=== PATIENT | male | born 1945 | race Caucasian/White ===

== ENCOUNTER → 2017-06-15 | Outpatient (CLI) | payer OTHER ==
[~2017-06-15] MED LIST: ACET-1138 PO; ALT5 PO; ASPEC81 PO; ATOR-54 PO; CLB200 PO; CLOP1TAB15 PO; GADAVIST IV PRN; METO25TA3 PO; MULT-506 PO; NIAC500T11 PO; NITR0.4S UT; OXYSR10 PO; RXC5 PO
--- NOTE | 2017-06-15 17:53 | DIAGNOSTIC IMAGING REPORT ---
MRI OF THE BRAIN WITHOUT AND WITH IV CONTRAST CLINICAL HISTORY: Dizziness. Imbalance. COMPARISON STUDY: Head CT November 17, 2013. TECHNIQUE: Utilizing a 1.5 Ami magnet and dedicated coil, multiplanar, multiecho imaging of the brain was performed pre and postcontrast administration. IV administration of 11 mL of Gadavist contrast was uneventful. FINDINGS: No foci of restricted diffusion are noted. No acute intracranial hemorrhage, midline shift or mass effect is present. Ventricular dilatation is unchanged since head CT of November 17, 2013 and likely due to atrophy. Basilar cisterns are patent. There are no extra-axial collections. Flow-voids for the major intracranial vessels are present. There is no intracranial mass or pathologic enhancement. There is moderate polypoid mucosal thickening of the left maxillary sinus. There is mild mucosal thickening of the ethmoid and sphenoid sinuses. Calvarial signal is unremarkable. Moderate white matter T2 hyperintense foci suggest small vessel disease. There is no fluid within the mastoid air cells. No mass within the internal auditory canals or cerebellopontine angles is identified on this nondedicated exam. IMPRESSION: 1. No acute intracranial findings. 2. No intracranial mass or pathologic enhancement. 3. Moderate small vessel disease and atrophy. Electronically signed by: Segundo Jameson M.D. 06/15/2017 5:52 PM Dictated Date/Time: 06/15/2017 5:47 PM
== END | disposition home or self-care (01) ==
LOC: C.MRI 16:56
PROVIDERS: ATTEND Psychiatry & Neurology Neurology
DX: R26.89 Other abnormalities of gait and mobility (principal)

== ENCOUNTER 2017-10-13 03:07 | Emergency (ER) | payer OTHER ==
[~2017-10-13] VITALS: Ht 172.7 cm; Wt 110.5 kg
[~2017-10-13 03:07] MED LIST changes: -GADAVIST IV PRN
[2017-10-13 03:12] VITALS: TEMP 37.1; Ht 172.7 cm; Wt 110.5 kg
[2017-10-13] MEDS ORDERED: SODIUM CHLORIDE 0.9% 500ML 500 ML IV STA (03:26)
[2017-10-13] MEDS ORDERED: KETOROLAC TROMETHAMINE 30 MG/ML VIAL IV STA (03:26)
--- NOTE | 2017-10-13 03:33 | EMERGENCY ROOM VISIT NOTE ---
History First contact with patient: 03:17 Chief Complaint: WEAKNESS Stated Complaint: DIZZINESS,BACK PAIN,UNABLE TO GET OUT OF BED Nursing Triage Summary: Patient reports unsteady on feet, tremors that he is currently being evaluated for. Patient reports heavy lifting yesterday and back pain. Patient wearing halter monitor. History of Present Illness The patient is a 72 year old male who presents to the Emergency Room for evaluation of low back pain. Notes that he was working hard yesterday lifting blocks making a wall. Went to bed this evening with low back soreness. Awoke a few hours later with severe low back pain and difficulty standing due to pain. Associated with nothing. No fevers, chills, nausea, vomiting, urinary burning, abdominal pain, leg pain, leg swelling, rashes, cp, sob, headache, neck pain. There is no radiation of pain. He has chronic urinary frequency/ urgency which is unchanged. He has taken no medications for this. He had no trauma nor injury nor fall. Denies leg weakness, bowel changes nor changes in bladder (admits urinary issues stable). Walking/sitting up makes worse. Laying flat/still makes better. Notes chronic dizziness, shaking, and ambulatory disfunction which he follows with PCP/Neurologist for and these are not worsened. He has cardiac LBBB for which he has continuous monitor. Denies previous back issues. Takes Plavix though no Coumadin, Xarelto etc. Review of Systems See HPI for pertinent positives & negatives. A total of 10 systems reviewed and were otherwise negative. Past Medical/Surgical History Medical Problems: (1) Arthritis of knee (2) CAD (coronary artery disease) (3) Carpal tunnel syndrome (4) Hernia, diaphragmatic Surgical Problems: (1) Hx of appendectomy (2) Hx of CABG (3) S/P appendectomy (4) S/P CABG (coronary artery bypass graft) 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 Smoking Status: Former Smoker Drug Use: none Marital Status: Housing Status: lives with family Occupation Status: employed Current/Historical Medications Scheduled Aspirin Enteric Coated (Ecotrin Or Generic), 81 MG PO HS Atorvastatin (Lipitor), 20 MG PO HS Celecoxib (CeleBREX), 200 MG PO HS Clopidogrel (Plavix), 75 MG PO HS Metoprolol Succ (Toprol Xl) (Toprol-Xl), 12.5 MG PO HS Multivitamin (Multivitamin), 1 TAB PO HS Niacin (Niacin), 500 MG PO HS Nitroglycerin (Nitrostat), 0.4 MG UT PRN Ramipril (Ramipril), 5 MG PO HS Scheduled PRN Acetaminophen (Tylenol), 1,000 MG PO DIRECTED PRN for Pain Diazepam (Valium), 1 TAB PO BID PRN for Pain Physical Exam Vital Signs Date Time Temp Pulse Resp B/P (MAP) Pulse Ox O2 Delivery O2 Flow Rate FiO2 10/13/17 05:54 78 16 130/76 98 10/13/17 04:54 71 16 134/71 94 Room Air 10/13/17 03:12 37.1 97 18 109/67 93 Room Air Physical Exam GENERAL: Patient is well appearing and in mild distress. EYES: No scleral icterus, unremarkable pupils. ENT: Mucous membranes moist, no nasal congestion. NECK: No masses appreciated, no meningismus, trachea is midline. RESPIRATORY: No dyspnea. Clear to auscultation and equal bilaterally. No wheeze , no rhonchi. CARDIOVASCULAR: Regular rate and rhythm. Halter Monitor left upper chest. No murmurs, rubs, gallops appreciated. GASTROINTESTINAL: Abdomen soft, nontender, no peritonitis. Bowel sounds positive. No masses appreciated. BACK: No midline tenderness, there is TTP over bilateral lumbar paraspinal muscles with spasm, no CVA tenderness EXTREMITIES: Normal motion all extremities, no cyanosis, no edema. NEUROLOGIC: Persistent tremor in hands/jaw (chronic per ). Alert and oriented, no acute motor or sensory deficits, no focal weakness, cranial nerves grossly intact. SKIN: No rash, no jaundice, no diaphoresis. Medical Decision & Procedures Laboratory Results 10/13/17 03:30 Red Blood Count 5.17, Mean Corpuscular Volume 87.8, Mean Corpuscular Hemoglobin 29.8, Mean Corpuscular Hemoglobin Concent 33.9, Mean Platelet Volume 10.2, Neutrophils (%) (Auto) 63.6, Lymphocytes (%) (Auto) 20.1, Monocytes (%) (Auto) 15.1, Eosinophils (%) (Auto) 0.8, Basophils (%) (Auto) 0.2, Neutrophils # (Auto ) 4.09, Lymphocytes # (Auto) 1.29, Monocytes # (Auto) 0.97, Eosinophils # (Auto ) 0.05, Basophils # (Auto) 0.01 10/13/17 03:30 Test 10/13/17 03:30 10/13/17 05:00 White Blood Count 6.42 K/uL (4.8-10.8) Red Blood Count 5.17 M/uL (4.7-6.1) Hemoglobin 15.4 g/dL (14.0-18.0) Hematocrit 45.4 % (42-52) Mean Corpuscular Volume 87.8 fL (80-100) Mean Corpuscular Hemoglobin 29.8 pg (25-34) Mean Corpuscular Hemoglobin Concent 33.9 g/dl (32-36) Platelet Count 179 K/uL (130-400) Mean Platelet Volume 10.2 fL (7.4-10.4) Neutrophils (%) (Auto) 63.6 % Lymphocytes (%) (Auto) 20.1 % Monocytes (%) (Auto) 15.1 % Eosinophils (%) (Auto) 0.8 % Basophils (%) (Auto) 0.2 % Neutrophils # (Auto) 4.09 K/uL (1.4-6.5) Lymphocytes # (Auto) 1.29 K/uL (1.2-3.4) Monocytes # (Auto) 0.97 K/uL (0.11-0.59) Eosinophils # (Auto) 0.05 K/uL (0-0.5) Basophils # (Auto) 0.01 K/uL (0-0.2) RDW Standard Deviation 46.4 fL (36.4-46.3) RDW Coefficient of Variation 14.5 % (11.5-14.5) Immature Granulocyte % (Auto) 0.2 % Immature Granulocyte # (Auto) 0.01 K/uL (0.00-0.02) Anion Gap 4.0 mmol/L (3-11) Est Creatinine Clear Calc Drug Dose 87.5 ml/min Estimated GFR () 96.0 Estimated GFR (Non- 82.8 BUN/Creatinine Ratio 16.7 (10-20) Calcium Level 8.8 mg/dl (8.5-10.1) Total Creatine Kinase 88 U/L (39-308) Urine Color DK YELLOW Urine Appearance CLEAR (CLEAR) Urine pH 5.5 (4.5-7.5) Urine Specific [place] 1.026 (1.000-1.030) Urine Protein NEG (NEG) Urine Glucose (UA) NEG (NEG) Urine Ketones NEG (NEG) Urine Occult Blood NEG (NEG) Urine Nitrite NEG (NEG) Urine Bilirubin NEG (NEG) Urine Urobilinogen NEG (NEG) Urine Leukocyte Esterase TRACE (NEG) Urine WBC (Auto) 1-5 /hpf (0-5) Urine RBC (Auto) 0-4 /hpf (0-4) Urine Hyaline Casts (Auto) 5-10 /lpf (0-5) Urine Epithelial Cells (Auto) >30 /lpf (0-5) Urine Bacteria (Auto) NEG (NEG) Medications Administered Medications (Trade) Dose Ordered Sig/Angelita Route Start Time Stop Time Status Last Admin Dose Admin Ketorolac Tromethamine (Toradol Inj) 10 mg NOW STAT IV 10/13/17 03:26 10/13/17 03:28 DC 10/13/17 03:50 10 MG Sodium Chloride 500 ml @ 999 mls/hr Q31M STAT IV 10/13/17 03:26 10/13/17 03:56 DC 10/13/17 03:50 999 MLS/HR Medical Decision Differential: Musculoskeletal, Disc Herniation, Fracture, Cord Compression, Discitis, Infectious, Aortic Pathology, Renal Colic, UTI/Pyelonephritis, Acute Exacerbation of Chronic Pain, Sciatica, Cauda Equina, amongst other pathologies entertained. 72 yr old male arrives for evaluation of acute low back pain without neurologic deficits after lifting heavy blocks all yesterday. Seems muscular in nature though felt xrays reasonable which reveal some anterolisthesis and degenerative changes without fractures appreciated. Symptoms bearable with some IV toradol and fluids. No evidence of cauda equina, sciatica, infectious, colic, aortic nor other acute pathology. 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 Furthermore we discussed symptoms requiring emergent RTED. Head Trauma GCS Score: 15 Medication Reconcilliation Current Medication List: was personally reviewed by me Blood Pressure Screening Patient's blood pressure: Normal blood pressure Impression Primary Impression: Acute lumbar back pain Departure Information Dispostion Home / Self-Care Condition GOOD Prescriptions Diazepam (VALIUM) 5 Mg Tab 1 TAB PO BID Y for Pain, #10 TAB Prov: Ricardo Reyna M.D. 10/13/17 Referrals Crystal Walter DO (PCP) Patient Instructions Low Back Pain Self Care, [facility] Additional Instructions You have received a benzodiazepine medication prescription. These medications may cause drowsiness and should not be used with other sedative medications. Do not drive, drink alcohol, perform dangerous activities, nor make important decisions after taking these medications. oil heaterman use or inappropriate use may lead to addiction. 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
[2017-10-13] MEDS ORDERED: ACET-1256 PO (03:35)
[2017-10-13] MEDS ORDERED: RAMI5CAP PO (03:35)
[2017-10-13] MEDS ORDERED: CLB/200 PO (03:35)
[2017-10-13] MEDS ORDERED: ASPI-319 PO (03:35)
[2017-10-13 03:44] LABS: BASO % 0.2 %; BASO ABS # 0.01 K/uL (0-0.2); EOS % 0.8 %; EOS ABS # 0.05 K/uL (0-0.5); HEMATOCRIT 45.4 % (42-52); HEMOGLOBIN 15.4 g/dL (14.0-18.0); IG# 0.01 K/uL (0.00-0.02); LYMPH % 20.1 %; LYMPH ABS # 1.29 K/uL (1.2-3.4); MEAN CELL VOLUME 87.8 fL (80-100); MEAN CORPUSCULAR HEMOGLOBIN 29.8 pg (25-34); MEAN CORPUSCULAR HGB CONC 33.9 g/dl (32-36); MEAN PLATELET VOLUME 10.2 fL (7.4-10.4); MONO % 15.1 %; MONO ABS # 0.97 K/uL (0.11-0.59); NEUT % 63.6 %; NEUT ABS # 4.09 K/uL (1.4-6.5); PLATELET COUNT 179 K/uL (130-400); RED CELL DISTRIBUTION WIDTH CV 14.5 % (11.5-14.5); RED CELL DISTRIBUTION WIDTH SD 46.4 fL (36.4-46.3); WHITE BLOOD COUNT 6.42 K/uL (4.8-10.8)
[2017-10-13 04:12] LABS: CALCIUM 8.8 mg/dl (8.5-10.1); CREATININE 0.92 mg/dl (0.60-1.40)
[2017-10-13] MEDS ORDERED: DIAZEPAM 5MG TAB PO STA (05:37)
[2017-10-13] MEDS ORDERED: DIAZ5TAB3 PO (05:38)
[2017-10-13 05:54] VITALS: BP 130/76; PULSE 78; O2SAT 98
--- NOTE | 2017-10-13 06:58 | DIAGNOSTIC IMAGING REPORT ---
L-SPINE MIN 4 VIEWS ROUTINE HISTORY: Pain low back pain/spasm after lifting blocks yesterday COMPARISON: None. FINDINGS: There is no fracture. Minimal grade 1 anterolisthesis L4 on L5. This appears to be secondary to degenerative changes of posterior elements. No evidence for compression deformity. Moderate degenerative disc change primarily from L3 through S1. IMPRESSION: 1. Moderate degenerative changes mid to lower lumbar region. 2. No acute process. 3. Minimal grade 1 anterolisthesis L4 and L5 secondary to degenerative changes of the posterior elements. The above report was generated using voice recognition software. It may contain grammatical, syntax or spelling errors. Electronically signed by: Tristan Anand M.D. 10/13/2017 6:57 AM Dictated Date/Time: 10/13/2017 6:56 AM
== END 2017-10-13 05:55 | disposition home or self-care (01) ==
LOC: C.EDB 03:09
DX: M54.5 Low back pain (principal); X50.0XXA Overexertion from strenuous movement or load, initial encounter; R39.15 Urgency of urination; R35.0 Frequency of micturition; I44.7 Left bundle-branch block, unspecified; R25.1 Tremor, unspecified; M17.10 Unilateral primary osteoarthritis, unspecified knee; I25.10 Atherosclerotic heart disease of native coronary artery without angina pectoris; Z95.1 Presence of aortocoronary bypass graft; Z87.891 Personal history of nicotine dependence; Z79.82 Long term (current) use of aspirin; Z79.01 Long term (current) use of anticoagulants; Z79.899 Other long term (current) drug therapy

== ENCOUNTER 2018-06-08 07:20 | Observation (INO) ==
[~2018-06-08 07:20] MED LIST changes: -ACET-1138 PO; -ALT5 PO; -ASPEC81 PO; -ATOR-54 PO; +CEFAZOLIN 1000MG 1,000 MG/7.5 ML SYR IV SCH; -CLB200 PO; -CLOP1TAB15 PO; -METO25TA3 PO; -MULT-506 PO; -NIAC500T11 PO; -NITR0.4S UT; -OXYSR10 PO; +PATIENT'S HEIGHT AND/OR WEIGHT NEEDED SCH; -RXC5 PO
[2018-06-08] MEDS ORDERED: BUPIVACAINE 0.25% 30 ML VIAL ONE (07:45)
[2018-06-08] MEDS ORDERED: LIDOCAINE HCL 1% 20 ML VIAL ONE (07:45)
[2018-06-08] MEDS ORDERED: BACITRACIN INJ 50,000 UNIT VIAL ONE (07:45)
--- NOTE | 2018-06-08 08:15 | History & Physical Bridge Note ---
Date of Service June 08, 2018 History & Physical Bridge Note I have examined the patient, reviewed the History & Physical and in the interval since the performance of the History & Physical I have noted the following changes of clinical significance: no changes noted
--- NOTE | 2018-06-08 08:16 | Pre Anesthesia Assessment ---
Date of Service June 08, 2018 Pre Sedation Assessment Cardiovascular RRR, no murmur, no edema + bradycardic Respiratory normal respiratory effort, lungs clear to auscultation Pre-Sedation Airway Assessment Smoking Status: Former smoker Hx Sleep Apnea: No Hx Difficult Intubation: No Short, Thick Neck: No Thyromental Distance: < 3.5 Finger Breadths Oral Cavity: + Dentures Mallampati Class: II ASA: ASA3 Notes The planned sedation has been discussed with the patient. Informed Consent was obtained. I have identified the patient, determined the appropriateness of sedation and have assessed the patient immediately prior to the procedure. All medicine(s) and interventions are by my order.
[2018-06-08] MEDS ORDERED: fentaNYL citrate 100 MCG/2 ML VIAL ONE ×2 (08:53→09:28)
[2018-06-08] MEDS ORDERED: CEFAZOLIN 250 MG/ML 1 GM VIAL ONE (08:54)
[2018-06-08] MEDS ORDERED: MIDAZOLAM HCL 5 MG/ML 1 ML VIAL ONE (08:54)
[2018-06-08] MEDS ORDERED: WATER, STERILE FOR INJ 10 ML VIAL ONE (08:54)
[2018-06-08] MEDS ORDERED: MIDAZOLAM HCL 1 MG/ML 2ML VIAL ONE (09:47)
[2018-06-08] MEDS ORDERED: DOPamine 400MG / 250ML D5W IV ONE (10:28)
--- NOTE | 2018-06-08 11:20 | Post Anesthesia Assessment ---
Date of Service June 08, 2018 Post Sedation Assessment Vital Signs Temp Pulse Resp BP Pulse Ox 06/08/18 08:21 36.5 C 56 L 16 145/86 H 95 Recovery Score Activity: Moves 4 extremities Respiration: Deep Breath/Cough Circulation: +/-20% PreAnes Value Consciousness: Fully Awake Oxygen Saturation: > 92% On Room Air Discharge Sedation Level of Care: Fast Track Phase II Post Sedation Plan On clinical assessment, the patient appears to have tolerated the sedation without complications. Patient is recovering as anticipated. Patient will continue to be monitored by nursing and may be discharged when sedation discharge criteria are met per below protocol. Upon Completions of procedure and additional 15 minutes continue every 5 minute vital signs and the P.A.R. score; then discharge to a Phase I or Fast Track to Phase II per the following guidelines: * Discharge Patient to appropriate Phase II area if PAR is 8 or greater or return to pre- procedure baseline. The post - procedure orders will be as directed. * If PAR score is less than 8 or not return to pre-procedure baseline then patient will follow Phase I monitoring till PAR is reached for Phase II. The Phase I may be done in procedure room or may call to secure a Phase I area. * If naloxone or flumazenil are used for reversal, hold in Phase I for continued monitoring from when last reversal dose was given for a minimum of 60 minutes or longer pending the nurse and/or physician discretion of patient condition before discharge to Phase II. Please call the Sedation Physician to re-evaluate and complete post-note for discharge to Phase II area. Do NOT discharge from procedure sedation or Phase 1 until post- sedation evaluation note is complete by procedure /sedation MD Sedation Discharge Instructions to be given to the patient at discharge to home.
[2018-06-08] MEDS ORDERED: ACETAMINOPHEN 325 MG TAB PO PRN (11:22)
[2018-06-08] MEDS ORDERED: OXYCODONE/ACETAMINOPHEN 5mg/325mg TAB PO PRN (11:22)
--- NOTE | 2018-06-08 11:22 | Operative Report ---
Post Operative Report Date of Surgery June 08, 2018 Pre & Post Diagnosis tbs Operation Date: 06/08/18 09:00 <No data on this case meets the specified criteria> Procedure Operation Date: 06/08/18 09:00 Actual Procedures p Pacer with A/V Leads (Dual) - Izabel Martel DO s Venogram Extremity Unilateral - Izabel Martel DO Surgeon Izabel Martel DO Single End Sewer none Estimated Blood Loss 50 Findings See Below (see official report) Specimens none I attest to the content of the Intraoperative Record and any orders documented therein. Any exceptions are noted below.
[2018-06-08] MEDS ORDERED: MoRPHine SULFATE 2 MG/ML CARP ONE (11:24)
--- NOTE | 2018-06-08 11:29 | Discharge Summary ---
Date of Service June 08, 2018 Admission HPI pt admitted for elective ppm due to TBS Admission Exam Per Admitting Provider aaox3, NAD NC/AT, EOMI Supple, No JVD Nrl S1/S2, no murmur CTA b/l No w/r/r soft NT/ND No edema b/l LE No focal deficits Skin intact Principal Diagnosis Principal Diagnosis TBS s/p dual chamber pacemaker Discharge Exam aaox3, NAD NC/AT, EOMI Supple, No JVD Nrl S1/S2, no murmur CTA b/l No w/r/r soft NT/ND No edema b/l LE No focal deficits Skin intact Left pectoral incision intact no hematoma Discharge Data Allergies Allergy/AdvReac Type Severity Reaction Status Date / Time No Known Allergies Allergy Verified 10/13/17 03:31 Procedures Performed Operation Date: 06/08/18 09:00 Actual Procedures p Pacer with A/V Leads (Dual) - Izabel Martel DO s Venogram Extremity Unilateral - Izabel Martel DO Ordered Studies 06/08/18 07:30 EP Lab Images for PACS ONCE Hospital Course (1) Tachy-rebecca syndrome: (2) PAT (paroxysmal atrial tachycardia): Total Time Total Time Spent Total Time Spent (In Minutes): 30 Total Time Includes: Examination of the Patient, Medication Reconciliation and Other Discharge Plan Discharge Items Patient Disposition: Home - Self-Care Reason For Visit: S/P PACER INSERTION Discharge Diagnosis: tbs s/p dual chamber ppm Condition: Good Discharge Goals: Improve function Activity: As commented below Activity Comment: do not lift the left elbow over the left shoulder for 1 month Lifting: No more than 10 pounds Lifting Comment: do not lift more than 10 pounds with the left arm for 2 weeks Bathing: May shower/bathe in 3 days Driving/Machine Use: Resume 3 days after discharge Non-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 contact: Forestry 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 Call non-emergency contact if: you have any medication questions Follow-up/Referrals: Crystal Walter [Primary Care Provider] - Diet: Heart Healthy Addtl Provider Instructions: none Prescriptions: New metoprolol succinate 25 mg Tablet Extended Release 24 Hr 25 mg PO QAM Qty: 30 RF: 0 Continue Multivitamin tablet 1 tab PO HS Qty: 0 RF: 0 Niacin 500 MG tablet 500 mg PO HS Qty: 0 RF: 0 ATORVASTATIN (LIPITOR) 20 MG tablet 20 mg PO HS Qty: 0 RF: 0 Clopidogrel (Plavix) 75 MG tablet 75 mg PO HS Qty: 0 RF: 0 NITROGLYCERIN (NITROSTAT) 0.4 MG SUB 0.4 mg UT PRN Qty: 0 RF: 0 Aspirin Enteric Coated (Ecotrin Or Generic) 81 MG tablet 81 mg PO HS Qty: 0 RF: 0 RAMIPRIL 5 MG capsule 5 mg PO HS Qty: 0 RF: 3 Flonase Allergy Relief 50 mcg aerosol 2 spray LINDA DAILY PRN (Reason: Nasal Congestion) RF: 0 escitalopram oxalate 10 mg tablet 10 mg PO DAILY RF: 0 Visit Report Forms: [facility] Discharge Orders: Discharge Order (Routine); Ordered 06/09/18 Ordered By: Izabel Martel Admission Data Admit Date/Time: 06/08/18 11:22 Attending Provider: Izabel Martel Admit Provider: Izabel Martel Primary Care Provider: Crystal Walter Service: Telemetry
[2018-06-08] MEDS ORDERED: FLUTICASONE PROPIONATE NA SPR 16 GM BTL PRN (12:00)
[2018-06-08] MEDS: METOPROLOL SUCC 25MG EXT REL TAB PO SCH (14:10)
[2018-06-08] MEDS ORDERED: CEFAZOLIN 1000MG 1,000 MG/7.5 ML SYR IV SCH (20:15)
[2018-06-08] MEDS ORDERED: NIACIN EXTENDED REL 500 MG TABCR PO SCH (21:00)
[2018-06-08] MEDS ORDERED: MULTIVITAMIN TAB PO SCH (21:00)
[2018-06-08] MEDS ORDERED: CLOPIDOGREL BISULFATE 75 MG TAB PO SCH (21:00)
[2018-06-08] MEDS ORDERED: ASPIRIN 81 MG ECTAB PO SCH (21:00)
[2018-06-08] MEDS ORDERED: ESCITALOPRAM OXALATE 10 MG TAB PO SCH (21:00)
[2018-06-08] MEDS ORDERED: ATORVASTATIN 20 MG TAB PO SCH (21:00)
[2018-06-08] MEDS ORDERED: ENALAPRIL MALEATE 10 MG TAB PO SCH (21:00)
--- NOTE | 2018-06-09 06:36 | XRay Report ---
XR chest 2V routine CLINICAL HISTORY: Pacemaker insertion. COMPARISON STUDY: Chest radiograph June 18, [address] August 12, 2015. FINDINGS: There is no pneumothorax following placement of a dual lead left subclavian pacemaker. Lead tips project over the right atrial appendage and right ventricle. There are median sternotomy wires and mediastinal surgical clips. Cardiomegaly is unchanged. There are calcified pleural plaques. Bilat eral shoulder arthroplasties are incidentally noted. There is no evidence for pulmonary edema. Modera te sized hiatal hernia is noted. IMPRESSION: No pneumothorax following placement of a dual lead left subclavian pacemaker. Electronically signed by: Segundo Jameson M.D. 06/09/2018 6:34 AM
[2018-06-09] MEDS: METOPROLOL SUCC 25MG EXT REL TAB PO SCH (07:42)
[2018-06-09] MEDS ORDERED: ESCITALOPRAM OXALATE 10 MG TAB PO SCH (09:00)
--- NOTE | 2018-06-23 22:24 | Operative Report ---
DATE OF OPERATION: 06/08/2018 PREOPERATIVE DIAGNOSIS: Tachy-rebecca syndrome. POSTOPERATIVE DIAGNOSIS: Same. PROCEDURE: Dual chamber rate responsive permanent pacemaker under fluoroscopic guidance along with a peripheral venogram. SURGEON: Izabel Martel DO [employer]CHOOL NURSE: None. ANESTHESIA: Moderate conscious sedation administered under my supervision by Duane Husain. Start time 8:59, end time 11:16, a total of 7 mg of Versed, 175 mcg of fentanyl. IV FLUIDS: 300 mL ANTIBIOTICS: 2 grams of Ancef. CONTRAST: 10 mL. BLOOD LOSS: Less than 20 mL. FINDINGS: See below. DRAINS: None. INDICATIONS: A 72-year-old gentleman with past medical history for paroxysmal atrial fibrillation, right bundle branch block, hypertension, sinus bradycardia, nonsustained VT, coronary artery disease with history of a CABG and PCI in the past, hyperlipidemia, obstructive sleep apnea on CPAP, and osteoarthritis. He has had recent evidence of tachy-rebecca syndrome and was recommended a pacemaker. CONSENT: Consent was obtained prior to the patient going to the electrophysiology lab. The patient was informed of the risks, benefits, and alternatives to the procedure. Risks include, but not limited to, sudden cardiac , cardiac arrhythmias, cerebrovascular accident, myocardial infarction, injury to blood vessels, chamber of the lung, bleeding, and infection. The patient understood these risks and agreed to go ahead with the procedure as planned. Informed consent was obtained. DESCRIPTION OF THE PROCEDURE: The patient was brought into the electrophysiology lab in a fasting state. Patient was connected to continuous ceo na. A timeout was performed to ensure patient's identity and procedure correctly. The patient was prepped and draped over the left infraclavicular space in normal surgical standard fashion. Monitored conscious sedation given throughout the procedure for patient's comfort level. Downing precautions were maintained throughout the procedure. A 10 mL of 1% lidocaine and bupivacaine mixture was given in the left deltopectoral groove. Incision was made in the left deltopectoral groove. Blunt dissection was performed down to identify cephalic vein. Initially, the cephalic vein was identified, however, and isolated using 0 silk ties and nicked with an 11 blade. However, I could never really insert the sheath very well over the Glidewire and ultimately I put the sheath the little bit in and found that the vein was dissected. So I tied off that vein and did a peripheral venogram to identify the axillary vein. Then with an axillary venous stick, venous access was obtained. A guidewire was inserted without any resistance. The 8-Eritrean sheath was inserted over the guidewire. Of note, his peripheral venogram did show that the subclavian vein was very tortuous. I did get a Glidewire down without any problems and an 8-Eritrean sheath through that guidewire, removed the dilator and was able to get a regular guidewire down for retained venous access. However, when trying to get the right ventricular lead in, due to the tortuosity of the proximal subclavian vein, I was having difficulty. I tried an 8-Eritrean sheath followed by a long Eritrean sheath and 9.5-Eritrean sheath. Ultimately, long Eritrean 9.5-Eritrean sheath worked and I was able to place the right ventricular pacing lead under fluoroscopic guidance in the apex with adequate pacing and sensing thresholds. I opted to keep the sheath in and then placed a second sheath through the retained venous access, a short sheath. I was able to place then the right atrial pacing lead into the right atrial appendage under fluoroscopic guidance. I ultimately needed to do the shi preformed stylet curve and there was adequate pacing and sensing thresholds and no diaphragmatic stimulation with high output pacing. Both sheaths were then peeled away and the leads were fixated to the pectoralis muscle using the 0 silk suture. I did put a pursestring in around too since there was some backbleeding at the site using a 2-[address] needle. Then, a pacemaker pocket was created using blunt dissection over the pectoralis muscle within the pectoralis fascia. Pocket was flushed with copious amounts of bacitracin and saline wash and inspected for hemostasis. The pulse generator was then attached to the leads, making sure that the pins were in appropriate position, passed set screws, and the screws were all tightened. Pulse generator was then placed in the pocket, making sure that the leads were lying flat beneath the device. A stay stitch using 0 silk suture was used to secure the device to the pectoralis muscle. The incision was then closed in a 3-layer fashion using 2-0 Vicryl interrupted suture followed by 3-0 Vicryl interrupted suture, followed by 4-0 Monocryl running stitch and Dermabond was applied. Before I closed, I did put Tere stat in the pocket as well. Also, during the case, when I was trying to position the right ventricular lead, I think I bumped the AV node a little bit because the patient did rebecca down a little bit and his blood pressure dropped, but this also did coincide with him getting another higher dose of sedation, but we did give a bolus of IV fluids and he remains to be able to hold on. EQUIPMENT: 1. Pulse generator is a [employer] Teresa XT DR RITIKA Baez [id number], serial number [id number]. 2. Right atrial lead, Med[employer]onic 5076-58 cm, serial number [id number]. 3. Right ventricular lead, Med[employer]onic 5076-65 cm, serial number [id number]. INTRAOPERATIVE TESTIN. Right atrial lead, P waves 1.5 millivolts, impedance 700 ohms, threshold 0.4 volts at 0.5 milliamps. 2. Right ventricular lead, R-wave 7.6 millivolts, impedance 1035 ohms, threshold 0.4 volts at 0.3 milliamps. FINAL MEASUREMENTS THROUGH THE DEVICE: 1. Right atrial lead: P waves 1.5 millivolts, impedance 608 ohms, threshold 0.5 volts at 0.4 milliseconds. 2. Right ventricular lead, R waves 11.5 millivolts, impedance 779 ohms, threshold 0.5 volts at 0.4 milliseconds. FINAL PARAMETERS: MVP-R 60/130, right atrial amplitude 3.5 volts, pulse width 0.4 milliseconds, sensitivity 0.3 millivolts. Right ventricular amplitude, 3.5 volts, pulse width 0.4 milliseconds, sensitivity 1.2 millivolts. IMPRESSION: Successful implantation of a dual chamber rate responsive permanent pacemaker under fluoroscopic guidance along with peripheral venogram secondary to tachy-rebecca syndrome. PLAN: Monitor patient overnight, 12-lead ECG, chest x-ray. He is not allowed to lift the left elbow or left shoulder for 1 month. He cannot lift more than 10 pounds with the left arm for 2 weeks. He can shower in 2 days, let water run over the incision, do not scrub it. He is to follow up in our device clinic in 7-10 days for device and wound check. I attest to the content of the Intraoperative Record and any orders documented therein. Any exception s are noted below.
== END 2018-06-09 10:25 | disposition home or self-care (01) ==
LOC: 2S 07:20 → ASU 07:20 → 2E 21:57

== ENCOUNTER 2022-02-17 06:45 | Observation (INO) ==
[2022-02-17 07:37] LABS: Basophils # (auto) 0.01 K/uL (0-0.2); Basophils % (auto) 0.1 %; Eosinophils # (auto) 0.29 K/uL (0-0.50); Eosinophils % (auto) 4.3 %; Hematocrit (blood only) 42.8 % (40.1-51.0); Hemoglobin 13.7 g/dl (14.0-18.0); Immature Granulocytes # (auto) 0.02 K/uL (0.00-0.02); Immature Granulocytes % (auto) 0.3 %; Lymphocytes # (auto) 1.38 K/uL (1.2-3.4); Lymphocytes % (auto) 20.6 %; Mean Corpuscular Hemoglobin 29.1 pg (25.0-34.0); Mean Corpuscular Volume 90.9 fL (80.0-100.0); Mean Platelet Volume 10.5 fL (9.4-12.4); Monocytes # (auto) 0.56 K/uL (0.24-0.82); Monocytes % (auto) 8.4 %; Neutrophils # (auto) 4.43 K/uL (1.4-6.5); Neutrophils % (auto) 66.3 %; Platelet Count 198 K/uL (130-400); RDW Coefficient of Variation 14.6 % (11.5-14.5); Red Blood Count 4.71 M/uL (4.63-6.08); White Blood Count 6.69 K/ul (4.8-10.8)
--- NOTE | 2022-02-17 07:38 | Emergency Department Note ---
Impression & Plan AMS (altered mental status) ED Provider Note NAME: JALEEL BREWSTER AGE: 76 SEX: M : 1945 ARRIVES VIA: Walk-In INFORMANT: Patient, patient's significant other ED PROVIDER(S): Jarrett Dill DO CHIEF COMPLAINT: Change in mental status HPI: The patient is a 76-year-old male who presented to the emergency department after having an episode where he became very weak and fell out of his car when he went to work. According to his significant other the patient's been having some symptoms over the course of the last year. The patient has been having issues where he has some confusion. At baseline he does have a resting tremor. He was diagnosed with early dementia. According to his significant other he will fall asleep very easily and has a difficult time staying awake. He was diagnosed with obstructive sleep apnea and does use a CPAP machine. He denies having any headache nausea or vomiting at this time. He denies having any injury from the fall out of his vehicle. He states he did land on his knees. He has had no difficulty standing. He has no back pain. He denies having any chest pain or difficulty breathing. His significant other states that his mental status at this time is consistent with how he normally would be at this time the day however today he was going to his job and did drive himself to work. There is been no reported seizure headache. There is been no reported trauma otherwise. ROS: See above HPI for pertinent positives & negatives. A total of 10 systems reviewed and were otherwise negative. PAST MEDICAL HISTORY: See Below PAST SURGICAL HISTORY: See Below FAMILY HISTORY: See Below SOCIAL HISTORY: See Below HOME MEDICATIONS: See Below ALLERGIES: See Below VITALS: See Below PHYSICAL EXAMINATION: GENERAL: The patient is awake to verbal commands. Otherwise he falls asleep easily. EYES: The conjunctivae are clear. The pupils are round and reactive. EARS, NOSE, MOUTH AND THROAT: The nose is without any evidence of any deformity. Mucous membranes are moist. Tongue is midline. NECK: The neck is nontender and supple. RESPIRATORY: Tachypnea was noted with rales at the left base. There is no wheezing. There were no retractions. CARDIOVASCULAR: Regular rate and rhythm noted there no murmurs rubs or gallops normal S1 normal S2. GASTROINTESTINAL: The abdomen is soft. Abdomen is nontender. MUSCULOSKELETAL/EXTREMITIES: There is no evidence of gross deformity full range of motion is noted in the hips and shoulders. SKIN: There is no obvious evidence of any rash. Skin is warm and dry. NEUROLOGIC: Patient is awake to verbal commands. He is oriented to person place and situation. He recognizes his significant other. Patellar tendon reflexes are 1+ bilaterally. MEDICAL DECISION MAKING: The patient is a 76-year-old male who presented to the emergency department for an evaluation of altered mental status. The patient has had alteration in his mental status which has been worsening according to his significant other. He was able to drive but then today appeared to be weak and confused. The patient would fall asleep quickly and easily. I discussed patient's laboratory and radiographic studies with the patient significant other. Given his ongoing mental status I discussed this case with the on-call [facility] Hospitalist. They were able to determine the patient was started on a course of benzodiazepines recently by neurology. I am unsure if this is the cause of the patient's symptomatology although it would fit with his decreased mental status. Triage Nursing notes reviewed. Prior medical records reviewed Vital Signs: reviewed and remarkable for elevated blood pressure. Differential diagnosis: Infection, hypoglycemia, electrolyte abnormalities, overdose, toxicologic, card iac sources, intracerebral event, neurologic, trauma, as well as other pathologies. ER treatment provided: See below Diagnostics interpreted by me: ECG: EKG was obtained in the emergency department. My interpretation is sinus rhythm at 67 bpm. Paced beats were also noted. These were atrial paced beats. A right bundle branch block pattern with nonspecific T wave abnormalities were noted. This was compared to a tracing from June 08, 2018. No changes were noted. Cardiac Monitoring: An order was placed for continuous cardiac monitoring. The monitor shows a rate of 62 bpm with paced rhythm. Laboratory studies: As stated above and show below. Imaging studies: See below Consultation(s): I discussed this case with Daija who is on for the [facility] Hospitalist group. Past Med/Surg History Medical History (Updated 02/17/22 @ 13:17 by Jarrett Dill DO) Arthritis BPH (benign prostatic hyperplasia) CAD (coronary artery disease) S/P CABG x3 in 2001 with SMITH to LAD; SABRINA to PDA and Radial to LCX. PCI/rot oblation/stent VON RCA 2004 (performed due to SABRINA to PDA graft stenosis) and PCI/VON left main 2004 2011 cardiac cath demonstrated 3V CAD in the [place] vessels with patent SMITH to LAD graft, patent radial graft to the circumflex, and SABRINA graft to the R PDA had a 95% ostial stenosis that was unchanged compared to his last cardiac catheterization. The [place] RCA had a total occlusion (area that previously been stented). Continued medical management was recommended. 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 Parkinson disease Sleep apnea CPAP Surgical History History of cataract surgery R/L History of colonoscopy History of coronary artery bypass graft CABG x3 in 2001 with SMITH to LAD; SABRINA to PDA and Radial to LCX History of heart artery stent 2016 History of repair of rotator cuff R/L History of tonsillectomy History of tooth extraction History of total knee replacement R/L Hx of appendectomy Family History (Updated 02/17/22 @ 10:59 by Daija Doherty PA-C) Mother , 61 Pulmonary embolism Father , 74 Stroke Brother Coronary heart disease 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 Smoking Status: Former smoker Second Hand Exposure: No; Hx Alcohol Use: Yes Alcohol type: beer Hx Substance Use: No Preferred Language: Hebrew Communication Ability: Effective Oriental Rug Stretcher Required: No Beliefs That Will Affect Care: None Current Living Situation: Spouse Feels Safe at Home: Yes Assistive Devices: CPAP, Denture - Upper and Hearing Aid - Bilateral Allergies Allergies Allergy/AdvReac Type Severity Reaction Status Date / Time No Known Allergies Allergy Verified 10/22/21 09:47 Home Meds Home Medications Medication Instructions Recorded Confirmed aspirin 81 mg tablet,delayed 81 mg PO PM 02/05/21 02/17/22 release atorvastatin 20 mg tablet 20 mg PO PM 02/05/21 02/17/22 clopidogrel 75 mg tablet (Plavix) 75 mg PO QAM 02/05/21 02/17/22 duloxetine 60 mg capsule,delayed 60 mg PO QAM 02/05/21 02/17/22 release finasteride 5 mg tablet 5 mg PO PM 02/05/21 02/17/22 metformin 500 mg tablet 1,000 mg PO DAILY 02/05/21 02/17/22 multivitamin 1 tab PO HS 02/05/21 02/17/22 niacin 500 mg tablet 500 mg PO HS 02/05/21 02/17/22 ramipril 10 mg tablet 10 mg PO QAM 02/05/21 02/17/22 tamsulosin 0.4 mg capsule 0.4 mg PO DAILY 02/05/21 02/17/22 vitamin B complex 1 tab PO PM 02/05/21 02/17/22 clonazepam 1 mg tablet 1 mg PO BID 02/17/22 02/17/22 mirabegron 25 mg tablet,extended 25 mg PO DAILY 02/17/22 02/17/22 release 24 hr (Myrbetriq) Previous Rx's Medication Instructions Recorded metoprolol succinate 25 mg 25 mg PO QAM #30 tabs 06/08/18 tablet,extended release 24 hr CPAP Supplies #1 ea 02/27/19 CPAP Machine #1 ea 01/08/22 Results & Data (ED) Vital Signs Vital Signs - 24 hr 02/17/22 06:48 02/17/22 07:34 02/17/22 08:57 Temperature 36.4 C L Temperature Source Temporal Artery Scan Pulse Rate 65 64 Pulse Rate [Radial] 64 Pulse Rhythm Regular Pulse Rhythm [Radial] Regular Pulse Strength [Radial] Normal Respiratory Rate 20 20 20 Respiratory Effort / Characteristics Non-Labored Spontaneous Non-Labored Spontaneous Respiratory Depth Normal Normal Respiratory Pattern Regular Blood Pressure 164/108 H Blood Pressure [Right Arm] 160/91 H Blood Pressure Mean 126 Blood Pressure Mean [Right Arm] 114 Blood Pressure Position [Right Arm] Lying Pulse Oximetry 96 98 98 Oxygen Delivery Method Room Air Room Air Room Air Sepsis New/Unexplained Change in Mental Status N/A Sepsis Action Taken by Nursing No Action Required 02/17/22 10:50 02/17/22 12:09 Temperature Temperature Source Pulse Rate Pulse Rate [Radial] 62 62 Pulse Rhythm Pulse Rhythm [Radial] Regular Regular Pulse Strength [Radial] Normal Normal Respiratory Rate 20 17 Respiratory Effort / Characteristics Non-Labored Spontaneous Non-Labored Spontaneous Respiratory Depth Normal Normal Respiratory Pattern Regular Regular Blood Pressure Blood Pressure [Right Arm] 162/97 H 175/99 H Blood Pressure Mean Blood Pressure Mean [Right Arm] 118 124 Blood Pressure Position [Right Arm] Lying Lying Pulse Oximetry 98 100 Oxygen Delivery Method Room Air Room Air Sepsis New/Unexplained Change in Mental Status Sepsis Action Taken by Long Term Medications Current Medication List: was personally reviewed by me Laboratory Data Attestation: I reviewed the patient's lab results. Result diagrams: 02/17/22 07:09 02/17/22 07:09 Lab Results 02/17/22 02/17/22 02/17/22 Range/Units 07:09 07:09 07:09 WBC 6.69 (4.8-10.8) K/ul RBC 4.71 (4.63-6.08) M/uL Hgb 13.7 L (14.0-18.0) g/dl Hct 42.8 (40.1-51.0) % MCV 90.9 (80.0-100.0) fL MCH 29.1 (25.0-34.0) pg MCHC 32.0 (32.0-36.0) g/dL RDW Std Deviation 49.0 H (36.4-46.3) fL RDW Coeff of Nacho 14.6 H (11.5-14.5) % Plt Count 198 (130-400) K/uL MPV 10.5 (9.4-12.4) fL Immature Gran % (Auto) 0.3 % Neut % (Auto) 66.3 % Lymph % (Auto) 20.6 % [place] % (Auto) 8.4 % Eos % (Auto) 4.3 % Baso % (Auto) 0.1 % Neut # (Auto) 4.43 (1.4-6.5) K/uL Lymph # (Auto) 1.38 (1.2-3.4) K/uL [place] # (Auto) 0.56 (0.24-0.82) K/uL Eos # (Auto) 0.29 (0-0.50) K/uL Baso # (Auto) 0.01 (0-0.2) K/uL Immature Gran # (Auto) 0.02 (0.00-0.02) K/uL PT 11.6 (9.0-12.0) Seconds INR 1.1 (0.9-1.1) APTT 27.4 (21.0-31.0) Seconds PTT Ratio 1.0 VBG pH (7.36-7.41) VBG pCO2 (38-50) mmHg VBG pO2 mmHg VBG HCO3 mmol/L VBG O2 Saturation % VBG Base Excess mEq/L Sodium 138 (136-145) mmol/L Potassium 3.8 (3.5-5.1) mmol/L Chloride 104 (98-107) mmol/L Carbon Dioxide 27 (21-32) mmol/L Anion Gap 7 (3-11) BUN 22 (6-23) mg/dl Creatinine 0.76 (0.6-1.4) mg/dl Est Cr Clr Drug Dosing 99.1 ml/min Est GFR ( Amer) 102.7 ml/min Est GFR (Non-Af Amer) 88.6 ml/min BUN/Creatinine Ratio 28.9 H (10-20) Glucose 149 H (70-99(Fasting)) mg/dl Calcium 9.6 (8.5-10.1) mg/dl Magnesium 1.9 (1.7-2.4) mg/dl Total Bilirubin 0.9 (0.2-1.0) mg/dl AST 21 (13-39) U/L ALT 14 (7-52) U/L Alkaline Phosphatase 78 (34-104) U/L Ammonia (18-72) umol/L Total Creatine Kinase 118 (30-223) U/L Troponin I High Sens 6.3 (0-20) pg/ml B-Natriuretic Peptide (0-100) pg/ml Total Protein 6.8 (6.0-8.3) gm/dl Albumin 4.1 (3.4-5.0) gm/dl Globulin 2.7 (2.5-4.0) gm/dl Albumin/Globulin Ratio 1.5 (0.9-2) TSH (0.300-4.500) uIu/ml Urine Color Urine Appearance (Clear) Urine pH (4.5-7.5) Ur Specific [place] (1.000-1.030) Urine Protein (Negative) Urine Glucose (UA) (Negative) Urine Ketones (Negative) Urine Blood (Negative) Urine Nitrite (Negative) Urine Bilirubin (Negative) Urine Urobilinogen (Negative) Ur Leukocyte Esterase (Negative) Urine Opiates Screen (Neg) Ur Methadone, Qual (Neg) Urine Barbiturates (Neg) Ur Phencyclidine (PCP) (Neg) U Amphetamin/Meth Scrn (Neg) MDMA (Ecstasy) Screen (Neg) U Benzodiazepines Scrn (Neg) Ur Cocaine Metabolite (Neg) U Marijuana (THC) Screen (Neg) SARS-CoV-2, RNA, NAAT (NEGATIVE) 02/17/22 02/17/22 02/17/22 Range/Units 07:09 07:58 08:03 WBC (4.8-10.8) K/ul RBC (4.63-6.08) M/uL Hgb (14.0-18.0) g/dl Hct (40.1-51.0) % MCV (80.0-100.0) fL MCH (25.0-34.0) pg MCHC (32.0-36.0) g/dL RDW Std Deviation (36.4-46.3) fL RDW Coeff of Nacho (11.5-14.5) % Plt Count (130-400) K/uL MPV (9.4-12.4) fL Immature Gran % (Auto) % Neut % (Auto) % Lymph % (Auto) % [place] % (Auto) % Eos % (Auto) % Baso % (Auto) % Neut # (Auto) (1.4-6.5) K/uL Lymph # (Auto) (1.2-3.4) K/uL [place] # (Auto) (0.24-0.82) K/uL Eos # (Auto) (0-0.50) K/uL Baso # (Auto) (0-0.2) K/uL Immature Gran # (Auto) (0.00-0.02) K/uL PT (9.0-12.0) Seconds INR (0.9-1.1) APTT (21.0-31.0) Seconds PTT Ratio VBG pH (7.36-7.41) VBG pCO2 (38-50) mmHg VBG pO2 mmHg VBG HCO3 mmol/L VBG O2 Saturation % VBG Base Excess mEq/L Sodium (136-145) mmol/L Potassium (3.5-5.1) mmol/L Chloride (98-107) mmol/L Carbon Dioxide (21-32) mmol/L Anion Gap (3-11) BUN (6-23) mg/dl Creatinine (0.6-1.4) mg/dl Est Cr Clr Drug Dosing ml/min Est GFR ( Amer) ml/min Est GFR (Non-Af Amer) ml/min BUN/Creatinine Ratio (10-20) Glucose (70-99(Fasting)) mg/dl Calcium (8.5-10.1) mg/dl Magnesium (1.7-2.4) mg/dl Total Bilirubin (0.2-1.0) mg/dl AST (13-39) U/L ALT (7-52) U/L Alkaline Phosphatase (34-104) U/L Ammonia 45.0 (18-72) umol/L Total Creatine Kinase (30-223) U/L Troponin I High Sens (0-20) pg/ml B-Natriuretic Peptide 113 H (0-100) pg/ml Total Protein (6.0-8.3) gm/dl Albumin (3.4-5.0) gm/dl Globulin (2.5-4.0) gm/dl Albumin/Globulin Ratio (0.9-2) TSH 2.147 (0.300-4.500) uIu/ml Urine Color Urine Appearance (Clear) Urine pH (4.5-7.5) Ur Specific [place] (1.000-1.030) Urine Protein (Negative) Urine Glucose (UA) (Negative) Urine Ketones (Negative) Urine Blood (Negative) Urine Nitrite (Negative) Urine Bilirubin (Negative) Urine Urobilinogen (Negative) Ur Leukocyte Esterase (Negative) Urine Opiates Screen (Neg) Ur Methadone, Qual (Neg) Urine Barbiturates (Neg) Ur Phencyclidine (PCP) (Neg) U Amphetamin/Meth Scrn (Neg) MDMA (Ecstasy) Screen (Neg) U Benzodiazepines Scrn (Neg) Ur Cocaine Metabolite (Neg) U Marijuana (THC) Screen (Neg) SARS-CoV-2, RNA, NAAT (NEGATIVE) 02/17/22 02/17/22 02/17/22 Range/Units 08:03 08:54 08:54 WBC (4.8-10.8) K/ul RBC (4.63-6.08) M/uL Hgb (14.0-18.0) g/dl Hct (40.1-51.0) % MCV (80.0-100.0) fL MCH (25.0-34.0) pg MCHC (32.0-36.0) g/dL RDW Std Deviation (36.4-46.3) fL RDW Coeff of Nacho (11.5-14.5) % Plt Count (130-400) K/uL MPV (9.4-12.4) fL Immature Gran % (Auto) % Neut % (Auto) % Lymph % (Auto) % [place] % (Auto) % Eos % (Auto) % Baso % (Auto) % Neut # (Auto) (1.4-6.5) K/uL Lymph # (Auto) (1.2-3.4) K/uL [place] # (Auto) (0.24-0.82) K/uL Eos # (Auto) (0-0.50) K/uL Baso # (Auto) (0-0.2) K/uL Immature Gran # (Auto) (0.00-0.02) K/uL PT (9.0-12.0) Seconds INR (0.9-1.1) APTT (21.0-31.0) Seconds PTT Ratio VBG pH 7.42 H (7.36-7.41) VBG pCO2 43 (38-50) mmHg VBG pO2 49 mmHg VBG HCO3 28 mmol/L VBG O2 Saturation 85.6 % VBG Base Excess 2.9 mEq/L Sodium (136-145) mmol/L Potassium (3.5-5.1) mmol/L Chloride (98-107) mmol/L Carbon Dioxide (21-32) mmol/L Anion Gap (3-11) BUN (6-23) mg/dl Creatinine (0.6-1.4) mg/dl Est Cr Clr Drug Dosing ml/min Est GFR ( Amer) ml/min Est GFR (Non-Af Amer) ml/min BUN/Creatinine Ratio (10-20) Glucose (70-99(Fasting)) mg/dl Calcium (8.5-10.1) mg/dl Magnesium (1.7-2.4) mg/dl Total Bilirubin (0.2-1.0) mg/dl AST (13-39) U/L ALT (7-52) U/L Alkaline Phosphatase (34-104) U/L Ammonia (18-72) umol/L Total Creatine Kinase (30-223) U/L Troponin I High Sens (0-20) pg/ml B-Natriuretic Peptide (0-100) pg/ml Total Protein (6.0-8.3) gm/dl Albumin (3.4-5.0) gm/dl Globulin (2.5-4.0) gm/dl Albumin/Globulin Ratio (0.9-2) TSH (0.300-4.500) uIu/ml Urine Color Dark Yellow Urine Appearance Clear (Clear) Urine pH 5.5 (4.5-7.5) Ur Specific [place] 1.030 (1.000-1.030) Urine Protein Negative (Negative) Urine Glucose (UA) Negative (Negative) Urine Ketones Trace H (Negative) Urine Blood Negative (Negative) Urine Nitrite Negative (Negative) Urine Bilirubin Negative (Negative) Urine Urobilinogen Negative (Negative) Ur Leukocyte Esterase Negative (Negative) Urine Opiates Screen Neg (Neg) Ur Methadone, Qual Neg (Neg) Urine Barbiturates Neg (Neg) Ur Phencyclidine (PCP) Neg (Neg) U Amphetamin/Meth Scrn Neg (Neg) MDMA (Ecstasy) Screen Neg (Neg) U Benzodiazepines Scrn Neg (Neg) Ur Cocaine Metabolite Neg (Neg) U Marijuana (THC) Screen Neg (Neg) SARS-CoV-2, RNA, NAAT (NEGATIVE) 02/17/22 Range/Units 10:24 WBC (4.8-10.8) K/ul RBC (4.63-6.08) M/uL Hgb (14.0-18.0) g/dl Hct (40.1-51.0) % MCV (80.0-100.0) fL MCH (25.0-34.0) pg MCHC (32.0-36.0) g/dL RDW Std Deviation (36.4-46.3) fL RDW Coeff of Nacho (11.5-14.5) % Plt Count (130-400) K/uL MPV (9.4-12.4) fL Immature Gran % (Auto) % Neut % (Auto) % Lymph % (Auto) % [place] % (Auto) % Eos % (Auto) % Baso % (Auto) % Neut # (Auto) (1.4-6.5) K/uL Lymph # (Auto) (1.2-3.4) K/uL [place] # (Auto) (0.24-0.82) K/uL Eos # (Auto) (0-0.50) K/uL Baso # (Auto) (0-0.2) K/uL Immature Gran # (Auto) (0.00-0.02) K/uL PT (9.0-12.0) Seconds INR (0.9-1.1) APTT (21.0-31.0) Seconds PTT Ratio VBG pH (7.36-7.41) VBG pCO2 (38-50) mmHg VBG pO2 mmHg VBG HCO3 mmol/L VBG O2 Saturation % VBG Base Excess mEq/L Sodium (136-145) mmol/L Potassium (3.5-5.1) mmol/L Chloride (98-107) mmol/L Carbon Dioxide (21-32) mmol/L Anion Gap (3-11) BUN (6-23) mg/dl Creatinine (0.6-1.4) mg/dl Est Cr Clr Drug Dosing ml/min Est GFR ( Amer) ml/min Est GFR (Non-Af Amer) ml/min BUN/Creatinine Ratio (10-20) Glucose (70-99(Fasting)) mg/dl Calcium (8.5-10.1) mg/dl Magnesium (1.7-2.4) mg/dl Total Bilirubin (0.2-1.0) mg/dl AST (13-39) U/L ALT (7-52) U/L Alkaline Phosphatase (34-104) U/L Ammonia (18-72) umol/L Total Creatine Kinase (30-223) U/L Troponin I High Sens (0-20) pg/ml B-Natriuretic Peptide (0-100) pg/ml Total Protein (6.0-8.3) gm/dl Albumin (3.4-5.0) gm/dl Globulin (2.5-4.0) gm/dl Albumin/Globulin Ratio (0.9-2) TSH (0.300-4.500) uIu/ml Urine Color Urine Appearance (Clear) Urine pH (4.5-7.5) Ur Specific [place] (1.000-1.030) Urine Protein (Negative) Urine Glucose (UA) (Negative) Urine Ketones (Negative) Urine Blood (Negative) Urine Nitrite (Negative) Urine Bilirubin (Negative) Urine Urobilinogen (Negative) Ur Leukocyte Esterase (Negative) Urine Opiates Screen (Neg) Ur Methadone, Qual (Neg) Urine Barbiturates (Neg) Ur Phencyclidine (PCP) (Neg) U Amphetamin/Meth Scrn (Neg) MDMA (Ecstasy) Screen (Neg) U Benzodiazepines Scrn (Neg) Ur Cocaine Metabolite (Neg) U Marijuana (THC) Screen (Neg) SARS-CoV-2, RNA, NAAT NEGATIVE (NEGATIVE) Imaging Data Radiologist's Impression: Chest X-Ray 02/17/22 07:30 XR chest 1V portable CLINICAL HISTORY: weakness COMPARISON STUDY: Chest CT August 12, 2015. Chest radiograph June 09, 2018. FINDINGS: Bilateral shoulder arthroplasties, median sternotomy wires and a left subclavian pacer are incidentally noted. Cardiomegaly is unchanged. No evidence for pulmonary edema. There is no pneumothorax. No definite pleural effusion. Numerous calcified pleural plaques are again noted. Appearance of the chest is unchanged. Hiatal hernia. IMPRESSION: No acute cardiopulmonary findings. No significant change in appearance of the chest. ACT 112: Negative or not required by law. Electronically signed by: Segundo Jameson M.D. 02/17/2022 8:[address] 02/17/22 07:[address] DOSE: 729.78 mGycm HISTORY: Altered mental status. Dizziness. TECHNIQUE: Multiaxial CT images of the head were performed without the use of intravenous contrast. Automated exposure control was utilized for this study. A dose lowering technique was utilized adhering to the principles of ALARA. Comparison: Head CT 11/17/2013. Findings: Mild mucosal thickening within the paranasal sinuses. The mastoid air cells are clear. The calvarium and skull base are intact. There is no mass, hematoma, midline shift, acute infarct. White matter hypodensity is nonspecific but suggestive of microvascular ischemic change. The ventricles and sulci demonstrate mild age-related involutional changes. There is an old punctate lacunar infarct within the right caudate, unchanged. Impression: No significant change compared to the prior study. No acute intracranial abnormality. ACT 112: Negative or not required by law. Electronically signed by: Morales Kelley M.D. 02/17/2022 8:37 AM Carotid Doppler Study 02/17/22 11:14 ULTRASOUND OF THE CAROTID ARTERIES CLINICAL HISTORY: blurry vision. ? Syncope COMPARISON: None available at the time of this dictation. TECHNIQUE: Real-time, grayscale, and color Doppler sonography of the carotid arteries is performed. Images are reviewed in the transverse and longitudinal planes. FINDINGS: The carotid arteries are patent bilaterally and demonstrate antegrade flow. There is mild atherosclerotic plaque on the right and mild atherosclerotic plaque on the left. Normal doppler arterial waveforms are seen throughout. Velocity measurements are listed below. Common carotid peak systolic velocity (cm/sec): RIGHT: 68 LEFT: 50 ICA peak systolic velocity (cm/sec): RIGHT: 52 LEFT: 54 ICA/CC peak systolic ratio: RIGHT: 0.76 LE FT: 1.1 Antegrade flow was shown in the vertebral arteries. The external carotid arteries are patent. IMPRESSION: 1. There is no sonographic evidence of hemodynamically significant stenosis in the right or left carotid arterial system. 2. Antegrade flow is shown in the vertebral arteries. Society of Radiologists in Ultrasound consensus guidelines: Normal: ICA PSV is <125 cm/sec and no plaque or intimal thickening is visible sonographically additional criteria include ICA/CCA PSV ratio <2.0 and ICA EDV <40 cm/sec <50% ICA stenosis: ICA PSV is <125 cm/sec and plaque or intimal thickening is visible so nographically additional criteria include ICA/CCA PSV ratio <2.0 and ICA EDV <40 cm/sec 50-69% ICA stenosis: ICA PSV is 125-230 cm/sec and plaque is visible sonographically additional criteria include ICA/CCA PSV ratio of 2.0-4.0 and ICA EDV of 40-100 cm/sec ?70% ICA stenosis but less than near occlusion: ICA PSV is >230 cm/sec and visible plaque and luminal narrowing are seen at shi-scale and color Doppler ultrasound (the higher the Doppler parameters lie above the threshold of 230 cm/sec, the greater the likelihood of severe disease) additional criteria include ICA/CCA PSV ratio >4 and ICA EDV >100 cm/sec ACT 112: Negative or not required by law. Electronically signed by: Hakeem Gongora M.D. 02/17/2022 12:10 PM Discharge Plan Visit Data Chief Complaint: Fall Stated Complaint: FALL, DOUBLE VISION, DIZZIENESS, PASSED OUT ED Provider: Jarrett Dill Discharge Problem: AMS (altered mental status) Patient Disposition: Being Evaluated by Hospitalist Forms Stand Alone Forms: My [facility] Prescriptions Prescriptions: No Action (DME) CPAP Supplies Misc See Dose Instructions .ROUTE .MEDSUPPLY Qty: 1 0RF Dose Instruction: As directed Rx Instructions: As directed (DME) CPAP Machine Misc .Route Qty: 1 0RF Rx Instructions: Changed from auto CPAP to fixed CPAP at 13 cm of water.F&P med VItera mask, lifetime need, [facility] patient metoprolol succinate 25 mg Tablet Extended Release 24 Hr 25 mg PO QAM Qty: 30 0RF multivitamin Tablet 1 tab PO HS metformin 500 mg Tablet 1,000 mg PO DAILY vitamin B complex Tablet Extended Release 1 tab PO PM atorvastatin 20 mg Tablet 20 mg PO PM clopidogrel [Plavix] 75 mg Tablet 75 mg PO QAM aspirin 81 mg Tablet,Delayed Release (Dr/Ec) 81 mg PO PM tamsulosin 0.4 mg Capsule 0.4 mg PO DAILY niacin 500 mg Tablet 500 mg PO HS finasteride 5 mg Tablet 5 mg PO PM duloxetine 60 mg Capsule,Delayed Release(Dr/Ec) 60 mg PO QAM ramipril 10 mg Tablet 10 mg PO QAM clonazepam 1 mg tablet 1 mg PO BID Myrbetriq 25 mg tablet extended release 24 hr 25 mg PO DAILY Referrals Referrals: Crystal Walter DO [Primary Care Provider] -
[2022-02-17 07:48] LABS: Albumin Globulin Ratio 1.5 (0.9-2); Albumin Level 4.1 gm/dl (3.4-5.0); BUN Creatinine Ratio 28.9 (10-20); Bilirubin,Total 0.9 mg/dl (0.2-1.0); Calcium 9.6 mg/dl (8.5-10.1); Creatinine Clr Calc Pharmacy 99.1 ml/min; Est GFR (African American) 102.7 ml/min; Est GFR (Non-African American) 88.6 ml/min; Globulin 2.7 gm/dl (2.5-4.0); Magnesium 1.9 mg/dl (1.7-2.4); Potassium 3.8 mmol/L (3.5-5.1); Total Protein 6.8 gm/dl (6.0-8.3)
[2022-02-17 07:50] LABS: INR 1.1 (0.9-1.1); Partial Thromboplastin Time 27.4 Seconds (21.0-31.0); Prothrombin Time 11.6 Seconds (9.0-12.0)
[2022-02-17 07:54] LABS: Troponin I High Sensitivity 6.3 pg/ml (0-20)
--- NOTE | 2022-02-17 08:04 | Communication Note ---
Date of Service: February 17, 2022 I saw this patient in conjunction with Dr. Dill. Please see Dr. Dill' note for details. Winnie Bain D.O. PGY-1 Resident Activity Tracking Resident Involvement: Resident Care Provided Care Provided: Adult ED
[2022-02-17 08:22] LABS: Base Excess VBG 2.9 mEq/L; HCO3 VBG 28 mmol/L; Oxygen Saturation VBG 85.6 %; PCO2 VBG 43 mmHg (38-50); PO2 VBG 49 mmHg; pH VBG 7.42 (7.36-7.41)
--- NOTE | 2022-02-17 08:39 | CT Scan Report ---
HEAD CT NONCONTRAST CT DOSE: 729.78 mGycm HISTORY: Altered mental status. Dizziness. TECHNIQUE: Multiaxial CT images of the head were performed without the use of intravenous contrast. A utomated exposure control was utilized for this study. A dose lowering technique was utilized adheri ng to the principles of ALARA. Comparison: Head CT 11/17/2013. Findings: Mild mucosal thickening within the paranasal sinuses. The mastoid air cells are clear. The calvarium and skull base are intact. There is no mass, hematoma, midline shift, acute infarct. White matter hypodensity is nonspecific but suggestive of microvascular ischemic change. The ventricles and sulci demonstrate mild age-related involutional changes. There is an old punctate lacunar infarct wi thin the right caudate, unchanged. Impression: No significant change compared to the prior study. No acute intracranial abnormality. ACT 112: Negative or not required by law. Electronically signed by: Morales Kelley M.D. 02/17/2022 8:37 AM
--- NOTE | 2022-02-17 08:46 | XRay Report ---
XR chest 1V portable CLINICAL HISTORY: weakness COMPARISON STUDY: Chest CT August 12, 2015. Chest radiograph June 09, 2018. FINDINGS: Bilateral shoulder arthroplasties, median sternotomy wires and a left subclavian pacer are incidentally noted. Cardiomegaly is unchanged. No evidence for pulmonary edema. There is no pneumotho rax. No definite pleural effusion. Numerous calcified pleural plaques are again noted. Appearance of the chest is unchanged. Hiatal hernia. IMPRESSION: No acute cardiopulmonary findings. No significant change in appearance of the chest. ACT 112: Negative or not required by law. Electronically signed by: Segundo Jameson M.D. 02/17/2022 8:45 AM
[2022-02-17 09:18] LABS: Appearance Urine Clear (Clear); Bilirubin Urine Negative (Negative); Blood Urine Negative (Negative); Color Urine Dark Yellow; Glucose Urine UA Negative (Negative); Ketones Urine Trace (Negative); Leukocyte Esterase Urine Negative (Negative); Nitrite Urine Negative (Negative); Protein Urine Negative (Negative); Urobilinogen Urine Negative (Negative); pH Urine 5.5 (4.5-7.5)
--- NOTE | 2022-02-17 11:01 | History & Physical Report ---
Date of Service February 17, 2022 Assessment & Plan (1) Fall: (2) Excessive daytime sleepiness: (3) CAD (coronary artery disease): (4) Diabetes mellitus, type 2: (5) Sleep apnea: (6) Parkinsonian features: Plan This is a 76-year-old male who has a significant past medical history of CAD with history of his CABG x 3, history of coronary angioplasty, tachybradycardia syndrome status post PPM, HTN, HLD, RBBB, T2DM, neuropathy, monoclonal paraproteinemia, history of CVA, Parkinsonian features, essential tremor, neuropathy who presents to ED after sustaining a fall prior to arrival. Pt follows [facility] neurology secondary to essential tremors. He was recently seen in clinic on 02/03/[address] Gaming. [place] to be progressing to more parkinsonian features. Previously tried sinemet and primidone w/o improvement in past. Was prescribed clonazepam 1 mg twice daily. He took his first dose last evening and a second dose this morning. This morning when he woke up he was very drowsy, felt unsteady on his feet and had difficulty staying awake. In ED work-up was generally unremarkable. Fall Excessive daytime sleepiness C/o blurred vision Parkinsonian features admit to med/tele will hold clonazepam as this is likely contributing to his somnolence and fall obtain carotid Doppler and echo to be complete It is confirmed he did not sustain a syncopal event consult neurology to weigh in on clonazepam and possible other options for patient given failed sinemet/primidone PT/OT monitor off benzo UDS T2DM well controlled on metformin as outpt a1c 6.5 02/02/22 novolog ss correction factor coverage only, avoid hypoglycemia CAD hx of CABG x 3 HTN HLD Cerebral vascular disease Known carotid artery stenosis continue metoprolol, ramipril, asa, plavix, statin obtain echo and carotid Doppler for completeness TBS s/p PPM placed [address] Martel recent pacer check 02/16, good function, 2 sec VT episode TIMOTHY CPAP at hs pt and confirm compliance DVT ppx: SQ Lovenox Dispo: med tele, monitor off Klonopin to see if resolution of sx, pt/ot to determine needs given weakness FULL CODE PCP: [place] Pt was seen and examined in collaboration with Dr. Edwards, please see adendum History of Present Illness Chief Complaint: Fall prior to arrival. Primary Care Provider: Crystal Walter, DO This is a 76-year-old male who has a significant past medical history of CAD w ith history of his CABG x 3, history of coronary angioplasty, tachybradycardia syndrome status post PPM, HTN, HLD, RBBB, T2DM, neuropathy, monoclonal paraproteinemia, history of CVA, Parkinsonian features, essential tremor, neuropathy who presents to ED after sustaining a fall prior to arrival. Patient works at [employer] and was going to work today. When he went to get out of his truck he rolled out and fell on the ground and couldn't get up. Prior to him rolling out of the truck he complained of blurry vision but denies dizziness, lightheaded, sob, palpitations, or chest pain. When he was on the ground he felt to weak to get up. His co worker helped him get up. Right now he denies palpitations, chest pain, f/c/s, dizziness, lightheaded, TAVERAS, uri sx, cough, n/v/d, abd pain, dysuria, increased urg/freq with urination, melena, or hematochezia. He feels his vision is improved from this morning but still blurry. No recent illness. Last week was at [employer] and enjoyed it. Of sign [facility] patient has been following with [facility] neurology due to an essential tremor. He was last seen on 02/03/2022 secondary to persistent tremor. In past patient had previously been tried on Sinemet and primidone without significant improvement. Per neurology note patient is progressing to mild parkinsonian features. At this appointment he was placed on clonazepam 1 mg twice a day. Per his he didn't start the Klonopin until last night. His first dose was last night and second dose this morning. This morning he felt very drowsy and off balance. He was running into furniture trying to take dog out. He drove 4-6 miles to get to work today. Also patient recently had pacemaker check on 02/16/2022 which revealed normal functioning pacemaker and 1 episode of 2-second V. tach. He is otherwise atrial paced. This was placed in May [address] Martel due to TBS. He has been eating and drinking well at home. Allergies Allergy/AdvReac Type Severity Reaction Status Date / Time No Known Allergies Allergy Verified 10/22/21 09:47 Home Medications Medication Instructions Recorded Confirmed Type metoprolol succinate 25 mg 25 mg PO QAM #30 tabs 06/08/18 02/17/22 Rx tablet,extended release 24 hr CPAP Supplies #1 ea 02/27/19 02/17/22 Rx aspirin 81 mg tablet,delayed 81 mg PO PM 02/05/21 02/17/22 History release atorvastatin 20 mg tablet 20 mg PO PM 02/05/21 02/17/22 History clopidogrel 75 mg tablet (Plavix) 75 mg PO QAM 02/05/21 02/17/22 History duloxetine 60 mg capsule,delayed 60 mg PO QAM 02/05/21 02/17/22 History release finasteride 5 mg tablet 5 mg PO PM 02/05/21 02/17/22 History metformin 500 mg tablet 1,000 mg PO DAILY 02/05/21 02/17/22 History multivitamin 1 tab PO HS 02/05/21 02/17/22 History niacin 500 mg tablet 500 mg PO HS 02/05/21 02/17/22 History ramipril 10 mg tablet 10 mg PO QAM 02/05/21 02/17/22 History tamsulosin 0.4 mg capsule 0.4 mg PO DAILY 02/05/21 02/17/22 History vitamin B complex 1 tab PO PM 02/05/21 02/17/22 History CPAP Machine #1 ea 01/08/22 02/17/22 Rx clonazepam 1 mg tablet 1 mg PO BID 02/17/22 02/17/22 History mirabegron 25 mg tablet,extended 25 mg PO DAILY 02/17/22 02/17/22 History release 24 hr (Myrbetriq) Past Med/Surg History Medical History (Updated 02/17/22 @ 11:35 by Daija Doherty PA-C) Arthritis BPH (benign prostatic hyperplasia) CAD (coronary artery disease) S/P CABG x3 in 2001 with SMITH to LAD; SABRINA to PDA and Radial to LCX. PCI/rot oblation/stent VON RCA 2004 (performed due to SABRINA to PDA graft stenosis) and PCI/VON left main 2004 2011 cardiac cath demonstrated 3V CAD in the poarch vessels with patent SMITH to LAD graft, patent radial graft to the circumflex, and SABRINA graft to the R PDA had a 95% ostial stenosis that was unchanged compared to his last cardiac catheterization. The poarch RCA had a total occlusion (area that previously been stented). Continued medical management was recommended. Carpal tunnel syndrome Depression Diabetes mellitus, type 2 NIDDM Essential tremor Pacemaker [employer], implanted 2018 (2/2 tachy-rebecca syndrome), follows with [facility] cardiology Parkinson disease Sleep apnea CPAP Surgical History History of cataract surgery R/L History of colonoscopy History of coronary artery bypass graft CABG x3 in 2001 with SMITH to LAD; SABRINA to PDA and Radial to LCX History of heart artery stent 2016 History of repair of rotator cuff R/L History of tonsillectomy History of tooth extraction History of total knee replacement R/L Hx of appendectomy Family History (Updated 02/17/22 @ 10:59 by Daija Doherty PA-C) Mother , 61 Pulmonary embolism Father , 74 Stroke Brother Coronary heart disease 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 Smoking Status: Former smoker Second Hand Exposure: No; Hx Alcohol Use: Yes Alcohol type: beer Hx Substance Use: No Preferred Language: American Communication Ability: Effective Scratch Brusher Required: No Beliefs That Will Affect Care: None Current Living Situation: Spouse Feels Safe at Home: Yes Assistive Devices: CPAP, Denture - Upper and Hearing Aid - Bilateral Review of Systems Review of Systems: All systems reviewed & are unremarkable except as noted in HPI & below Physical Exam Physical Exam: Please refer to Dr. Edwards addendum for physical exam fnding. Results & Data Results & Data ([facility]) Vital Signs (Past 12 Hours) Vital Signs Temp Pulse Pulse Resp BP BP Pulse Ox 02/17/22 10:50 62 20 162/97 H 98 02/17/22 08:57 64 20 160/91 H 98 02/17/22 07:34 64 20 98 02/17/22 06:48 36.4 C L 65 20 164/108 H 96 O2 Del Method 02/17/22 10:50 Room Air 02/17/22 08:57 Room Air 02/17/22 07:34 Room Air 02/17/22 06:48 Room Air Diagnostic Findings Chest X-Ray 02/17/22 07:30 XR chest 1V portable CLINICAL HISTORY: weakness COMPARISON STUDY: Chest CT August 12, 2015. Chest radiograph June 09, 2018. FINDINGS: Bilateral shoulder arthroplasties, median sternotomy wires and a left subclavian pacer are incidentally noted. Cardiomegaly is unchanged. No evidence for pulmonary edema. There is no pneumothorax. No definite pleural effusion. Numerous calcified pleural plaques are again noted. Appearance of the chest is unchanged. Hiatal hernia. IMPRESSION: No acute cardiopulmonary findings. No significant change in appearance of the chest. ACT 112: Negative or not required by law. Electronically signed by: Segundo Jameson M.D. 02/17/2022 8:[address] 02/17/22 07:[address] DOSE: 729.78 mGycm HISTORY: Altered mental status. Dizziness. TECHNIQUE: Multiaxial CT images of the head were performed without the use of intravenous contrast. Automated exposure control was utilized for this study. A dose lowering technique was utilized adhering to the principles of ALARA. Comparison: Head CT 11/17/2013. Findings: Mild mucosal thickening within the paranasal sinuses. The mastoid air cells are clear. The calvarium and skull base are intact. There is no mass, hematoma, midline shift, acute infarct. White matter hypodensity is nonspecific but suggestive of microvascular ischemic change. The ventricles and sulci demonstrate mild age-related involutional changes. There is an old punctate lacunar infarct within the right caudate, unchanged. Impression: No significant change compared to the prior study. No acute intracranial abnormality. ACT 112: Negative or not required by law. Electronically signed by: Morales Kelley M.D. 02/17/2022 8:37 AM ECG Rate (beats per minute): 67 Rhythm: normal sinus Findings: + PVC Additional Comments: bifasicular block COVID-19 Results Results COVID-19 Adm Lab Results: RBC 4.71 M/uL (4.63-6.08) 02/17/22 WBC 6.69 K/ul (4.8-10.8) 02/17/22 Hgb 13.7 g/dl (14.0-18.0) L 02/17/22 Hct 42.8 % (40.1-51.0) 02/17/22 Plt Count 198 K/uL (130-400) 02/17/22 Neutrophils (%) (Auto) 66.3 % 02/17/22 Lymphocytes (%) (Auto) 20.6 % 02/17/22 Monocytes # (Auto) 0.56 K/uL (0.24-0.82) 02/17/22 Eosinophils # (Auto) 0.29 K/uL (0-0.50) 02/17/22 Immature Granulocyte % (Auto) 0.3 % 02/17/22 Neutrophils # (Auto) 4.43 K/uL (1.4-6.5) 02/17/22 Lymphocytes # (Auto) 1.38 K/uL (1.2-3.4) 02/17/22 Monocytes # (Auto) 0.56 K/uL (0.24-0.82) 02/17/22 Eosinophils # (Auto) 0.29 K/uL (0-0.50) 02/17/22 Basophils # (Auto) 0.01 K/uL (0-0.2) 02/17/22 Immature Granulocyte # (Auto) 0.02 K/uL (0.00-0.02) 2 Na 138 mmol/L (136-145) 02/17/22 K 3.8 mmol/L (3.5-5.1) 02/17/22 Cl 104 mmol/L (98-107) 02/17/22 CO2 27 mmol/L (21-32) 02/17/22 Anion Gap 7 (3-11) 02/17/22 BUN 22 mg/dl (6-23) 02/17/22 Creatinine 0.76 mg/dl (0.6-1.4) 02/17/22 BUN/Creatinine Ratio 28.9 (10-20) H 02/17/22 Glucose Level 149 mg/dl (70-99(Fasting)) H 02/17/22 Ca 9.6 mg/dl (8.5-10.1) 02/17/22 Total Bilirubin 0.9 mg/dl (0.2-1.0) 02/17/22 AST/SGOT 21 U/L (13-39) 02/17/22 ALT/SGPT 14 U/L (7-52) 02/17/22 Alkaline Phosphatase 78 U/L (34-104) 02/17/22 Total Protein 6.8 gm/dl (6.0-8.3) 02/17/22 Albumin 4.1 gm/dl (3.4-5.0) 02/17/22 Globulin 2.7 gm/dl (2.5-4.0) 02/17/22 Albumin/Globulin Ratio 1.5 (0.9-2) 02/17/22 Total CK 118 U/L (30-223) 02/17/22 PTT 27.4 Seconds (21.0-31.0) 02/17/22 INR 1.1 (0.9-1.1) 02/17/22 SARS-CoV-2, RNA, NAAT NEGATIVE (NEGATIVE) 02/17/22 Chest X-Ray 02/17/22 Code Status & VTE Plan Code Status FULL CODE VTE Prophylaxis Plan VTE Prophylaxis will be ordered: Yes Supervising Physician Co-Signing Physician Notes Pt is a 76 y/o M with hx of CAD s/p CABG, and Stent, tachy-rebecca syndrome s/p pacemaker, DMII, HTN, HLD, Tremor with Parkinsons like features, b/l carotid artery stenosis, MGUS, TIMOTHY on CPAP, neuropathy admitted after a fall. Pt was recently started on Klonophin for parkinsons like tremor. Pt took his first dose yesterday night and today morning. PE: NAD, well developed HEENT: no sign of any trauma, PERRLO, EOMI Cardiac: Normal S1/S2, no murmur Lungs: CTA, no wheezing or crackles Abd: ND, NT, Soft Neuro: CN II-XII intact, normal motor strength Psych: AAOx3, normal affect A/P: Fall: -likely 2/2 recent Klonophin use -CT head: no acute finding and normal wbc -trop neg -during my exam pt was more awake and alert -will hold klonophin and Mirabegron for now -PT/OT eval -neuro consult -due to carotid disease and cardiac hx will get echo and carotid Doppler Other chronic conditions: plan as above Agree with A/P by Daija Doherty PA-C
[2022-02-17 12:12] LABS: Amphetamines+Metham, Urine Neg (Neg); Barbiturates, Urine Neg (Neg); Benzodiazepine, Urine Neg (Neg); Cocaine, Urine Neg (Neg); MDMA (Ecstacy), Urine Neg (Neg); Methadone, Urine Neg (Neg); Opiate, Urine Neg (Neg); Phencyclidine, Urine Neg (Neg)
--- NOTE | 2022-02-17 12:12 | Ultrasound Report ---
ULTRASOUND OF THE CAROTID ARTERIES CLINICAL HISTORY: blurry vision. ? Syncope COMPARISON: None available at the time of this dictation. TECHNIQUE: Real-time, grayscale, and color Doppler sonography of the carotid arteries is performed. I mages are reviewed in the transverse and longitudinal planes. FINDINGS: The carotid arteries are patent bilaterally and demonstrate antegrade flow. There is mild atheroscler otic plaque on the right and mild atherosclerotic plaque on the left. Normal doppler arterial wavefor ms are seen throughout. Velocity measurements are listed below. Common carotid peak systolic velocity (cm/sec): RIGHT: 68 LEFT: 50 ICA peak systolic velocity (cm/sec): RIGHT: 52 LEFT: 54 ICA/CC peak systolic ratio: RIGHT: 0.76 LEFT: 1.1 Antegrade flow was shown in the vertebral arteries. The external carotid arteries are patent. IMPRESSION: 1. There is no sonographic evidence of hemodynamically significant stenosis in the right or left car otid arterial system. 2. Antegrade flow is shown in the vertebral arteries. Society of Radiologists in Ultrasound consensus guidelines: Normal: ICA PSV is <125 cm/sec and no plaque or intimal thickening is visible sonographically additional criteria include ICA/CCA PSV ratio <2.0 and ICA EDV <40 cm/sec <50% ICA stenosis: ICA PSV is <125 cm/sec and plaque or intimal thickening is visible sonographically additional criteria include ICA/CCA PSV ratio <2.0 and ICA EDV <40 cm/sec 50-69% ICA stenosis: ICA PSV is 125-230 cm/sec and plaque is visible sonographically additional criteria include ICA/CCA PSV ratio of 2.0-4.0 and ICA EDV of 40-100 cm/sec ?70% ICA stenosis but less than near occlusion: ICA PSV is >230 cm/sec and visible plaque and luminal narrowing are seen at shi-scale and color Dopp ler ultrasound (the higher the Doppler parameters lie above the threshold of 230 cm/sec, the greater the likelihood of severe disease) additional criteria include ICA/CCA PSV ratio >4 and ICA EDV >100 cm/sec ACT 112: Negative or not required by law. Electronically signed by: Hakeem Gongora M.D. 02/17/2022 12:10 PM
[2022-02-17] MEDS ORDERED: ALUMINUM/MAGNESIUM SUSP 30 ML UDC PO PRN (13:42)
[2022-02-17] MEDS ORDERED: GLUCAGON FOR INJ 1 MG VIAL SQ PRN (13:42)
[2022-02-17] MEDS ORDERED: ACETAMINOPHEN 325 MG TAB PO PRN (13:42)
[2022-02-17] MEDS ORDERED: GLUCOSE 40% GEL 15 GM TUBE PO PRN (13:42)
[2022-02-17] MEDS ORDERED: ONDANSETRON INJ 2 MG/ML 2 ML VIAL IV PRN (13:42)
[2022-02-17] MEDS ORDERED: POLYETHYLENE (MIRALAX) 17 GM PACK PO PRN (13:42)
[2022-02-17] MEDS ORDERED: MAGNESIUM HYDROXIDE SUSP 30 ML UDC PO PRN (13:42)
[2022-02-17] MEDS ORDERED: CARBOHYDRATES FOR HYPOGLYCEMIA PO PRN (13:42)
[2022-02-17] MEDS ORDERED: DEXTROSE 50% 50 ML SYRINGE IV PRN (13:42)
[2022-02-17] MEDS ORDERED: GLUCOSE 10 TAB/TUBE PO PRN (13:42)
--- NOTE | 2022-02-17 14:41 | Neurology Consultation ---
Date of Consultation February 17, 2022 Assessment & Plan (1) AMS (altered mental status): (2) Sleep apnea: (3) Diabetes mellitus, type 2: (4) CAD (coronary artery disease): (5) Fall: (6) Excessive daytime sleepiness: (7) Sleep apnea: (8) Tachy-rebecca syndrome: Plan ASSESSMENT and PLAN/RECOMMENDATIONS: 1. Altered mental status and fall, probably iatrogenic, secondary to Klonopin side effect. Impression: After the patient started taking Klonopin 1 mg twice a day, felt somnolent, and unsteady, with fall without injury this morning. Klonopin was initially started for essential type tremor and the patient took first dose last night and second dose this morning. There is no focal neurological deficit or cardiac abnormality in the emergency department. Head CT was unremarkable. The patient is still very somnolent and unsteady on his feet. Plan: Hold Klonopin. If the patient's mental status and balance improves, then Klonopin can be started at lower dose, 0.25 mg twice a day. Other option would be switching to patient to low-dose topiramate or deferring treatment and follow-up with outpatient neurology. Telemetry monitoring. Fall precautions. Physical therapy and Occupational Therapy. If the patient's mental status and balance improves, then he can be discharged home. Follow-up with neurology clinic. 2. Tremor Impression: The patient has been treated for essential type tremor. At some point, parkinsonism was suspected, but the patient did not respond to Sinemet trial. He was recently started on Klonopin. Plan: As above. Thank you for the consultation. History of Present Illness Reason for Consultation: Somnolence and fall. Requesting Physician: Alma Delia Edwards MD Attending Physician: Alma Delia Edwards MD History of Present Illness The patient is a 76-year-old pleasant gentleman, who was brought to emergency department this morning, after the patient had hypersomnolence, imbalance, and probable fall. The patient denies loss of consciousness or fall, but when he went to get out of his truck, he rolled out and his knees were buckled. He could not get up. He has been followed by neurologist, Dr. Gaming, for tremor. He was recently started on Klonopin 1 mg BID, and he took first dose of this medication last night, and second dose this morning. This was considered the likely cause of the patient's hypersomnolence and recent fall. He was unsteady on his feet even after observation in the emergency department, and they decided to admit the patient for further evaluation and observation. Patient has been having mostly action induced tremor, which was asymmetric, and at some point, parkinsonian feature was suspected, and the patient was tried on Sinemet without benefit. He was previously on primidone, but because of persistent symptoms, this medication was switched to Klonopin. He also was diagnosed with obstructive sleep apnea, which was severe, and was started on CABG. He has baseline peripheral polyneuropathy, monoclonal paraproteinemia, history of cerebrovascular accident, cardiac problems including tachybradycardia syndrome status post PPM, and coronary artery disease. He denies having chest pain, shortness of breath, palpitations, dizziness, vertigo, or sensorimotor symptoms this morning. The patient reports that until yesterday, he was not very drowsy and off balance. He is certain that his condition was different this morning, after taking second dose of clonazepam which was 1 mg. Even though this medication was prescribed before, but the patient started taking it last night. His pacemaker was recently checked, which revealed normal functioning. Head CT in the emergency department was unremarkable. The patient is currently very sleepy but easily arousable. He is alert and oriented x3. He is still slightly unsteady on his feet. He believes that Klonopin is helpful to control his tremor as he does not have much tremor currently. I have reviewed the patient's chart and visualized imaging studies personally. I have discussed the case with the patient and answer his questions in detail. Allergies Allergy/AdvReac Type Severity Reaction Status Date / Time No Known Allergies Allergy Verified 10/22/21 09:47 Home Medications Medication Instructions Recorded Confirmed Type metoprolol succinate 25 mg 25 mg PO QAM #30 tabs 06/08/18 02/17/22 Rx tablet,extended release 24 hr CPAP Supplies #1 ea 02/27/19 02/17/22 Rx aspirin 81 mg tablet,delayed 81 mg PO PM 02/05/21 02/17/22 History release atorvastatin 20 mg tablet 20 mg PO PM 02/05/21 02/17/22 History clopidogrel 75 mg tablet (Plavix) 75 mg PO QAM 02/05/21 02/17/22 History duloxetine 60 mg capsule,delayed 60 mg PO QAM 02/05/21 02/17/22 History release finasteride 5 mg tablet 5 mg PO PM 02/05/21 02/17/22 History metformin 500 mg tablet 1,000 mg PO DAILY 02/05/21 02/17/22 History multivitamin 1 tab PO HS 02/05/21 02/17/22 History niacin 500 mg tablet 500 mg PO HS 02/05/21 02/17/22 History ramipril 10 mg tablet 10 mg PO QAM 02/05/21 02/17/22 History tamsulosin 0.4 mg capsule 0.4 mg PO DAILY 02/05/21 02/17/22 History vitamin B complex 1 tab PO PM 02/05/21 02/17/22 History CPAP Machine #1 ea 01/08/22 02/17/22 Rx clonazepam 1 mg tablet 1 mg PO BID 02/17/22 02/17/22 History mirabegron 25 mg tablet,extended 25 mg PO DAILY 02/17/22 02/17/22 History release 24 hr (Myrbetriq) Patient History Medical History Arthritis BPH (benign prostatic hyperplasia) CAD (coronary artery disease) S/P CABG x3 in 2001 with SMITH to LAD; SABRINA to PDA and Radial to LCX. PCI/rot oblation/stent VON RCA 2004 (performed due to SABRINA to PDA graft stenosis) and PCI/VON left main 2004 2011 cardiac cath demonstrated 3V CAD in the [place] vessels with patent SMITH to LAD graft, patent radial graft to the circumflex, and SABRINA graft to the R PDA had a 95% ostial stenosis that was unchanged compared to his last cardiac catheterization. The [place] RCA had a total occlusion (area that previously been stented). Continued medical management was recommended. 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), follows with [facility] cardiology Parkinson disease Sleep apnea CPAP Surgical History History of cataract surgery R/L History of colonoscopy History of coronary artery bypass graft CABG x3 in 2001 with SMITH to LAD; SABRINA to PDA and Radial to LCX History of heart artery stent 2016 History of repair of rotator cuff R/L History of tonsillectomy History of tooth extraction History of total knee replacement R/L Hx of appendectomy Family History Mother , 61 Pulmonary embolism Father , 74 Stroke Brother Coronary heart disease 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 Smoking Status: Former smoker Second Hand Exposure: No; Hx Alcohol Use: Yes Alcohol type: beer Hx Substance Use: No Preferred Language: [place] Communication Ability: Effective Permastone Mechanic Required: No Beliefs That Will Affect Care: None Current Living Situation: Spouse Feels Safe at Home: Yes Assistive Devices: CPAP, Denture - Upper and Hearing Aid - Bilateral Review of Systems Review of Systems: All systems reviewed & are unremarkable except as noted in HPI & below Physical Exam Physical Exam: General Examination: Constitutional: Well developed person in no acute distress. HENT: Normal exam with inspection. CV: Hearth rhtyhm is regular. Neck: Supple, no carotid bruits. Lungs: Non-labored and comfortable breathing. Abdomen: Soft, non-tender, non-distended. Skin: No rash or ecchymosis. Extremities: No edema or cyanosis NEUROLOGICAL EXAMINATION: Mental Status: Somnolent but easily arousable, oriented to place, person and ti me. Cranial Nerves: II-XII are intact. No nystagmus. Funduscopy: Normal looking optic discs. Motor: 5-/5 in all extremities without asymmetry. Tone: Normal without spasticity or rigidity. DTRs: 2- in upper extremities, 1- in knees and absent in ankles. No Babinsky Sensory: Decreased sensation in distal lower extremities. Coordination: No dysmetria with FTN testing. Speech: Fluent. Comprehension is intact. Gait: Unsteady on his feet but can ambulate independently. No ataxia or shuffling gait. Wide based walking pattern is noticed.. Musculoskeletal: Normal muscle bulk, no atrophy. KYAW: No bradykinesia Slight action induced tremor is noticed. Results & Data ([facility]) Vital Signs (Past 12 Hours) Vital Signs Temp Pulse Pulse Resp BP BP Pulse Ox 02/17/22 14:06 68 20 153/87 H 100 02/17/22 12:09 62 17 175/99 H 100 02/17/22 10:50 62 20 162/97 H 98 02/17/22 08:57 64 20 160/91 H 98 02/17/22 07:34 64 20 98 02/17/22 06:48 36.4 C L 65 20 164/108 H 96 O2 Del Method 02/17/22 14:06 Room Air 02/17/22 12:09 Room Air 02/17/22 10:50 Room Air 02/17/22 08:57 Room Air 02/17/22 07:34 Room Air 02/17/22 06:48 Room Air Laboratory Results Laboratory Results - last 24 hr 02/17/22 02/17/22 02/17/22 07:09 07:09 07:09 WBC 6.69 RBC 4.71 Hgb 13.7 L Hct 42.8 MCV 90.9 MCH 29.1 MCHC 32.0 RDW Std Deviation 49.0 H RDW Coeff of Nacho 14.6 H Plt Count 198 MPV 10.5 Immature Gran % (Auto) 0.3 Neut % (Auto) 66.3 Lymph % (Auto) 20.6 Clark % (Auto) 8.4 Eos % (Auto) 4.3 Baso % (Auto) 0.1 Neut # (Auto) 4.43 Lymph # (Auto) 1.38 Clark # (Auto) 0.56 Eos # (Auto) 0.29 Baso # (Auto) 0.01 Immature Gran # (Auto) 0.02 PT 11.6 INR 1.1 APTT 27.4 PTT Ratio 1.0 VBG pH VBG pCO2 VBG pO2 VBG HCO3 VBG O2 Saturation VBG Base Excess Sodium 138 Potassium 3.8 Chloride 104 Carbon Dioxide 27 Anion Gap 7 BUN 22 Creatinine 0.76 Est Cr Clr Drug Dosing 99.1 Est GFR ( Amer) 102.7 Est GFR (Non-Af Amer) 88.6 BUN/Creatinine Ratio 28.9 H Glucose 149 H Calcium 9.6 Magnesium 1.9 Total Bilirubin 0.9 AST 21 ALT 14 Alkaline Phosphatase 78 Ammonia Total Creatine Kinase 118 Troponin I High Sens 6.3 B-Natriuretic Peptide Total Protein 6.8 Albumin 4.1 Globulin 2.7 Albumin/Globulin Ratio 1.5 TSH Urine Color Urine Appearance Urine pH Ur Specific [place] Urine Protein Urine Glucose (UA) Urine Ketones Urine Blood Urine Nitrite Urine Bilirubin Urine Urobilinogen Ur Leukocyte Esterase Urine Opiates Screen Ur Methadone, Qual Urine Barbiturates Ur Phencyclidine (PCP) U Amphetamin/Meth Scrn MDMA (Ecstasy) Screen U Benzodiazepines Scrn Ur Cocaine Metabolite U Marijuana (THC) Screen SARS-CoV-2, RNA, NAAT 02/17/22 02/17/22 02/17/22 07:09 07:58 08:03 WBC RBC Hgb Hct MCV MCH MCHC RDW Std Deviation RDW Coeff of Nacho Plt Count MPV Immature Gran % (Auto) Neut % (Auto) Lymph % (Auto) Clark % (Auto) Eos % (Auto) Baso % (Auto) Neut # (Auto) Lymph # (Auto) Clark # (Auto) Eos # (Auto) Baso # (Auto) Immature Gran # (Auto) PT INR APTT PTT Ratio VBG pH VBG pCO2 VBG pO2 VBG HCO3 VBG O2 Saturation VBG Base Excess Sodium Potassium Chloride Carbon Dioxide Anion Gap BUN Creatinine Est Cr Clr Drug Dosing Est GFR ( Amer) Est GFR (Non-Af Amer) BUN/Creatinine Ratio Glucose Calcium Magnesium Total Bilirubin AST ALT Alkaline Phosphatase Ammonia 45.0 Total Creatine Kinase Troponin I High Sens B-Natriuretic Peptide 113 H Total Protein Albumin Globulin Albumin/Globulin Ratio TSH 2.147 Urine Color Urine Appearance Urine pH Ur Specific [place] Urine Protein Urine Glucose (UA) Urine Ketones Urine Blood Urine Nitrite Urine Bilirubin Urine Urobilinogen Ur Leukocyte Esterase Urine Opiates Screen Ur Methadone, Qual Urine Barbiturates Ur Phencyclidine (PCP) U Amphetamin/Meth Scrn MDMA (Ecstasy) Screen U Benzodiazepines Scrn Ur Cocaine Metabolite U Marijuana (THC) Screen SARS-CoV-2, RNA, NAAT 02/17/22 02/17/22 02/17/22 08:03 08:54 08:54 WBC RBC Hgb Hct MCV MCH MCHC RDW Std Deviation RDW Coeff of Nacho Plt Count MPV Immature Gran % (Auto) Neut % (Auto) Lymph % (Auto) Clark % (Auto) Eos % (Auto) Baso % (Auto) Neut # (Auto) Lymph # (Auto) Clark # (Auto) Eos # (Auto) Baso # (Auto) Immature Gran # (Auto) PT INR APTT PTT Ratio VBG pH 7.42 H VBG pCO2 43 VBG pO2 49 VBG HCO3 28 VBG O2 Saturation 85.6 VBG Base Excess 2.9 Sodium Potassium Chloride Carbon Dioxide Anion Gap BUN Creatinine Est Cr Clr Drug Dosing Est GFR ( Amer) Est GFR (Non-Af Amer) BUN/Creatinine Ratio Glucose Calcium Magnesium Total Bilirubin AST ALT Alkaline Phosphatase Ammonia Total Creatine Kinase Troponin I High Sens B-Natriuretic Peptide Total Protein Albumin Globulin Albumin/Globulin Ratio TSH Urine Color Dark Yellow Urine Appearance Clear Urine pH 5.5 Ur Specific [place] 1.030 Urine Protein Negative Urine Glucose (UA) Negative Urine Ketones Trace H Urine Blood Negative Urine Nitrite Negative Urine Bilirubin Negative Urine Urobilinogen Negative Ur Leukocyte Esterase Negative Urine Opiates Screen Neg Ur Methadone, Qual Neg Urine Barbiturates Neg Ur Phencyclidine (PCP) Neg U Amphetamin/Meth Scrn Neg MDMA (Ecstasy) Screen Neg U Benzodiazepines Scrn Neg Ur Cocaine Metabolite Neg U Marijuana (THC) Screen Neg SARS-CoV-2, RNA, NAAT 02/17/22 10:24 WBC RBC Hgb Hct MCV MCH MCHC RDW Std Deviation RDW Coeff of Nacho Plt Count MPV Immature Gran % (Auto) Neut % (Auto) Lymph % (Auto) Clark % (Auto) Eos % (Auto) Baso % (Auto) Neut # (Auto) Lymph # (Auto) Clark # (Auto) Eos # (Auto) Baso # (Auto) Immature Gran # (Auto) PT INR APTT PTT Ratio VBG pH VBG pCO2 VBG pO2 VBG HCO3 VBG O2 Saturation VBG Base Excess Sodium Potassium Chloride Carbon Dioxide Anion Gap BUN Creatinine Est Cr Clr Drug Dosing Est GFR ( Amer) Est GFR (Non-Af Amer) BUN/Creatinine Ratio Glucose Calcium Magnesium Total Bilirubin AST ALT Alkaline Phosphatase Ammonia Total Creatine Kinase Troponin I High Sens B-Natriuretic Peptide Total Protein Albumin Globulin Albumin/Globulin Ratio TSH Urine Color Urine Appearance Urine pH Ur Specific [place] Urine Protein Urine Glucose (UA) Urine Ketones Urine Blood Urine Nitrite Urine Bilirubin Urine Urobilinogen Ur Leukocyte Esterase Urine Opiates Screen Ur Methadone, Qual Urine Barbiturates Ur Phencyclidine (PCP) U Amphetamin/Meth Scrn MDMA (Ecstasy) Screen U Benzodiazepines Scrn Ur Cocaine Metabolite U Marijuana (THC) Screen SARS-CoV-2, RNA, NAAT NEGATIVE Diagnostic Findings Chest X-Ray 02/17/22 07:30 XR chest 1V portable CLINICAL HISTORY: weakness COMPARISON STUDY: Chest CT August 12, 2015. Chest radiograph June 09, 2018. FINDINGS: Bilateral shoulder arthroplasties, median sternotomy wires and a left subclavian pacer are incidentally noted. Cardiomegaly is unchanged. No evidence for pulmonary edema. There is no pneumothorax. No definite pleural effusion. Numerous calcified pleural plaques are again noted. Appearance of the chest is unchanged. Hiatal hernia. IMPRESSION: No acute cardiopulmonary findings. No significant change in appearance of the chest. ACT 112: Negative or not required by law. Electronically signed by: Segundo Jameson M.D. 02/17/2022 8:[address] 02/17/22 07:[address] DOSE: 729.78 mGycm HISTORY: Altered mental status. Dizziness. TECHNIQUE: Multiaxial CT images of the head were performed without the use of intravenous contrast. Automated exposure control was utilized for this study. A dose lowering technique was utilized adhering to the principles of ALARA. Comparison: Head CT 11/17/2013. Findings: Mild mucosal thickening within the paranasal sinuses. The mastoid air cells are clear. The calvarium and skull base are intact. There is no mass, hematoma, midline shift, acute infarct. White matter hypodensity is nonspecific but suggestive of microvascular ischemic change. The ventricles and sulci demonstrate mild age-related involutional changes. There is an old punctate lacunar infarct within the right caudate, unchanged. Impression: No significant change compared to the prior study. No acute intracranial abnormality. ACT 112: Negative or not required by law. Electronically signed by: Morales Kelley M.D. 02/17/2022 8:37 AM Carotid Doppler Study 02/17/22 11:14 ULTRASOUND OF THE CAROTID ARTERIES CLINICAL HISTORY: blurry vision. ? Syncope COMPARISON: None available at the time of this dictation. TECHNIQUE: Real-time, grayscale, and color Doppler sonography of the carotid arteries is performed. Images are reviewed in the transverse and longitudinal planes. FINDINGS: The carotid arteries are patent bilaterally and demonstrate antegrade flow. There is mild atherosclerotic plaque on the right and mild atherosclerotic plaque on the left. Normal doppler arterial waveforms are seen throughout. Velocity measurements are listed below. Common carotid peak systolic velocity (cm/sec): RIGHT: 68 LEFT: 50 ICA peak systolic velocity (cm/sec): RIGHT: 52 LEFT: 54 ICA/CC peak systolic ratio: RIGHT: 0.76 LEFT: 1.1 Antegrade flow was shown in the vertebral arteries. The external carotid arteries are patent. IMPRESSION: 1. There is no sonographic evidence of hemodynamically significant stenosis in the right or left carotid arterial system. 2. Antegrade flow is shown in the vertebral arteries. Society of Radiologists in Ultrasound consensus guidelines: Normal: ICA PSV is <125 cm/sec and no plaque or intimal thickening is visible sonographically additional criteria include ICA/CCA PSV ratio <2.0 and ICA EDV <40 cm/sec <50% ICA stenosis: ICA PSV is <125 cm/sec and plaque or intimal thickening is visible sonographically additional criteria include ICA/CCA PSV ratio <2.0 and ICA EDV <40 cm/sec 50-69% ICA stenosis: ICA PSV is 125-230 cm/sec and plaque is visible sonographically additional criteria include ICA/CCA PSV ratio of 2.0-4.0 and ICA EDV of 40-100 cm/sec ?70% ICA stenosis but less than near occlusion: ICA PSV is >230 cm/sec and visible plaque and luminal narrowing are seen at shi-scale and color Doppler ultrasound (the higher the Doppler parameters lie above the threshold of 230 cm/sec, the greater the likelihood of severe disease) additional criteria include ICA/CCA PSV ratio >4 and ICA EDV >100 cm/sec ACT 112: Negative or not required by law. Electronically signed by: Hakeem Gongora M.D. 02/17/2022 12:10 PM (1) AMS (altered mental status) Altered mental status type: unspecified Qualified Code(s): R41.82 - Altered mental status, unspecified
[2022-02-17] MEDS: INSULIN ASPART PER UNIT SC SCH ×3 (14:46→22:00)
[2022-02-17] MEDS ORDERED: ATORVASTATIN 20 MG TAB PO SCH (21:00)
[2022-02-17] MEDS ORDERED: ENOXAPARIN INJ 40 MG/0.4 ML SYR SQ SCH (21:00)
[2022-02-17] MEDS ORDERED: MULTIVITAMIN TAB PO SCH (21:00)
[2022-02-17] MEDS ORDERED: ASPIRIN 81 MG ECTAB PO SCH (21:00)
[2022-02-17] MEDS ORDERED: NIACIN 500 MG TAB PO SCH (21:00)
[2022-02-17] MEDS ORDERED: VITAMIN B COMPLEX TAB PO SCH (21:00)
[2022-02-17] MEDS ORDERED: FINASTERIDE 5 MG TAB PO SCH (21:00)
--- NOTE | 2022-02-18 05:45 | Electrocardiogram Report ---
Test Reason : Blood Pressure : / mmHG Vent. Rate : 067 BPM Atrial Rate : 067 BPM P-R Int : 136 ms QRS Dur : 146 ms QT Int : 460 ms P-R-T Axes : 000 124 -15 degrees QTc Int : 486 ms Poor data quality, interpretation may be adversely affected Atrial-paced rhythm Premature supraventricular complexes Right bundle branch block Left posterior fascicular block Bifascicular block Cannot rule out Inferior infarct , age undetermined Abnormal ECG When compared with ECG of 08-JUN-2018 13:34, Premature ventricular complexes are no longer Present Premature supraventricular complexes are now Present Confirmed by Trino Goddard ([id number]) on 02/18/2022 5:45:12 AM Referred By: REFERRED SELF Confirmed By:Trino Goddard
[2022-02-18 05:52] LABS: Basophils # (auto) 0.01 K/uL (0-0.2); Basophils % (auto) 0.2 %; Eosinophils # (auto) 0.25 K/uL (0-0.50); Hematocrit (blood only) 42.4 % (40.1-51.0); Hemoglobin 14.1 g/dl (14.0-18.0); Immature Granulocytes # (auto) 0.01 K/uL (0.00-0.02); Immature Granulocytes % (auto) 0.2 %; Lymphocytes # (auto) 1.76 K/uL (1.2-3.4); Lymphocytes % (auto) 28.2 %; Mean Corpuscular Hemoglobin 28.8 pg (25.0-34.0); Mean Corpuscular Hgb Conc 33.3 g/dL (32.0-36.0); Mean Corpuscular Volume 86.7 fL (80.0-100.0); Mean Platelet Volume 10.5 fL (9.4-12.4); Monocytes # (auto) 0.51 K/uL (0.24-0.82); Monocytes % (auto) 8.2 %; Neutrophils % (auto) 59.2 %; Platelet Count 185 K/uL (130-400); RDW Coefficient of Variation 14.1 % (11.5-14.5); RDW Standard Deviation 44.9 fL (36.4-46.3); Red Blood Count 4.89 M/uL (4.63-6.08); White Blood Count 6.24 K/ul (4.8-10.8)
[2022-02-18 06:16] LABS: Albumin Globulin Ratio 1.5 (0.9-2); Albumin Level 3.7 gm/dl (3.4-5.0); BUN Creatinine Ratio 23.3 (10-20); Creatinine Clr Calc Pharmacy 103.3 ml/min; Est GFR (African American) 104.4 ml/min; Est GFR (Non-African American) 90.1 ml/min; Globulin 2.5 gm/dl (2.5-4.0); Magnesium 1.8 mg/dl (1.7-2.4); Potassium 3.9 mmol/L (3.5-5.1); Total Protein 6.2 gm/dl (6.0-8.3)
[2022-02-18] MEDS: INSULIN ASPART PER UNIT SC SCH ×2 (08:40→12:20)
[2022-02-18] MEDS ORDERED: TAMSULOSIN HCL 0.4 MG CAP PO SCH (09:00)
[2022-02-18] MEDS ORDERED: CLOPIDOGREL BISULFATE 75 MG TAB PO SCH (09:00)
[2022-02-18] MEDS ORDERED: ENALAPRIL MALEATE 10 MG TAB PO SCH (09:00)
[2022-02-18] MEDS ORDERED: METOPROLOL SUCC 25MG EXT REL TAB PO SCH (09:00)
--- NOTE | 2022-02-18 11:20 | Neurology Progress Note ---
Date of Service February 18, 2022 Assessment & Plan (1) AMS (altered mental status): (2) Sleep apnea: (3) Diabetes mellitus, type 2: (4) CAD (coronary artery disease): (5) Fall: (6) Excessive daytime sleepiness: (7) Tachy-rebecca syndrome: Plan ASSESSMENT and PLAN/RECOMMENDATIONS: 1. Altered mental status and fall, probably iatrogenic, secondary to Klonopin side effect. Impression: After the patient started taking Klonopin 1 mg twice a day, felt somnolent, and unsteady, with fall but without injury yesterday morning. Klonopin was initially started for essential type tremor and the patient just started taking it prior night. Plan: D/C Klonopin. The patient does not want to use any medication for his tremor at this time. --The patient is neurologically stable and can be discharged home. No restrictions from neurology. Follow-up with neurology clinic. 2. Tremor Impression: The patient has been treated for essential type tremor. At some point, parkinsonism was suspected, but the patient did not respond to Sinemet trial. He was recently started on Klonopin. Plan: As above. Will sign off. Admission and Anticipated Discharge Date Admission Date: February 17, 2022 Subjective The patient feels that he is back to his baseline. Able to walk in aisle and using stairs without difficulty. He states that his tremor in hands does not affect his quality of life much and prefers not to use any medication for tremor at this time. Review of Systems Review of Systems: All systems reviewed & are unremarkable except as noted in HPI & below Physical Exam Physical Exam: General Examination: Constitutional: Well developed person in no acute distress. HENT: Normal exam with inspection. CV: Hearth rhtyhm is regular. Neck: Supple, no carotid bruits. Lungs: Non-labored and comfortable breathing. Abdomen: Soft, non-tender, non-distended. Skin: No rash or ecchymosis. Extremities: No edema or cyanosis NEUROLOGICAL EXAMINATION: Mental Status: Awake, oriented to place, person and time. Cranial Nerves: II-XII are intact. No nystagmus. Funduscopy: Normal looking optic discs. Motor: 5/5 in all extremities without asymmetry. Tone: Normal without spasticity or rigidity. DTRs: 2- in upper extremities, 1- in knees and absent in ankles. No Babinski Sensory: Decreased sensation in distal lower extremities. Coordination: No dysmetria with FTN testing. Speech: Fluent. Comprehension is intact. Gait: He is steady and ambulates independently. No ataxia or shuffling. Musculoskeletal: Normal muscle bulk, no atrophy. KYAW: No bradykinesia Slight action induced tremor is noticed. Results & Data ([facility]) Vital Signs (Past 12 Hours) Vital Signs Temp Pulse Pulse Pulse Resp BP Pulse Ox 02/18/22 08:00 36.8 C 61 18 130/83 93 02/18/22 06:12 64 02/18/22 05:02 36.6 C 93 H 16 121/59 L 95 02/18/22 01:10 63 02/17/22 23:25 36.4 C L 97 H 18 131/55 L 95 O2 Del Method 02/18/22 08:00 Room Air 02/18/22 06:12 02/18/22 05:02 Room Air 02/18/22 01:10 02/17/22 23:25 Room Air Laboratory Results Laboratory Results - last 24 hr 02/17/22 02/17/22 02/17/22 08:54 16:54 20:28 WBC RBC Hgb Hct MCV MCH MCHC RDW Std Deviation RDW Coeff of Nacho Plt Count MPV Immature Gran % (Auto) Neut % (Auto) Lymph % (Auto) [place] % (Auto) Eos % (Auto) Baso % (Auto) Neut # (Auto) Lymph # (Auto) [place] # (Auto) Eos # (Auto) Baso # (Auto) Immature Gran # (Auto) Sodium Potassium Chloride Carbon Dioxide Anion Gap BUN Creatinine Est Cr Clr Drug Dosing Est GFR ( Amer) Est GFR (Non-Af Amer) BUN/Creatinine Ratio Glucose POC Glucose 85 144 H Calcium Magnesium Total Bilirubin AST ALT Alkaline Phosphatase Total Protein Albumin Globulin Albumin/Globulin Ratio Urine Opiates Screen Neg Ur Methadone, Qual Neg Urine Barbiturates Neg Ur Phencyclidine (PCP) Neg U Amphetamin/Meth Scrn Neg MDMA (Ecstasy) Screen Neg U Benzodiazepines Scrn Neg Ur Cocaine Metabolite Neg U Marijuana (THC) Screen Neg 02/17/22 02/18/22 02/18/22 21:54 05:24 05:24 WBC 6.24 RBC 4.89 Hgb 14.1 Hct 42.4 MCV 86.7 MCH 28.8 MCHC 33.3 RDW Std Deviation 44.9 RDW Coeff of Nacho 14.1 Plt Count 185 MPV 10.5 Immature Gran % (Auto) 0.2 Neut % (Auto) 59.2 Lymph % (Auto) 28.2 [place] % (Auto) 8.2 Eos % (Auto) 4.0 Baso % (Auto) 0.2 Neut # (Auto) 3.70 Lymph # (Auto) 1.76 [place] # (Auto) 0.51 Eos # (Auto) 0.25 Baso # (Auto) 0.01 Immature Gran # (Auto) 0.01 Sodium 135 L Potassium 3.9 Chloride 103 Carbon Dioxide 28 Anion Gap 4 BUN 17 Creatinine 0.73 Est Cr Clr Drug Dosing 103.3 Est GFR ( Amer) 104.4 Est GFR (Non-Af Amer) 90.1 BUN/Creatinine Ratio 23.3 H Glucose 94 POC Glucose 143 H Calcium 9.0 Magnesium 1.8 Total Bilirubin 1.0 AST 18 ALT 11 Alkaline Phosphatase 68 Total Protein 6.2 Albumin 3.7 Globulin 2.5 Albumin/Globulin Ratio 1.5 Urine Opiates Screen Ur Methadone, Qual Urine Barbiturates Ur Phencyclidine (PCP) U Amphetamin/Meth Scrn MDMA (Ecstasy) Screen U Benzodiazepines Scrn Ur Cocaine Metabolite U Marijuana (THC) Screen 02/18/22 07:49 WBC RBC Hgb Hct MCV MCH MCHC RDW Std Deviation RDW Coeff of Nacho Plt Count MPV Immature Gran % (Auto) Neut % (Auto) Lymph % (Auto) [place] % (Auto) Eos % (Auto) Baso % (Auto) Neut # (Auto) Lymph # (Auto) [place] # (Auto) Eos # (Auto) Baso # (Auto) Immature Gran # (Auto) Sodium Potassium Chloride Carbon Dioxide Anion Gap BUN Creatinine Est Cr Clr Drug Dosing Est GFR ( Amer) Est GFR (Non-Af Amer) BUN/Creatinine Ratio Glucose POC Glucose 100 H Calcium Magnesium Total Bilirubin AST ALT Alkaline Phosphatase Total Protein Albumin Globulin Albumin/Globulin Ratio Urine Opiates Screen Ur Methadone, Qual Urine Barbiturates Ur Phencyclidine (PCP) U Amphetamin/Meth Scrn MDMA (Ecstasy) Screen U Benzodiazepines Scrn Ur Cocaine Metabolite U Marijuana (THC) Screen Diagnostic Findings Chest X-Ray 02/17/22 07:30 XR chest 1V portable CLINICAL HISTORY: weakness COMPARISON STUDY: Chest CT August 12, 2015. Chest radiograph June 09, 2018. FINDINGS: Bilateral shoulder arthroplasties, median sternotomy wires and a left subclavian pacer are incidentally noted. Cardiomegaly is unchanged. No evidence for pulmonary edema. There is no pneumothorax. No definite pleural effusion. Numerous calcified pleural plaques are again noted. Appearance of the chest is unchanged. Hiatal hernia. IMPRESSION: No acute cardiopulmonary findings. No significant change in appearance of the chest. ACT 112: Negative or not required by law. Electronically signed by: Segundo Jameson M.D. 02/17/2022 8:[address] 02/17/22 07:[address] DOSE: 729.78 mGycm HISTORY: Altered mental status. Dizziness. TECHNIQUE: Multiaxial CT images of the head were performed without the use of intravenous contrast. Automated exposure control was utilized for this study. A dose lowering technique was utilized adhering to the principles of ALARA. Comparison: Head CT 11/17/2013. Findings: Mild mucosal thickening within the paranasal sinuses. The mastoid air cells are clear. The calvarium and skull base are intact. There is no mass, hematoma, midline shift, acute infarct. White matter hypodensity is nonspecific but suggestive of microvascular ischemic change. The ventricles and sulci demonstrate mild age-related involutional changes. There is an old punctate lacunar infarct within the right caudate, unchanged. Impression: No significant change compared to the prior study. No acute intracranial abnormality. ACT 112: Negative or not required by law. Electronically signed by: Morales Kelley M.D. 02/17/2022 8:37 AM Carotid Doppler Study 02/17/22 11:14 ULTRASOUND OF THE CAROTID ARTERIES CLINICAL HISTORY: blurry vision. ? Syncope COMPARISON: None available at the time of this dictation. TECHNIQUE: Real-time, grayscale, and color Doppler sonography of the carotid arteries is performed. Images are reviewed in the transverse and longitudinal planes. FINDINGS: The carotid arteries are patent bilaterally and demonstrate antegrade flow. There is mild atherosclerotic plaque on the right and mild atherosclerotic plaque on the left. Normal doppler arterial waveforms are seen throughout. Velocity measurements are listed below. Common carotid peak systolic velocity (cm/sec): RIGHT: 68 LEFT: 50 ICA peak systolic velocity (cm/sec): RIGHT: 52 LEFT: 54 ICA/CC peak systolic ratio: RIGHT: 0.76 LEFT: 1.1 Antegrade flow was shown in the vertebral arteries. The external carotid arteries are patent. IMPRESSION: 1. There is no sonographic evidence of hemodynamically significant stenosis in the right or left carotid arterial system. 2. Antegrade flow is shown in the vertebral arteries. Society of Radiologists in Ultrasound consensus guidelines: Normal: ICA PSV is <125 cm/sec and no plaque or intimal thickening is visible sonographically additional criteria include ICA/CCA PSV ratio <2.0 and ICA EDV <40 cm/sec <50% ICA stenosis: ICA PSV is <125 cm/sec and plaque or intimal thickening is visible sonographi alexandro additional criteria include ICA/CCA PSV ratio <2.0 and ICA EDV <40 cm/sec 50-69% ICA stenosis: ICA PSV is 125-230 cm/sec and plaque is visible sonographically additional criteria include ICA/CCA PSV ratio of 2.0-4.0 and ICA EDV of 40-100 cm/sec ?70% ICA stenosis but less than near occlusion: ICA PSV is >230 cm/sec and visible plaque and luminal narrowing are seen at shi-scale and color Doppler ultrasound (the higher the Doppler parameters lie above the threshold of 230 cm/sec, the greater the likelihood of severe disease) additional criteria include ICA/CCA PSV ratio >4 and ICA EDV >100 cm/sec ACT 112: Negative or not required by law. Electronically signed by: Hakeem Gongora M.D. 02/17/2022 12:10 PM (1) AMS (altered mental status) Altered mental status type: unspecified Qualified Code(s): R41.82 - Altered mental status, unspecified
--- NOTE | 2022-02-18 12:31 | Discharge Summary ---
Date of Service February 18, 2022 Admission HPI Per Admitting Provider This is a 76-year-old male who has a significant past medical history of CAD with history of his CABG x 3, history of coronary angioplasty, tachybradycardia syndrome status post PPM, HTN, HLD, RBBB, T2DM, neuropathy, monoclonal paraproteinemia, history of CVA, Parkinsonian features, essential tremor, neuropathy who presents to ED after sustaining a fall prior to arrival. Patient works at [email or web address] and was going to work today. When he went to get out of his truck he rolled out and fell on the ground and couldn't get up. Prior to him rolling out of the truck he complained of blurry vision but denies dizzi ness, lightheaded, sob, palpitations, or chest pain. When he was on the ground he felt to weak to get up. His co worker helped him get up. Right now he denies palpitations, chest pain, f/c/s, dizziness, lightheaded, TAVERAS, uri sx, cough, n/v/d, abd pain, dysuria, increased urg/freq with urination, melena, or hematochezia. He feels his vision is improved from this morning but still blurry. No recent illness. Last week was at [employer] and enjoyed it. Of significance patient has been following with [facility] neurology due to an essential tremor. He was last seen on 02/03/2022 secondary to persistent tremor. In past patient had previously been tried on Sinemet and primidone without significant improvement. Per neurology note patient is progressing to mild parkinsonian features. At this appointment he was placed on clonazepam 1 mg twice a day. Per his he didn't start the Klonopin until last night. His first dose was last night and second dose this morning. This morning he felt very drowsy and off balance. He was running into furniture trying to take dog out. He drove 4-6 miles to get to work today. Also patient recently had pacemaker check on 02/16/2022 which revealed normal functioning pacemaker and 1 episode of 2-second V. tach. He is otherwise atrial paced. This was placed in May [address] Martel due to TBS. He has been eating and drinking well at home. Admission Exam Per Admitting Provider PE: NAD, well developed HEENT: no sign of any trauma, PERRLO, EOMI Cardiac: Normal S1/S2, no murmur Lungs: CTA, no wheezing or crackles Abd: ND, NT, Soft Neuro: CN II-XII intact, normal motor strength Psych: AAOx3, normal affect Principal Diagnosis Fall Intolerance to Klonopin Discharge Data Allergies Allergy/AdvReac Type Severity Reaction Status Date / Time No Known Allergies Allergy Verified 10/22/21 09:47 Consultations 02/17/22 10:53 ED Decision to Admit Stat 02/17/22 11:17 Consult Neurology Routine Ordered Studies 02/17/22 07:30 CT head/brain wo con Stat 02/17/22 11:14 Carotid duplex [US carotid doppler BI] Stat Hospital Course (1) Fall: (2) Excessive daytime sleepiness: (3) CAD (coronary artery disease): (4) Diabetes mellitus, type 2: (5) Sleep apnea: (6) Parkinsonian features: Plan Patient is a 76 yr male with H/O CAD with history of his CABG x 3, history of coronary angioplasty, tachybradycardia syndrome status post PPM, HTN, HLD, RBBB, T2DM, neuropathy, monoclonal paraproteinemia, history of CVA, Parkinsonian features, essential tremor, neuropathy who presents to ED after sustaining a fall prior to arrival. Fall Excessive daytime sleepiness: Secondary to Klonopin C/o blurred vision--Resolved Parkinsonian features --CT head:No significant change compared to the prior study. No acute intracranial abnormality. --Carotid USD:There is no sonographic evidence of hemodynamically significant stenosis in the right or left carotid arterial system. Antegrade flow is shown in the vertebral arteries. Abdominal pain discontinue Appreciate neurology input Needs follow-up with neurology upon discharge Symptoms resolved Did well with PT/OT Further work-up for tremor as outpatient DM II well controlled on metformin as outpt HbA1c 6.5 02/02/22 Continue ISS while hospitalized CAD H/O CABG x 3 HTN HLD Cerebral vascular disease Known carotid artery stenosis continue metoprolol, ramipril, asa, plavix, statin ECHO showed EF 55 to 60%, no segmental left ventricle wall motion abnormalities, grade 2 diastolic dysfunction. No significant valvular pathology, moderate left atrial enlargement. No signs of volume overload on exam Follow-up with cardiology as needed as outpatient Tachybradycardia syndrome s/p PPM Placed [address] Martel Recent pacer check 02/16, good function, 2 sec VT episode TIMOTHY CPAP at hs Uses regularly as per patient DVT px: SQ Lovenox Disposition Home Code Status FULL CODE Total Time Total Time Spent Total Time Spent (In Minutes): 44 minutes Discharge Plan Discharge Items Patient Disposition: Home - Self-Care Reason For Visit: FALL, INCREASED CONFUSION Discharge Diagnosis: Fall Intolerance to Klonopin Activity: Per Instructions section Exercise/Sports: Gradually increase as tolerated Non-emergency contact: Primary Care Provider and Neurologist Call non-emergency contact if: you have any medication questions, your symptoms worsen, your pain is concerning for you and you have a fever Follow-up/Referrals: Crystal Walter DO [Primary Care Provider] - (Date & Time 02/24/2022 3:00 PM Provider Crystal Walter DO Department [facility] ) Diet: Carb Consistent or DM2 and Heart Healthy Addtl Attending Provider Instructions: Follow-up with your primary care physician on 02/24/2022 3:00 PM Follow-up with a neurologist in 3 to 4 weeks --- Your Klonopin is discontinued secondary to side effects and Intolerance Seek immediate medical attention if your symptoms reoccur or worsen Please take all medications as instructed on discharge list below. Please call if you have any questions or problems. You can reach a [facility] hospitalist on duty at [facility] 24 hours a day by calling [phone] Pending Studies at Discharge: No Stand-Alone Forms: My [facility], Smoking Cessation Medications and DC Order Prescriptions: Continued (DME) CPAP Supplies Mis See Dose Instructions .ROUTE .MEDSUPPLY Qty: 1 0RF Dose Instruction: As directed Rx Instructions: As directed (DME) CPAP Machine Misc .Route Qty: 1 0RF Rx Instructions: Changed from auto CPAP to fixed CPAP at 13 cm of water.F&P med VItera mask, lifetime need, [place] Home patient metoprolol succinate 25 mg Tablet Extended Release 24 Hr 25 mg PO QAM Qty: 30 0RF multivitamin Tablet 1 tab PO HS metformin 500 mg Tablet 1,000 mg PO DAILY vitamin B complex Tablet Extended Release 1 tab PO PM atorvastatin 20 mg Tablet 20 mg PO PM clopidogrel [Plavix] 75 mg Tablet 75 mg PO QAM aspirin 81 mg Tablet,Delayed Release (/Ec) 81 mg PO PM tamsulosin 0.4 mg Capsule 0.4 mg PO DAILY niacin 500 mg Tablet 500 mg PO HS finasteride 5 mg Tablet 5 mg PO PM duloxetine 60 mg Capsule,Delayed Release(Dr/Ec) 60 mg PO QAM ramipril 10 mg Tablet 10 mg PO QAM Myrbetriq 25 mg tablet extended release 24 hr 25 mg PO DAILY Discontinued clonazepam 1 mg tablet 1 mg PO BID Discharge Orders: Discharge Order (Routine); Ordered 02/18/22 Ordered By: Armando Frausto Admission Data Admit Date/Time: 02/17/22 10:50 Attending Provider: Armando Frausto Admit Provider: Alma Delia Edwards Primary Care Provider: Crystal Walter Other Providers: Alma Delia Edwards ; Allen Ocampo ; [facility]
--- NOTE | 2022-02-18 12:31 | Hospitalist Progress Note ---
Date of Service February 18, 2022 Assessment & Plan (1) Fall: (2) Excessive daytime sleepiness: (3) CAD (coronary artery disease): (4) Diabetes mellitus, type 2: (5) Sleep apnea: (6) Parkinsonian features: Plan Patient is a 76 yr male with H/O CAD with history of his CABG x 3, history of coronary angioplasty, tachybradycardia syndrome status post PPM, HTN, HLD, RBBB, T2DM, neuropathy, monoclonal paraproteinemia, history of CVA, Parkinsonian features, essential tremor, neuropathy who presents to ED after sustaining a fall prior to arrival. Fall Excessive daytime sleepiness: Secondary to Klonopin C/o blurred vision--Resolved Parkinsonian features --CT head:No significant change compared to the prior study. No acute intracranial abnormality. --Carotid USD:There is no sonographic evidence of hemodynamically significant stenosis in the right or left carotid arterial system. Antegrade flow is shown in the vertebral arteries. Abdominal pain discontinue Appreciate neurology input Needs follow-up with neurology upon discharge Symptoms resolved Did well with PT/OT Further work-up for tremor as outpatient DM II well controlled on metformin as outpt HbA1c 6.5 02/02/22 Continue ISS while hospitalized CAD H/O CABG x 3 HTN HLD Cerebral vascular disease Known carotid artery stenosis continue metoprolol, ramipril, asa, plavix, statin ECHO showed EF 55 to 60%, no segmental left ventricle wall motion abnormalities, grade 2 diastolic dysfunction. No significant valvular pathology, moderate left atrial enlargement. No signs of volume overload on exam Follow-up with cardiology as needed as outpatient Tachybradycardia syndrome s/p PPM Placed [address] Martel Recent pacer check 02/16, good function, 2 sec VT episode TIMOTHY CPAP at hs Uses regularly as per patient DVT px: SQ Lovenox Disposition Home Code Status FULL CODE Admission and Anticipated Discharge Date Admission Date: February 17, 2022 Subjective Patient is seen and examined at bedside States feeling much better today Offers not complaints Had PT eval earlier Prefers not to be restarted on Klonopin Denies any chest pain, shortness of breath, dizziness, nausea, abdominal pain Appreciate neurology recommendations Review of Systems Review of Systems: All systems reviewed & are unremarkable except as noted in Subjective Physical Exam Physical Exam: Physical Exam: Vitals signs as noted above General Appearance:Moderately built and nourished, no apparent distress Head: normocephalic, Atraumatic Eyes: normal inspection, EOMI Neck: supple, Trachea midline Respiratory/Chest: Normal breath sounds, CTA, No accessory muscle use Cardiovascular: S1, S2, No murmur Abdomen/GI:Soft, Non tender, Bowel sounds present Extremities/Musculoskeletal:normal inspection, no edema, Left shoulder decreased ROM--Chronic from prior surgery Neurologic/Psych:AAOX3, grossly no focal neurological deficits, +Tremor Skin: normal color, warm Results & Data Results & Data ([facility]) Vital Signs (Past 12 Hours) Vital Signs Temp Pulse Pulse Pulse Resp BP Pulse Ox 02/18/22 08:00 36.8 C 61 18 130/83 93 02/18/22 06:12 64 02/18/22 05:02 36.6 C 93 H 16 121/59 L 95 02/18/22 01:10 63 O2 Del Method 02/18/22 08:00 Room Air 02/18/22 06:12 02/18/22 05:02 Room Air 02/18/22 01:10 Laboratory Results Short CBC 02/18/22 Range/Units 05:24 WBC 6.24 (4.8-10.8) K/ul Hgb 14.1 (14.0-18.0) g/dl Hct 42.4 (40.1-51.0) % Plt Count 185 (130-400) K/uL BMP 02/18/22 05:24 Sodium 135 L Potassium 3.9 Chloride 103 Carbon Dioxide 28 BUN 17 Creatinine 0.73 Glucose 94 Calcium 9.0 Liver Function 02/18/22 Range/Units 05:24 Total Bilirubin 1.0 (0.2-1.0) mg/dl AST 18 (13-39) U/L ALT 11 (7-52) U/L Alkaline Phosphatase 68 (34-104) U/L Albumin 3.7 (3.4-5.0) gm/dl
== END 2022-02-18 15:10 | disposition home or self-care (01) ==
LOC: ED 06:45 → EDINP 06:45 → SUATTDRO 10:50 → EDINP 13:43 → 2N 14:26

== ENCOUNTER 2022-07-15 11:44 | Inpatient (IN) ==
--- NOTE | 2022-07-02 09:55 | PAT Medication Instructions ---
Medication Instructions Date of Service July 02, 2022 Home Medications Medication Instructions Recorded metoprolol succinate 25 mg 25 mg PO QAM #30 tabs 06/08/18 tablet,extended release 24 hr CPAP Supplies #1 ea 02/27/19 CPAP Machine #1 ea 01/08/22 metoprolol succinate 25 mg tablet,extended release 24 hr 25 mg PO QAM aspirin 81 mg tablet,delayed release 81 mg PO PM atorvastatin 20 mg tablet 20 mg PO PM clopidogrel 75 mg tablet (Plavix) 75 mg PO QAM duloxetine 60 mg capsule,delayed release 60 mg PO QAM finasteride 5 mg tablet (Proscar) 5 mg PO PM metformin 500 mg tablet 500 mg PO BID multivitamin 1 tab PO QAM niacin 500 mg tablet 500 mg PO QPM ramipril 10 mg tablet 10 mg PO QAM tamsulosin 0.4 mg capsule 0.4 mg PO QPM vitamin B complex 1 tab PO PM mirabegron 25 mg tablet,extended release 24 hr (Myrbetriq) 25 mg PO DAILY ASK your prescriber and surgeon aspirin 81 mg tablet,delayed release 81 mg PO PM clopidogrel 75 mg tablet (Plavix) 75 mg PO QAM STOP taking 48 hours before surgery niacin 500 mg tablet 500 mg PO QPM DO NOT take the morning of surgery metformin 500 mg tablet 500 mg PO BID multivitamin 1 tab PO QAM ramipril 10 mg tablet 10 mg PO QAM mirabegron 25 mg tablet,extended release 24 hr (Myrbetriq) 25 mg PO DAILY Take morning of surgery With a small sip of water, OTHERWISE NOTHING TO EAT OR DRINK AFTER MIDNIGHT: metoprolol succinate 25 mg tablet,extended release 24 hr 25 mg PO QAM duloxetine 60 mg capsule,delayed release 60 mg PO QAM Take evening before surgery atorvastatin 20 mg tablet 20 mg PO PM finasteride 5 mg tablet (Proscar) 5 mg PO PM metformin 500 mg tablet 500 mg PO BID tamsulosin 0.4 mg capsule 0.4 mg PO QPM vitamin B complex 1 tab PO PM Other Notes If you have any questions please call us at [phone] or [phone] or [phone] or [phone]
--- NOTE | 2022-07-03 10:46 | Anesthesiology Consultation ---
Date of Service July 03, 2022 Assessment & Plan (1) Encounter for pre-operative examination: - COVID screening: Per assessment on 07/03: No known COVID-19 positive contacts or current COVID-19 related symptoms. Travel screen negative. Patient vaccinated. Pt was Covid positive 06/05/22 (PCR [facility]- report scanned into [employer])- asymptomatic. Negative Covid PCR 06/28/22 [place]. Pt can proceed as scheduled without additional preop Covid testing or additional Covid contact precautions per days protocol. - Outpatient joint assessment: Pt currently scheduled for inpatient pathway. If surgeon requests review for outpatient joint pathway, patient is not recommended candidate for outpatient joint program from anesthesia standpoint. - Neurology office visit (06/25/22): "bilateral essential tremor and mild cognitive impairment. Recent TEMI scan is negative. Tremor has been resistant to sinemet and primidone. Klonopin caused side effect of somnolence, was not helpful. Willing to try gabapentin low dose. Will be in touch regarding effectiveness." F/U 6 months recommended. - Cardiology office visit (07/02/22): "Patient presents today describing stable cardiac signs and symptoms. He has ongoing progressive left shoulder pain and decreased range of motion that is been refractory to non operative therapy.. The patient describes himself is being physically active, and certainly maintains in activity level of 4 to 7 METs with his daily activities. At the time his most recent stress echocardiogram in 2019, he completed 7 METs of exercise at that time. Given his history of complex coronary disease, would recommend that his procedure is most safely performed in the hospital setting rather than the outpatient surgical setting. The patient is maintained on chronic dual anti- platelet therapy with aspirin and clopidogrel due to his history of complex coronary heart disease interventions as noted above including a remote drug- eluting stent of the left main to improve perfusion to the circumflex coronary territory. Would recommend proceeding with the same strategy that was utilized successfully with his previous surgeries in 2014 and 2016, holding clopidogrel for 5 days prior to the surgery, and maintaining low-dose aspirin, 81 milligrams daily without interruption." - Pacer rep requested: OR/Vanessa made aware - [facility] ER (06/28/22): "CHIEF COMPLAINT: Generalized weakness, headache, frequent urination overnight.. test results today did not show any clear cause for your symptoms, fatigue or weakness. There is no evidence of urinary tract infection. CT scan of your brain did not show any abnormality. COVID and flu swabs were negative. Your chest x-ray was clear. Your cardiac testing was also unremarkable. Follow-up with your doctor for further care and evaluation in 1-2 days if symptoms persist. Return to the emergency department for worsening or new symptoms or any concerns. You have been examined and treated today on an emergency basis only." Patient seen by PAT 07/03/22- he reports resolution/no further issues in symptoms that he presented to the ER with 06/28/22. Recent neuro office visit 06/25/22 unremarkable. Case reviewed with Dr. Craig- given resolution of symptoms, he feels patient okay to proceed with surgery as scheduled. Pt aware to contact if recurrence in previous symptoms. Chart Review Chart Review: Acceptable Risk for Surgery (pending evaluation AM DOS) and Patient seen in Pre Admission Testing Teaching & Discussion Pre-Anesthesia Teaching/Discussion Notes: Instructed NPO after midnight before surgery,except medications with 15 cc of water. Medication instructions provided according to the [facility] guidelines. History Surgery Operation Date: 07/15/22 11:40 Proposed Procedures p Left Total Shoulder Arthroplasty Convert to Reversed Total Shoulder Arthroplasty - Leo Lamb MD Height/Weight Height: 6 ft Weight: 101.5 kg Allergies Allergy/AdvReac Type Severity Reaction Status Date / Time No Known Allergies Allergy Verified 07/01/22 14:10 Medications Home Medications Medication Instructions Recorded Confirmed Last Taken metoprolol succinate 25 mg 25 mg PO QAM #30 tabs 06/08/18 07/01/22 02/10/21 05:30 tablet,extended release 24 hr CPAP Supplies #1 ea 02/27/19 02/17/22 Unknown aspirin 81 mg tablet,delayed 81 mg PO PM 02/05/21 07/01/22 02/09/21 20:00 release atorvastatin 20 mg tablet 20 mg PO PM 02/05/21 07/01/22 02/09/21 20:00 clopidogrel 75 mg tablet (Plavix) 75 mg PO QAM 02/05/21 07/01/22 02/05/21 20:00 duloxetine 60 mg capsule,delayed 60 mg PO QAM 02/05/21 07/01/22 02/09/21 20:00 release finasteride 5 mg tablet (Proscar) 5 mg PO PM 08/07/01/22 02/09/21 20:00 metformin 500 mg tablet 500 mg PO BID 02/05/21 07/01/22 02/09/21 20:00 multivitamin 1 tab PO QAM 02/05/21 07/01/22 02/09/21 20:00 niacin 500 mg tablet 500 mg PO QPM 02/05/21 07/01/22 02/09/21 20:00 ramipril 10 mg tablet 10 mg PO QAM 02/05/21 07/01/22 02/10/21 05:30 tamsulosin 0.4 mg capsule 0.4 mg PO QPM 02/05/21 07/01/22 02/09/21 20:00 vitamin B complex 1 tab PO PM 02/05/21 07/01/22 02/09/21 20:00 CPAP Machine #1 ea 01/08/22 02/17/22 Unknown mirabegron 25 mg tablet,extended 25 mg PO DAILY 02/17/22 07/01/22 Unknown release 24 hr (Myrbetriq) Past Medical History Medical History Arthritis BPH (benign prostatic hyperplasia) CAD (coronary artery disease) S/P CABG x3 in 2001 with SMITH to LAD; SABRINA to PDA and Radial to LCX. PCI/rot oblation/stent VON RCA 2004 (performed due to SABRINA to PDA graft stenosis) and PCI/VON left main 2004 2011 cardiac cath demonstrated 3V CAD in the [place] vessels with patent SMITH to LAD graft, patent radial graft to the circumflex, and SABRINA graft to the R PDA had a 95% ostial stenosis that was unchanged compared to his last cardiac catheterization. The [place] RCA had a total occlusion (area that previously been stented). Continued medical management was recommended. Carpal tunnel syndrome Chronic back pain Depression Diabetes mellitus, type 2 NIDDM Essential tremor History of COVID-19 06/05/22 (PCR [facility]- report scanned into [employer])- asymptomatic. 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) Sleep apnea CPAP (compliant) Exercise / Class Metabolic Activity II 4-5 Yardwork/Stairs/Walk up hill (one FS (no CP, no SOB)) Past Family History Family History Mother , 61 Pulmonary embolism Father , 74 Stroke Brother Coronary heart disease Past Surgical History Surgical History History of cataract surgery R/L History of colonoscopy History of coronary artery bypass graft CABG x3 in 2001 with SMITH to LAD; SABRINA to PDA and Radial to LCX History of heart artery stent 2016 History of inguinal hernia repair Left (01/2021) History of repair of rotator cuff R/L History of tonsillectomy History of tooth extraction History of total knee replacement R/L Hx of appendectomy S/P epidural steroid injection Status post total shoulder arthroplasty left Past Anesthesia History No Hx of Anesthesia Complications and No Family Hx of Anesthesia Complications History of PONV No Hx of PONV and No Hx of Motion Sickness 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 Smoking Status: Former smoker tobacco type: cigarettes Do You Dip or Chew Tobacco: No Smoking End Date: Quit Hx Alcohol Use: No Hx Substance Use: No substance use type: does not use Review of Systems Patient denies chest pain, shortness of breath, dyspnea on exertion, fever, chills, cough, wheezing, palpitations. Physical Exam Vital Signs VITALS BP 97/59 P 77 TEMP 98.8 SP02 95%RA RESP 16 PHYSICAL Full cervical extension range of motion. Full TMJ range of motion. TMD 1 finger breaths Mallampati Score 4 Dentition: full denture upper, partial lower Lungs: clear throughout to auscultation Cardiac: regular rate and rhythm, no murmurs noted Spine: normal Carotid arteries: negative bruit Extremities: no edema Lab Results Anesthesia Preop Results Results Anesthesia Widget: WBC 6.15 K/ul (4.8-10.8) 06/28/22 Hgb 14.8 g/dl (14.0-18.0) 06/28/22 Hct 44.4 % (40.1-51.0) 06/28/22 Plt 216 K/uL (130-400) 06/28/22 Na 138 mmol/L (136-145) 06/28/22 K 3.8 mmol/L (3.5-5.1) 06/28/22 Cl 102 mmol/L (98-107) 06/28/22 CO2 29 mmol/L (21-32) 06/28/22 BUN 9 mg/dl (6-23) 06/28/22 Creat 0.78 mg/dl (0.6-1.4) 06/28/22 Glucose Level 122 mg/dl (70-99(Fasting)) H 06/28/22 PT 11.2 Seconds (9.0-12.0) 07/03/22 PTT 30.2 Seconds (21.0-31.0) 07/03/22 INR 1.1 (0.9-1.1) 07/03/22 TSH 0.939 uIu/ml (0.300-4.500) 06/28/22 HA1c 6.4 % (4.5-5.6) H 07/03/22 Urine Color Yellow 06/28/22 Urine Appearance Clear (Clear) 06/28/22 Urine pH 7.0 (4.5-7.5) 06/28/22 Urine Specific [place] 1.012 (1.000-1.030) 06/28/22 Urine Protein Negative (Negative) 06/28/22 Urine Glucose (UA) Negative (Negative) 06/28/22 Urine Ketones Negative (Negative) 06/28/22 Urine Blood Negative (Negative) 06/28/22 Urine Nitrite Negative (Negative) 06/28/22 Urine Bilirubin Negative (Negative) 06/28/22 Urine Urobilinogen Negative (Negative) 06/28/22 Urine Leukocyte Esterase Negative (Negative) 06/28/22 COVID-19 PCR NEGATIVE (Negative) 06/28/22 Blood Type O Positive 07/03/22 Antibody Screen NEGATIVE 07/03/22 Testing Electrocardiogram Date: 06/28/22 Sinus rhythm with occasional atrial paced complexes at 69 bpm. RBBB. No significant change compared to 02/17/2022 per stripper and taper review. Chest X-Ray Date: 07/03/22 FINDINGS: PA and lateral chest radiographs are compared to study dated 06/28/2022 and correlated with chest CT dated 08/12/2015. A hiatal hernia is noted. The patient is status post midline sternotomy. A 2-lead cardiac pacemaker is unchanged in position. The heart is enlarged noting atherosclerotic calcification of the thoracic aorta. The pulmonary vasculature is noncongested. Chronic interstitial thickening is similar to previous. Large bilateral calcified pleural plaques are unchanged. There is bibasilar scarring/atelectasis. No superimposed airspace consolidation or large pleural effusion is identified. There is no pneumothorax. The skeletal structures are osteopenic. The bony thorax is grossly intact. Bilateral shoulder arthroplasties are in place. Degenerative changes hyperkyphosis is noted throughout the thoracic spine. IMPRESSION: Cardiomegaly and cardiac pacemaker without radiographic evidence of congestive failure. No airspace consolidation or large pleural effusion is identified. Hiatal hernia. Chronic parenchymal changes as above with evidence of asbestos related pleural disease. Echocardiogram Date: 02/17/22 EF 55 to 60%. No regional motion abnormality. Grade 2 diastolic dysfunction. Moderate LAE. Mild concentric LVH. No significant valvular disease. Stress Test Date: 12/28/18 Type: exercise Stress echo negative for inducible ischemia. Exercise capacity is average. 77% MPHR. Stress EKG showed no evidence of ischemia. LVEF 55-59%. No significant valvular disease. 7 METS. Other Testing Carotid ultrasound (02/17/22) There is no sonographic evidence of hemodynamically significant stenosis in the right or left carotid arterial system. Antegrade flow is shown in the vertebral arteries. Pacer check (05/27/22) Medtronic. AP 68.6%. RVP 0.3%. Mode AAIR <=> DDDR. "Normal dualchamber pacemaker function.Next Remote Monitoring Transmission is scheduled for3 months." Head CT (06/28/22) Findings: Mild mucosal thickening within the paranasal sinuses. The mastoid air cells are clear. The calvarium and skull base are intact. There is no mass, hematoma, midline shift, acute infarct. White matter hypodensity is nonspecific but suggestive of microvascular ischemic change. The ventricles and sulci demonstrate mild age-related involutional changes. Impression: No significant change compared to the prior study. No acute intracranial abnormality. COVID-19 Risk Screen Screening Information COVID-19 Screen Date: 07/03/22 Exposure 21 Days Family/Household +COVID Last 21 Days: No Exposure 10 Days Any COVID Exposure Last 10 Days: No Symptoms Last 10 Days Experienced COVID Sx Last 10 Days: No + COVID 0-90 Days COVID + in Last 0-90 Days: Yes + COVID Test 0-10 Day: No + COVID Test 11-90 Day: Yes
--- NOTE | 2022-07-14 08:55 | History & Physical Report ---
Date of Service July 14, 2022 Assessment & Plan (1) Prosthetic joint loosening: Plan: Treatment options discussed with patient. He has failed conservative measures and would like to proceed with surgical intervention. Risks, benefits and alternatives to surgery including but not limited to infection, DVT, pain, stiffness, need for revision surgery, damage to blood vessels, damage to nerves, PE, , were discussed with the patient and they wish to proceed. Plan on conversion of left total shoulder to reverse total shoulder arthroplasty. Surgery scheduled for 07/15/[address] Lamb at [facility]. All questions answered. Patient will follow up post op. 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 History of prior total shoulder arthroplasty several years ago. He has been having progressive left shoulder pain interfering with his daily activity. He has failed conservative measures and would like to proceed with revision surgery. Patient denies headaches, sweats, fevers, chills, double vision, blurred vision, cough, sore throat, dysphagia, chest pain, sob, wheezing, n/v/d/c, numbness, tingling, fatigue, urinary symptoms, mood disorders. ROS positive for left shoulder pain and stiffness. Allergies Allergy/AdvReac Type Severity Reaction Status Date / Time No Known Allergies Allergy Verified 07/01/22 14:10 Home Medications Medication Instructions Recorded Confirmed Type metoprolol succinate 25 mg 25 mg PO QAM #30 tabs 06/08/18 07/01/22 Rx tablet,extended release 24 hr CPAP Supplies #1 ea 02/27/19 02/17/22 Rx aspirin 81 mg tablet,delayed 81 mg PO PM 02/05/21 07/01/22 History release atorvastatin 20 mg tablet 20 mg PO PM 02/05/21 07/01/22 History clopidogrel 75 mg tablet (Plavix) 75 mg PO QAM 02/05/21 07/01/22 History duloxetine 60 mg capsule,delayed 60 mg PO QAM 02/05/21 07/01/22 History release finasteride 5 mg tablet (Proscar) 5 mg PO PM 02/05/21 07/01/22 History metformin 500 mg tablet 500 mg PO BID 02/05/21 07/01/22 History multivitamin 1 tab PO QAM 02/05/21 07/01/22 History niacin 500 mg tablet 500 mg PO QPM 02/05/21 07/01/22 History ramipril 10 mg tablet 10 mg PO QAM 02/05/21 07/01/22 History tamsulosin 0.4 mg capsule 0.4 mg PO QPM 02/05/21 07/01/22 History vitamin B complex 1 tab PO PM 02/05/21 07/01/22 History CPAP Machine #1 ea 01/08/22 02/17/22 Rx mirabegron 25 mg tablet,extended 25 mg PO DAILY 02/17/22 07/01/22 History release 24 hr (Myrbetriq) Past Med/Surg History Medical History Arthritis BPH (benign prostatic hyperplasia) CAD (coronary artery disease) S/P CABG x3 in 2001 with SMITH to LAD; SABRINA to PDA and Radial to LCX. PCI/rot oblation/stent VON RCA 2004 (performed due to SABRINA to PDA graft stenosis) and PCI/VON left main 2004 2011 cardiac cath demonstrated 3V CAD in the [place] vessels with patent SMITH to LAD graft, patent radial graft to the circumflex, and SABRINA graft to the R PDA had a 95% ostial stenosis that was unchanged compared to his last cardiac catheterization. The [place] RCA had a total occlusion (area that previously been stented). Continued medical management was recommended. Carpal tunnel syndrome Chronic back pain Depression Diabetes mellitus, type 2 NIDDM Essential tremor History of COVID-19 06/05/22 (PCR [facility]- report scanned into [employer])- asymptomatic. 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) Sleep apnea CPAP (compliant) Surgical History History of cataract surgery R/L History of colonoscopy History of coronary artery bypass graft CABG x3 in 2001 with SMITH to LAD; SABRINA to PDA and Radial to LCX History of heart artery stent 2016 History of inguinal hernia repair Left (01/2021) History of repair of rotator cuff R/L History of tonsillectomy History of tooth extraction History of total knee replacement R/L Hx of appendectomy S/P epidural steroid injection Status post total shoulder arthroplasty left Family History Mother , 61 Pulmonary embolism Father , 74 Stroke Brother Coronary heart disease 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 Smoking Status: Former smoker Smoking End Date: Quit ; Second Hand Exposure: No; Do You Dip or Chew Tobacco: No; Tobacco Cessation Education Requested by Patient: No Hx Alcohol Use: No Hx Substance Use: No Preferred Language: Kazakh Communication Ability: Effective Wallpaper Installer Required: No Beliefs That Will Affect Care: None Current Living Situation: Spouse Other Information That Helps Us Care for You: No Assistive Devices: CPAP, Denture - Upper and Hearing Aid - Bilateral Review of Systems All systems reviewed & are unremarkable except as noted in HPI & below Physical Exam Constitutional: well developed and well nourished; no acute distress Eyes: PERRL, conjunctivae normal, anicteric sclerae ENMT: external ear and nose normal, oropharynx normal Neck: trachea midline, no thyromegaly Respiratory: normal respiratory effort, lungs clear to auscultation Cardiovascular: RRR, no murmur, no edema Musculoskeletal: Left shoulder: Well healed incision, no erythema. Positive impingement signs. Mild pain with ROM. FF to 60 degrees, abduction to 80 degrees, ER to 45 degrees actively. Weakness with strength testing Skin: no rashes, warm and dry Neurologic: patellar DTR's 2+ bilat, sensation intact Psychiatric: A+Ox3, euthymic affect Results & Data ([facility]) Diagnostic Findings X-rays of the left shoulder demonstrate he has proximal migration of the implant on the humeral side. No evidence of loosening of the humeral stem with well- fixed stem. There is irregular appearance to the polyethylene glenoid implant. Concern for glenoid loosening and with proximal migration concerning for rotator cuff tear.
[~2022-07-15 11:44] MED LIST changes: +ACETAMINOPHEN 500 MG TAB PO SCH; +BUPIVACAINE 0.5 % 5 MG/1 ML PF 10ML VIAL ONE; -CEFAZOLIN 1000MG 1,000 MG/7.5 ML SYR IV SCH; +CeleBREX 200 MG CAP PO SCH; +FAMOTIDINE 20 MG TAB PO SCH; +GABAPENTIN 300 MG CAP PO SCH; +LIDOCAINE 2% MPF LOCAL 5 ML VIAL INFIL ONE; +LR 15ML/HR IV SCH; +METOCLOPRAMIDE HCL 10 MG TABLET PO SCH; +MIDAZOLAM HCL 1 MG/ML 2ML VIAL ONE; -PATIENT'S HEIGHT AND/OR WEIGHT NEEDED SCH; +PROPOFOL IV EMULSION 10 MG/ML 20 ML VIAL IV ONE; +ROCURONIUM BROMIDE 10 MG/ML 5 ML VIAL IV ONE; +TRANEXAMIC ACID 1,000 MG **IV Intra-op IV SCH; +TRANEXAMIC ACID 1,000 MG **IV Pre-op IV SCH; +VANCOMYCIN HCL 1,500 MG in SODIUM CHLORIDE 0.9% 500 ML IV SCH; +ceFAZolin 2000MG 2,000 MG/15 ML SYR IV SCH; +fentaNYL citrate 100 MCG/2 ML VIAL ONE
--- NOTE | 2022-07-15 12:35 | History & Physical Bridge Note ---
Date of Service July 15, 2022 History & Physical Bridge Note I have examined the patient, reviewed the History & Physical and in the interval since the performance of the History & Physical I have noted the following changes of clinical significance: no changes noted
[2022-07-15] MEDS ORDERED: PHENYLEPHRINE HCL 10 MG/ML VIAL ONE (14:10)
[2022-07-15] MEDS ORDERED: ONDANSETRON INJ 2 MG/ML 2 ML VIAL ONE (14:10)
[2022-07-15] MEDS ORDERED: ePHEDrine sulfate 50 MG/ML SYR ONE (14:14)
[2022-07-15] MEDS ORDERED: ACETAMINOPHEN 1000 MG/100 ML IV IV ONE (14:37)
[2022-07-15] MEDS ORDERED: VASOPRESSIN 20 UNIT/ML VIAL ONE (14:37)
[2022-07-15] MEDS ORDERED: WATER, STERILE FOR INJ 10 ML VIAL ONE (14:38)
[2022-07-15] MEDS ORDERED: ALBUMIN HUMAN 5% 12.5 GM/250 ML VIAL IV ONE (14:41)
[2022-07-15] MEDS ORDERED: NEOSTIGMINE METHYLSULFATE 1 MG/ML 10ML VIAL ONE (14:57)
[2022-07-15] MEDS ORDERED: GLYCOPYRROLATE 0.2 MG/ML VIAL ONE (14:57)
[2022-07-15] MEDS ORDERED: ROCURONIUM BROMIDE 10 MG/ML 5 ML VIAL IV ONE ×4 (15:22→16:38)
--- NOTE | 2022-07-15 17:52 | Post Operative Brief Note ---
Immediate Post Op Note v1 Date of Surgery July 15, 2022 Pre & Post Diagnosis Operation Date: 07/15/22 14:15 Pre-Op Diagnosis: Left Shoulder Total Shoulder Arthroplasty aseptic loosening glenoid with osteolysis glenoid and proximal humerus Post-Op Diagnosis: Left Shoulder Total Shoulder Arthroplasty aseptic loosening glenoid with fractured polyethylene central post with extensive osteolysis glenoid and proximal humerus moderate osteolysis with no loosening of humeral component. 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 I identified the patient and participated in the time-out.: Yes Procedure Operation Date: 07/15/22 14:15 Actual Procedures p revision of a total shoulder arthroplasty to a reverse total shoulder arthroplasty with explantation glenoid and humeral head components with extensive synovectomy, extensive debridement of synovium, cement fragments, and bone and in areas of osteolysis, bone grafting of glenoid with cancellous bone chunks mixed with Etex calcium phosphate bone substitute.- Leo Lamb MD Surgeon Leo Lamb MD Analytical Clerk Alexis CAMARENA Estimated Blood Loss 40 Findings Consistent with Post-Op Diagnosis Specimens Swab cultures x2 Specimen for frozen section Drains Preciado Catheter (Placed at 1331 by Delicia Littlejohn. Sterile procedure followed. 16 fr catheter, 10cc balloon.) and Hemovac Drain Anesthesia Type General Regional Complications none Disposition Disposition: Recovery Room Overlapping Procedure I was immediately available: during the entire case.
--- NOTE | 2022-07-15 18:50 | XRay Report ---
XR shoulder LT min 2V routine HISTORY: 77 years-old Male Post shoulder surgery left shoulder arthroplasty COMPARISON: Chest radiograph July 03, 2022 TECHNIQUE: 2 views of the left shoulder FINDINGS: Reverse total joint arthroplasty demonstrates satisfactory alignment. 2.2 cm bone fragment is noted i nferior to the acromium. Overlying skin mona with surgical drainage catheter. Left subclavian pace r. Cardiac megaly with prior median sternotomy. Pleural calcifications redemonstrated. IMPRESSION: Satisfactory alignment of the reverse total joint arthroplasty. ACT 112: Negative or not required by law. The above report was generated using voice recognition software. It may contain grammatical, syntax o r spelling errors. Electronically signed by: Alireza Last M.D. 07/15/2022 6:48 PM
--- NOTE | 2022-07-15 19:09 | Anesthesiology Progress Note ---
Date of Service July 15, 2022 Anesthesia Post Procedure Vital Signs Vital Signs: Temp Pulse Pulse Resp BP Pulse Ox O2 Del Method 07/15/22 19:00 36.3 C L 69 25 H 102/60 95 Nasal Cannula 07/15/22 18:50 68 22 103/61 95 Nasal Cannula 07/15/22 18:40 68 23 97/57 L 94 Nasal Cannula 07/15/22 18:30 68 23 97/53 L 95 Nasal Cannula 07/15/22 18:20 61 21 91/52 L 95 Oxymask 07/15/22 18:10 80 23 91/56 L 95 Oxymask 07/15/22 18:02 36.3 C L 80 21 100/62 95 Oxymask 07/15/22 11:25 36.8 C 77 20 167/97 H 95 Room Air O2 Flow Rate 07/15/22 19:00 2 07/15/22 18:50 2 07/15/22 18:40 2 07/15/22 18:30 2 07/15/22 18:20 8 07/15/22 18:10 8 07/15/22 18:02 8 07/15/22 11:25 Pain Intensity Left Shoulder: Pain Intensity: 2 Transfer of Care Handoff Completed per policy Notes Mental Status: alert / awake / arousable Patient Amnestic to Procedure: Yes Nausea / Vomiting: adequately controlled Pain: adequately controlled Airway Patency, RR, SpO2: stable & adequate BP & HR: stable & adequate Hydration State: stable & adequate Anesthetic Complications: no major complications apparent and Pt Satisfied with anesthetic care Notes: The patient is awake and comfortable. His vital signs are stable. RR is 18.
[2022-07-15] MEDS ORDERED: oxyCODONE HCL IR 5 MG TAB (IMMEDIATE RELEASE) PO PRN (20:18)
[2022-07-15] MEDS ORDERED: SODIUM CHLORIDE 0.9% 1000ML 1,000 ML IV SCH (20:18)
[2022-07-15] MEDS ORDERED: ONDANSETRON INJ 2 MG/ML 2 ML VIAL IV PRN (20:18)
[2022-07-15] MEDS ORDERED: MAGNESIUM HYDROXIDE SUSP 30 ML UDC PO PRN (20:18)
[2022-07-15] MEDS ORDERED: diphenhydrAMINE 50 MG/ML VIAL IV PRN (20:18)
[2022-07-15] MEDS ORDERED: bisacodyL 10 MG SUPP PR PRN (20:18)
[2022-07-15] MEDS ORDERED: HYDROmorphone INJ 0.5 MG/0.5 ML SYR IV PRN (20:18)
[2022-07-15] MEDS ORDERED: NALOXONE HCL 0.4 MG/1 ML VIAL/CARP IV PRN (20:18)
[2022-07-15] MEDS ORDERED: NIACIN 500 MG TAB PO SCH (21:00)
[2022-07-15] MEDS: DOCUSATE SODIUM 100 MG CAP PO SCH (21:56)
[2022-07-15] MEDS: TAMSULOSIN HCL 0.4 MG CAP PO SCH (21:56)
[2022-07-15] MEDS ORDERED: GLUCAGON FOR INJ 1 MG VIAL SQ PRN (21:56)
[2022-07-15] MEDS: SENNA 8.6 MG TAB PO SCH (21:56)
[2022-07-15] MEDS ORDERED: CARBOHYDRATES FOR HYPOGLYCEMIA PO PRN (21:56)
[2022-07-15] MEDS: NIACIN EXTENDED REL 500 MG TABCR PO SCH (21:56)
[2022-07-15] MEDS ORDERED: DEXTROSE 50% 50 ML SYRINGE IV PRN (21:56)
[2022-07-15] MEDS ORDERED: GLUCOSE 10 TAB/TUBE PO PRN (21:56)
[2022-07-15] MEDS: FINASTERIDE 5 MG TAB PO SCH (21:56)
[2022-07-15] MEDS ORDERED: GLUCOSE 40% GEL 15 GM TUBE PO PRN (21:56)
[2022-07-15] MEDS: ATORVASTATIN 20 MG TAB PO SCH (21:57)
[2022-07-15] MEDS: ASPIRIN 81 MG ECTAB PO SCH (21:57)
[2022-07-15] MEDS: ACETAMINOPHEN 500 MG TAB PO SCH (21:58)
--- NOTE | 2022-07-15 23:55 | Operative Report (OR) ---
INDICATION FOR PROCEDURE: A 77-year-old male who had an index total shoulder replacement in 2016. Developed pain over the years and radiographic loosening of the glenoid. Inflammatory parameters were negative. Condition worsen over time. He did have a reverse shoulder replacement of his opposite shoulder. His inflammatory parameters were negative for infection. Radiographs and CT scan demonstrate glenoid loosening, likely fracture, disorganization of the glenoid component. The metal backed posts were still in the bone centrally likely fractured from the polyethylene post of the remainder of the glenoid, any other metallic posts were attached to the implant going to the CT scan. There was extensive osteolysis of the glenoid. There was some osteolysis of the proximal humerus. He has uncemented long stem that is well fixed and not loose and clinically his rotator cuff was intact. 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 PROCEDURE PERFORMED: Left shoulder revision of a total shoulder arthroplasty to a reverse total shoulder arthroplasty with explantation of the glenoid and humeral head components with extensive debridement of synovium, bone cement fragments, bone in areas of osteolysis requiring bone grafting of the glenoid with cancellous bone chunks allograft mixed with the Etex calcium phosphate bone substitute. SURGEON: Leo Lamb MD. DRAGGER OUT: MIGUE Ventura. ESTIMATED BLOOD LOSS: 40 mL FINDINGS: Consistent with postoperative diagnosis. SPECIMENS: Swab cultures x2 for frozen section. DRAINS: Preciado catheter and Hemovac drains x2. ANESTHESIA: General, regional block. COMPLICATIONS: None. DISPOSITION: Recovery room. OVERLAPPING PROCEDURE: None. DESCRIPTION OF PROCEDURE: The patient was taken to the operating room, anesthetized under regional block, general anesthetic. He was positioned on the operating room table in a 40-degree beach chair position with towel around the medial border of his left scapula. He was translated to left side of the bed, so shoulder to be manipulated off the bed as necessary. Head was placed on a foam headrest and some towels to augment that due to his kyphosis. A protective eyewear placed. He had TEDs, SCDs, and a Preciado catheter placed. All extremities were well padded. The pacemaker was adjusted by the pacemaker rep. Left shoulder exam demonstrated 120 degrees forward flexion, 80 degrees abduction, and 60 degrees of external rotation. A benign appearing incision. He had no drainage, no erythema and no significant swelling. There is benign scar from a deltopectoral approach. Left shoulder was sterilely prepped and draped with ChloraPrep. He had preoperative antibiotics administered. An anterior deltopectoral approach was performed through the same scar extending slightly proximally and distally. Skin was incised sharply. Subcutaneous flaps were elevated. There was no cephalic vein. The coracoid was palpated. Deltopectoral interval was developed down to the scar tissue of the conjoined tendon, which was released and the conjoined tendon was identified well. Subscapularis tendon was identified well and scar tissue was between conjoined tendon and subscapularis, which was noted to be intact. The supraspinatus was also intact as well as the infraspinatus and teres minor. The scarred bursa and subacromial space was released and all subdeltoid adhesions were released. The upper 1 cm of pectoralis was released for inferior exposure. The rotator interval was opened up and extended out laterally to the bicipital groove and down along the humeral shaft. Then a subperiosteal peel was performed to peel the subscapularis off the lesser tuberosity, which was still intact. The head of the humeral component was identified. Around the humeral head was osteolytic changes and osteophytic type synovium and the erosion of the calcar region of about 1 centimeter to 15 mm medially. All this debris was removed with a rongeur and curettes and irrigation. We did a culture of the fluid upon entering the joint. The #1 Vicryl was placed into the free edge of the subscapularis. The humerus was externally rotated, exposing the humeral head and then we used a tuning fork and osteotome to remove the head. I then used the torque protector device as well as the ratchet screwdriver to remove the Downs taper from the stem. The patient had an Exactech total shoulder replacement. A cup protector was placed on the humeral stem and then this was retracted posteriorly exposing the glenoid, which was grossly loose and was removed easily. However, the central titanium sleeve was still bony ingrowth and well fixed to the central glenoid. Glenoid had marked areas of scarred synovial tissue, scarred membrane, multiple fragments of cement, two fragments of cement still attached to the bone behind the glenoid. Most of them are free floating and fragmented in the inferior recess and extensive synovitis. All of this tissue was debrided out as best as possible staging intracapsular. The glenoid bone behind the implant was actually hard and sclerotic at the base of the cysts. There were multiple large cysts around the central post with significant erosion. There was a rim of bone peripherally from the 12 o'clock position through anteriorly and inferiorly back to the 4 o'clock position where there was an intact rim of bone. Between the 4 o'clock position and 1 o'clock position proximally, there was a rim was eroded away posteriorly, superiorly. Deep to that area, there was still solid bone. The membrane was sent for frozen section, which came back less than 5 cells per high power field. We did obtain another culture early on after removing some of the membrane and culture the bone and deep to the membrane behind the glenoid. The glenoid was copiously irrigated. All of the cysts were curetted down to fresh bone, which was actually solid, but deficient due to the multiple cysts. The central post was removed by using the extraction device from [place] which was screwed into the post and then a slap hammer attached and then some minor debridement around the post with a rongeur and then we disimpacted this metallic post from the center of the glenoid. We used a depth gauge and a drill bit to see how much bone we had in the vault and we had at least 22 mm, adequate bone to capture screws for the revision glenoid component. I used the Tornier Perform porous-coated baseplate for the revision. After the thorough debridement was completed and all of the osteolytic synovium and cement fragments that we could identify were removed, the glenoid was copiously irrigated and then dried and then I left the central drill bit in the drill hole, so that would not be filled with any graft, so we could maintain the appropriate alignment of the glenosphere based on the CT scan evaluation and x-rays of the central post, which was in appropriate position. Then, I mixed 5 mL of the Etex with 5 mL of cancellous bone chunks and allowed this to set up into a putty type consistency and then packed it into all the cysts and then waited 20 minutes until this hardened completely so that it could be drilled through and reamed. The 29 mm baseplate was chosen based on the size of the remaining glenoid and the central drill hole was made for the 6.5 mm central screw. The hub for the baseplate was drilled and then, I placed some more cancellous bone grafts in the superior posterior region and then placed the Tornier Perform 29 mm porous-coated baseplate with the 6.5 x 35 mm screw in position and we screwed this tightly with excellent fixation. Then, I used a superior, inferior, anterior, and posterior locking screws with actually very good fixation of the baseplate. Then, we did some trial reductions and appeared that the 42 mm standard glenosphere gave the best stability and less impingement inferiorly and the +0 humeral liner, 42 mm with a +0 humeral tray was seemed appropriate. At this point, the trials were removed. The glenoid baseplate was irrigated, dried, and then the 42 mm standard glenosphere was impacted onto the baseplate and the security screw tightened and protected with a Waters elevator to make sure this was tight and secure. Then, the humeral stem proximally was irrigated copiously, dried, and then the +0 humeral tray was screwed in position first by hand and then the torque wrench was used and then the +0 humeral liner, 42 mm Exactech liner was impacted into position. Then, we reduced the humerus to the glenoid and there was no shuck and flexion to 120 degrees, abduction to 80 degrees, external rotation to 45 degrees with a stable range of motion. Subscapularis tension was satisfactory. I did previously released about a centimeter of the supraspinatus, so we could reduce the implant and get appropriate exposure. The wound was copiously irrigated. Then, the subscapularis was repaired with three transosseous #5 FiberWire sutures placed through the lesser tuberosity using a drill and a Hewson suture passer and these were placed in a Jose-Manuel suture technique and subscapularis was repaired anatomically. The lateral supraspinatus was repaired with a [id number] #2 FiberWire sutures and the pectoralis was repaired with [id number] #2 FiberWire sutures. Final range of motion demonstrated the shoulder was stable through a full range of motion. There was 40 degrees external rotation without tension on the subscapularis repair, 80 degrees of abduction, 120 degrees of forward flexion, and 90 degrees of internal rotation. There was no shuck and stable range of motion of the shoulder. After further irrigation, the two Hemovac drains were placed and then the deltopectoral interval was closed with a running #1 Vicryl suture and then the subcutaneous tissue closed with 2-0 Vicryl sutures, and the skin was closed with mona. Sterile dressings were applied and a shoulder immobilizer. MIGUE Ventura was my industrial hire sales assistant. He functioned as the industrial hire sales assistant through the entire procedure. His primary function was assisting me in all aspects of the procedure and he did assist in final after closure and dressing, sling application, postoperative care of the patient. Job ID: [id number] [facility]
[2022-07-16] MEDS: INSULIN ASPART PER UNIT SC SCH ×5 (00:14→22:20)
[2022-07-16] MEDS: ceFAZolin 2000MG 2,000 MG/15 ML SYR IV SCH ×2 (00:34→08:40)
--- NOTE | 2022-07-16 01:46 | Hospitalist Consultation ---
Date of Consultation July 16, 2022 Assessment & Plan (1) Prosthetic joint loosening: Final Assessment and Recommendations as follows : Prosthetic joint loosening Status post surgery Clinically well hx CAD status post CABG/stent SSS status post PPM Past history CVA hypertension, BP on the lower side DM2 on oral medications, well-controlled as of hemoglobin A1c of 6.4 this month Parkinson's disease/dementia as per records past tobacco abuse Continue IVF Hold DMITRY inhibitor for now given borderline BP Basal bolus insulin, ISS BG goal 1 10-1 40, carb count coverage Delirium precautions DVT prophylaxis. SCDs as per postop orders Thank you very much for this consultation. Dr. Eugene will follow patient's progress. Text document was generated using goAct voice recognition software. It may contain grammatical or spelling errors. Kindly contact undersigned for clarification of any documentation item in question. History of Present Illness Reason for Consultation: medical management Requesting Physician: Dr. Osorio Attending Physician: Leo Lamb MD History of Present Illness PCP : Dr. Walter History obtained from patient and records. Medical history significant for CAD status post CABG/stent, SSS status post PPM, CVA, hypertension, TIMOTHY on CPAP, DM2 on oral medications, Parkinson's disease as per records, dementia as per records, past tobacco abuse. Last confinement January 2022 for fall secondary to excessive daytime sleepiness. Patient underwent elective left shoulder surgery for prosthetic joint loosening yesterday. Patient denies postop chest pain, SOB. Postop pain currently controlled as per patient. 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 Allergies Allergy/AdvReac Type Severity Reaction Status Date / Time No Known Allergies Allergy Verified 07/15/22 11:07 Home Medications Medication Instructions Recorded Confirmed Type metoprolol succinate 25 mg 25 mg PO QAM #30 tabs 06/08/18 07/15/22 Rx tablet,extended release 24 hr CPAP Supplies #1 ea 02/27/19 02/17/22 Rx aspirin 81 mg tablet,delayed 81 mg PO PM 02/05/21 07/15/22 History release atorvastatin 20 mg tablet 20 mg PO PM 02/05/21 07/15/22 History clopidogrel 75 mg tablet (Plavix) 75 mg PO QAM 02/05/21 07/15/22 History duloxetine 60 mg capsule,delayed 60 mg PO QAM 02/05/21 07/15/22 History release finasteride 5 mg tablet (Proscar) 5 mg PO PM 02/05/21 07/15/22 History metformin 500 mg tablet 500 mg PO BID 02/05/21 07/15/22 History multivitamin 1 tab PO QAM 02/05/21 07/15/22 History niacin 500 mg tablet 500 mg PO QPM 02/05/21 07/15/22 History ramipril 10 mg tablet 10 mg PO QAM 02/05/21 07/15/22 History tamsulosin 0.4 mg capsule 0.4 mg PO QPM 02/05/21 07/15/22 History vitamin B complex 1 tab PO PM 02/05/21 07/15/22 History CPAP Machine #1 ea 01/08/22 02/17/22 Rx mirabegron 25 mg tablet,extended 25 mg PO DAILY 02/17/22 07/15/22 History release 24 hr (Myrbetriq) Patient History Medical History Arthritis BPH (benign prostatic hyperplasia) CAD (coronary artery disease) S/P CABG x3 in 2001 with SMITH to LAD; SABRINA to PDA and Radial to LCX. PCI/rot oblation/stent VON RCA 2004 (performed due to SABRINA to PDA graft stenosis) and PCI/VON left main 2004 2011 cardiac cath demonstrated 3V CAD in the [place] vessels with patent SMITH to LAD graft, patent radial graft to the circumflex, and SABRINA graft to the R PDA had a 95% ostial stenosis that was unchanged compared to his last cardiac catheterization. The [place] RCA had a total occlusion (area that previously been stented). Continued medical management was recommended. Carpal tunnel syndrome Chronic back pain Depression Diabetes mellitus, type 2 NIDDM Essential tremor History of COVID-19 06/05/22 (PCR [facility]- report scanned into [facility])- asymptomatic. 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) Sleep apnea CPAP (compliant) Surgical History History of cataract surgery R/L History of colonoscopy History of coronary artery bypass graft CABG x3 in 2001 with SMITH to LAD; SABRINA to PDA and Radial to LCX History of heart artery stent 2016 History of inguinal hernia repair Left (01/2021) History of repair of rotator cuff R/L History of tonsillectomy History of tooth extraction History of total knee replacement R/L Hx of appendectomy S/P epidural steroid injection Status post total shoulder arthroplasty left Family History Mother , 61 Pulmonary embolism Father , 74 Stroke Brother Coronary heart disease 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 Smoking Status: Never smoker Smoking End Date: Quit ; Second Hand Exposure: No; Do You Dip or Chew Tobacco: No; Tobacco Cessation Education Requested by Patient: No Hx Alcohol Use: No Hx Substance Use: No Preferred Language: Syriac Communication Ability: Effective Donor Floor Technician Required: No Beliefs That Will Affect Care: None Current Living Situation: Spouse Other Information That Helps Us Care for You: No Feels Safe at Home: Yes Safety Concerns: Feels Safe At This Time Assistive Devices: None Review of Systems Review of Systems: As per HPI, all other systems reviewed and negative Physical Exam Physical Exam: GENERAL: Comfortable, pleasant, obese, no respiratory distress SKIN: Pallor, warm HEENT: Pale palpebral conjunctivae, no ptosis, dry buccal mucosa NECK : Supple, short neck, no tenderness CHEST : Decreased breath sounds, no tenderness HEART : RRR, no obvious murmurs ABDOMEN: Some distention, nontender EXTREMITIES : No LE swelling/tenderness, sling over left upper extremity, no other conspicuous deformities noted NEUROLOGIC : Coherent, no facial asymmetry, gait and stance not assessed Results & Data Results & Data ([facility]) Vital Signs (Past 12 Hours) Vital Signs Temp Pulse Pulse Resp BP Pulse Ox O2 Del Method 07/15/22 20:00 Room Air 07/15/22 22:31 36.7 C 79 96/54 L 96 Nasal Cannula 07/15/22 20:33 36.6 C 73 16 110/67 95 Nasal Cannula 07/15/22 21:23 77 14 113/63 97 Nasal Cannula 07/15/22 20:15 36.9 C 72 18 109/94 95 Room Air 07/15/22 19:25 66 21 105/56 L 93 Nasal Cannula 07/15/22 19:10 68 22 107/64 93 Nasal Cannula 07/15/22 19:00 36.3 C L 69 25 H 102/60 95 Nasal Cannula 07/15/22 18:50 68 22 103/61 95 Nasal Cannula 07/15/22 18:40 68 23 97/57 L 94 Nasal Cannula 07/15/22 18:30 68 23 97/53 L 95 Nasal Cannula 07/15/22 18:20 61 21 91/52 L 95 Oxymask 07/15/22 18:10 80 23 91/56 L 95 Oxymask 07/15/22 18:02 36.3 C L 80 21 100/62 95 Oxymask O2 Flow Rate 07/15/22 20:00 07/15/22 22:31 2 07/15/22 20:33 2 07/15/22 21:23 2 07/15/22 20:15 07/15/22 19:25 2 07/15/22 19:10 2 07/15/22 19:00 2 07/15/22 18:50 2 07/15/22 18:40 2 07/15/22 18:30 2 07/15/22 18:20 8 07/15/22 18:10 8 07/15/22 18:02 8 Laboratory Results Laboratory Results POC Glucose 120 mg/dl (70-99) H 07/15/22 22:34 C-Reactive Protein 0.66 mg/dl (0-0.5) H 07/15/22 11:04 SARS-CoV-2, RNA, NAAT NEGATIVE (NEGATIVE) 07/15/22 11:17 Impressions Shoulder X-Ray 07/15/22 18:15 XR shoulder LT min 2V routine HISTORY: 77 years-old Male Post shoulder surgery left shoulder arthroplasty COMPARISON: Chest radiograph July 03, 2022 TECHNIQUE: 2 views of the left shoulder FINDINGS: Reverse total joint arthroplasty demonstrates satisfactory alignment. 2.2 cm bone fragment is noted inferior to the acromium. Overlying skin mona with surgical drainage catheter. Left subclavian pacer. Cardiac megaly with prior median sternotomy. Pleural calcifications redemonstrated. IMPRESSION: Satisfactory alignment of the reverse total joint arthroplasty. ACT 112: Negative or not required by law. The above report was generated using voice recognition software. It may contain grammatical, syntax or spelling errors. Electronically signed by: Alireza Last M.D. 07/15/2022 6:48 PM (1) Prosthetic joint loosening Encounter type: subsequent encounter Qualified Code(s): T84.039D - Mechanical loosening of unspecified internal prosthetic joint, subsequent encounter
[2022-07-16] MEDS: ACETAMINOPHEN 500 MG TAB PO SCH ×3 (06:00→20:57)
[2022-07-16 06:39] LABS: Calcium 8.7 mg/dl (8.5-10.1); Creatinine Clr Calc Pharmacy 127.1 ml/min; Est GFR (African American) 112.4 ml/min; Magnesium 1.8 mg/dl (1.7-2.4); Potassium 4.3 mmol/L (3.5-5.1)
[2022-07-16 06:44] LABS: Basophils # (auto) 0.02 K/uL (0-0.2); Basophils % (auto) 0.2 %; Eosinophils % (auto) 1.2 %; Hematocrit (blood only) 35.1 % (42.0-52.0); Hemoglobin 11.8 g/dl (14.0-18.0); Immature Granulocytes # (auto) 0.03 K/uL (0.01-0.20); Immature Granulocytes % (auto) 0.4 %; Lymphocytes # (auto) 1.17 K/uL (1.2-3.4); Lymphocytes % (auto) 13.7 %; Mean Corpuscular Hemoglobin 29.4 pg (25.0-34.0); Mean Corpuscular Hgb Conc 33.6 g/dL (32.0-36.0); Mean Corpuscular Volume 87.3 fL (80.0-100.0); Mean Platelet Volume 10.8 fL (9.4-12.4); Monocytes # (auto) 0.65 K/uL (0.11-0.59); Monocytes % (auto) 7.6 %; Neutrophils % (auto) 76.9 %; Platelet Count 199 K/uL (130-400); RDW Coefficient of Variation 14.6 % (11.5-14.5); RDW Standard Deviation 46.8 fL (36.4-46.3); Red Blood Count 4.02 M/uL (4.70-6.10); White Blood Count 8.57 K/ul (4.8-10.8)
--- NOTE | 2022-07-16 07:59 | Orthopedic Progress Note ---
Date of Service July 16, 2022 Assessment & Plan (1) Prosthetic joint loosening: Plan: POD#1 conversion TSA to reverse TSA left shoulder -PT/OT-no shoulder ROM. Will not be doing formal PT until 6 weeks post op -Pain management as written -AM labs-hemoglobin at 11.8 from 14.8 preop, acute blood loss anemia secondary to surgical loss vs dilutional. -DVT prophylaxis-SCDs, ASA 81mg and Clopidogrel daily. -D/C planning-plan on discharge home when stable, plan on discharge home likely tomorrow. Admission and Anticipated Discharge Date Admission Date: July 15, 2022 Subjective POD#1 left shoulder conversion TSA to reverse TSA. Doing well overall. Does have nasal canula O2 on currently. No complaints. Denies chest pain, sob, dizziness, n/v/d. No pain. Review of Systems Review of Systems: All systems reviewed & are unremarkable except as noted in Subjective Physical Exam Physical Exam: Left shoulder silverlon dressing is c/d/i. Hemovac on suction. Fingers are mobile with good senior mechanical design engineer strength, able to extend wrist. Sensation to deltoid intact. Distally n/v status and sensation grossly intact. Constitutional: WD/WN, vitals as above Results & Data ([facility]) Vital Signs (Past 12 Hours) Vital Signs Temp Pulse Resp BP Pulse Ox O2 Del Method O2 Flow Rate 07/16/22 03:03 36.6 C 71 18 110/66 95 Room Air 07/15/22 20:00 Room Air 07/15/22 22:31 36.7 C 79 96/54 L 96 Nasal Cannula 2 07/15/22 20:33 36.6 C 73 16 110/67 95 Nasal Cannula 2 07/15/22 21:23 77 14 113/63 97 Nasal Cannula 2 07/15/22 20:15 36.9 C 72 18 109/94 95 Room Air (1) Prosthetic joint loosening Encounter type: subsequent encounter Qualified Code(s): T84.039D - Mechanical loosening of unspecified internal prosthetic joint, subsequent encounter
[2022-07-16] MEDS ORDERED: metFORMIN HCL 500 MG TAB PO SCH (08:00)
[2022-07-16] MEDS: MULTIVITAMIN TAB PO SCH (08:40)
[2022-07-16] MEDS: METOPROLOL SUCC 25MG EXT REL TAB PO SCH (08:41)
[2022-07-16] MEDS: DOCUSATE SODIUM 100 MG CAP PO SCH ×2 (08:41→20:56)
[2022-07-16] MEDS: MIRABEGRON ER 25 MG TAB PO SCH (08:42)
[2022-07-16] MEDS: CLOPIDOGREL BISULFATE 75 MG TAB PO SCH (08:42)
[2022-07-16] MEDS: DULoxetine HCL 60 MG CAP PO SCH (08:42)
[2022-07-16] MEDS ORDERED: ENALAPRIL MALEATE 10 MG TAB PO SCH (09:00)
--- NOTE | 2022-07-16 15:42 | Hospitalist Progress Note ---
Date of Service July 16, 2022 Assessment & Plan (1) Prosthetic joint loosening: Plan: S/P day #1 conversion TSA to reverse TSA left shoulder performed by Dr. Lamb No postop complication Continue pain control Continue incentive spirometry PT/OT eval- no shoulder ROM. Will not be doing formal PT until 6 weeks post op as per ortho Hgb 11.8 today Continue monitor H/H Fall precaution DM II Most recent hba1c 6.4 on 07/03/22 well controlled on metformin as outpt Continue ISS while hospitalized Continue monitor BS CAD H/O CABG x 3 HTN HLD Cerebral vascular disease continue metoprolol, ramipril, asa, plavix, statin No signs of volume overload on exam Stable TIMOTHY CPAP at hs Uses regularly as per patient DVT px continue Asa and Plavix as per Ortho Disposition Possible discharge home tomorrow Code Status FULL CODE Admission and Anticipated Discharge Date Admission Date: July 15, 2022 Subjective Pt was seen and examined for post op follow up Lying in bed with no acute distress Pt said that pain tolerable in L shoulder Denies any chest pain, palpitation, dizziness and SOB Review of Systems Review of Systems: All systems reviewed & are unremarkable except as noted in Subjective Physical Exam Physical Exam: General- No acute distress Head- atraumatic Eyes- PERRL, EOMI, ENT- oropharynx clear Neck- supple, no JVD Lungs- clear to auscultation Heart- regular rhythm; no murmur Abdomen- normal bowel sounds, soft, nontender Extremities- no calf tenderness, Left shoulder pain in sling, able to move fingers Neuro- alert, oriented x 3; PERRL, EOMI; no facial palsy; no dysarthria Skin- warm & dry Results & Data Results & Data ([facility]) Vital Signs (Past 12 Hours) Vital Signs Temp Pulse Pulse Resp BP Pulse Ox O2 Del Method 07/16/22 11:10 36.9 C 72 16 129/73 92 Room Air 07/16/22 08:20 Nasal Cannula 07/16/22 08:52 92 Room Air 07/16/22 08:38 68 115/72 07/16/22 07:57 36.7 C 65 16 112/71 94 Nasal Cannula O2 Flow Rate 07/16/22 11:10 07/16/22 08:20 2 07/16/22 08:52 07/16/22 08:38 07/16/22 07:57 2 (1) Prosthetic joint loosening Encounter type: subsequent encounter Qualified Code(s): T84.039D - Mechanical loosening of unspecified internal prosthetic joint, subsequent encounter
[2022-07-16] MEDS: SENNA 8.6 MG TAB PO SCH (20:53)
[2022-07-16] MEDS: TAMSULOSIN HCL 0.4 MG CAP PO SCH (20:54)
[2022-07-16] MEDS: FINASTERIDE 5 MG TAB PO SCH (20:54)
[2022-07-16] MEDS: NIACIN EXTENDED REL 500 MG TABCR PO SCH (20:55)
[2022-07-16] MEDS: ATORVASTATIN 20 MG TAB PO SCH (20:55)
[2022-07-16] MEDS: ASPIRIN 81 MG ECTAB PO SCH (20:56)
[2022-07-17] MEDS: ACETAMINOPHEN 500 MG TAB PO SCH ×2 (06:29→13:55)
[2022-07-17] MEDS: MIRABEGRON ER 25 MG TAB PO SCH (09:12)
[2022-07-17] MEDS: CLOPIDOGREL BISULFATE 75 MG TAB PO SCH (09:12)
[2022-07-17] MEDS: METOPROLOL SUCC 25MG EXT REL TAB PO SCH (09:12)
[2022-07-17] MEDS: DULoxetine HCL 60 MG CAP PO SCH (09:13)
[2022-07-17] MEDS: MULTIVITAMIN TAB PO SCH (09:13)
[2022-07-17] MEDS: INSULIN ASPART PER UNIT SC SCH ×2 (09:13→13:54)
[2022-07-17] MEDS: DOCUSATE SODIUM 100 MG CAP PO SCH (09:13)
--- NOTE | 2022-07-17 11:06 | Orthopedic Progress Note ---
Date of Service July 17, 2022 Assessment & Plan (1) Prosthetic joint loosening: Plan: POD#2 conversion TSA to reverse TSA left shoulder -PT/OT-no shoulder ROM. Will not be doing formal PT until 6 weeks post op -Pain management as written -DVT prophylaxis-SCDs, ASA 81mg and Clopidogrel daily. -D/C planning- plan on discharge home today. Admission and Anticipated Discharge Date Admission Date: July 15, 2022 Subjective Postop day 2 Patient sitting in his chair at the bedside. No complaints this morning. Pain is controlled. He states that he is worked with physical therapy and has learned his exercises. Dr. Lamb was in this morning to see him. He is hoping to go home today. Physical Exam Physical Exam: Silverlon dressing is clean, dry, and intact. Hemovac drain is present but will be DC'd today. Neurovascular is intact. Sling is in place. He is moving his fingers and wrist actively and passively well. Cap refills less than 2 seconds. 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
--- NOTE | 2022-07-17 12:05 | Hospitalist Progress Note ---
Date of Service July 17, 2022 Assessment & Plan (1) Prosthetic joint loosening: Plan: S/P day #2 conversion TSA to reverse TSA left shoulder performed by Dr. Lamb No postop complication Continue pain control Continue incentive spirometry PT/OT eval- no shoulder ROM. Will not be doing formal PT until 6 weeks post op as per ortho Hgb 11.8 stable Check CBC in 1 week to monitor Hgb Fall precaution DM II Most recent hba1c 6.4 on 07/03/22 well controlled on metformin as outpt Continue ISS while hospitalized Continue monitor BS CAD H/O CABG x 3 HTN HLD Cerebral vascular disease continue metoprolol, ramipril, asa, plavix, statin No signs of volume overload on exam Stable TIMOTHY CPAP at hs Uses regularly as per patient DVT px as per Ortho Disposition Possible discharge home today as per ortho Code Status FULL CODE Admission and Anticipated Discharge Date Admission Date: July 15, 2022 Subjective Pt was seen and examined for post op follow up Sitting in chair with no acute distress Pt said that pain tolerable in L shoulder He said that he feels ok today He is very anxious to go home today Denies any chest pain, palpitation, dizziness and SOB Review of Systems Review of Systems: All systems reviewed & are unremarkable except as noted in Subjective Physical Exam Physical Exam: General- No acute distress Head- atraumatic Eyes- PERRL, EOMI, ENT- oropharynx clear Neck- supple, no JVD Lungs- clear to auscultation Heart- regular rhythm; no murmur Abdomen- normal bowel sounds, soft, nontender Extremities- no calf tenderness, Left shoulder pain in sling, able to move fingers Neuro- alert, oriented x 3; PERRL, EOMI; no facial palsy; no dysarthria Skin- warm & dry Results & Data Results & Data ([facility]) Vital Signs (Past 12 Hours) Vital Signs Temp Pulse Pulse Resp BP Pulse Ox O2 Del Method 07/17/22 09:00 87 110/70 07/17/22 07:30 36.9 C 72 16 141/80 H 92 Room Air 07/17/22 02:00 36.9 C 64 18 140/82 93 Room Air (1) Prosthetic joint loosening Encounter type: subsequent encounter Qualified Code(s): T84.039D - Mechanical loosening of unspecified internal prosthetic joint, subsequent encounter
--- NOTE | 2022-07-21 11:39 | Discharge Summary ---
Date of Service July 21, 2022 Admission HPI Per Admitting Provider 77yo male with PMHx significant for HTN, high cholesterol, TIMOTHY, pacemaker, hx of [place], CAD s/p bypass, DM2 with ongoing left shoulder pain. History of prior total shoulder arthroplasty several years ago. He has been having progressive left shoulder pain interfering with his daily activity. He has failed conservative measures and would like to proceed with revision surgery. Patient denies headaches, sweats, fevers, chills, double vision, blurred vision, cough, sore throat, dysphagia, chest pain, sob, wheezing, n/v/d/c, numbness, tingling, fatigue, urinary symptoms, mood disorders. ROS positive for left shoulder pain and stiffness. Admission Exam Per Admitting Provider Physical Exam Constitutional: well developed and well nourished; no acute distress Eyes: PERRL, conjunctivae normal, anicteric sclerae ENMT: external ear and nose normal, oropharynx normal Neck: trachea midline, no thyromegaly Respiratory: normal respiratory effort, lungs clear to auscultation Cardiovascular: RRR, no murmur, no edema Musculoskeletal: Left shoulder: Well healed incision, no erythema. Positive impingement signs. Mild pain with ROM. FF to 60 degrees, abduction to 80 degrees, ER to 45 degrees actively. 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 On his first postoperative day, he was doing well overall. He easily still using oxygen per O2 cannula. Patient had no complaints. Silverlon dressing was clean dry and intact. Hemovac was functioning. Fingers were mobile with good chief growth officer strength. He had good wrist extension. Sensation to deltoid was intact. Neurovascular status and sensation grossly intact. He was started on PT and OT protocols. Continued on DVT prophylaxis and pain management. Medical management per [facility] hospitalist. By his second postoperative day, he continued without complaints. Pain was controlled. He was progressing with his physical therapy. Silverlon dressing remained intact and dry. Neurovascular is intact. Sling was in place. He was moving his fingers and wrist well without difficulty. Hospitalist service felt that patient was medically stable for discharge. It was thusly discharged to home on 07/17/2022. Total Time Total Time Spent Total Time Spent (In Minutes): 10 Discharge Plan Discharge Items Patient Disposition: Home - Self-Care Reason For Visit: Left Shoulder Total Shoulder Arthroplasty Loosenin Discharge Diagnosis: Left total shoulder arthroplasty loosening Activity: Per Instructions section Weightbearing: Left non-weightbearing Non-emergency contact: Surgeon Call non-emergency contact if: you have any medication questions, your pain is not controlled, your pain is concerning for you, you have a fever, your temperature is above 101, your wound has increased redness and your wound has increased drainage Follow-up/Referrals: Crystal Walter DO [Primary Care Provider] - (Date & Time 07/23/2022 3:00 PM Provider Mary Corbett PA-C Department [facility] ) Leo Lamb MD [Surgeon] - (Follow-up with Dr. Carranza or his PA in 2 weeks from the day of your surgery for your first postoperative visit.) Diet: Regular Addtl Attending Provider Instructions: ACTIVITY RECOMMENDATIONS: SELF CARE INSTRUCTIONS AFTER TOTAL SHOULDER ARTHROPLASTY REVERSE A. You may do daily exercises as taught in physical therapy while in hospital. No lifting with the operative arm. B. You are to wear your sling/immobilizer at all times EXCEPT when performing your daily exercises and for hygiene purposes. C. This is a large adhesive bandage that contains silver ions. This helps your incision heal by fighting off bacteria and protecting it from the outside environment. You are permitted to shower with this dressing. This will remain on your incision for 7 days and then should be removed. Some visible blood or drainage through the dressing window is normal. If there is significant drainage or leaking noted before the 7 days notify your doctor's office immediately. Once removed, keep incision clean and dry. If there is any drainage or redness noted, please call your surgeon. D. You may use ice as needed to operative shoulder. SPECIAL CARE INSTRUCTIONS: VERY IMPORTANT TO READ AND REVIEW A. There are a few signs you need to watch for after you are home. Call [facility] at [phone] if you experience any of the followin. Increased severe shoulder pain. Some pain is expected especially when you exercise. 2. Increased swelling in you shoulder or arm; pain or swelling in either upper extremity. 3. Any fluid drainage from the incision. 4. Shortness of breath or chest pain. B. Please call [facility] at [phone] if you have any questions or concerns about your operation or recovery. C. Call your physician if: 1. Temperature is greater than 101 degrees (F). 2. Pain is not relieved by prescribed pain medications. 3. Increase drainage or redness from incision. 4. Unanswered questions or concerns. FOLLOW UP VISIT: Please call [facility] at [phone] to schedule a follow up appointment with Dr. Lamb or his PA in 12-14 days from your surgery date. Addtl Etl Consultant Provider Instructions: Follow up with your primary care provider within 1 week ( Office will call for the appointment ) Check CBC in 1 week to monitor your hemoglobin ( your provider will order it Fall precaution Pending Studies at Discharge: No Stand-Alone Forms: My [facility], Pain - Opioid Pain Management, Smoking Cessation Medications and DC Order Prescriptions: New acetaminophen [Tylenol Extra Strength] 500 mg Tablet 1,000 mg PO Q8 14 Days Qty: 84 0RF oxycodone 5 mg tablet 5 mg PO Q4H MDD 6 tabs PRN (Reason: pain) Qty: 18 0RF Continued (DME) CPAP Supplies Misc See Dose Instructions .ROUTE .MEDSUPPLY Qty: 1 0RF Dose Instruction: As directed Rx Instructions: As directed (DME) CPAP Machine Misc .Route Qty: 1 0RF Rx Instructions: Changed from auto CPAP to fixed CPAP at 13 cm of water.F&P med VItera mask, lifetime need, [place] [facility] patient metoprolol succinate 25 mg Tablet Extended Release 24 Hr 25 mg PO QAM Qty: 30 0RF multivitamin Tablet 1 tab PO QAM metformin 500 mg Tablet 500 mg PO BID vitamin B complex Tablet Extended Release 1 tab PO PM atorvastatin 20 mg Tablet 20 mg PO PM clopidogrel [Plavix] 75 mg Tablet 75 mg PO QAM aspirin 81 mg Tablet,Delayed Release (Dr/Ec) 81 mg PO PM tamsulosin 0.4 mg Capsule 0.4 mg PO QPM niacin 500 mg Tablet 500 mg PO QPM finasteride [Proscar] 5 mg Tablet 5 mg PO PM duloxetine 60 mg Capsule,Delayed Release(Dr/Ec) 60 mg PO QAM ramipril 10 mg Tablet 10 mg PO QAM Myrbetriq 25 mg tablet extended release 24 hr 25 mg PO DAILY Discharge Orders: Discharge Order (Routine); Ordered 07/17/22 Ordered By: Alexis Gomes/Other Patient Handouts: DVT Post Op Prevention Admission Data Admit Date/Time: 07/15/22 18:15 Attending Provider: Leo Lamb Admit Provider: Leo Lamb Primary Care Provider: Crystal Walter Other Providers: Wilberto Garber ; Lele Eugene Other Interventions: Discharge Summary Assessment (RN) Last Done: 07/17/22 14:13
== END 2022-07-17 14:41 | disposition home or self-care (01) | DRG 483 ==
LOC: ASU 11:44 → 3W 18:15

== ENCOUNTER 2024-01-18 10:48 | Inpatient (IN) ==
--- NOTE | 2024-01-18 11:22 | Emergency Department Note ---
Impression & Plan Generalized weakness, Acute confusion, Ambulatory dysfunction ED Provider Note HISTORY OF PRESENT ILLNESS: Patient is a 78-year-old male presenting with confusion. Patient was seen in the emergency department for weakness and lethargy 3 days ago. He had a negative workup and was discharged home. Patient reportedly has been having progressively worsening weakness and worsening confusion. Family reports that he developed a headache yesterday. He reportedly is walking into the windows and very confused and disoriented, per family. States that patient is normally ambulatory and able to do his ADLs. Reportedly in the last 48 hours, he has been having difficulties getting up and walking and has been unable to get to the bathroom before soiling himself. Patient reports a frontal headache for the last 24 hours. No reported fevers at home. No recent travel or recent sick contact exposures. Patient reports that earlier this morning he felt very dizzy and lightheaded and lowered himself to the ground. He states he has had low back pain over the last few days. He denies any pain in his neck. ROS: as above PHYSICAL EXAM: Constitutional: Patient appears in no acute distress. HENT: Head: Normocephalic and atraumatic. Eyes: EOMI, PERRL Mouth/Throat: Mucous membranes moist. Neck: Trachea midline. Neck supple. No midline cervical spine tenderness to palpation. Full range of motion of the neck without meningismus. Cardiovascular: RRR, No murmurs, rubs or gallops. Intact distal pulses. Pulmonary/Chest: No respiratory distress. Breath sounds clear and equal bilaterally. No wheezes or rales. Abdominal: Abdomen soft, no tenderness, rebound or guarding. Musculoskeletal: No edema, tenderness or deformity noted. Skin: Warm and dry. No rash, erythema, pallor or cyanosis Psychiatric: Appropriate mood and affect for situation. Neurological: Alert and keenly responsive. CN II-XII grossly intact, moving all extremities equally and fully. MDM: - Vitals signs showed fever - History obtained via patient and patient's family, given his confusion to events. History as above. - Chronic conditions affecting care: CAD; DM-2; tachy-rebecca syndrome - Differential diagnoses include, but are not limited to: pneumonia; viral syndrome; ACS; UTI; CVA - Order placed for continuous cardiac monitoring. At this time, monitor showed rate of 75 bpm with normal sinus rhythm, per my interpretation. - External medical records reviewed. Discharge summary dated 07/21/2022 was reviewed. Patient was admitted that time for left shoulder replacement surgery. - EKG interpreted by myself showed normal sinus rhythm. Rate 70 bpm. QT 420. Noted to have a right bundle branch block. No acute ischemic changes. - Laboratory workup interpreted by myself showed normal WBC; normal PT/INR; normal lactate; stable electrolytes; slight hyperglycemia (glucose 127); normal liver function; normal troponin; normal TSH; negative Lyme - CXR negative for pneumonia - Viral respiratory panel negative - UA negative - CT from 01/16/2024 was reviewed and negative for acute pathology - MRI brain wo contrast ordered. - Attempted to ambulate patient to the bathroom with nursing staff, but patient was very unsteady on his feet. Concern for the patient's safety and ability to ambulate at home, his family reports he does not normally use any assistive devices. Will admit to hospital service. - Discussion was had with patient case manager about patient's case and need for admission - Hospitalist consulted for admission - [facility] 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 PAT (paroxysmal atrial tachycardia) pt admitted for elective ppm due to TBS; underwent procedure without any complications; monitored overnight; started on Toprol and discharged home. Carotid artery stenosis cardiac stents Encounter for pre-operative examination Sleep apnea Excessive daytime sleepiness Fall Parkinsonian features Sleep apnea CPAP (compliant) Diabetes mellitus, type 2 NIDDM CAD (coronary artery disease) S/P CABG x3 in 2001 with SMITH to LAD; SABRINA to PDA and Radial to LCX. PCI/rot oblation/stent VON RCA 2004 (performed due to SABRINA to PDA graft stenosis) and PCI/VON left main 2004 2011 cardiac cath demonstrated 3V CAD in the [employer] [place] vessels with patent SMITH to LAD graft, patent radial graft to the circumflex, and SABRINA graft to the R PDA had a 95% ostial stenosis that was unchanged compared to his last cardiac catheterization. The [employer] [place] RCA had a total occlusion (area that previously been stented). Continued medical management was recommended. History of total knee replacement R/L History of repair of rotator cuff R/L History of coronary artery bypass graft CABG x3 in 2001 with SMITH to LAD; SABRINA to PDA and Radial to LCX Medical History History of COVID-19 06/05/22 (PCR [facility]- report scanned into [facility])- asymptomatic. 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) Surgical History History of inguinal hernia repair Left (01/2021) S/P epidural steroid injection Status post total shoulder arthroplasty left History of tooth extraction History of colonoscopy History of cataract surgery R/L History of tonsillectomy History of heart artery stent 2015 Hx of appendectomy Family History Mother , 61 Pulmonary embolism Father , 74 Stroke Brother Coronary heart disease 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 Smoking Status: Never smoker Second Hand Exposure: No; Do You Dip or Chew Tobacco: No; Hx Alcohol Use: No Hx Substance Use: No Preferred Language: Indian Communication Ability: Effective Warehouse Person Required: No Beliefs That Will Affect Care: None Current Living Situation: Spouse Feels Safe at Home: Yes Assistive Devices: None Allergies Allergies Allergy/AdvReac Type Severity Reaction Status Date / Time No Known Allergies Allergy Verified 01/18/24 14:28 Home Meds Home Medications Medication Instructions Recorded Confirmed aspirin 81 mg tablet,delayed 81 mg PO PM 02/05/21 01/18/24 release atorvastatin 20 mg tablet 20 mg PO PM 02/05/21 01/18/24 clopidogrel 75 mg tablet (Plavix) 75 mg PO QAM 02/05/21 01/18/24 finasteride 5 mg tablet (Proscar) 5 mg PO PM 02/05/21 01/18/24 metformin 500 mg tablet 500 mg PO BID 02/05/21 01/18/24 multivitamin 1 tab PO QAM 02/05/21 01/18/24 niacin 500 mg tablet 500 mg PO QPM 02/05/21 01/18/24 ramipril 10 mg tablet 10 mg PO QAM 02/05/21 01/18/24 tamsulosin 0.4 mg capsule 0.4 mg PO QPM 02/05/21 01/18/24 vitamin B complex 1 tab PO PM 02/05/21 01/18/24 mirabegron 25 mg tablet,extended 25 mg PO DAILY 02/17/22 01/18/24 release 24 hr (Myrbetriq) Previous Rx's Medication Instructions Recorded metoprolol succinate 25 mg 25 mg PO QAM #30 tabs 06/08/18 tablet,extended release 24 hr CPAP Supplies #1 ea 02/27/19 CPAP Machine #1 ea 01/08/22 meclizine 25 mg tablet 25 mg PO TID PRN dizziness #10 tabs 08/01/23 Results & Data (ED) Vital Signs Vital Signs - 24 hr 01/18/24 10:53 01/18/24 10:55 01/18/24 10:55 Temperature 37.7 C H Temperature Source Oral Pulse Rate 72 Pulse Rate [Apical] Pulse Rate from SpO2 Sensor Respiratory Rate 18 Respiratory Effort / Characteristics Non-Labored Spontaneous Respiratory Depth Normal Respiratory Pattern Regular Blood Pressure 122/75 122/75 Blood Pressure Mean 94 90 Blood Pressure Position Lying Pulse Oximetry 95 93 Oxygen Delivery Method Room Air Room Air Sepsis Recent Fever Within 48 Hours No Sepsis New/Unexplained Change in Mental Status N/A Sepsis Action Taken by Nursing No Action Required 01/18/24 10:55 01/18/24 10:57 01/18/24 11:00 Temperature Temperature Source Pulse Rate 72 70 Pulse Rate [Apical] 76 Pulse Rate from SpO2 Sensor 72 70 Respiratory Rate 20 22 23 Respiratory Effort / Characteristics Non-Labored Spontaneous Respiratory Depth Normal Respiratory Pattern Regular Blood Pressure Blood Pressure Mean Blood Pressure Position Pulse Oximetry 92 93 93 Oxygen Delivery Method Room Air Sepsis Recent Fever Within 48 Hours Sepsis New/Unexplained Change in Mental Status Sepsis Action Taken by Nursing 01/18/24 11:29 01/18/24 11:30 01/18/24 11:30 Temperature Temperature Source Pulse Rate 68 Pulse Rate [Apical] Pulse Rate from SpO2 Sensor 69 Respiratory Rate 20 Respiratory Effort / Characteristics Respiratory Depth Respiratory Pattern Blood Pressure 131/81 Blood Pressure Mean 103 Blood Pressure Position Pulse Oximetry 90 96 Oxygen Delivery Method Room Air Sepsis Recent Fever Within 48 Hours Sepsis New/Unexplained Change in Mental Status Sepsis Action Taken by Nursing 01/18/24 11:42 01/18/24 12:00 01/18/24 12:06 Temperature Temperature Source Pulse Rate 70 71 Pulse Rate [Apical] Pulse Rate from SpO2 Sensor 71 72 Respiratory Rate 22 22 Respiratory Effort / Characteristics Respiratory Depth Respiratory Pattern Blood Pressure 138/81 Blood Pressure Mean 103 Blood Pressure Position Pulse Oximetry 93 95 Oxygen Delivery Method Sepsis Recent Fever Within 48 Hours Sepsis New/Unexplained Change in Mental Status Sepsis Action Taken by Nursing 01/18/24 12:25 01/18/24 12:27 01/18/24 12:30 Temperature Temperature Source Pulse Rate 73 78 Pulse Rate [Apical] Pulse Rate from SpO2 Sensor 79 Respiratory Rate 20 Respiratory Effort / Characteristics Respiratory Depth Respiratory Pattern Blood Pressure 144/96 H Blood Pressure Mean 113 Blood Pressure Position Pulse Oximetry 94 Oxygen Delivery Method Sepsis Recent Fever Within 48 Hours Sepsis New/Unexplained Change in Mental Status Sepsis Action Taken by Nursing 01/18/24 12:51 01/18/24 13:00 01/18/24 13:15 Temperature Temperature Source Pulse Rate 78 75 Pulse Rate [Apical] Pulse Rate from SpO2 Sensor 78 77 Respiratory Rate 22 23 Respiratory Effort / Characteristics Respiratory Depth Respiratory Pattern Blood Pressure 135/92 Blood Pressure Mean 102 Blood Pressure Position Pulse Oximetry 96 95 Oxygen Delivery Method Sepsis Recent Fever Within 48 Hours Sepsis New/Unexplained Change in Mental Status Sepsis Action Taken by Nursing 01/18/24 13:30 01/18/24 13:33 01/18/24 14:00 Temperature Temperature Source Pulse Rate 78 77 Pulse Rate [Apical] Pulse Rate from SpO2 Sensor 78 76 Respiratory Rate 19 23 Respiratory Effort / Characteristics Respiratory Depth Respiratory Pattern Blood Pressure 126/83 Blood Pressure Mean 101 Blood Pressure Position Pulse Oximetry 98 96 Oxygen Delivery Method Sepsis Recent Fever Within 48 Hours Sepsis New/Unexplained Change in Mental Status Sepsis Action Taken by Nursing 01/18/24 14:02 Temperature Temperature Source Pulse Rate Pulse Rate [Apical] Pulse Rate from SpO2 Sensor Respiratory Rate Respiratory Effort / Characteristics Respiratory Depth Respiratory Pattern Blood Pressure 150/86 H Blood Pressure Mean 119 Blood Pressure Position Pulse Oximetry Oxygen Delivery Method Sepsis Recent Fever Within 48 Hours Sepsis New/Unexplained Change in Mental Status Sepsis Action Taken by Nursing Laboratory Data 01/18/24 10:58 01/18/24 10:58 Lab Results 01/18/24 01/18/24 01/18/24 Range/Units 10:58 11:33 14:15 WBC 6.19 (4.8-10.8) K/ul RBC 5.13 (4.70-6.10) M/uL Hgb 14.4 (14.0-18.0) g/dl Hct 44.3 (42.0-52.0) % MCV 86.4 (80.0-100.0) fL MCH 28.1 (25.0-34.0) pg MCHC 32.5 (32.0-36.0) g/dL RDW Std Deviation 46.5 H (36.4-46.3) fL RDW Coeff of Nacho 14.6 H (11.5-14.5) % Plt Count 170 (130-400) K/uL MPV 11.4 (9.4-12.4) fL Immature Gran % (Auto) 0.3 % Neut % (Auto) 61.4 % Lymph % (Auto) 25.0 % [place] % (Auto) 12.9 % Eos % (Auto) 0.2 % Baso % (Auto) 0.2 % Neut # (Auto) 3.80 (1.40-6.50) K/uL Lymph # (Auto) 1.55 (1.20-3.40) K/uL [place] # (Auto) 0.80 H (0.11-0.59) K/uL Eos # (Auto) 0.01 (0.00-0.50) K/uL Baso # (Auto) 0.01 (0.00-0.20) K/uL Immature Gran # (Auto) 0.02 (0.01-0.20) K/uL PT 11.8 (9.0-12.0) Seconds INR 1.1 (0.9-1.1) Sodium 137 (136-145) mmol/L Potassium 4.2 (3.5-5.1) mmol/L Chloride 103 (98-107) mmol/L Carbon Dioxide 28 (21-32) mmol/L Anion Gap 6 (3-11) BUN 21 (6-23) mg/dl Creatinine 0.82 (0.6-1.4) mg/dl Est Cr Clr Drug Dosing 92.3 ml/min Est GFR ( Amer) 98.2 ml/min Est GFR (Non-Af Amer) 84.7 ml/min BUN/Creatinine Ratio 25.6 H (10-20) Glucose 127 H (70-99(Fasting)) mg/dl Lactate 1.0 (0.4-2.0) mmol/L Calcium 9.1 (8.6-10.3) mg/dl Magnesium 2.0 (1.7-2.4) mg/dl Total Bilirubin 0.7 (0.2-1.0) mg/dl AST 32 (13-39) U/L ALT 23 (7-52) U/L Alkaline Phosphatase 67 (34-104) U/L Troponin I High Sens 9.3 (0-20) pg/ml Total Protein 6.7 (6.0-8.3) gm/dl Albumin 3.9 (3.4-5.0) gm/dl Globulin 2.8 (2.5-4.0) gm/dl Albumin/Globulin Ratio 1.4 (0.9-2) TSH 1.615 (0.300-4.500) uIu/ml Urine Color Dark Yellow Urine Appearance Clear (Clear) Urine pH 6.0 (4.5-7.5) Ur Specific [place] 1.023 (1.000-1.030) Urine Protein 1+ H (Negative) Urine Glucose (UA) Negative (Negative) Urine Ketones Negative (Negative) Urine Blood Negative (Negative) Urine Nitrite Negative (Negative) Urine Bilirubin Negative (Negative) Urine Urobilinogen Positive H (Negative) Ur Leukocyte Esterase Trace H (Negative) Urine WBC (Auto) 0-5 (0-5) /hpf Urine RBC (Auto) 0-2 (0-2) /hpf U Hyaline Cast (Auto) 0-2 (0-2) /lpf U Epithel Cells (Auto) 0-2 (0-2) /hpf Urine Bacteria (Auto) None Seen (None Seen) Adenovirus (PCR) Not Detected (NotDetected) B. pertussis DNA (PCR) Not Detected (NotDetected) B.parapertussis DNA PCR Not Detected (NotDetected) Lyme Disease Screen Negative (Negative) C. pneumoniae DNA (PCR) Not Detected (NotDetected) Coronavirus OC43 (PCR) Not Detected (NotDetected) Coronavirus HKU1 (PCR) Not Detected (NotDetected) Coronavirus 229E (PCR) Not Detected (NotDetected) SARS-CoV-2 (PCR) Not Detected (NotDetected) Coronavirus NL63 (PCR) Not Detected (NotDetected) Human Metapneumovir PCR Not Detected (NotDetected) Influenza Type A (PCR) Not Detected (NotDetected) Influenza Type B (PCR) Not Detected (NotDetected) M. pneumoniae (PCR) Not Detected (NotDetected) Parainfluenza 1 (PCR) Not Detected (NotDetected) Parainfluenza 2 (PCR) Not Detected (NotDetected) Parainfluenza 3 (PCR) Not Detected (NotDetected) Parainfluenza 4 (PCR) Not Detected (NotDetected) RSV (PCR) Not Detected (NotDetected) Entero/Rhino (PCR) Not Detected (NotDetected) Imaging Data Radiologist's Impression: Chest X-Ray 01/18/24 11:19 XR chest 1V portable CLINICAL HISTORY: weakness TECHNIQUE: Single frontal radiograph of the chest was obtained. Comparison: Comparison is made to chest radiograph 01/16/2024 FINDINGS: Lines and tubes are stable. Cardiomegaly is noted. The lungs are clear. Calcified pleural plaques are again seen. No evidence of pleural effusion or pneumothorax. IMPRESSION: No acute chest disease. ACT 112: Negative or not required by law. Electronically signed by: Hakeem Gongora M.D. 01/18/2024 12:00 PM Discharge Plan Visit Data Chief Complaint: Weakness Stated Complaint: AMS, NECK PAIN, DIFF. AMBULATING ED Provider: Hailee Lobo Discharge Problem: Generalized weakness, Acute confusion, Ambulatory dysfunction Forms Stand Alone Forms: [facility] [employer] Prescriptions Prescriptions: No Action (DME) CPAP Supplies Misc See Dose Instructions .ROUTE .MEDSUPPLY Qty: 1 0RF Dose Instruction: As directed Rx Instructions: As directed (DME) CPAP Machine Misc .Route Qty: 1 0RF Rx Instructions: Changed from auto CPAP to fixed CPAP at 13 cm of water.F&P med VItera mask, lifetime need, [place] Home patient metoprolol succinate 25 mg Tablet Extended Release 24 Hr 25 mg PO QAM Qty: 30 0RF multivitamin Tablet 1 tab PO QAM metformin 500 mg Tablet 500 mg PO BID vitamin B complex Tablet Extended Release 1 tab PO PM atorvastatin 20 mg Tablet 20 mg PO PM clopidogrel [Plavix] 75 mg Tablet 75 mg PO QAM aspirin 81 mg Tablet,Delayed Release (Dr/Ec) 81 mg PO PM tamsulosin 0.4 mg Capsule 0.4 mg PO QPM niacin 500 mg Tablet 500 mg PO QPM finasteride [Proscar] 5 mg Tablet 5 mg PO PM ramipril 10 mg Tablet 10 mg PO QAM mirabegron [Myrbetriq] 25 mg tablet extended release 24 hr 25 mg PO DAILY meclizine 25 mg tablet 25 mg PO TID PRN (Reason: dizziness) Qty: 10 0RF Referrals Referrals: Crystal Walter DO [Primary Care Provider] -
[2024-01-18 11:39] LABS: Basophils # (auto) 0.01 K/uL (0.00-0.20); Basophils % (auto) 0.2 %; Eosinophils # (auto) 0.01 K/uL (0.00-0.50); Eosinophils % (auto) 0.2 %; Hematocrit (blood only) 44.3 % (42.0-52.0); Hemoglobin 14.4 g/dl (14.0-18.0); Immature Granulocytes # (auto) 0.02 K/uL (0.01-0.20); Immature Granulocytes % (auto) 0.3 %; Lymphocytes # (auto) 1.55 K/uL (1.20-3.40); Mean Corpuscular Hemoglobin 28.1 pg (25.0-34.0); Mean Corpuscular Hgb Conc 32.5 g/dL (32.0-36.0); Mean Corpuscular Volume 86.4 fL (80.0-100.0); Mean Platelet Volume 11.4 fL (9.4-12.4); Monocytes % (auto) 12.9 %; Neutrophils % (auto) 61.4 %; Platelet Count 170 K/uL (130-400); RDW Coefficient of Variation 14.6 % (11.5-14.5); RDW Standard Deviation 46.5 fL (36.4-46.3); Red Blood Count 5.13 M/uL (4.70-6.10); White Blood Count 6.19 K/ul (4.8-10.8)
[2024-01-18 12:00] LABS: Albumin Globulin Ratio 1.4 (0.9-2); Albumin Level 3.9 gm/dl (3.4-5.0); BUN Creatinine Ratio 25.6 (10-20); Bilirubin,Total 0.7 mg/dl (0.2-1.0); Calcium 9.1 mg/dl (8.6-10.3); Creatinine Clr Calc Pharmacy 92.3 ml/min; Est GFR (African American) 98.2 ml/min; Est GFR (Non-African American) 84.7 ml/min; Globulin 2.8 gm/dl (2.5-4.0); Potassium 4.2 mmol/L (3.5-5.1); Total Protein 6.7 gm/dl (6.0-8.3)
--- NOTE | 2024-01-18 12:01 | XRay Report ---
XR chest 1V portable CLINICAL HISTORY: weakness TECHNIQUE: Single frontal radiograph of the chest was obtained. Comparison: Comparison is made to chest radiograph 01/16/2024 FINDINGS: Lines and tubes are stable. Cardiomegaly is noted. The lungs are clear. Calcified pleural plaques are again seen. No evidence of pleural effusion or pneumothorax. IMPRESSION: No acute chest disease. ACT 112: Negative or not required by law. Electronically signed by: Hakeem Gongora M.D. 01/18/2024 12:00 PM
[2024-01-18 12:06] LABS: Troponin I High Sensitivity 9.3 pg/ml (0-20)
[2024-01-18 12:10] LABS: INR 1.1 (0.9-1.1); Prothrombin Time 11.8 Seconds (9.0-12.0)
[2024-01-18 12:16] LABS: Thyroid Stimulating Hormone 1.615 uIu/ml (0.300-4.500)
[2024-01-18 12:37] LABS: Adenovirus PCR Not Detected (NotDetected); Bordetella parapertussis PCR Not Detected (NotDetected); Bordetella pertussis PCR Not Detected (NotDetected); Chlamydia pneumoniae PCR Not Detected (NotDetected); Coronavirus 229E PCR Not Detected (NotDetected); Coronavirus CoV-2 (COVID19)PCR Not Detected (NotDetected); Coronavirus HKU1 PCR Not Detected (NotDetected); Coronavirus NL63 PCR Not Detected (NotDetected); Coronavirus OC43PCR Not Detected (NotDetected); Human Metapneumovirus PCR Not Detected (NotDetected); Influenza A PCR Not Detected (NotDetected); Influenza B PCR Not Detected (NotDetected); Mycoplasma pneumoniae PCR Not Detected (NotDetected); Parainfluenza Virus 1 PCR Not Detected (NotDetected); Parainfluenza Virus 2 PCR Not Detected (NotDetected); Parainfluenza Virus 3 PCR Not Detected (NotDetected); Parainfluenza Virus 4 PCR Not Detected (NotDetected); Respiratory Syncytial VirusPCR Not Detected (NotDetected); Rhinovirus/Enterovirus PCR Not Detected (NotDetected)
--- OUTSIDE RECORDS SUMMARY | 2024-01-18 14:25 | External Medical Summary | Summary of Care ---
Author Name Unknown Organization [facility] Address [address] [place] [address] Phone [phone] Care Team Providers Care Axle Polisher Name Role Phone Crystal Walter Primary Care Provider Encounter Details Date Type Department Care Team (Late st Contact Info) Description 01/17/2024 Orders Only PATIENT PORTAL DO NOT DELETE THIS DEPT USED BY [facility] [id number] Allergies Active Allergy Reactions Criticality Noted Date Comments Clonazepam Other (Please comment) 07/23/2022 "Made me really out of it" documented as of this encounter (statuses as of 01/17/2024) Medications Medication Sig Dispensed Refills Start Date End Date Status MULTIVITAMINS OR TABS daily 0 02/07/2003 Active Vitamin B Complex Oral Tablet Take 1 Tablet by mouth in the morning. Active Metoprolol Succinate ER 25 MG Oral Tablet Extended Release 24 Hour (toPROL XL)Indications:Tach y-rebecca syndrome (HCC),Coronary artery disease involving coronary bypass graft of grindstone heart without angina pectoris Take 1 Tablet by mouth in the morning. 90 Tablet 3 03/22/2023 Active Clopidogrel Bisulfate 75 MG Oral Tablet (pLAVix)Indications :Aortocoronary bypass status,Chronic ischemic heart disease TAKE ONE TABLET BY MOUTH EVERY MORNING 90 Tablet 3 06/22/2023 06/21/2024 Active Atorvastatin Calcium 20 MG Oral Tablet (Lipitor)Indication s:Aortocoronary bypass status,Chronic coronary artery disease TAKE ONE TABLET BY MOUTH DAILY 90 Tablet 2 07/07/2023 07/06/2024 Active Ramipril 10 MG Oral Capsule (Altace)Indications :HTN, goal below 140/90 TAKE ONE CAPSULE BY MOUTH EVERY DAY IN THE MORNING 90 Capsule 3 07/13/2023 07/12/2024 Active Aspirin 81 MG Oral Tablet Chewable Take 1 Tablet by mouth in the morning. Active metFORMIN HCl ER 500 MG Oral Tablet Extended Release 24 Hour (Glucophage XR)Indications:Diab etes mellitus with background retinopathy (HCC) TAKE ONE TABLET BY MOUTH EVERY MORNING 90 Tablet 1 08/25/2023 08/24/2024 Active Finasteride 5 MG Oral Tablet (Proscar) TAKE ONE TABLET BY MOUTH EVERY MORNING 90 Tablet 2 09/06/2023 09/05/2024 Active Benzonatate 100 MG Oral Capsule (Tessalon Perles) TAKE ONE CAPSULE BY MOUTH THREE TIMES A DAY NEEDED FOR COUGH 90 Capsule 1 09/06/2023 09/05/2024 Active Furosemide 20 MG Oral Tablet (Lasix)Indications: Hematoma of lower extremity, unspecified laterality, subsequent encounter Take 1 Tablet by mouth in the morning. 90 Tablet 1 09/06/2023 Active Mirabegron ER 50 MG Oral Tablet Extended Release 24 Hour (Myrbetriq) Take 1 Tablet by mouth in the morning. 90 Tablet 3 11/19/2023 Active Tamsulosin HCl 0.4 MG Oral Capsule (Flomax)Indications :Weak urinary stream,BPH with obstruction/lower urinary tract symptoms Take 1 Capsule by mouth in the morning. 90 Capsule 3 11/19/2023 Active Gabapentin 100 MG Oral Capsule (Neurontin)Indicati ons:Essential tremor Take 1 Capsule by mouth in the morning and 1 Capsule at noon and 1 Capsule before bedtime. 120 Capsule 5 01/14/2024 Active documented as of this encounter (statuses as of 01/17/2024) Active Problems Problem Noted Date Diagnosed Date MCI (mild cognitive impairment) 01/13/2024 Type 2 diabetes mellitus wit h diabetic neuropathy, without long-term current use of insulin 08/25/2022 Chronic ischemic heart disease 08/25/2022 Type 2 diabetes mellitus with diabetic nephropat hy 12/04/2020 Cerebrovascular disorder 09/02/2020 Diabetes mellitus with background retinopathy Absence of toe of right foot 09/04/2019 Tachy-rebecca syndrome 09/04/2019 Essential tremor 05/30/2019 Major depressive disorder, recurrent, moderate 1 07/27/2018 Essential hypertension with goal blood pressure less than 140/90 01/05/2019 Dyslipidemia, goal LDL below 70 01/05/2019 Presence of cardiac pacemaker 08/05/2018 RBBB (right bundle branch block) 12/29/2016 Monoclonal paraproteinemia 12/08/2016 Neuropathy 12/08/2016 Generalized osteoarthritis of multiple sites S/P coronary artery stent placement 05/18/2016 Overview: VON in 2004 RCA and Left main TIMOTHY on CPAP 10/31/2015 H/O coronary artery bypass surgery 06/13/2014 Percutaneous transluminal coronary angioplasty s tatus 08/19/2004 Overview: Roto and stent x 3 to LM and RCA MIXED HYPERLIPIDEMIA - Low HDL 10/26/1995 OLD MYOCARDIAL INFARCT - 1982 Carpal tunnel syndrome Coronary artery disease invo lving coronary bypass graft of grindstone heart without angina pectoris Overview: [place] in 1982, Abnormal stress test in 2004, stented documented as of this encounter (statuses as of 01/17/2024) Resolved Problems Problem Noted Date Diagnosed Date Resolved Date Parkinson's disease 05/27/2021 08/10/19 23 Dementia with behavioral disturbance 09/02/2020 01/13/2024 Overview: ICD-10 update of inactive term Dementia associated with oth er underlying disease without behavioral disturbance 09/02/2020 0 01/13/2024 Overview: ICD-10 update of inactive term 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 Bradycardia 12/29/2016 05/30/2019 Total knee replacement status 07/04/2012 10/22/2014 [employer] Other*[id number] 06/07/2012 07/28/2016 Overview: Study Title: Genomic Markers for Patients with Cardiovascular Disease Project # [id number] Integrated Logistics Programs Director: Neda Lemos MD [phone] Abnormal nuclear stress test 05/31/2012 05/30/2019 Preoperative cardiovascular examination 07/22/2011 10/15/2016 ADVANCE DIRECTIVE INFORMATION 11/27/2004 10/15/2016 Overview: Yes, Patient instructed to provide copy of advance directive for provider to review and to be scanned into Electronic Medical Record IMPOTENCE, ORGANIC ORIGN 01/29/2000 ANGINA PECTORIS NEC-NOS 12/02/199506/2011 Overview: cath - 12/02/95, 2004 Diaphragmatic hernia 019 documented as of this encounter (statuses as of 01/17/2024) Immunizations Name Administration Dates Next Due COVID-19 mRNA, LNP-s, No Pre serve, 2-Dose Series ([employer]) 09/09/2020,08/14/2020 COVID-19, mRNA, LNP-s, PF, B ooster, 100mcg/0.5mg (Moderna) 04/24/2021 Pneumococcal Conjugate Vacc, 13 Valent (Prevnar) 08/14/2015 Pneumococcal Polysaccharide PPV23 (Pneumovax) 11/11/2016,05/20/2009 RSV Vac., Recomb, Adjuvant, PF,0.5 Ml (Arexvy) 06/24/2023 Seasonal Influenza, PF, 6 M & above, IM , (FluLaval or Fluzone) 03/09/2019,04/14/2017 Seasonal Influenza, Quadriva lent Hd (Fluzone Hd) 02/24/2022 Seasonal Influenza, Quadriva lent Hd, 65+ Yrs 06/16/2023,03/28/2020 Seasonal Influenza, Quadriva lent, No Preserve, IM 04/14/2016,05/15/2015 Seasonal Influenza, Split, I IV3, With Preserve, Inj 05/22/2014,04/25/2013,03/21/2012,05/30(Deferred: Patient Refused),05/01/2010,05/14/2008 Seasonal Influenza, Trivalen t, Adjuvanted, 65+ yrs 03/22/2021 TDAP (age 10 and older)(Boostrix) 10/29/2018 TDAP, Age 7 and older, IM (Adacel) 05/01/2010 Varicella Zoster Vaccine (Adult) 05/24/2012 Zoster Vaccine Recombinant (Shingrix) 09/20/2018 ,05/31/2018 documented as of this encounter 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 Tobacco Use Types Packs/Day Years Used Date Smoking Tobacco: Former Cigarettes 2 13 0 07/22/1968 - 07/22/1981 Smokeless Tobacco: Never Alcohol Use Standard Drinks/Week Comments Yes 0 (1 standard drink = 0.6 oz pur e alcohol) social PHQ-2 Answer Date Recorded PHQ Adult Total Score 0 10/25/2023 Hunger Vital Sign Answer Date Recorded Within the past 12 months, y ou worried that your food would run out before you got the money to buy more. Never true 10/21/19 23 Within the past 12 months, t he food you bought just didn't last and you didn't have money to get more. Never true 10/20/2022 Utilities Answer Date Recorded Do you have trouble paying y our heating, water, or electric bill? (Adult - for ages 18 years and over) Not on file 12/07/2023 Is your family able to pay t he heat, water, or electric bill? (Household - for ages 0-17 years) Not on file 12/07/2023 Does your family have access to good internet? (Household - for ages 0-17 years) Not on file 12/07/2023 Social Connections Answer Date Recorded How often do you feel lonely or isolated from those around you? (Adult - for ages 18 years and over) Not on file 12/07/2023 Sex and Gender Information Value Date Recorded Sex Assigned at Male 10/20/2022 3:43 PM EDT Gender Identity Male 10/20/2022 3:43 PM EDT Sexual Orientation Straight 10/20/2022 3: 43 PM EDT Job Start Date Occupation Industry Not on file Not on file Not on file documented as of this encounter Plan of Treatment Upcoming Encounters Date Type Department Care Team (Late st Contact Info) Description 01/20/2024 3:30 PM EDT Office Visit Interventional Pain Center, [facility] [address] [id number] Mariajose Cunningham PA-C [address] [place] [address] 03/24/2024 7:40 AM EDT Office Visit Family Practice [facility] [address] [place] [address] Crystal Walter, [address] [facility] [place] [address] 04/03/2024 9:00 AM EDT Cardiac Studies Cardiology, [facility] [address] [facility] [place] [address] [place], Pacer Clinic [facility] [address] [facility] [place] [address] 04/25/2024 3:30 PM EST Procedure Only Urology, [facility] [address] [facility] [place] [address] Enrique Awad MD [address] [address] 05/04/2024 11:30 AM EST Office Visit Orthopaedics Spine Surgery, Laci Oreilly [address] [address] Aj Schneider MD [address] [place] [address] 10/26/2024 3:00 PM EDT Nurse Only Ancillary Department, [address] [place] [address] [place], Nurse [facility] [address] [place] [address] 01/16/2025 3:30 PM EDT Office Visit Neurology [facility] [address] [place] [address] Lizzie Cross PA-C [address] [address] Health Maintenance Due Date Last Done Comments Hepatitis C Screening 1963 COVID-19 Vaccine (2022- season) 2023 06/16/2023, 04/24/2021, 09/09/2020, Additional history exists Albumin/Creatinine Ratio 01/27/2024 023, 04/22/2022, 02/02/2022, Additional history exists HbA1c 01/27/2024 07/29/2023, 01/19, 01/26/2023, Additional history exists GFR 02/02/2024 02/01/2023, 01/19, 02/03/2021, Additional history exists Influenza Vaccine (FLU shot) (#1) 2024 06/16/2023, 02/24/2022, 03/22/2021, Additional history exists Diabetic Foot Exam 07/26/2024 07/26/2023, 0 02/02/2022, 12/04/2020, Additional history exists Diabetic Eye Exam 09/05/2024 09/06/2023, , 08/31/2022, Additional history exists Depression Monitoring 10/24/2024 10/25/2023 DTaP,Tdap,and Td Vaccines (3 - Td or Tdap) 10/29/2028 10/29/2018, 05/01/2010, 01/29/2000, Additional history exists Pneumococcal Vaccine: 65+ Years Completed 11/11/2016, 08/14/2015, 05/20/2009 Zoster Vaccines Completed 09/20/2018, 05/21, 05/24/2012 HPV (Gardasil) Vaccine Aged Out No lo nger eligible based on patient's age to complete this topic Hepatitis B Vaccine Aged Out No longe r eligible based on patient's age to complete this topic MENINGOCOCCAL (MENACTRA/MENVEO) Aged Out No longer eligible based on patient's age to complete this topic documented as of this encounter Medical Devices Implanted Type Area Warp Doffer Device Identifier Shelf Expiration Date Model / Serial / Lot Lens Intraoc 20.5 - [id number] - [id number] Implanted:Qty: 1 on 11/08/2019 by Mendoza Macias MD at OR [facility] Right: Eye [employer] 04/20/2024 [id number] / [id number] / [id number] Lens Intraoc 21.0 - [id number] - [id number] Implanted:Qty: 1 on 11/14/2019 by Mendoza Macias MD at OR [facility] Left: Eye [employer] 04/20/2024 [id number] / [id number] / [id number] documented as of this encounter Care Teams Axle Polisher Relationship Specialty Start Date End Date Crystal Walter DO [address] [place] [address] [place] [address] PCP - General Family Medicine 12/06/16 documented as of this encounter
[2024-01-18 14:34] LABS: Appearance Urine Clear (Clear); Bacteria Urine Automated None Seen (None Seen); Bilirubin Urine Negative (Negative); Blood Urine Negative (Negative); Cast Urine Automated 0-2 /lpf (0-2); Color Urine Dark Yellow; Epithelial Cell Urine Auto 0-2 /hpf (0-2); Glucose Urine UA Negative (Negative); Ketones Urine Negative (Negative); Leukocyte Esterase Urine Trace (Negative); Nitrite Urine Negative (Negative); Protein Urine 1+ (Negative); RBC Urine Automated 0-2 /hpf (0-2); Specific Gravity Urine 1.023 (1.000-1.030); Urobilinogen Urine Positive (Negative); WBC Urine Automated 0-5 /hpf (0-5)
--- NOTE | 2024-01-18 14:44 | History & Physical Report ---
Date of Service January 18, 2024 Assessment & Plan (1) Ambulatory dysfunction: (2) Generalized weakness: (3) Acute confusion: Plan: This is a 78yo M with a PMH of DM II, dyslipidemia, ITMOTHY on CPAP, CAD, RBBB, HTN, tachy rebecca syndrome s/p pacemaker, history of cva, depression, mild cognitive impairment and other medical problems listed below who presents with significant weakness x 2 days. Seen 2 days ago in ED for similar gen weakness, CBC and BMP unremarkable, blood cultures neg to date, head CT negative Returns with continued weakness, lethargy CBC, CMP, resp viral panel negative, tick serology prelim negative (awaiting DNA anaplasma) ESR 29, CRP 4.40 UA 1+ leuk esterase, no bacteria CXR with No acute chest disease Repeat blood cultures pending Brain MRI pending Will obtain echo with bubble study given initial concern for cva A1c, fasting lipids in AM LP scheduled for tomorrow for encephalitis/meningitis eval Started on empiric Rocephin, ampicillin and vanco Hold plavix and aspirin until after procedure Neuro checks (4) Diabetes mellitus, type 2: Plan: A1c 6.6 in Jan 2023, repeat tomorrow AM Hold home agents SSI while in-patient BSG AC HS (5) CAD (coronary artery disease): Plan: Holding aspirin until after LP, continue statin, Toprol (6) BPH (benign prostatic hyperplasia): Plan: Continue finasteride, flomax (7) Tachy-rebecca syndrome: Plan: S/p pacemaker placement (8) Sleep apnea: Plan: CPAP HS DVT Ppx: SCDs given planned LP in AM Code status: FULL PCP: [place] Dispo: Admitted to PCU Patient seen in collaboration with Dr. Seth. Please see addendum. I spent a total of 75 minutes coordinating, documenting, and providing care for this patient excluding time spent in the performance of separately billed services. History of Present Illness Chief Complaint: confusion, gen weakness Primary Care Provider: Crystal Walter, This is a 78yo M with a PMH of DM II, dyslipidemia, TIMOTHY on CPAP, CAD, RBBB, HTN, tachy rebecca syndrome s/p pacemaker, history of cva, depression, mild cognitive impairment and other medical problems listed below who presents with significant weakness x 2 days. At baseline ambulates independently at home where he lives with . Has back pain near [facility] [place] for past 2 months. [facility] for [facility] in the [facility]. Has had a dry cough for past few months per at bedside. Complains of having chills for past 2 weeks. had to stop him from attempting to walk through glass sliding door yesterday. Hard working and high energy at baseline so this has been a notable change. No sore throat, known recent URI, CP, SOB, N/V, abd pain, dysuria, increased urinary frequency, diarrhea or constipation. No known sick contacts. No known tick bites. Allergies Allergy/AdvReac Type Severity Reaction Status Date / Time No Known Allergies Allergy Verified 01/18/24 14:28 Home Medications Medication Instructions Recorded Confirmed Type metoprolol succinate 25 mg 25 mg PO QAM #30 tabs 06/08/18 01/18/24 Rx tablet,extended release 24 hr CPAP Supplies #1 ea 02/27/19 01/05/24 Rx aspirin 81 mg tablet,delayed 81 mg PO PM 02/05/21 01/18/24 History release atorvastatin 20 mg tablet 20 mg PO PM 02/05/21 01/18/24 History clopidogrel 75 mg tablet (Plavix) 75 mg PO QAM 02/05/21 01/18/24 History finasteride 5 mg tablet (Proscar) 5 mg PO PM 02/05/21 01/18/24 History metformin 500 mg tablet 500 mg PO BID 02/05/21 01/18/24 History multivitamin 1 tab PO QAM 02/05/21 01/18/24 History ramipril 10 mg tablet 10 mg PO QAM 02/05/21 01/18/24 History tamsulosin 0.4 mg capsule 0.4 mg PO QPM 02/05/21 01/18/24 History vitamin B complex 1 tab PO PM 02/05/21 01/18/24 History CPAP Machine #1 ea 01/08/22 01/05/24 Rx mirabegron 25 mg tablet,extended 25 mg PO DAILY 02/17/22 01/18/24 History release 24 hr (Myrbetriq) Past Med/Surg History Problem List Ambulatory dysfunction (Acute) Acute confusion (Acute) Generalized weakness (Acute) Weakness (Acute) Prosthetic joint loosening Hernia, diaphragmatic (Chronic) Carpal tunnel syndrome (Chronic) Arthritis of knee (Chronic 08/02/11) 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 PAT (paroxysmal atrial tachycardia) pt admitted for elective ppm due to TBS; underwent procedure without any complications; monitored overnight; started on Toprol and discharged home. Carotid artery stenosis cardiac stents Sleep apnea Excessive daytime sleepiness Fall Parkinsonian features Sleep apnea CPAP (compliant) Diabetes mellitus, type 2 NIDDM CAD (coronary artery disease) S/P CABG x3 in 2001 with SMITH to LAD; SABRINA to PDA and Radial to LCX. PCI/rot oblation/stent VON RCA 2004 (performed due to SABRINA to PDA graft stenosis) and PCI/VON left main 2004 2011 cardiac cath demonstrated 3V CAD in the sitka vessels with patent SMITH to LAD graft, patent radial graft to the circumflex, and SABRINA graft to the R PDA had a 95% ostial stenosis that was unchanged compared to his last cardiac catheterization. The sitka RCA had a total occlusion (area that previously been stented). Continued medical management was recommended. History of total knee replacement R/L History of repair of rotator cuff R/L History of coronary artery bypass graft CABG x3 in 2001 with SMITH to LAD; SABRINA to PDA and Radial to LCX Medical History History of COVID-19 06/05/22 (PCR [facility]- report scanned into Fiix)- asymptomatic. 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) Surgical History History of inguinal hernia repair Left (01/2021) S/P epidural steroid injection Status post total shoulder arthroplasty left History of tooth extraction History of colonoscopy History of cataract surgery R/L History of tonsillectomy History of heart artery stent 2016 Hx of appendectomy Family History Mother , 61 Pulmonary embolism Father , 74 Stroke Brother Coronary heart disease 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 Smoking Status: Never smoker Second Hand Exposure: No; Do You Dip or Chew Tobacco: No; Hx Alcohol Use: No Hx Substance Use: No Preferred Language: Serbian Communication Ability: Effective Vacuum Worker Required: No Beliefs That Will Affect Care: None Current Living Situation: Spouse Feels Safe at Home: Yes Assistive Devices: None Review of Systems Review of Systems: At least ten systems reviewed and negative except as noted in the HPI. Physical Exam Physical Exam: Please see Dr. Seth's addendum for physical exam. Results & Data Results & Data Vital Signs (Past 12 Hours) Vital Signs Temp Pulse Pulse Resp BP Pulse Ox O2 Del Method 01/18/24 14:02 150/86 H 01/18/24 14:00 77 23 96 01/18/24 13:33 78 19 98 01/18/24 13:30 126/83 01/18/24 13:15 75 23 95 01/18/24 13:00 135/92 01/18/24 12:51 78 22 96 01/18/24 12:30 144/96 H 01/18/24 12:27 78 20 94 01/18/24 12:25 73 01/18/24 12:06 71 22 95 01/18/24 12:00 138/81 01/18/24 11:42 70 22 93 01/18/24 11:30 68 20 96 01/18/24 11:30 131/81 01/18/24 11:29 90 Room Air 01/18/24 11:00 70 23 93 01/18/24 10:57 72 22 93 01/18/24 10:55 76 20 92 Room Air 01/18/24 10:55 93 Room Air 01/18/24 10:55 37.7 C H 72 18 122/75 95 Room Air 01/18/24 10:53 122/75 Laboratory Results Short CBC 01/18/24 Range/Units 10:58 WBC 6.19 (4.8-10.8) K/ul Hgb 14.4 (14.0-18.0) g/dl Hct 44.3 (42.0-52.0) % Plt Count 170 (130-400) K/uL BMP 01/18/24 10:58 Sodium 137 Potassium 4.2 Chloride 103 Carbon Dioxide 28 BUN 21 Creatinine 0.82 Glucose 127 H Calcium 9.1 Liver Function 01/18/24 Range/Units 10:58 Total Bilirubin 0.7 (0.2-1.0) mg/dl AST 32 (13-39) U/L ALT 23 (7-52) U/L Alkaline Phosphatase 67 (34-104) U/L Albumin 3.9 (3.4-5.0) gm/dl Urine 01/18/24 Range/Units 14:15 Urine Color Dark Yellow Urine Appearance Clear (Clear) Urine pH 6.0 (4.5-7.5) Ur Specific [place] 1.023 (1.000-1.030) Urine Protein 1+ H (Negative) Urine Glucose (UA) Negative (Negative) Diagnostic Findings Chest X-Ray 01/18/24 11:19 XR chest 1V portable CLINICAL HISTORY: weakness TECHNIQUE: Single frontal radiograph of the chest was obtained. Comparison: Comparison is made to chest radiograph 01/16/2024 FINDINGS: Lines and tubes are stable. Cardiomegaly is noted. The lungs are clear. Calcified pleural plaques are again seen. No evidence of pleural effusion or pneumothorax. IMPRESSION: No acute chest disease. ACT 112: Negative or not required by law. Electronically signed by: Hakeem Gongora M.D. 01/18/2024 12:00 PM Supervising Physician Co-Signing Physician Notes Patient is a 78-year-old male with past medical history of CAD status post CABG, hypertension, hyperlipidemia who presents to the hospital who presents to the hospital with confusion, chills for last several days. He was recently in the ED 2 days back; workup was negative and he was discharged home. On physical examination Constitutional: Awake, oriented to self. Requires frequent reorientation. Able to answer simple questions and follow simple commands. Neck- mild pain on neck flexion, no ridigity Respiratory: normal respiratory effort, lungs clear to auscultation, no wheeze, rales, rhonchi. Normal insp/exp effort, no accessory muscle use Cardiovascular: RRR, no murmur, no edema Vessels: no JVD or carotid bruit Chest: normal inspection of chest Abdomen: normal bowel sounds, soft, nontender, no hepatosplenomegaly Musculoskeletal: no cyanosis or clubbing, extremities motor strength 5/5 Skin: no rashes, warm and dry normal turgor Neurologic: PERRL, EOMI, accommodation nl, no face palsy, no dysarthria CN's II- XI intact bilaterally and moves all extremities Assessment/plan Altered mental status Rule out meningitis/encephalitis Will obtain LP to rule out meningitis/encephalitis Repeat blood culture Started on ceftriaxone, ampicillin and vancomycin Will follow-up on MRI brain. Plavix and aspirin currently on hold; to be resu med after LP is done Neurology also consulted; appreciate recommendation Continue other home meds I have reviewed the advanced practitioner's documentation, and I agree with, and take responsibility for the plan of care I spent a total of 30 minutes coordinating, documenting, and providing care for this patient excluding time spent in the performance of separately billed services. All of the aforementioned completed while collaborating with the assigned advanced practitioner for a full treatment plan
[2024-01-18] MEDS ORDERED: ONDANSETRON INJ 2 MG/ML 2 ML VIAL IV PRN (15:06)
[2024-01-18 15:48] LABS: C Reactive Protein 4.4 mg/dl (0-0.5)
[2024-01-18] MEDS ORDERED: VANCOMYCIN CONSULT ACTIVE PRN (15:54)
[2024-01-18] MEDS ORDERED: PHARMACIST DISCHARGE MED REC CONSULT PRN (16:39)
--- NOTE | 2024-01-18 16:54 | Magnetic Resonance Report ---
Brain MRI WITHOUT CONTRAST HISTORY: weakness; ambulatory dysfunction TECHNIQUE: Multiplanar multisequence MRI of the brain was performed without the use of contrast. COMPARISON STUDY: Head CT 01/16/2024. Brain MRI 01/23/2021. FINDINGS: There is no mass, hematoma, midline shift, or acute infarct. The paranasal sinuses are tonya r. The mastoid air cells are clear. The ventricles and sulci demonstrate moderate age-related involut ional changes. Scattered foci of T2 hyperintensity seen within the periventricular and subcortical wh ite matter are nonspecific but suggestive of moderate microvascular ischemic changes. The major vascu lar flow voids at the skull base are well-maintained. IMPRESSION: No significant change compared to the prior study. No acute intracranial abnormality. Atrophy and saad rovascular ischemic changes again noted. ACT 112: Negative or not required by law. Electronically signed by: Morales Kelley M.D. 01/18/2024 4:51 PM
[2024-01-18] MEDS ORDERED: DEXTROSE 50% 50 ML SYRINGE IV PRN (17:00)
[2024-01-18] MEDS ORDERED: GLUCOSE 10 TAB/TUBE PO PRN (17:00)
[2024-01-18] MEDS ORDERED: GLUCAGON FOR INJ 1 MG VIAL SQ PRN (17:00)
[2024-01-18] MEDS ORDERED: CARBOHYDRATES FOR HYPOGLYCEMIA PO PRN (17:00)
[2024-01-18] MEDS ORDERED: GLUCOSE 40% GEL 15 GM TUBE PO PRN (17:00)
[2024-01-18] MEDS: cefTRIAXone SODIUM 2,000 MG/50 ML BAG IV STA (17:33)
[2024-01-18] MEDS: AMPICILLIN 2,000 MG in SODIUM CHLOR 0.9% MINI-B 100 ML IV STA (18:04)
[2024-01-18] MEDS: VANCOMYCIN HCL 2,500 MG in SODIUM CHLORIDE 0.9% 500 ML IV STA (18:37)
[2024-01-18] MEDS: ATORVASTATIN 20 MG TAB PO SCH (20:40)
[2024-01-18] MEDS: VITAMIN B COMPLEX TAB PO SCH (20:40)
[2024-01-18] MEDS: FINASTERIDE 5 MG TAB PO SCH (20:40)
[2024-01-18] MEDS: TAMSULOSIN HCL 0.4 MG CAP PO SCH (20:40)
[2024-01-18 20:56] LABS: Amphetamines+Metham, Urine Neg (Neg); Barbiturates, Urine Neg (Neg); Benzodiazepine, Urine Neg (Neg); Cocaine, Urine Neg (Neg); Fentanyl, Urine Neg (Neg); MDMA (Ecstacy), Urine Neg (Neg); Marijuana, Urine Neg (Neg); Methadone, Urine Neg (Neg); Opiate, Urine Neg (Neg); Phencyclidine, Urine Neg (Neg)
--- NOTE | 2024-01-18 21:28 | Pharmacy Report ---
Pharmacy PK ABX Note - Date of Service January 18, 2024 - Assessment and Plan Assessment 78 year old M receiving VANCOMYCIN/AMPICILLIN/CEFTRIAXONE for treatment of meningitis r/o. Pertinent microbiologic data includes: Blood cultures pending, plan for LP 01/18 Plan Vancomycin * Loading dose: 2500 mg IV x 1 * Maintenance dose: 1250 mg IV every 12 hours * Regimen is predicted to achieve target AUC/JUDE of 400-600 mg/L.hr * Random level to be ordered if continued > 48 hours Pharmacy will continue to follow and will adjust dose/frequency as necessary. Thank you. Pharmacy has transitioned to AUC monitoring for vancomycin. AUC/JUDE is the preferred PK/PD target and is associated with decreased risk of nephrotoxicity compared to traditional trough targets.
[2024-01-18] MEDS ORDERED: AMPICILLIN SOD 1 GM VIAL IV SCH (22:00)
[2024-01-18] MEDS: INSULIN ASPART PER UNIT CHARGE SC SCH (22:04)
[2024-01-18] MEDS: AMPICILLIN 2,000 MG in SODIUM CHLOR 0.9% MINI-B 100 ML IV SCH (22:05)
--- NOTE | 2024-01-18 23:35 | Communication Note ---
Date of Service: January 18, 2024 Patient found to have a rash a few hours after ampicillin dose infusion. No chest pain, no SOB. AP Ampicillin hypersensitivity Loratadine 1 dose now Add ampicillin to ADR list Hold off on alternative agent for Listeria coverage until CSF analysis obtained.
[2024-01-19] MEDS: LORATADINE 10 MG TAB PO ONE (01:08)
[2024-01-19] MEDS: ACETAMINOPHEN 325 MG TAB PO PRN (01:08)
[2024-01-19] MEDS: VANCOMYCIN HCL 1,250 MG in SODIUM CHLORIDE 0.9% 250 ML IV SCH (03:56)
[2024-01-19] MEDS: cefTRIAXone SODIUM 2,000 MG/50 ML BAG IV SCH (03:57)
[2024-01-19] MEDS: METOPROLOL SUCC 25MG EXT REL TAB PO SCH (08:28)
[2024-01-19] MEDS: ENALAPRIL MALEATE 10 MG TAB PO SCH (08:28)
[2024-01-19 08:42] LABS: Hematocrit (blood only) 40.7 % (42.0-52.0); Hemoglobin 13.5 g/dl (14.0-18.0); Mean Corpuscular Hemoglobin 28.2 pg (25.0-34.0); Mean Corpuscular Hgb Conc 33.2 g/dL (32.0-36.0); Mean Corpuscular Volume 85.1 fL (80.0-100.0); Mean Platelet Volume 11.7 fL (9.4-12.4); Platelet Count 132 K/uL (130-400); RDW Coefficient of Variation 14.6 % (11.5-14.5); RDW Standard Deviation 44.8 fL (36.4-46.3); Red Blood Count 4.78 M/uL (4.70-6.10); White Blood Count 5.71 K/ul (4.8-10.8)
[2024-01-19 09:06] LABS: Calcium 8.6 mg/dl (8.6-10.3); Chol HDL Ratio 4.9 (0-5); Creatinine Clr Calc Pharmacy 105.2 ml/min; Est GFR (African American) 103.6 ml/min; Est GFR (Non-African American) 89.3 ml/min
[2024-01-19] MEDS: SODIUM CHLORIDE 0.9% 1,000 ML IV SCH (10:21)
[2024-01-19 10:38] LABS: Estimated Average Glucose 151 mg/dl; Hemoglobin A1C 6.9 % (4.5-5.6)
[2024-01-19] MEDS: OPTIRAY 320 100ml IV ONE (11:03)
--- NOTE | 2024-01-19 11:41 | CT Scan Report ---
CHEST CT WITH CONTRAST CT DOSE: 984.07 mGy.cm HISTORY: Weakness.. TECHNIQUE: Multiaxial CT images of the chest were performed following the intravenous administration of contrast. A dose lowering technique was utilized adhering to the principles of ALARA. COMPARISON: Chest CT 08/16/2015. FINDINGS: The central airways are patent. No pneumothorax. No pleural effusions. There is a stable 4 mm nodule within the left lower lobe on image 145. Slight increase in size in a 4 mm nodule within th e left lung apex on image 57. This previously measured 3 mm. Stable 3 mm nodule within the left lung apex on image 31. There are 2 adjacent stable nodules within the right upper lobe on image 89 with th e largest measuring 5 mm. Stable 5 mm nodule within the right middle lobe on image 166. No new pulmon michele nodules identified. Extensive calcified pleural plaques again noted which are similar to the prio r study. There are poststernotomy changes. No suspicious lytic or blastic osseous lesions. A left-pino ed pacemaker wire is noted. There are bilateral total shoulder arthroplasties. The thyroid gland appe ars unremarkable. Limited views of the upper abdomen demonstrate a stable 9 mm hypodense lesion withi n the left hepatic lobe. This is technically too small to characterize but favors a cyst. The spleen and adrenal glands are unremarkable. There is a moderate hiatus hernia containing the proximal stomac h. This remains unchanged. Normal caliber esophagus. Subcentimeter mediastinal and hilar lymph nodes do not meet CT criteria for pathologic involvement. The heart is mildly enlarged. No pericardial effu bev. Mild calcified plaque within the normal caliber thoracic aorta. The central pulmonary arteries are patent. IMPRESSION: 1. No significant change in the extensive calcified pleural plaques consistent with asbestos-related pleural disease. 2. Slight increase in size in the single 4 mm nodule within the left lung apex which previously measu red 3 mm. This is low suspicion. Chest CT follow-up recommended to ensure stability. 3. The remaining scattered subcentimeter pulmonary nodules remain stable and are likely benign. 4. No lymphadenopathy within the chest. 5. Moderate hiatus hernia, unchanged. 6. Additional findings as described above. ACT 112: Negative or not required by law. Electronically signed by: Morales Kelley M.D. 01/19/2024 11:40 AM
--- NOTE | 2024-01-19 12:31 | Hospitalist Progress Note ---
Date of Service January 19, 2024 Assessment & Plan (1) Acute confusion: Plan: This is a 78yo M with a PMH of DM II, dyslipidemia, TIMOTHY on CPAP, CAD, RBBB, HTN, tachy rebecca syndrome s/p pacemaker, history of cva, depression, mild cognitive impairment and other medical problems listed below who presents with significant weakness x 2 days. Acute confusion about 2 days prior to admission Associated fever without any documentation of temperature Denies any headache, photophobia, neck is stiffness, nausea and vomiting and no focal neurological signs Labs are unremarkable though CRP is elevated at 4.40 CT scan of the head and MRI of the head are unremarkable Further infective workup has been pending Doubt any meningitis or meningism Has been on intravenous Rocephin and Vanco empirically He has been improving and does not have any more confusion this morning Will observe him in the telemetry unit Abnormal chest x-ray CT of the chest with contrast did not show any significant abnormalities A1c, fasting lipids in AM LP scheduled for tomorrow for encephalitis/meningitis eval Started on empiric Rocephin, ampicillin and vanco Hold plavix and aspirin until after procedure Neuro checks (2) Ambulatory dysfunction: (3) Generalized weakness: (4) Diabetes mellitus, type 2: Plan: A1c 6.6 in Jan 2023, repeat tomorrow AM Hold home agents SSI while in-patient BSG AC HS Hemoglobin A1c 6.9 (5) CAD (coronary artery disease): Plan: No cardiac symptoms Has been waiting for an echo to evaluate cardiac function Monitor has not been showing any arrhythmias Will observe in telemetry unit Continue his aspirin and Plavix Lipid profile is unremarkable (6) BPH (benign prostatic hyperplasia): Plan: Continue finasteride, flomax (7) Tachy-rebecca syndrome: Plan: S/p pacemaker placement (8) Sleep apnea: Plan: CPAP HS DVT Ppx: SCDs given planned LP in AM Code status: FULL PCP: [facility] Dispo: Admitted to PCU Admission and Anticipated Discharge Date Admission Date: January 18, 2024 Subjective 01/19/2024 The patient was seen and examined in telemetry unit He has been feeling much better still has minimal weakness though No more fever and or chills Denies any other significant symptoms and the confusion seems to be over Review of Systems Review of Systems: All systems reviewed and are unremarkable except as noted below Physical Exam Physical Exam: Lying in bed without any acute distress Constitutional: well developed and well nourished; not ill appearing Eyes: PERRL, conjunctivae normal, anicteric sclerae ENMT: external ear and nose normal, oropharynx normal Neck: trachea midline, no thyromegaly Respiratory: no respiratory distress Auscultation: lungs clear to auscultation bilaterally Cardiovascular: Rate/Rhythm: regular rate and regular rhythm; not tachycardic Heart Sounds: normal S1 and normal S2; no murmur Extremities: no edema Gastrointestinal (Abdomen): Inspection/Auscultation: normal bowel sounds; abdomen not distended Percussion/Palpation: abdomen soft; abdomen nontender Musculoskeletal: No acute arthritis involving any of the joint Neurologic: normal touch/pain/proprioception and moves all extremities; no focal motor deficits Alert, awake and oriented x 3 No signs of meningism or meningitis Psychiatric: A+Ox3, euthymic affect Lymphatic: no cervical or axillary lymphadenopathy Results & Data Results & Data Vital Signs (Past 12 Hours) Vital Signs Temp Pulse Resp BP Pulse Ox O2 Del Method 01/19/24 11:20 37.0 C 62 18 122/72 97 Room Air 01/19/24 08:00 37.2 C 77 16 123/84 96 Room Air 01/19/24 02:46 37.4 C 76 18 126/75 93 Room Air Laboratory Results Short CBC 01/19/24 Range/Units 06:11 WBC 5.71 (4.8-10.8) K/ul Hgb 13.5 L (14.0-18.0) g/dl Hct 40.7 L (42.0-52.0) % Plt Count 132 (130-400) K/uL BMP 01/19/24 06:11 Sodium 135 L Potassium 4.0 Chloride 102 Carbon Dioxide 26 BUN 18 Creatinine 0.72 Glucose 107 H Calcium 8.6 Urine 01/18/24 Range/Units 14:15 Urine Color Dark Yellow Urine Appearance Clear (Clear) Urine pH 6.0 (4.5-7.5) Ur Specific [place] 1.023 (1.000-1.030) Urine Protein 1+ H (Negative) Urine Glucose (UA) Negative (Negative) Medications Administered Current Inpatient Medications Acetaminophen (Acetaminophen 325 Mg Tab) 650 mg PO Q4H PRN PRN Reason: Pain or Fever Stop: 02/17/24 15:05 Last Admin: 01/19/24 01:08 Dose: 650 mg Aspirin (Aspirin 81 Mg Ectab) 81 mg PO PM [facility] Stop: 02/18/24 20:59 Atorvastatin Calcium (Atorvastatin 20 Mg Tab) 20 mg PO PM [facility] Stop: 02/17/24 20:59 Last Admin: 01/18/24 20:40 Dose: 20 mg Dextrose (Dextrose 50% 50 Ml Syringe) 25 - 50 ml IV UD PRN; Protocol PRN Reason: Hypoglycemia Protocol Stop: 02/17/24 16:59 Enalapril Maleate (Enalapril Maleate 10 Mg Tab) 20 mg PO QAM [facility] Stop: 02/18/24 08:59 Last Admin: 01/19/24 08:28 Dose: 20 mg Finasteride (Finasteride 5 Mg Tab) 5 mg PO PM [facility] Stop: 02/17/24 20:59 Last Admin: 01/18/24 20:40 Dose: 5 mg Glucagon (Glucagon For Inj 1 Mg Vial) 1 mg SQ UD PRN; Protocol PRN Reason: Hypoglycemia Protocol Stop: 02/17/24 16:59 Glucose (Glucose 40% Gel 15 Gm Tube) 15 - 30 gm PO UD PRN; Protocol PRN Reason: Hypoglycemia Protocol Stop: 02/17/24 16:59 Glucose (Glucose 10 Tab/Tube) 4 - 8 tab PO UD PRN; Protocol PRN Reason: Hypoglycemia Treatment Stop: 02/17/24 16:59 Ceftriaxone Sodium (Rocephin) 2,000 mg in 50 mls @ 100 mls/hr IV Q12H [facility] Stop: 01/29/24 04:59 Last Infusion: 01/19/24 06:32 Dose: Infused Ampicillin Sodium 2,000 mg/ (Sodium Chloride) 100 mls @ 200 mls/hr IV Q4H [facility] Stop: 01/28/24 21:59 Last Infusion: 01/19/24 06:32 Dose: Infused Vancomycin HCl 1,250 mg/ (Sodium Chloride) 275 mls @ 200 mls/hr IV Q12H [facility] Stop: 01/29/24 03:59 Last Infusion: 01/19/24 05:21 Dose: Infused Sodium Chloride (Nss) 1,000 mls @ 80 mls/hr IV .[id number] [facility] Stop: 01/20/24 23:29 Last Admin: 01/19/24 10:21 Dose: 80 mls/hr Insulin Aspart (Insulin Aspart Per Unit Charge) 0 units SC ACHS [facility] Stop: 02/17/24 20:59 Last Admin: 01/19/24 12:20 Dose: Not Given Metoprolol Succinate (Metoprolol Succ 25mg Ext Rel Tab) 25 mg PO QAM [facility] Stop: 02/18/24 08:59 Last Admin: 01/19/24 08:28 Dose: 25 mg Miscellaneous (Carbohydrates For Hypoglycemia ) 15 - 30 gm PO UD PRN PRN Reason: Hypoglycemia Protocol Stop: 02/17/24 16:59 Miscellaneous Information (Vancomycin Consult Active) 1 each N/A UD PRN PRN Reason: Consult Stop: 02/17/24 15:53 Miscellaneous Information (Pharmacist Discharge Med Rec Consult) 1 each N/A UD PRN PRN Reason: Consult Stop: 02/17/24 16:38 Ondansetron HCl (Ondansetron Inj 2 Mg/Ml 2 Ml Vial) 4 mg IV Q6H PRN PRN Reason: Nausea Stop: 02/17/24 15:05 Polyethylene Glycol (Polyethylene (Miralax) 17 Gm Pack) 17 gm PO DAILY PRN PRN Reason: Constipation Stop: 02/17/24 15:05 Tamsulosin HCl (Tamsulosin Hcl 0.4 Mg Cap) 0.4 mg PO QPM [facility] Stop: 02/17/24 20:59 Last Admin: 01/18/24 20:40 Dose: 0.4 mg Vitamin B Complex (Vitamin B Complex Tab) 1 tab PO PM [facility] Stop: 02/17/24 20:59 Last Admin: 01/18/24 20:40 Dose: 1 tab
--- NOTE | 2024-01-19 12:35 | Communication Note ---
Date of Service: January 19, 2024 78yo male presented with report of weakness ongoing for days prior to presentation. Has known hx of stroke, DM hyperlipidemia, CAD, tachy/rebecca status post implanted pacer device as well as TIMOTHY and cognitive impairment. Neurology consulted due to concern of stroke. Multiple attempts made to coordinate teleneurology consultation without success. Fortunately he has undergone MRI brain, personally reviewed, revealing no overt evidence of acute intracranial abnormality. Agree with continued workup including Echocardiogram and metabolic workup. Agree with continued infectious disease workup including keeping low threshold for LP to evaluate SAMPLE WASHER involvement. Please reach out to Neurology with any further questions or concerns.
[2024-01-19] MEDS: ASPIRIN 81 MG ECTAB PO SCH (20:53)
--- NOTE | 2024-01-19 22:22 | Electrocardiogram Report ---
Test Reason : Blood Pressure : / mmHG Vent. Rate : 070 BPM Atrial Rate : 070 BPM P-R Int : 160 ms QRS Dur : 140 ms QT Int : 420 ms P-R-T Axes : 144 099 -03 degrees QTc Int : 453 ms Sinus rhythm Right bundle branch block Abnormal ECG When compared with ECG of 16-JAN-2024 17:04, No significant change Confirmed by Trino Goddard ([id number]) on 01/19/2024 10:22:12 PM Referred By: Confirmed By:Trino Goddard
[2024-01-20 07:03] LABS: Hematocrit (blood only) 40.6 % (42.0-52.0); Hemoglobin 13.3 g/dl (14.0-18.0); Mean Corpuscular Hemoglobin 28.1 pg (25.0-34.0); Mean Corpuscular Hgb Conc 32.8 g/dL (32.0-36.0); Mean Corpuscular Volume 85.7 fL (80.0-100.0); Mean Platelet Volume 11.2 fL (9.4-12.4); Platelet Count 143 K/uL (130-400); RDW Coefficient of Variation 14.4 % (11.5-14.5); Red Blood Count 4.74 M/uL (4.70-6.10); White Blood Count 5.53 K/ul (4.8-10.8)
[2024-01-20 07:23] LABS: BUN Creatinine Ratio 17.1 (10-20); Calcium 8.6 mg/dl (8.6-10.3); Creatinine Clr Calc Pharmacy 108.1 ml/min; Est GFR (African American) 104.8 ml/min; Est GFR (Non-African American) 90.4 ml/min; Potassium 3.8 mmol/L (3.5-5.1)
[2024-01-20] MEDS ORDERED: Nursing to Pharmacy Communication SCH (10:30)
--- NOTE | 2024-01-20 15:54 | Hospitalist Progress Note ---
Date of Service January 20, 2024 Assessment & Plan (1) Acute confusion: Plan: This is a 78yo M with a PMH of DM II, dyslipidemia, TIMOTHY on CPAP, CAD, RBBB, HTN, tachy rebecca syndrome s/p pacemaker, history of cva, depression, mild cognitive impairment and other medical problems listed below who presents with significant weakness x 2 days. Acute confusion about 2 days prior to admission Associated fever without any documentation of temperature Denies any headache, photophobia, neck is stiffness, nausea and vomiting and no focal neurological signs Labs are unremarkable though CRP is elevated at 4.40 CT scan of the head and MRI of the head are unremarkable Further infective workup has been pending Doubt any meningitis or meningism Has been on intravenous Rocephin and Vanco empirically He has been improving and does not have any more confusion this morning Clinically much better and confusion is resolved Denies any symptoms except some weakness No fever and no chills and no other signs of infection Will stop vancomycin given MRSA screen is negative 4 sets of blood cultures are negative and UA is unremarkable and rest of Rocephin as well PT OT recommended rehab Discussed with the and she is agreeable with the recommendation Abnormal chest x-ray CT of the chest with contrast did not show any significant abnormalities A1c, fasting lipids in AM LP scheduled for tomorrow for encephalitis/meningitis eval Started on empiric Rocephin, ampicillin and vanco Hold plavix and aspirin until after procedure Neuro checks -No neurological abnormality (2) Ambulatory dysfunction: Plan: PT OT recommended rehab Awaiting placement (3) Generalized weakness: (4) Diabetes mellitus, type 2: Plan: A1c 6.6 in Jan 2023, repeat tomorrow AM Hold home agents SSI while in-patient BSG AC HS Hemoglobin A1c 6.9 (5) CAD (coronary artery disease): Plan: No cardiac symptoms Has been waiting for an echo to evaluate cardiac function Monitor has not been showing any arrhythmias Will observe in telemetry unit Continue his aspirin and Plavix Lipid profile is unremarkable (6) BPH (benign prostatic hyperplasia): Plan: Continue finasteride, flomax (7) Tachy-rebecca syndrome: Plan: S/p pacemaker placement (8) Sleep apnea: Plan: CPAP HS DVT Ppx: SCDs given planned LP in AM Code status: FULL PCP: [facility] Dispo: Admitted to PCU Admission and Anticipated Discharge Date Admission Date: January 18, 2024 Subjective 01/19/2024 The patient was seen and examined in telemetry unit He has been feeling much better still has minimal weakness though No more fever and or chills Denies any other significant symptoms and the confusion seems to be over 01/20/2024 The patient was seen and examined in telemetry unit in presence of the He has been feeling much better but remains generally weak Has had physical therapy and likely to need short-term rehab to improve his mobility Denies any significant symptoms Review of Systems Review of Systems: All systems reviewed and are unremarkable except as noted below Physical Exam Physical Exam: Lying in bed without any acute distress Constitutional: well developed and well nourished; not ill appearing Eyes: PERRL, conjunctivae normal, anicteric sclerae ENMT: external ear and nose normal, oropharynx normal Neck: trachea midline, no thyromegaly Respiratory: no respiratory distress Auscultation: lungs clear to auscultation bilaterally Cardiovascular: Rate/Rhythm: regular rate and regular rhythm; not tachycardic Heart Sounds: normal S1 and normal S2; no murmur Extremities: no edema Gastrointestinal (Abdomen): Inspection/Auscultation: normal bowel sounds; abdomen not distended Percussion/Palpation: abdomen soft; abdomen nontender Neurologic: normal touch/pain/proprioception and moves all extremities; no focal motor deficits Psychiatric: A+Ox3, euthymic affect Lymphatic: no cervical or axillary lymphadenopathy Results & Data Results & Data Vital Signs (Past 12 Hours) Vital Signs Temp Pulse Pulse Resp BP Pulse Ox O2 Del Method 01/20/24 15:25 68 01/20/24 14:41 37.2 C 62 19 99/62 L 92 Room Air 01/20/24 10:35 36.4 C L 71 18 92/62 L 97 Room Air 01/20/24 08:00 Room Air 01/20/24 07:30 36.8 C 62 19 132/79 92 Room Air 01/20/24 07:00 64 Laboratory Results Short CBC 01/20/24 Range/Units 06:29 WBC 5.53 (4.8-10.8) K/ul Hgb 13.3 L (14.0-18.0) g/dl Hct 40.6 L (42.0-52.0) % Plt Count 143 (130-400) K/uL [facility] 01/20/24 06:29 Sodium 134 L Potassium 3.8 Chloride 103 Carbon Dioxide 25 BUN 12 Creatinine 0.70 Glucose 113 H Calcium 8.6 Medications Administered Current Inpatient Medications Acetaminophen (Acetaminophen 325 Mg Tab) 650 mg PO Q4H PRN PRN Reason: Pain or Fever Stop: 02/17/24 15:05 Last Admin: 01/20/24 12:02 Dose: 650 mg Aspirin (Aspirin 81 Mg Ectab) 81 mg PO PM [facility] Stop: 02/18/24 20:59 Last Admin: 01/19/24 20:53 Dose: 81 mg Atorvastatin Calcium (Atorvastatin 20 Mg Tab) 20 mg PO PM [facility] Stop: 02/17/24 20:59 Last Admin: 01/19/24 20:53 Dose: 20 mg Dextrose (Dextrose 50% 50 Ml Syringe) 25 - 50 ml IV UD PRN; Protocol PRN Reason: Hypoglycemia Protocol Stop: 02/17/24 16:59 Enalapril Maleate (Enalapril Maleate 10 Mg Tab) 20 mg PO QAM [facility] Stop: 02/18/24 08:59 Last Admin: 01/20/24 08:14 Dose: 20 mg Finasteride (Finasteride 5 Mg Tab) 5 mg PO PM [facility] Stop: 02/17/24 20:59 Last Admin: 01/19/24 20:52 Dose: 5 mg Glucagon (Glucagon For Inj 1 Mg Vial) 1 mg SQ UD PRN; Protocol PRN Reason: Hypoglycemia Protocol Stop: 02/17/24 16:59 Glucose (Glucose 40% Gel 15 Gm Tube) 15 - 30 gm PO UD PRN; Protocol PRN Reason: Hypoglycemia Protocol Stop: 02/17/24 16:59 Glucose (Glucose 10 Tab/Tube) 4 - 8 tab PO UD PRN; Protocol PRN Reason: Hypoglycemia Treatment Stop: 02/17/24 16:59 Ceftriaxone Sodium (Rocephin) 2,000 mg in 50 mls @ 100 mls/hr IV Q12H [facility] Stop: 01/29/24 04:59 Last Infusion: 01/20/24 05:59 Dose: Infused Ampicillin Sodium 2,000 mg/ (Sodium Chloride) 100 mls @ 200 mls/hr IV Q4H [facility] Stop: 01/28/24 21:59 Last Infusion: 01/19/24 06:32 Dose: Infused Insulin Aspart (Insulin Aspart Per Unit Charge) 0 units SC ACHS [facility] Stop: 02/17/24 20:59 Last Admin: 01/20/24 11:49 Dose: 5 units Metoprolol Succinate (Metoprolol Succ 25mg Ext Rel Tab) 25 mg PO QAM [facility] Stop: 02/18/24 08:59 Last Admin: 01/20/24 08:14 Dose: 25 mg Miscellaneous (Carbohydrates For Hypoglycemia ) 15 - 30 gm PO UD PRN PRN Reason: Hypoglycemia Protocol Stop: 02/17/24 16:59 Miscellaneous Information (Pharmacist Discharge Med Rec Consult) 1 each N/A UD PRN PRN Reason: Consult Stop: 02/17/24 16:38 Ondansetron HCl (Ondansetron Inj 2 Mg/Ml 2 Ml Vial) 4 mg IV Q6H PRN PRN Reason: Nausea Stop: 02/17/24 15:05 Polyethylene Glycol (Polyethylene (Miralax) 17 Gm Pack) 17 gm PO DAILY PRN PRN Reason: Constipation Stop: 02/17/24 15:05 Tamsulosin HCl (Tamsulosin Hcl 0.4 Mg Cap) 0.4 mg PO QPM [facility] Stop: 02/17/24 20:59 Last Admin: 01/19/24 20:52 Dose: 0.4 mg Vitamin B Complex (Vitamin B Complex Tab) 1 tab PO PM [facility] Stop: 02/17/24 20:59 Last Admin: 01/19/24 20:52 Dose: 1 tab
[2024-01-21 04:35] VITALS: TEMP 98.8; O2SAT 95
[2024-01-21] MEDS: POLYETHYLENE (MIRALAX) 17 GM PACK PO PRN (09:27)
[2024-01-21] MEDS: CLOPIDOGREL BISULFATE 75 MG TAB PO SCH (09:54)
[2024-01-21 10:45] VITALS: BP 104/71; PULSE 63; RESP 16
--- NOTE | 2024-01-21 13:26 | Hospitalist Progress Note ---
Date of Service January 21, 2024 Assessment & Plan (1) Acute confusion: Plan: This is a 78yo M with a PMH of DM II, dyslipidemia, TIMOTHY on CPAP, CAD, RBBB, HTN, tachy rebecca syndrome s/p pacemaker, history of cva, depression, mild cognitive impairment and other medical problems listed below who presents with significant weakness x 2 days. Acute confusion about 2 days prior to admission Associated fever without any documentation of temperature Denies any headache, photophobia, neck is stiffness, nausea and vomiting and no focal neurological signs Labs are unremarkable though CRP is elevated at 4.40 CT scan of the head and MRI of the head are unremarkable Further infective workup has been pending Doubt any meningitis or meningism Has been on intravenous Rocephin and Vanco empirically He has been improving and does not have any more confusion this morning Clinically much better and confusion is resolved Denies any symptoms except some weakness No fever and no chills and no other signs of infection Will stop vancomycin given MRSA screen is negative 4 sets of blood cultures are negative and UA is unremarkable and rest of Rocephin as well PT OT recommended rehab Discussed with the and she is agreeable with the recommendation The patient has been feeling much better and he wants to go home and refusing rehab The director case management has been working with the and the patient to see if the patient is willing to go home with some home health Abnormal chest x-ray CT of the chest with contrast did not show any significant abnormalities A1c, fasting lipids in AM LP scheduled for tomorrow for encephalitis/meningitis eval Started on empiric Rocephin, ampicillin and vanco Hold plavix and aspirin until after procedure Neuro checks -No neurological abnormality (2) Ambulatory dysfunction: Plan: PT OT recommended rehab Awaiting placement Refusing to go to rehab (3) Generalized weakness: Plan: Weakness has improved a lot (4) Diabetes mellitus, type 2: Plan: A1c 6.6 in Jan 2023, repeat tomorrow AM Hold home agents SSI while in-patient BSG AC HS Hemoglobin A1c 6.9 (5) CAD (coronary artery disease): Plan: No cardiac symptoms Has been waiting for an echo to evaluate cardiac function Monitor has not been showing any arrhythmias Will observe in telemetry unit Continue his aspirin and Plavix Lipid profile is unremarkable (6) BPH (benign prostatic hyperplasia): Plan: Continue finasteride, flomax (7) Tachy-rebecca syndrome: Plan: S/p pacemaker placement (8) Sleep apnea: Plan: CPAP HS DVT Ppx: SCDs given planned LP in AM Code status: FULL PCP: Saba Dispo: Admitted to PCU Admission and Anticipated Discharge Date Admission Date: January 18, 2024 Subjective 01/19/2024 The patient was seen and examined in telemetry unit He has been feeling much better still has minimal weakness though No more fever and or chills Denies any other significant symptoms and the confusion seems to be over 01/20/2024 The patient was seen and examined in telemetry unit in presence of the He has been feeling much better but remains generally weak Has had physical therapy and likely to need short-term rehab to improve his mobility Denies any significant symptoms 01/21/2024 The patient was seen and examined in telemetry unit He has been feeling much better and denies any significant symptoms He does not have any more confusion and has been ambulating without any difficulties He wants to go home and does not want to go to rehab Review of Systems Review of Systems: All systems reviewed and are unremarkable except as noted below Physical Exam Physical Exam: Lying in bed without any acute distress Constitutional: well developed and well nourished; not ill appearing Eyes: PERRL, conjunctivae normal, anicteric sclerae ENMT: external ear and nose normal, oropharynx normal Neck: trachea midline, no thyromegaly Respiratory: no respiratory distress Auscultation: lungs clear to auscultation bilaterally Cardiovascular: Rate/Rhythm: regular rate and regular rhythm; not tachycardic Heart Sounds: normal S1 and normal S2; no murmur Extremities: no edema Gastrointestinal (Abdomen): Inspection/Auscultation: normal bowel sounds; abdomen not distended Percussion/Palpation: abdomen soft; abdomen nontender Musculoskeletal: No acute arthritis involving any of the joints Neurologic: normal touch/pain/proprioception and moves all extremities; no focal motor deficits Psychiatric: A+Ox3, euthymic affect Lymphatic: no cervical or axillary lymphadenopathy Results & Data Results & Data Vital Signs (Past 12 Hours) Vital Signs Temp Pulse Resp BP Pulse Ox O2 Del Method 01/21/24 10:45 37.1 C 63 16 104/71 95 Room Air 01/21/24 08:00 Room Air 01/21/24 07:08 37.1 C 83 15 133/92 95 Room Air 01/21/24 03:17 37.1 C 62 16 138/88 95 Room Air Medications Administered Current Inpatient Medications Acetaminophen (Acetaminophen 325 Mg Tab) 650 mg PO Q4H PRN PRN Reason: Pain or Fever Stop: 02/17/24 15:05 Last Admin: 01/20/24 12:02 Dose: 650 mg Aspirin (Aspirin 81 Mg Ectab) 81 mg PO PM COUNTS INCLUDE 234 BEDS AT THE [facility] Stop: 02/18/24 20:59 Last Admin: 01/20/24 21:00 Dose: 81 mg Atorvastatin Calcium (Atorvastatin 20 Mg Tab) 20 mg PO PM COUNTS INCLUDE 234 BEDS AT THE [facility] Stop: 02/17/24 20:59 Last Admin: 01/20/24 21:00 Dose: 20 mg Clopidogrel Bisulfate (Clopidogrel Bisulfate 75 Mg Tab) 75 mg PO QAM COUNTS INCLUDE 234 BEDS AT THE [facility] Stop: 02/20/24 09:29 Last Admin: 01/21/24 09:54 Dose: 75 mg Dextrose (Dextrose 50% 50 Ml Syringe) 25 - 50 ml IV UD PRN; Protocol PRN Reason: Hypoglycemia Protocol Stop: 02/17/24 16:59 Enalapril Maleate (Enalapril Maleate 10 Mg Tab) 20 mg PO QAM COUNTS INCLUDE 234 BEDS AT THE [facility] Stop: 02/18/24 08:59 Last Admin: 01/21/24 08:16 Dose: 20 mg Finasteride (Finasteride 5 Mg Tab) 5 mg PO PM COUNTS INCLUDE 234 BEDS AT THE [facility] Stop: 02/17/24 20:59 Last Admin: 01/20/24 20:59 Dose: 5 mg Glucagon (Glucagon For Inj 1 Mg Vial) 1 mg SQ UD PRN; Protocol PRN Reason: Hypoglycemia Protocol Stop: 02/17/24 16:59 Glucose (Glucose 40% Gel 15 Gm Tube) 15 - 30 gm PO UD PRN; Protocol PRN Reason: Hypoglycemia Protocol Stop: 02/17/24 16:59 Glucose (Glucose 10 Tab/Tube) 4 - 8 tab PO UD PRN; Protocol PRN Reason: Hypoglycemia Treatment Stop: 02/17/24 16:59 Ampicillin Sodium 2,000 mg/ (Sodium Chloride) 100 mls @ 200 mls/hr IV Q4H COUNTS INCLUDE 234 BEDS AT THE [facility] Stop: 01/28/24 21:59 Last Infusion: 01/19/24 06:32 Dose: Infused Insulin Aspart (Insulin Aspart Per Unit Charge) 0 units SC ACHS COUNTS INCLUDE 234 BEDS AT THE [facility] Stop: 02/17/24 20:59 Last Admin: 01/21/24 12:01 Dose: 5 units Metoprolol Succinate (Metoprolol Succ 25mg Ext Rel Tab) 25 mg PO QAM CHANI Stop: 02/18/24 08:59 Last Admin: 01/21/24 08:16 Dose: 25 mg Miscellaneous (Carbohydrates For Hypoglycemia ) 15 - 30 gm PO UD PRN PRN Reason: Hypoglycemia Protocol Stop: 02/17/24 16:59 Ondansetron HCl (Ondansetron Inj 2 Mg/Ml 2 Ml Vial) 4 mg IV Q6H PRN PRN Reason: Nausea Stop: 02/17/24 15:05 Polyethylene Glycol (Polyethylene (Miralax) 17 Gm Pack) 17 gm PO DAILY PRN PRN Reason: Constipation Stop: 02/17/24 15:05 Last Admin: 01/21/24 09:27 Dose: 17 gm Tamsulosin HCl (Tamsulosin Hcl 0.4 Mg Cap) 0.4 mg PO QPM CHANI Stop: 02/17/24 20:59 Last Admin: 01/20/24 20:59 Dose: 0.4 mg Vitamin B Complex (Vitamin B Complex Tab) 1 tab PO PM CHANI Stop: 02/17/24 20:59 Last Admin: 01/20/24 20:59 Dose: 1 tab
--- NOTE | 2024-01-22 07:15 | Discharge Summary ---
Date of Service January 22, 2024 Admission HPI Per Admitting Provider This is a 78yo M with a PMH of DM II, dyslipidemia, TIMOTHY on CPAP, CAD, RBBB, HTN, tachy rebecca syndrome s/p pacemaker, history of cva, depression, mild cognitive impairment and other medical problems listed below who presents with significant weakness x 2 days. At baseline ambulates independently at home where he lives with . Has back pain near tailbone for past 2 months. Due for evaluation at [facility] in the next week. Has had a dry cough for past few months per at bedside. Complains of having chills for past 2 weeks. had to stop him from attempting to walk through glass sliding door yesterday. Hard working and high energy at baseline so this has been a notable change. No sore throat, known recent URI, CP, SOB, N/V, abd pain, dysuria, increased urinary frequency, diarrhea or constipation. No known sick contacts. No known tick bites. Admission Exam Per Admitting Provider Constitutional: Awake, oriented to self. Requires frequent reorientation. Able to answer simple questions and follow simple commands. Neck- mild pain on neck flexion, no ridigity Respiratory: normal respiratory effort, lungs clear to auscultation, no wheeze, rales, rhonchi. Normal insp/exp effort, no accessory muscle use Cardiovascular: RRR, no murmur, no edema Vessels: no JVD or carotid bruit Chest: normal inspection of chest Abdomen: normal bowel sounds, soft, nontender, no hepatosplenomegaly Musculoskeletal: no cyanosis or clubbing, extremities motor strength 5/5 Skin: no rashes, warm and dry normal turgor Neurologic: PERRL, EOMI, accommodation nl, no face palsy, no dysarthria CN's II- XI intact bilaterally and moves all extremities Principal Diagnosis Acute confusioncompletely resolved, generalized weakness Discharge Exam Lying in bed without any acute distress Constitutional well developed and well nourished; not ill appearing Eyes PERRL, conjunctivae normal, anicteric sclerae ENMT external ear and nose normal, oropharynx normal Neck trachea midline, no thyromegaly Respiratory no respiratory distress Auscultation: lungs clear to auscultation bilaterally Cardiovascular Rate/Rhythm: regular rate and regular rhythm; not tachycardic Heart Sounds: normal S1 and normal S2; no murmur Extremities: no edema Gastrointestinal (Abdomen) Inspection/Auscultation: normal bowel sounds; abdomen not distended Percussion/Palpation: abdomen soft; abdomen nontender Neurologic normal touch/pain/proprioception and moves all extremities; no focal motor deficits Psychiatric A+Ox3, euthymic affect Lymphatic no cervical or axillary lymphadenopathy Discharge Data Allergies Allergy/AdvReac Type Severity Reaction Status Date / Time ampicillin Allergy Mild Rash Verified 01/19/24 07:39 Consultations 01/18/24 14:38 ED Decision to Admit Stat 01/18/24 16:39 Consult Neurology Routine Ordered Studies 01/18/24 14:11 MRI Brain [MR brain wo con] Stat 01/19/24 09:48 CT chest with contrast [CT chest diagnostic w con] Routine Hospital Course (1) Acute confusion: This is a 78yo M with a PMH of DM II, dyslipidemia, TIMOTHY on CPAP, CAD, RBBB, HTN, tachy rebecca syndrome s/p pacemaker, history of cva, depression, mild cognitive impairment and other medical problems listed below who presents with significant weakness x 2 days. Acute confusion about 2 days prior to admission Associated fever without any documentation of temperature Denies any headache, photophobia, neck is stiffness, nausea and vomiting and no focal neurological signs Labs are unremarkable though CRP is elevated at 4.40 CT scan of the head and MRI of the head are unremarkable Further infective workup has been pending Doubt any meningitis or meningism Has been on intravenous Rocephin and Vanco empirically He has been improving and does not have any more confusion this morning Clinically much better and confusion is resolved Denies any symptoms except some weakness No fever and no chills and no other signs of infection Will stop vancomycin given MRSA screen is negative 4 sets of blood cultures are negative and UA is unremarkable and rest of Rocephin as well PT OT recommended rehab Discussed with the and she is agreeable with the recommendation The patient has been feeling much better and he wants to go home and refusing rehab The case briefer has been working with the and the patient to see if the patient is willing to go home with some home health Abnormal chest x-ray CT of the chest with contrast did not show any significant abnormalities A1c, fasting lipids in AM LP scheduled for tomorrow for encephalitis/meningitis eval Started on empiric Rocephin, ampicillin and vanco Hold plavix and aspirin until after procedure Neuro checks -No neurological abnormality (2) Ambulatory dysfunction: PT OT recommended rehab Awaiting placement Refusing to go to rehab (3) Generalized weakness: Weakness has improved a lot (4) Diabetes mellitus, type 2: A1c 6.6 in Jan 2023, repeat tomorrow AM Hold home agents SSI while in-patient BSG AC HS Hemoglobin A1c 6.9 (5) CAD (coronary artery disease): No cardiac symptoms Has been waiting for an echo to evaluate cardiac function Monitor has not been showing any arrhythmias Will observe in telemetry unit Continue his aspirin and Plavix Lipid profile is unremarkable (6) BPH (benign prostatic hyperplasia): Continue finasteride, flomax (7) Tachy-rebecca syndrome: S/p pacemaker placement (8) Sleep apnea: CPAP HS DVT Ppx: SCDs given planned LP in AM Code status: FULL PCP: [facility] Dispo: Admitted to PCU Total Time Total Time Spent Total Time Spent (In Minutes): 35 minutes Discharge Plan Discharge Items Patient Disposition: Home - Home Health Services Reason For Visit: WEAKNESS Discharge Diagnosis: Acute confusioncompletely resolved, generalized weakness Condition on Discharge: Good Activity: Resume your previous activity Non-emergency contact: Primary Care Provider Call non-emergency contact if: you have any medication questions and your symptoms worsen Follow-up/Referrals: Crystal Walter, [Primary Care Provider] - 01/27/24 1:40 pm (Your appointment is with Dr. Juarez at [facility]) Diet: Regular Diet Texture: Dental soft (bite-sized) Addtl Attending Provider Instructions: Please take precautions to avoid falls Continue with the physical therapy Try to drink more fluid to avoid dehydration Please keep appointment with the healthcare provider Pending Studies at Discharge: No Stand-Alone Forms: My [facility]+, Smoking Cessation Medications and DC Order Prescriptions: Continued (DME) CPAP Supplies Misc See Dose Instructions .ROUTE .MEDSUPPLY Qty: 1 0RF Dose Instruction: As directed Rx Instructions: As directed (DME) CPAP Machine Misc .Route Qty: 1 0RF Rx Instructions: Changed from auto CPAP to fixed CPAP at 13 cm of water.F&P med VItera mask, lifetime need, [place] Home patient metoprolol succinate 25 mg Tablet Extended Release 24 Hr 25 mg PO QAM Qty: 30 0RF multivitamin Tablet 1 tab PO QAM metformin 500 mg Tablet 500 mg PO BID vitamin B complex Tablet Extended Release 1 tab PO PM atorvastatin 20 mg Tablet 20 mg PO PM clopidogrel [Plavix] 75 mg Tablet 75 mg PO QAM aspirin 81 mg Tablet,Delayed Release (Dr/Ec) 81 mg PO PM tamsulosin 0.4 mg Capsule 0.4 mg PO QPM finasteride [Proscar] 5 mg Tablet 5 mg PO PM ramipril 10 mg Tablet 10 mg PO QAM mirabegron [Myrbetriq] 25 mg tablet extended release 24 hr 25 mg PO DAILY Discharge Orders: Discharge Order (Routine); Ordered 01/21/24 Ordered By: Mathew Gomes/Other Patient Handouts: Managing Type 2 Diabetes Admission Data Admit Date/Time: 01/18/24 15:06 Attending Provider: Mathew Starkey Admit Provider: Prasanna Seth Primary Care Provider: Crystal Walter Other Providers: Prasanna Seth; [facility]; [facility] Other Interventions: Discharge Summary Assessment (RN) Last Done: 01/21/24 14:47
--- NOTE | 2024-01-24 22:47 | Coding Query ---
CODING QUERY To promote full compliance with coding requirements relating to patient care, provider participation is requested in all cases of physician coder uncertainty. Please assist us with the question(s) below: Coding Question(s): The patient has been diagnosed with the symptoms of confusion and weakness. Additional findings documented in the medical records are: TIMOTHY, mild cognitive impairment, and history of CVA. Based on your medical judgement, Can you please further clarify if any of the following are a definite or suspected cause of the patients symptoms of confusion and weakness: Physician's Response(s): ___OSA ___Mild cognitive impairment ___Other (Please specify) x__Unable to determine Thank you Angelica PAK
== END 2024-01-21 15:23 | disposition home health service (06) | DRG 948 ==
LOC: ED 10:48 → EDINP 15:06 → SUATTDRO 15:06 → 2E 16:39

== ENCOUNTER 2024-09-04 12:51 | Inpatient (IN) ==
[2024-09-04 13:43] LABS: Hematocrit (blood only) 47.4 % (42.0-52.0); Hemoglobin 15.8 g/dl (14.0-18.0); Mean Corpuscular Hemoglobin 29.3 pg (25.0-34.0); Mean Corpuscular Hgb Conc 33.3 g/dL (32.0-36.0); Mean Corpuscular Volume 87.9 fL (80.0-100.0); Mean Platelet Volume 10.7 fL (9.4-12.4); Platelet Count 228 K/uL (130-400); RDW Coefficient of Variation 14.8 % (11.5-14.5); RDW Standard Deviation 47.1 fL (36.4-46.3); Red Blood Count 5.39 M/uL (4.70-6.10); White Blood Count 7.56 K/ul (4.8-10.8)
[2024-09-04 14:02] LABS: Alanine Aminotransferase 15 U/L (7-52); Albumin Globulin Ratio 1.5 (0.9-2); Albumin Level 4.2 gm/dl (3.4-5.0); Alkaline Phosphatase 76 U/L (34-104); Anion Gap 6 (3-11); Aspartate Aminotransferase 21 U/L (13-39); BUN Creatinine Ratio 29.7 (10-20); Blood Urea Nitrogen 22 mg/dl (6-23); Calcium 9.4 mg/dl (8.6-10.3); Carbon Dioxide 26 mmol/L (21-32); Chloride 104 mmol/L (98-107); Globulin 2.8 gm/dl (2.5-4.0); Glucose 155 mg/dl (70-99(Fasting)); Potassium 3.9 mmol/L (3.5-5.1); Sodium 136 mmol/L (136-145)
[2024-09-04 14:04] LABS: Basophils # (auto) 0.01 K/uL (0.00-0.20); Basophils % (auto) 0.1 %; Immature Granulocytes # (auto) 0.01 K/uL (0.01-0.20); Immature Granulocytes % (auto) 0.1 %; Lymphocytes # (auto) 0.37 K/uL (1.20-3.40); Lymphocytes % (auto) 4.9 %; Monocytes # (auto) 0.31 K/uL (0.11-0.59); Monocytes % (auto) 4.1 %; Neutrophils # (auto) 6.86 K/uL (1.40-6.50); Neutrophils % (auto) 90.8 %
[2024-09-04 14:36] LABS: Adenovirus PCR Not Detected (NotDetected); Bordetella parapertussis PCR Not Detected (NotDetected); Bordetella pertussis PCR Not Detected (NotDetected); Chlamydia pneumoniae PCR Not Detected (NotDetected); Coronavirus 229E PCR Not Detected (NotDetected); Coronavirus CoV-2 (COVID19)PCR Not Detected (NotDetected); Coronavirus HKU1 PCR Not Detected (NotDetected); Coronavirus NL63 PCR Not Detected (NotDetected); Coronavirus OC43PCR Not Detected (NotDetected); Human Metapneumovirus PCR Not Detected (NotDetected); Influenza A PCR Not Detected (NotDetected); Influenza B PCR Not Detected (NotDetected); Mycoplasma pneumoniae PCR Not Detected (NotDetected); Parainfluenza Virus 1 PCR Not Detected (NotDetected); Parainfluenza Virus 2 PCR Not Detected (NotDetected); Parainfluenza Virus 3 PCR Not Detected (NotDetected); Parainfluenza Virus 4 PCR Not Detected (NotDetected); Respiratory Syncytial VirusPCR Not Detected (NotDetected); Rhinovirus/Enterovirus PCR Not Detected (NotDetected)
--- NOTE | 2024-09-04 14:52 | Electrocardiogram Report ---
Test Reason : Blood Pressure : */* mmHG Vent. Rate : 102 BPM Atrial Rate : 102 BPM P-R Int : 138 ms QRS Dur : 134 ms QT Int : 402 ms P-R-T Axes : 6 117 -5 degrees QTcB Int : 523 ms Sinus tachycardia with Premature atrial complexes Possible Left atrial enlargement Right bundle branch block , plus right ventricular hypertrophy Left posterior fascicular block Bifascicular block T wave abnormality, consider inferior ischemia Abnormal ECG When compared with ECG of 18-Jan-2024 10:55, Sinus rhythm has replaced Ectopic atrial rhythm QT has lengthened Confirmed by Prabhakar Casiano ([id number]) on 09/04/2024 2:51:35 PM Referred By: Confirmed By: Prabhakar Casiano
--- NOTE | 2024-09-04 16:06 | Emergency Department Note ---
Impression & Plan Abdominal pain, Vomiting and diarrhea, Weakness ED Provider Note NAME: JALEEL BREWSTER AGE: 79 SEX: M : 1945 ARRIVES VIA: Walk-In INFORMANT: Patient ED PROVIDER(S): Anselmo Dailey DO CHIEF COMPLAINT: Nausea vomiting and diarrhea HPI: Patient is a 79-year-old male with a past medical history of CABG, appendectomy, paroxysmal atrial tachycardia, diabetes who presents to the ER for nausea, vomiting, and diarrhea which started 4 days ago. He has been unable to keep anything down. He does have a cough and weakness. Denies any dysuria, urgency, or frequency. No other exacerbating or remitting factors. Patient denies any chest pain or shortness of breath. ADDITIONAL HISTORY OBTAINED: provides additional history and notes that he has been unable to eat or drink anything. He has been up walking around. Chronic Medical/Social Conditions Affecting Care: Per HPI PAST MEDICAL HISTORY:See Below PAST SURGICAL HISTORY:See Below FAMILY HISTORY:See Below SOCIAL HISTORY:See Below HOME MEDICATIONS:See Below ALLERGIES:See Below VITALS:See Below PHYSICAL EXAMINATION: GENERAL: Sitting up in bed, alert, well appearing, well nourished, no distress, non-toxic EYE EXAM: normal conjunctiva. OROPHARYNX: Dry mucous membranes NECK: supple, no nuchal rigidity, no adenopathy, non-tender LUNGS: Clear to auscultation. Normal chest wall mechanics HEART: no murmurs, S1 normal and S2 normal ABDOMEN: abdomen soft, non-tender, normo-active bowel sounds, no masses, no rebound or guarding. UPPER EXTREMITIES: upper extremities are grossly normal. LOWER EXTREMITIES: No pitting edema. NEURO EXAM: Normal sensorium, cranial nerves II-XII grossly intact, normal speech, no gross weakness of arms, no gross weakness of legs. MEDICAL DECISION MAKING: Patient is a 79-year-old male who presents ER for above-stated complaint. IV was established and blood work was obtained. Additional history obtained from [facility] where he presented initially and complaint of nausea and vomiting and diarrhea for the past 4 days. They sent him over here due to weakness. Labs show no significant leukocytosis or anemia. BMP with LFTs and bilirubin was unremarkable. Lipase is normal. UA was clean. Viral panel was negative. Patient was given Zofran and fluids. CT abdomen pelvis showed a questionable bowel obstruction although I favor this is unlikely due to the persistent diarrhea. He is very weak and has been urinating himself and family notes that he has been having trouble getting around. Patient was discussed with the hospitalist admitted for further workup. Consults/Care Managements Discussions: Per [facility] Triage Nursing notes reviewed. Limited review of prior medical records performed Vital Signs: reviewed and remarkable for no significant abnormalities Differential diagnosis: Differential diagnoses includes but is not limited to gastritis, peptic ulcer disease, GERD, gallbladder disease, pancreatitis, small bowel obstruction, appendicitis, diverticulitis, hernia, urinary tract infection, torsion, /ectopic (if female), perforation, trauma, infectious. ER treatment provided: See below Diagnostics interpreted by me include EKG and cardiac monitoring as listed below: -Cardiac Monitoring: An order was placed for continuous cardiac monitoring. The monitor shows a rate of 101 with sinus rhythm. -ECG: Sinus tachycardia rate of 102 Right bundle branch block T wave inversions in the septal leads T wave inversions in the inferior leads QTc 523 -Laboratory studies:Interpreted by me as stated above in MDM and shown below. Imaging studies: Xrays: As interpreted by me:none CTs show: CT abdomen pelvis shows no obvious pneumonia provide preliminary interpretation CT abdomen pelvis per radiologist described above Procedures:none Critical Care: None Past Med/Surg History Problem List Weakness (Acute) Vomiting and diarrhea (Acute) Abdominal pain (Acute) Chronic anticoagulation Lumbar facet joint syndrome Chronic low back pain Ambulatory dysfunction (Acute) Acute confusion (Acute) Generalized weakness (Acute) Prosthetic joint loosening Hernia, diaphragmatic (Chronic) Carpal tunnel syndrome (Chronic) Arthritis of knee (Chronic 08/02/11) 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 PAT (paroxysmal atrial tachycardia) pt admitted for elective ppm due to TBS; underwent procedure without any complications; monitored overnight; started on Toprol and discharged home. Carotid artery stenosis cardiac stents Sleep apnea Excessive daytime sleepiness Fall Parkinsonian features Sleep apnea CPAP (compliant) Diabetes mellitus, type 2 NIDDM CAD (coronary artery disease) S/P CABG x3 in 2001 with SMITH to LAD; SABRINA to PDA and Radial to LCX. PCI/rot oblation/stent VON RCA 2004 (performed due to SABRINA to PDA graft stenosis) and PCI/VON left main 2004 2011 cardiac cath demonstrated 3V CAD in the [place] vessels with patent SMTIH to LAD graft, patent radial graft to the circumflex, and SABRINA graft to the R PDA had a 95% ostial stenosis that was unchanged compared to his last cardiac catheterization. The [place] RCA had a total occlusion (area that previously been stented). Continued medical management was recommended. History of total knee replacement R/L History of repair of rotator cuff R/L History of coronary artery bypass graft CABG x3 in 2001 with SMITH to LAD; SABRINA to PDA and Radial to LCX Medical History History of COVID-19 06/05/22 (PCR [facility]- report scanned into [employer])- asymptomatic. 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) Surgical History History of inguinal hernia repair Left (01/2021) S/P epidural steroid injection Status post total shoulder arthroplasty left History of tooth extraction History of colonoscopy History of cataract surgery R/L History of tonsillectomy History of heart artery stent 2016 Hx of appendectomy Family History Mother , 61 Pulmonary embolism Father , 74 Stroke Brother Coronary heart disease 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 Smoking Status: Former smoker Second Hand Exposure: No; Do You Dip or Chew Tobacco: No; Hx Alcohol Use: No Hx Substance Use: No Preferred Language: Romanian Communication Ability: Effective Staking Technician Required: No Beliefs That Will Affect Care: None Current Living Situation: Spouse Feels Safe at Home: Yes Assistive Devices: Cane and CPAP Allergies Allergies Allergy/AdvReac Type Severity Reaction Status Date / Time ampicillin Allergy Mild Rash Verified 09/04/24 17:58 Home Meds Home Medications Medication Instructions Recorded Confirmed aspirin 81 mg tablet,delayed 81 mg PO PM 02/05/21 09/04/24 release atorvastatin 20 mg tablet 20 mg PO PM 02/05/21 09/04/24 clopidogrel 75 mg tablet (Plavix) 75 mg PO QAM 02/05/21 09/04/24 finasteride 5 mg tablet (Proscar) 5 mg PO PM 02/05/21 09/04/24 metformin 500 mg tablet 500 mg PO BID 02/05/21 09/04/24 multivitamin 1 tab PO QAM 02/05/21 09/04/24 tamsulosin 0.4 mg capsule 0.4 mg PO QPM 02/05/21 09/04/24 vitamin B complex 1 tab PO PM 02/05/21 09/04/24 mirabegron 25 mg tablet,extended 25 mg PO DAILY 02/17/22 09/04/24 release 24 hr (Myrbetriq) ramipril 10 mg capsule 10 mg PO QAM 09/04/24 09/04/24 Previous Rx's Medication Instructions Recorded metoprolol succinate 25 mg 25 mg PO QAM #30 tabs 06/08/18 tablet,extended release 24 hr CPAP Supplies #1 ea 02/27/19 CPAP Machine #1 ea 01/08/22 Results & Data (ED) Vital Signs Vital Signs - 24 hr 09/04/24 13:07 09/04/24 16:39 09/04/24 17:17 Temperature 37.3 C Temperature Source Skin Pulse Rate 102 H 92 H Pulse Rate [Apical] 88 Pulse Rhythm [Apical] Pulse Strength [Apical] Respiratory Rate 18 18 Respiratory Effort / Characteristics Non-Labored Spontaneous Respiratory Depth Normal Respiratory Pattern Regular Blood Pressure 121/83 Blood Pressure [Left Arm] 136/76 Blood Pressure Mean 95 Blood Pressure Mean [Left Arm] 96 Blood Pressure Position [Left Arm] Pulse Oximetry 94 90 Oxygen Delivery Method Room Air Room Air Sepsis Recent Fever Within 48 Hours No Sepsis New/Unexplained Change in Mental Status N/A Sepsis Action Taken by Nursing No Action Required 09/04/24 18:00 09/04/24 20:00 09/04/24 20:46 Temperature Temperature Source Pulse Rate 91 H Pulse Rate [Apical] 108 H 92 H Pulse Rhythm [Apical] Regular Pulse Strength [Apical] Normal Respiratory Rate 24 18 Respiratory Effort / Characteristics Non-Labored Spontaneous Respiratory Depth Normal Respiratory Pattern Regular Blood Pressure Blood Pressure [Left Arm] 174/100 H 178/108 H Blood Pressure Mean Blood Pressure Mean [Left Arm] 124 131 Blood Pressure Position [Left Arm] Semi-fowlers Pulse Oximetry 93 93 Oxygen Delivery Method Room Air Room Air Sepsis Recent Fever Within 48 Hours Sepsis New/Unexplained Change in Mental Status Sepsis Action Taken by Nursing Laboratory Data 09/04/24 13:15 09/04/24 13:15 Lab Results 09/04/24 09/04/24 Range/Units 13:15 16:40 WBC 7.56 (4.8-10.8) K/ul RBC 5.39 (4.70-6.10) M/uL Hgb 15.8 (14.0-18.0) g/dl Hct 47.4 (42.0-52.0) % MCV 87.9 (80.0-100.0) fL MCH 29.3 (25.0-34.0) pg MCHC 33.3 (32.0-36.0) g/dL RDW Std Deviation 47.1 H (36.4-46.3) fL RDW Coeff of Nacho 14.8 H (11.5-14.5) % Plt Count 228 (130-400) K/uL MPV 10.7 (9.4-12.4) fL Immature Gran % (Auto) 0.1 % Neut % (Auto) 90.8 % Lymph % (Auto) 4.9 % Cass % (Auto) 4.1 % Eos % (Auto) 0.0 % Baso % (Auto) 0.1 % Neut # (Auto) 6.86 H (1.40-6.50) K/uL Lymph # (Auto) 0.37 L (1.20-3.40) K/uL Cass # (Auto) 0.31 (0.11-0.59) K/uL Eos # (Auto) 0.00 (0.00-0.50) K/uL Baso # (Auto) 0.01 (0.00-0.20) K/uL Immature Gran # (Auto) 0.01 (0.01-0.20) K/uL Sodium 136 (136-145) mmol/L Potassium 3.9 (3.5-5.1) mmol/L Chloride 104 (98-107) mmol/L Carbon Dioxide 26 (21-32) mmol/L Anion Gap 6 (3-11) BUN 22 (6-23) mg/dl Creatinine 0.74 (0.6-1.4) mg/dl Est Cr Clr Drug Dosing Not Reportable eGFR 92.17 BUN/Creatinine Ratio 29.7 H (10-20) Glucose 155 H (70-99(Fasting)) mg/dl Calcium 9.4 (8.6-10.3) mg/dl Total Bilirubin 1.0 (0.2-1.0) mg/dl AST 21 (13-39) U/L ALT 15 (7-52) U/L Alkaline Phosphatase 76 (34-104) U/L Total Protein 7.0 (6.0-8.3) gm/dl Albumin 4.2 (3.4-5.0) gm/dl Globulin 2.8 (2.5-4.0) gm/dl Albumin/Globulin Ratio 1.5 (0.9-2) Lipase 9 L (11-82) U/L Urine Color Dark Yellow Urine Appearance Clear (Clear) Urine pH 5.5 (4.5-7.5) Ur Specific [employer] 1.031 H (1.000-1.030) Urine Protein Trace H (Negative) Urine Glucose (UA) Negative (Negative) Urine Ketones Trace H (Negative) Urine Blood Negative (Negative) Urine Nitrite Negative (Negative) Urine Bilirubin Negative (Negative) Urine Urobilinogen Negative (Negative) Ur Leukocyte Esterase Negative (Negative) Urine WBC (Auto) 0-5 (0-5) /hpf Urine RBC (Auto) 0-2 (0-2) /hpf U Hyaline Cast (Auto) 0-2 (0-2) /lpf U Epithel Cells (Auto) 0-2 (0-2) /hpf Urine Bacteria (Auto) None Seen (None Seen) Adenovirus (PCR) Not Detected (NotDetected) B. pertussis DNA (PCR) Not Detected (NotDetected) B.parapertussis DNA PCR Not Detected (NotDetected) C. pneumoniae DNA (PCR) Not Detected (NotDetected) Coronavirus OC43 (PCR) Not Detected (NotDetected) Coronavirus HKU1 (PCR) Not Detected (NotDetected) Coronavirus 229E (PCR) Not Detected (NotDetected) SARS-CoV-2 (PCR) Not Detected (NotDetected) Coronavirus NL63 (PCR) Not Detected (NotDetected) Human Metapneumovir PCR Not Detected (NotDetected) Influenza Type A (PCR) Not Detected (NotDetected) Influenza Type B (PCR) Not Detected (NotDetected) M. pneumoniae (PCR) Not Detected (NotDetected) Parainfluenza 1 (PCR) Not Detected (NotDetected) Parainfluenza 2 (PCR) Not Detected (NotDetected) Parainfluenza 3 (PCR) Not Detected (NotDetected) Parainfluenza 4 (PCR) Not Detected (NotDetected) RSV (PCR) Not Detected (NotDetected) Entero/Rhino (PCR) Not Detected (NotDetected) Administered Medications Lactated Ringer's (Lr) 1,000 mls @ 80 mls/hr IV .[id number] CHANI Stop: 09/05/24 19:59 Last Admin: 09/04/24 20:55 Dose: 80 mls/hr Documented By: TERRIE Discontinued Medications Sodium Chloride (Nss) 1,000 mls @ 999 mls/hr IV .[id number] ONE Stop: 09/04/24 17:07 Last Infusion: 09/04/24 17:19 Dose: Infused Documented By: Admin: 09/04/24 16:14 Dose: 999 mls/hr Documented By: ELKIN Lactated Ringer's (Lr) 500 mls @ 999 mls/hr IV .Q31M ONE Stop: 09/04/24 20:23 Last Infusion: 09/04/24 20:55 Dose: Infused Documented By: Admin: 09/04/24 20:21 Dose: 999 mls/hr Documented By: TERRIE Ioversol (Optiray 320 100ml) 94 ml IV ONCE ONE Stop: 09/04/24 16:34 Last Admin: 09/04/24 16:33 Dose: 94 ml Documented By: LILLIANA Ondansetron HCl (Ondansetron Inj 2 Mg/Ml 2 Ml Vial) 4 mg IV NOW STA Stop: 09/04/24 16:08 Last Admin: 09/04/24 16:14 Dose: 4 mg Documented By: ELKIN Imaging Data Radiologist's Impression: Abdomen/Pelvis CT 09/04/24 16:06 INDICATION: Abdominal pain, nausea and vomiting. COMPARISON: CT chest from 01/19/2024. TECHNIQUE: Axial CT images of the abdomen and pelvis were obtained following IV contrast administration. Coronal and sagittal reformations were reviewed. FINDINGS: Calcified pleural plaquing noted in the lung bases is seen on prior CT chest. The liver, gallbladder, spleen, pancreas and adrenal glands appear unremarkable. No hydronephrosis. Large hiatal hernia. No evidence of colitis/appendicitis. Dilated small bowel loops in the midabdomen. No pneumatosis or portal venous gas. No free air. No drainable fluid collection. The urinary bladder appears unremarkable. Fat-containing bilateral inguinal hernias. Mild prostate gland enlargement. Negative for abdominal aortic aneurysm or dissection. No acute osseous abnormality evident. IMPRESSION: 1. Mildly dilated small bowel loops could relate to ileus/enteritis/early small bowel obstruction. Follow-up as clinically relevant. 2. Large hiatal hernia. Electronically signed by Yevgeniy Julien 09-04-2024 5:02 PM Discharge Plan Visit Data Chief Complaint: Need IV Start Stated Complaint: IV STARTED- DOC REFERRED ED Provider: Anselmo Dailey Discharge Problem: Abdominal pain, Vomiting and diarrhea, Weakness Forms [facility] Prescriptions Prescriptions: No Action (DME) CPAP Supplies Misc See Dose Instructions .ROUTE .MEDSUPPLY Qty: 1 0RF Dose Instruction: As directed Rx Instructions: As directed (DME) CPAP Machine Misc .Route Qty: 1 0RF Rx Instructions: Changed from auto CPAP to fixed CPAP at 13 cm of water.F&P med VItera mask, lifetime need, [place] metoprolol succinate 25 mg Tablet Extended Release 24 Hr 25 mg PO QAM Qty: 30 0RF multivitamin Tablet 1 tab PO QAM metformin 500 mg Tablet 500 mg PO BID vitamin B complex Tablet Extended Release 1 tab PO PM atorvastatin 20 mg Tablet 20 mg PO PM clopidogrel [Plavix] 75 mg Tablet 75 mg PO QAM aspirin 81 mg Tablet,Delayed Release (Dr/Ec) 81 mg PO PM tamsulosin 0.4 mg Capsule 0.4 mg PO QPM finasteride [Proscar] 5 mg Tablet 5 mg PO PM mirabegron [Myrbetriq] 25 mg tablet extended release 24 hr 25 mg PO DAILY ramipril 10 mg capsule 10 mg PO QAM Referrals Referrals: Crystal Walter DO [Primary Care Provider] - Discharge Problem: Abdominal pain Qualifiers: Abdominal location: unspecified location Qualified Code(s): R10.9 - Unspecified abdominal pain
[2024-09-04] MEDS: ONDANSETRON INJ 2 MG/ML 2 ML VIAL IV STA (16:14)
[2024-09-04] MEDS: SODIUM CHLORIDE 0.9% 1,000 ML IV ONE (16:14)
[2024-09-04] MEDS: OPTIRAY 320 100ml IV ONE (16:33)
[2024-09-04 16:35] LABS: Lipase 9 U/L (11-82)
--- NOTE | 2024-09-04 17:02 | CT Scan Report ---
INDICATION: Abdominal pain, nausea and vomiting. COMPARISON: CT chest from 01/19/2024. TECHNIQUE: Axial CT images of the abdomen and pelvis were obtained following IV contrast administration. Coronal and sagittal reformations were reviewed. FINDINGS: Calcified pleural plaquing noted in the lung bases is seen on prior CT chest. The liver, gallbladder, spleen, pancreas and adrenal glands appear unremarkable. No hydronephrosis. Large hiatal hernia. No evidence of colitis/appendicitis. Dilated small bowel loops in the midabdomen. No pneumatosis or portal venous gas. No free air. No drainable fluid collection. The urinary bladder appears unremarkable. Fat-containing bilateral inguinal hernias. Mild prostate gland enlargement. Negative for abdominal aortic aneurysm or dissection. No acute osseous abnormality evident. IMPRESSION: 1. Mildly dilated small bowel loops could relate to ileus/enteritis/early small bowel obstruction. Follow-up as clinically relevant. 2. Large hiatal hernia. Electronically signed by Yevgeniy Julien 09-04-2024 5:02 PM
[2024-09-04 17:23] LABS: Appearance Urine Clear (Clear); Bacteria Urine Automated None Seen (None Seen); Bilirubin Urine Negative (Negative); Blood Urine Negative (Negative); Cast Urine Automated 0-2 /lpf (0-2); Color Urine Dark Yellow; Epithelial Cell Urine Auto 0-2 /hpf (0-2); Glucose Urine UA Negative (Negative); Ketones Urine Trace (Negative); Leukocyte Esterase Urine Negative (Negative); Nitrite Urine Negative (Negative); Protein Urine Trace (Negative); RBC Urine Automated 0-2 /hpf (0-2); Specific Gravity Urine 1.031 (1.000-1.030); Urobilinogen Urine Negative (Negative); WBC Urine Automated 0-5 /hpf (0-5); pH Urine 5.5 (4.5-7.5)
--- OUTSIDE RECORDS SUMMARY | 2024-09-04 20:18 | External Medical Summary | Summary of Care ---
Author Name Unknown Organization [facility] Address [address] [place] [address] Phone [phone] Care Team Providers Care Technical Writer And Editor Name Role Phone Crystal Walter Primary Care Provider Encounter Details Date Type Department Care Team (Late st Contact Info) Description 09/01/2024 Result Scan Unspecified Department Soto Gamino DO [address] [place], [place] [id number] <No scans attached> Allergies Active Allergy Reactions Criticality Noted Date Comments Clonazepam Other (Please comment) 07/23/2022 "Made me really out of it" documented as of this encounter (statuses as of 09/01/2024) Medications MULTIVITAMINS OR TABS Take 1 Tablet by mouth daily. 0 3 Active Vitamin B Complex Oral Tablet Take 1 Tablet by mouth daily. Active Aspirin 81 MG Oral Tablet Chewable Take 1 Tablet by mouth daily. Active Mirabegron ER 50 MG Oral Tablet Extended Release 24 Hour (Myrbetriq) Take 1 Tablet by mouth in the morning. 90 Tablet 3 07/11/2024 9:13 AM EST 4 Active Tamsulosin HCl 0.4 MG Oral Capsule (Flomax)Indication s:Weak urinary stream,BPH with obstruction/lower urinary tract symptoms Take 1 Capsule by mouth in the morning. 90 Capsule 3 06/07/2024 11:08 AM EST 4 Active Advil Dual Action 125-250 MG Oral Tablet (Ibuprofen-Acetami nophen) Take 2 Tablets by mouth daily as needed for Pain. Active Gabapentin 100 MG Oral Capsule (Neurontin)Indicat ions:Lumbar radiculopathy Take 1 Capsule by mouth in the morning and 1 Capsule at noon and 1 Capsule before bedtime. 90 Capsule 5 06/16/2024 3:13 PM EST 4 Active Atorvastatin Calcium 20 MG Oral Tablet (Lipitor)Indicatio ns:Aortocoronary bypass status,Chronic coronary artery disease TAKE ONE TABLET BY MOUTH DAILY 100 Tablet 3 06/29/2024 4:37 PM EST 4 Active Metoprolol Succinate ER 25 MG Oral Tablet Extended Release 24 Hour (toPROL XL)Indications:Tac hy-rebecca syndrome (HCC),Coronary artery disease involving coronary bypass graft of [place] heart without angina pectoris Take 1 Tablet by mouth in the morning. 90 Tablet 3 06/19/2024 3:58 PM EST 4 Active Furosemide 20 MG Oral Tablet (Lasix)Indications :Hematoma of lower extremity, unspecified laterality, subsequent encounter Take 1 Tablet by mouth in the morning. 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) TAKE ONE TABLET BY MOUTH EVERY MORNING 90 Tablet 3 08/03/2024 4:24 PM EST 4 06/07/20 25 Active Finasteride 5 MG Oral Tablet (Proscar) TAKE ONE TABLET BY MOUTH EVERY MORNING 90 Tablet 2 06/20/2024 7:35 AM EST 4 06/06/20 25 Active documented as of this encounter (statuses as of 09/01/2024) Active Problems Problem Noted Date Diagnosed Date Weak urinary stream 04/25/2024 BPH with obstruction/lower urinary tract symptom s 04/25/2024 MCI (mild cognitive impairment) 01/13/2024 Type 2 [...] sites S/P coronary artery stent placement 05/18/2016 Overview (05/18/2016): VON in 2004 RCA and Left main TIMOTHY on CPAP 10/31/2015 H/O coronary artery bypass surgery 06/13/2014 Percutaneous transluminal coronary angioplasty s tatus 08/19/2004 Overview (05/30/2019): Roto and stent x 3 to LM and RCA MIXED HYPERLIPIDEMIA - Low HDL 10/26/1995 OLD MYOCARDIAL INFARCT - 1982 Carpal tunnel syndrome Coronary artery disease invo lving coronary bypass graft of [place] heart without angina pectoris Overview (02/11/2006): [place] in 1982, Abnormal stress test in 2004, stented documented as of this encounter (statuses as of 09/01/2024) Resolved Problems Problem Noted Date Diagnosed Date Resolved Date Parkinson's disease 05/27/2021 08/10/19 23 Dementia with behavioral disturbance 09/02/2020 01/13/2024 Overview (03/23/2022): ICD-10 update of inactive term Dementia associated with oth er underlying disease without behavioral disturbance 09/02/2020 0 01/13/2024 Overview (03/23/2022): ICD-10 update of inactive term 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 Bradycardia 12/29/2016 05/30/2019 Total knee replacement status 07/04/2012 10/22/2014 [employer] Other*[id number] 06/07/2012 07/28/2016 Overview (06/07/2012): Study Title: Genomic Markers for Patients with Cardiovascular Disease Project # [id number] Nuclear Plant Technical Advisor: Neda Lemos MD [phone] Abnormal nuclear stress test 05/31/2012 05/30/2019 Preoperative cardiovascular examination 07/22/2011 10/15/2016 ADVANCE DIRECTIVE INFORMATION 11/27/2004 10/15/2016 Overview (11/27/2004): Yes, Patient instructed to provide copy of advance directive for provider to review and to be scanned into Electronic Medical Record IMPOTENCE, ORGANIC ORIGN 01/29/2000 ANGINA PECTORIS NEC-NOS 12/02/199506/2011 Overview (02/11/2006): cath - 12/02/95, 2004 Diaphragmatic hernia 019 documented as of this encounter (statuses as of 09/01/2024) Immunizations Name Administration Dates Next Due COVID-19 mRNA, LNP-s, No Pre serve, 2-Dose Series (GreenLight) 09/09/2020,08/14/2020 COVID-19, mRNA, LNP-s, PF, B ooster, 100mcg/0.5mg (Moderna) 04/24/2021 Pneumococcal Conjugate Vacc, 13 Valent (Prevnar) 08/14/2015 Pneumococcal Polysaccharide PPV23 (Pneumovax) 11/11/2016,05/20/2009 RSV Vac., Recomb, Adjuvant, PF,0.5 Ml (Arexvy) 06/24/2023 Seasonal Influenza Vac., MDV , IM, 0.5 mL (Fluzone) 05/22/2014,04/25/2013,03/21/2012,05/30(Deferred: Patient Refused),05/01/2010,05/14/2008 Seasonal Influenza, PF, 6 M & above, IM , (FluLaval or Fluzone) 03/09/2019,04/14/2017 Seasonal Influenza, Quadriva lent Hd (Fluzone Hd) 02/24/2022 Seasonal Influenza, Quadriva lent Hd, 65+ Yrs 06/16/2023,03/28/2020 Seasonal Influenza, Quadriva lent, No Preserve, IM 04/14/2016,05/15/2015 Seasonal Influenza, Trivalen t, (IIV3), PF, (Fluzone) 02/29/2024 Seasonal Influenza, Trivalen t, Adjuvanted, 65+ YRS, PF, (Fluad) 03/22/2021 TDAP (age 10 and older)(Boostrix) 10/29/2018 [...] money to get more. 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 Not on file Not on file documented as of this encounter Plan of Treatment Upcoming Encounters Date Type Department Care Team (Late st Contact Info) Description 09/21/2024 2:15 PM EDT Office Visit Urology Laci Fonseca [address] [facility] [address] [address] Enrique Awad MD [address] [address] 10/09/2024 3:30 PM EDT [facility] [address] [facility] [place] [address] 10/13/2024 11:25 AM EDT Hospital Encounter OR [facility], Operating Room, [facility] - [facility]th [facility] [address] [facility] [address] Enrique Awad MD [address] [address] 10/13/2024 11:25 AM EDT - 10/13/2024 1:20 PM EDT Surgery OR [facility], Operating Room, [facility] - 4th Floor [address] [place] [address] Enrique Awad MD [address] [address] LASER VAPORIZATION PROSTATE 10/18/2024 2:00 PM EDT Nurse Only Urology, [facility] [address] [address] Nurse Markus Urology [facility] [address] [facility] [place] [address] 10/20/2024 3:20 PM EDT Office [facility] [address] [place] [address] Crystal Walter DO [address] [facility] [place] [address] 10/26/2024 3:00 PM EDT Nurse Only Ancillary Department, [address] [facility] [place] [phone] Selena Nurse Annual Wellness [address] [place] [address] 11/06/2024 3:45 PM EDT Office Visit Urology, [facility] [address] [facility] [place] [address] Enrique Awad MD [address] [facility] [place] [address] 01/16/2025 3:30 PM EDT Office Visit Neurology [facility] [address] [facility] [place] [address] Lizzie Cross PA-C [address] [facility] [place] [address] 02/05/2025 3:30 PM EDT Office Visit Cardiology, [facility] [address] [facility] [place] [address] Nazia Bolanos CRNP 132 [facility] [place] [address] Scheduled Procedures Name Priority Associated Diagnoses Date/Ti me LASER VAPORIZATION PROSTATE Weak urinary stream BPH with obstruction/lower urinary tract symptoms 10/13/2024 11:25 AM EDT Health Maintenance Due Date Last Done Comments Hepatitis C Screening 1963 COVID-19 Vaccine ( season) 2024 06/16/2023, 04/24/2021, 09/09/2020, Additional history exists Diabetic Foot Exam 07/26/2024 07/26/2023, 0 02/02/2022, 12/04/2020, Additional history exists HbA1c 09/22/2024 03/24/2024, 02/0 01/2024, 02/01/2023, Additional history exists Adult Wellness Visit 10/24/2024 10/25/2023, 10/21/19 23 Depression Monitoring 10/24/2024 10/25/2023 Diabetic Eye Exam 02/15/2025 02/16/2024, , 09/06/2023, Additional history exists Albumin/Creatinine Ratio 03/24/2025 024, 01/26/2023, 04/22/2022, Additional history exists GFR 03/24/2025 03/24/2024, 01/19, 02/02/2022, Additional history exists DTap/Tdap Vaccines (3 - Td or Tdap) 10/29/2028 10/29/2018, 05/01/2010, 01/29/2000, Additional history exists Pneumococcal Vaccine: 50+ Years Completed 11/11/2016, 08/14/2015, 05/20/2009 Zoster Vaccines Completed 09/20/2018, 05/21, 05/24/2012 Influenza Vaccine (FLU shot) Completed 03/2024, 06/16/2023, 02/24/2022, Additional history exists HPV (Gardasil) Vaccine Aged Out No lo nger eligible based on patient's age to complete this topic Hepatitis B Vaccine Aged Out No longe r eligible based on patient's age to complete this topic MENINGOCOCCAL (MENACTRA/MENVEO) Aged Out No longer eligible based on patient's age to complete this topic Meningitis B Vaccine (Bexsero/Trumemba) Aged Out No longer eligible based on patient's age to complete this topic documented as of this encounter Medical Devices Implanted Type Area Regrind Mill Operator Device Identifier Shelf Expiration Date Model / Serial / Lot Lens Intraoc 20.5 - [id number] - [id number] Implanted:Qty: 1 on 11/08/2019 by Mendoza Macias MD at OR [facility] Right: Eye [employer] 04/20/2024 [id number] / [id number] / [id number] Lens Intraoc 21.0 - [id number] - [id number] Implanted:Qty: 1 on 11/14/2019 by Mendoza Macias MD at OR [facility] Left: Eye [employer]OMB 04/20/2024 [id number] / [id number] / [id number] documented as of this encounter Procedures Procedure Name Priority Date/Time Associated Diagnosis Comments CARDIOLOGY SCANNED RESULT 09/01/2024 documented in this encounter Results * CARDIOLOGY SCANNED RESULT (09/01/2024) 09/01/2024 us Soto Gamino DO OTHER Final Result documented in this encounter Care Teams Technical Writer And Editor Relationship Specialty Start Date End Date Crystal Walter DO [address] [place] [address] PCP - General Family Medicine 12/06/16 documented as of this encounter
--- OUTSIDE RECORDS SUMMARY | 2024-09-04 20:18 | External Medical Summary | Summary of Care ---
Author Name Unknown Organization [facility] Address [address] [place] [address] Phone [phone] Care Team Providers Care Online Marketing Manager Name Role Phone Crystal Walter Primary Care Provider Encounter Details Date Type Department Care Team (Late st Contact Info) Description 07/11/2024 Population Health External Data Unspecified Department Allergies Active Allergy Reactions Criticality Noted Date Comments Clonazepam Other (Please comment) 07/23/2022 "Made me really out of it" documented as of this encounter (statuses as of 07/11/2024) Medications MULTIVITAMINS OR TABS Take 1 Tablet [...] Active Tamsulosin HCl 0.4 MG Oral Capsule (Flomax)Indicatio ns:Weak urinary stream,BPH with obstruction/lower urinary tract symptoms Take 1 Capsule by mouth in the morning. 90 Capsule 3 06/07/2024 11:08 AM EST 4 Active Advil Dual Action 125-250 MG Oral Tablet (Ibuprofen-Acetam inophen) Take 2 Tablets by mouth daily as needed for Pain. Active Gabapentin 100 MG Oral Capsule (Neurontin)Indica tions:Lumbar radiculopathy Take 1 Capsule by mouth in the morning and 1 Capsule at noon and 1 Capsule before bedtime. 90 Capsule 5 06/16/2024 3:13 PM EST 4 Active Atorvastatin Calcium 20 MG Oral Tablet (Lipitor)Indicati ons:Aortocoronary bypass status,Chronic coronary artery disease TAKE ONE TABLET BY MOUTH DAILY 100 Tablet 3 06/29/2024 4:37 PM EST 4 Active Metoprolol Succinate ER 25 MG Oral Tablet Extended Release 24 Hour (toPROL XL)Indications:Ta sergio-rebecca syndrome (HCC),Coronary artery disease involving coronary bypass graft of [place] heart without angina pectoris Take 1 Tablet by mouth in the morning. 90 Tablet 3 06/19/2024 3:58 PM EST 4 Active Furosemide 20 MG Oral Tablet (Lasix)Indication s:Hematoma of lower extremity, unspecified laterality, subsequent encounter Take 1 Tablet by mouth in the morning. 100 Tablet 3 05/29/2024 5:23 PM EST 4 Active Clopidogrel Bisulfate 75 MG Oral Tablet (pLAVix)Indicatio ns:Aortocoronary bypass status,Chronic ischemic heart disease TAKE ONE TABLET BY MOUTH EVERY MORNING 90 Tablet 3 06/07/2024 1:48 PM EST 4 025 Active Additional Information Patient not taking.Reported on 06/27/2024 Ramipril 10 MG Oral Capsule (Altace)Indicatio ns:HTN, goal below 140/90 TAKE ONE CAPSULE BY MOUTH EVERY DAY IN THE MORNING 90 Capsule 3 06/23/2024 10:01 AM EST 4 025 Active metFORMIN HCl ER 500 MG Oral Tablet Extended Release 24 Hour (Glucophage XR)Indications:Di abetes mellitus with background retinopathy (HCC) TAKE ONE TABLET BY MOUTH EVERY MORNING 90 Tablet 3 4 025 Active Finasteride 5 MG Oral Tablet (Proscar) TAKE ONE TABLET BY MOUTH EVERY MORNING 90 Tablet 2 06/20/2024 7:35 AM EST 4 025 Active documented as of this encounter (statuses as of 07/11/2024) Active Problems Problem Noted Date Diagnosed Date [...] disease invo lving coronary bypass graft of [place] heart without angina pectoris Overview (02/11/2006): [place] in 1982, Abnormal stress test in 2004, stented documented as of this encounter (statuses as of 07/11/2024) Resolved Problems Problem Noted Date Diagnosed Date Resolved Date Parkinson's disease 05/27/2021 08/10/19 23 Dementia with behavioral disturbance 09/02/2020 01/13/2024 Overview (03/23/2022): ICD-10 update of inactive term Dementia associated with oth er underlying disease without behavioral disturbance 09/02/2020 0 01/13/2024 Overview (03/23/2022): ICD-10 update of inactive term 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 Bradycardia 12/29/2016 05/30/2019 Total knee replacement status 07/04/2012 10/22/2014 [employer] Other*[id number] 06/07/2012 07/28/2016 Overview (06/07/2012): Study Title: Genomic Markers for Patients with Cardiovascular Disease Project # [id number] Production Lapping Machine Operator: Neda Lemos MD [phone] Abnormal nuclear stress test 05/31/2012 05/30/2019 Preoperative [...] as of this encounter (statuses as of 07/11/2024) Immunizations Name Administration Dates Next Due COVID-19 mRNA, LNP-s, No Pre serve, 2-Dose Series (Pollen) 09/09/2020,08/14/2020 COVID-19, mRNA, LNP-s, PF, B ooster, [...] 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 Not on file Not on file documented as of this encounter Plan of Treatment Upcoming Encounters Date Type Department Care Team (Late st Contact Info) Description 08/04/2024 3:00 PM EST Office Visit Cardiology, [facility] [address] [place] [address] Nazia Bolanos CRNP [address] [place] [address] 08/08/2024 1:00 PM EST Office Visit Urology, [facility] [address] [place] [address] Enrique Awad MD [address] [address] 08/22/2024 12:31 PM EST Hospital Encounter [facility], Operating Room, [facility] - 4th Floor [address] [place] [address] Enrique Awad MD [address] [address] 08/22/2024 12:31 PM EST - 08/22/2024 2:26 PM EST Surgery OR [facility], Operating Room, [facility] - 4th Floor [address] [place] [address] Enrique Awad MD [address] [address] LASER VAPORIZATION PROSTATE 08/25/2024 7:35 AM EST Hospital Encounter OR [facility], Operating Room [facility] [address] [place] [phone] Gerson Louis DO [address] [place] [address] 08/25/2024 7:35 AM EST - 08/25/2024 8:00 AM EST Surgery OR [facility], Operating Room [facility] [address] [place] [phone] Gerson Louis, DO [address] [place] [phone] L-/S-SPINE PARAVERTEBRAL FACET INJ, 1 LEVEL 10/20/2024 3:20 PM EDT Office Visit Family Practice [facility] [address] [place] [address] Crystal Walter, DO [address] [place] [address] 10/26/2024 3:00 PM EDT Nurse Only Ancillary Department, Selena [address] [place] [address] Selena, Nurse [facility] [address] [facility] [place] [address] 01/16/2025 3:30 PM EDT Office Visit Neurology [facility] [address] [place] [address] Lizzie Cross PA-C [address] [place] [address] Scheduled Procedures Name Priority Associated Diagnoses Date/Ti me LASER VAPORIZATION PROSTATE Weak urinary stream BPH with obstruction/lower urinary tract symptoms 08/22/2024 12:31 PM EST L-/S-SPINE PARAVERTEBRAL FACET INJ, 1 LEVEL Spondylosis of lumbar region without myelopathy or radiculopathy 08/25/2024 7:35 AM EST L-/S-SPINE PARAVERTEBRAL FACET INJ, 2 LEVELS Spondylosis of lumbar region without myelopathy or radiculopathy 08/25/2024 7:35 AM EST Health Maintenance Due Date Last Done Comments [...] this encounter Medical Devices Implanted Type Area Dental Officer Device Identifier Shelf Expiration Date Model / Serial / Lot Lens Intraoc 20.5 - [id number] - [id number] Implanted:Qty: 1 on 11/08/2019 by Mendoza Macias MD at [facility] Right: Eye [employer] 04/20/2024 [id number] / [id number] / [id number] Lens Intraoc 21.0 - [id number] - [id number] Implanted:Qty: 1 on 11/14/2019 by Mendoza Macias MD at OR [facility] [address] Left: Eye BA[employer]CH [employer] LOMB 04/20/2024 [id number] / [id number] / [id number] documented as of this encounter Care Teams Online Marketing Manager Relationship Specialty Start Date End Date Crystal Walter DO [address] [place] [address] PCP - General Family Medicine 12/06/16 documented as of this encounter
--- OUTSIDE RECORDS SUMMARY | 2024-09-04 20:18 | External Medical Summary | Summary of Care ---
Author Name Unknown Organization [facility] Address [address] [place] [address] Phone [phone] Care Team Providers Care Mold Forms Builder Name Role Phone Crystal Walter Primary Care Provider Reason for Referral * Precert (Diagnostic Medical) (Within 10 days (routine)) - Pending Review Specialty Diagnoses / Procedures Referred By Contsilvio t Referred To Contact Cardiac Studies Diagnoses Coronary artery disease involving coronary bypass graft of mechoopda heart without angina pectoris Aortic root enlargement (HCC) Procedures ECHO, COMPLETE (2D), TRANS-THORACIC Nazia Bolanos CRNP [address] [place] [address] Phone: tel: fax: Referral ID Status Reason Start Date Expiration Date Visits Requested Visits Authorized [id number] Pending Review Precert 10/09/2024 999 999 Reason for Visit * Reason Comments Pre-op Clearance Encounter Details Date Type Department Care Team (Late st Contact Info) Description 08/04/2024 3:00 PM EST Office Visit Cardiology, [facility] [address] [place] [address] Nazia Bolanos CRNP [address] [place] [address] Pre-operative cardiovascular examination*; Coronary artery disease involving coronary bypass graft of mechoopda heart without angina pectoris; Essential hypertension with goal blood pressure less than 140/90; Dyslipidemia, goal LDL below 70; Aortic root enlargement (HCC) Allergies Active Allergy Reactions Criticality Noted Date Comments Clonazepam Other (Please comment) 07/23/2022 "Made me really out of it" documented as of this encounter (statuses as of 08/12/2024) Medications MULTIVITAMINS OR TABS Take 1 Tablet [...] artery disease involving coronary bypass graft of mechoopda heart without angina pectoris Take 1 Tablet by mouth in the morning. 90 Tablet 3 06/19/2024 3:58 PM EST 4 Active Furosemide 20 MG Oral Tablet (Lasix)Indication s:Hematoma of lower extremity, unspecified laterality, subsequent encounter Take 1 Tablet by mouth in the morning. 100 Tablet 3 05/29/2024 5:23 PM EST 4 Active Ramipril 10 MG Oral Capsule (Altace)Indicatio ns:HTN, [...] 7:35 AM EST 4 06/06/20 25 Active Clopidogrel Bisulfate 75 MG Oral Tablet (pLAVix)Indicatio ns:Aortocoronary bypass status,Chronic ischemic heart disease TAKE ONE TABLET BY MOUTH EVERY MORNING 90 Tablet 3 06/07/2024 1:48 PM EST 4 08/04/19 25 Discontinu ed(Patient preference /discontin uation) documented as of this encounter (statuses as of 08/12/2024) Active Problems Problem Noted Date Diagnosed Date [...] disease invo lving coronary bypass graft of mechoopda heart without angina pectoris Overview (02/11/2006): NE in 1982, Abnormal stress test in 2004, stented documented as of this encounter (statuses as of 08/12/2024) Resolved Problems Problem Noted Date Diagnosed Date Resolved Date Parkinson's disease 05/27/2021 08/10/19 23 Dementia with behavioral disturbance 09/02/2020 01/13/2024 Overview (03/23/2022): ICD-10 update of inactive term Dementia associated with oth er underlying disease without behavioral disturbance 09/02/2020 0 01/13/2024 Overview (03/23/2022): ICD-10 update of inactive term 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 Bradycardia 12/29/2016 05/30/2019 Total knee replacement status 07/04/2012 10/22/2014 [employer] Other*[id number] 06/07/2012 07/28/2016 Overview (06/07/2012): Study Title: Genomic Markers for Patients with Cardiovascular Disease Project # [id number] Financial Planning Advisor: Neda Lemos MD [phone] Abnormal nuclear stress test 05/31/2012 05/30/2019 Preoperative cardiovascular examination 07/22/2011 10/15/2016 ADVANCE DIRECTIVE INFORMATION 11/27/2004 10/15/2016 Overview (11/27/2004): Yes, Patient instructed to provide copy of advance directive for provider to review and to be scanned into Electronic Medical Record ANGEL MACIAS 01/29/2000 ANGINA PECTORIS NEC-NOS 12/02/1995 02/0 06/2011 Overview (02/11/2006): cath - 12/02/95, 2004 Diaphragmatic hernia 019 documented as of this encounter (statuses as of 08/12/2024) Immunizations Name Administration Dates Next Due COVID-19 mRNA, LNP-s, No Pre serve, 2-Dose Series (Xeebel) 09/09/2020,08/14/2020 COVID-19, mRNA, LNP-s, PF, B ooster, [...] 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 Not on file Not on file documented as of this encounter Last Filed Vital Signs Vital Sign Reading Time Taken Comments Blood Pressure 132/84 08/04/2024 3:09 PM EST Pulse 80 08/04/2024 3:09 PM EST Temperature - - Respiratory Rate 18 08/04/2024 3:09 PM EST Oxygen Saturation - - Inhaled Oxygen Concentration - - Weight 105.3 kg (232 lb 4 oz) 08/04/2024 3:09 PM EST Height - - Body Mass Index 34.05 10/25/2023 3:25 PM EDT documented in this encounter Patient Instructions * Patient Instructions* Nazia Bolanos CRNP - 08/04/2024 3:32 PM EST May hold Aspirin one week prior to his procedure Please take Metoprolol the morning of your procedure with a sip of water documented in this encounter Progress Notes * Luis Miguel NaziaDIMA Ferrera - 08/04/2024 3:15 PM EST 08/04/2024 Cardiology Follow Up Primary Truck Terminal Manager: NARESH Cardiac Problems: CAD s/p CABG and PCI TBS s/p Medtr[employer] DCP 05/2018 DM II RBBB SB HLD HTN PAT NSVT TIMOTHY on CPAP HPI: Kat Beverly is a 79 year old male presents for preoperative cardiac risk assessment. He isscheduled to undergo a laser vaporization of the prostate with Dr. Enrique Awad on 10/13/2024 at [facility]. Presents today with family feeling well from a cardiac perspective. Denies any acute concerns. Denies any decline in his functional capacity other than his back pain and knee pain are slowing him down. Remains active daily. BP well controlled Compliant on all medication therapies with no untoward effects. EKG obtained today due to preop shows Atrial paced with known Right BBB. No changes when compared with prior study. REVIEW OF SYSTEMS: See HPI for pertinent positives. All others negative other than those noted in the HPI. CONSTITUTIONAL: No change in weight, No weakness, No fatigue and No fevers, No sweats or chills. PULMONARY: No cough, sputum, or hemoptysis, No wheezing, No shortness or breath and No recent change in breathing. CARDIOVASCULAR: No chest pain, No dyspnea on exertion, No edema, No palpitations and No syncope. GASTROINTESTINAL: No abdominal pain, No change in bowel habits, No significant heartburn, No nausea, No vomiting, No diarrhea, No constipation, No blood in stools or black tarry stools. No dysphagia. HEMATOLOGIC: No abnormal bleeding and No bruising. NEUROLOGICAL: Normal balance, No headaches and No weakness. Review of patient's allergies indicates: Allergen Reactions Klonopin [Clonazepam] Other (Please comment) "Made me really out of it" Current Outpatient Medications Medication Sig Dispense Refill MULTIVITAMINS OR TABS Take 1 Tablet by mouth daily. 0 Vitamin B Complex Oral Tablet Take 1 Tablet by mouth daily. Aspirin 81 MG Oral Tablet Chewable Take 1 Tablet by mouth daily. Mirabegron ER 50 MG Oral Tablet Extended Release 24 Hour (Myrbetriq) Take 1 Tablet by mouth in the morning. 90 Tablet 3 Tamsulosin HCl 0.4 MG Oral Capsule (Flomax) Take 1 Capsule by mouth in the morning. 90 Capsule 3 Advil Dual Action 125-250 MG Oral Tablet (Ibuprofen-Acetaminophen) Take 2 Tablets by mouth daily asneeded for Pain. Gabapentin 100 MG Oral Capsule (Neurontin) Take 1 Capsule by mouth in the morning and 1 Capsule at noon and 1 Capsule before bedtime. 90 Capsule 5 Atorvastatin Calcium 20 MG Oral Tablet (Lipitor) TAKE ONE TABLET BY MOUTH DAILY 100 Tablet 3 Metoprolol Succinate ER 25 MG Oral Tablet Extended Release 24 Hour (toPROL XL) Take 1 Tablet by mouth in the morning. 90 Tablet 3 Furosemide 20 MG Oral Tablet (Lasix) Take 1 Tablet by mouth in the morning. 100 Tablet 3 Ramipril 10 MG Oral Capsule (Altace) TAKE ONE CAPSULE BY MOUTH EVERY DAY IN THE MORNING 90 Capsule 3 metFORMIN HCl ER 500 MG Oral Tablet Extended Release 24 Hour (Glucophage XR) TAKE ONE TABLET BY MOUTH EVERY MORNING 90 Tablet 3 Finasteride 5 MG Oral Tablet (Proscar) TAKE ONE TABLET BY MOUTH EVERY MORNING 90 Tablet 2 No current facility-administered medications for this visit. Past Medical History: Diagnosis Date Aortocoronary bypass status 2001 2001 SMITH to LAD; SABRINA to PDA; Radial to LCx; Carpal tunnel syndrome bilateral Chronic ischemic heart disease positive cath Diaphragmatic hernia Mixed dyslipidemia low HDL Old myocardial infarct 1982 Percutaneous transluminal coronary angioplasty status 08/2004 Roto and stent x 3 to LM and RCA Family History Problem Relation Name Age of Onset Stroke Father cva, age 74 Blood Disorder Mother blood clot, age 61 Heart Disorder Brother NE Heart Disorder Brother CABG Heart Disorder Brother CABG Heart Disorder Brother Heart Disorder Brother No Past Hx Daughter No Past Hx Son 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 Socioeconomic History Marital status: Spouse name: isis Number of children: 2 Occupational History 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: [employer] Tobacco Use Smoking status: Former Current packs/day: 0.00 Average packs/day: 2.0 packs/day for 13.0 years (26.0 ttl pk-yrs) Types: Cigarettes Start date: 07/22/1968 Quit date: 07/22/1981 Years since quittin.0 Smokeless tobacco: Never Vaping Use Vaping status: Never Used Substance and Sexual Activity Alcohol use: Yes Comment: social Drug use: No Sexual activity: Yes 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 A+Ox3. HEENT: Normocephalic. Atraumatic. PERRL. EOMI. Conjunctiva and sclera clear. NECK: No carotid bruits. No JVD. Carotid upstrokes are brisk. Heart: RRR. S1 and S2 noted. No murmur. No rubs or gallops. PMI non displaced. Lungs: Clear to auscultation. No wheezes.No rhonchi. No rales. Abdomen: Normal bowel sounds. Soft. Nontender. No masses or organomegaly. No abdominal bruits. Extremities: No edema. No clubbing or cyanosis. Pulses: radial=2/4, posterior tibial=2/4, dorsalis pedis = 2/4. NEURO: No focal deficits. PSYCH: Appropriate affect and insight. DATA Labs & Imaging Reviewed Below: ECG 07/02/22 NSR RBBB 72 bpm QTc 486 ms 02/03/21 AP RBBB 67 bpm QTc 467 ms 05/26/19 AP RBBB 61 bpm QTc 471 ms 05/09/2018: SB 53bpm RBBB LAFB 12/29/2016: SB 47bpm APC RBBB Device interrogation 05/2024 Normal Device Function Events or Alerts: 7 Battery: 2.93V, 8.42 yrs Sensing, impedance and thresholds reviewed Programmed parameters reviewed Presenting rhythm APVS Heart Rate Histograms reviewed A Pacing 62% Echocardiogram 10/13/2023 Interpretation Summary The examination is adequate to evaluate the referral indication. The left ventricular cavity size is normal. The LV wall thickness is mildly increased (concentric). The basal septum is thickened and angulated consistent with sigmoid septum. The left ventricular wall motion is normal. The qualitative LV ejection fraction is 65-69% (normal). The left ventricular diastolic function is moderately abnormal (grade II). The aortic valve has three leaflets. Moderate aortic valve sclerosis is present. The aortic root and proximal ascending aorta are mildly enlarged. (4.0/4.5 cm) Zio Patch 09/2017: Predominant rhythm sinus with bundle branch block average HR 71bpm Slowest HR 38bpm at 6:39am c/w SB Fastest HR 174bpm at 10:29am c/w 7 beats of NSVT 7 episodes of SVT probably PAT longest was 11 seconds average HR 132bpm (66-167) 3 episodes of NSVT longest 7 beats Occasional APC Pt had symptoms when having APC or VPC Exercise Echocardiogram Stress Test 01/2017: The stress echo is negative for inducible ischemia. The left ventricular cavity size is normal. The LV wall thickness is mildly increased (concentric). The left ventricular wall motion is normal. Qualitative LV ejection Fraction = 55-60%. The left ventricular diastolic function is mildly abnormal (grade I). The left atrium is moderately enlarged. Holter Monitor 12/2016: CONCLUSIONS: 1. Duration - 24 hours 2. Quality - adequate 3. Dominant rhythm - sinus rhythm with right bundle branch block morphology 4. PACs - mild in frequency including isolated PACs and one 15 beat cathi of SVT 5. PVCs - frequent including 3,222 isolated PVCs, 68 ventricular couplets, 13 episodes of ventricular bigeminy, and a 3 beat ventricular run with rate of 130 beats per minute 6. Symptoms - none reported. Sinus bradycardia with rates in the 47 to 49 beat per minute range noted during anticipated hours of sleep. Otherwise no significant bradycardia or atrioventricular block. Cardiac Catheterization 2011: Comments: My Category [place] coronary arteries have significant 3 vessel disease. The SMITH to LAD graft is patent. The radial graft to the circumflex is patent. The SABRINA graft to the right pda has a 95% ostial stenosis that is unchaged from prior cath. ASSESSMENT/PLAN: 79 year old year old male 1. Pre-operative cardiovascular examination -Patient is doing well from a cardiovascular perspective. No change or decline in functional capacity. -per Adonay Criteria, patient was counseled that he would be placed at a moderate risk for any adverseperioperative cardiovascular events associated with prostate/urologicial surgery. Patient is on a good medication regimen and no other cardiac testing or interventions would further lower that risk. Patient states he understands and is accepting of that risk and wishes to proceed with surgery. - EKG -patient is encouraged to take his Toprol xl the AM of procedure with a sip of water, Urology may request that his Aspirin is held prior, and if so, patient may hold Aspirin 81mg no more than 7 days prior to procedure and should resume the day after surgery. Patient is no longer on Plavix. 2. Coronary artery disease involving coronary bypass graft of mechoopda heart without angina pectoris -Stable from a cardiac perspective. -Will obtain resting echocardiogram to assess overall structure, function and re-evaluate aortic root measurements. This is not required prior to having his prostate surgery -BP controlled -Continue GDMT with Toprol xl, Ramipril, ASA 81mg, and atorvastatin. - ECHO, COMPLETE (2D), TRANS-THORACIC; Future 3. Essential hypertension with goal blood pressure less than 140/90 -Controlled -Continue Toprol xl, Ramipril and furosemide 4. Dyslipidemia, goal LDL below 70 -Recommend yearly lipid panel -Continue atorvastatin 5. Aortic root enlargement (HCC) -Maintains good BP control. -Echo prior to next visit for surveillance of aortic root enlargement - ECHO, COMPLETE (2D), TRANS-THORACIC; Future DISPOSITION: Follow up 6 months or if symptoms worsen/fail to improve. All questions were answered to the patients satisfaction. Patient advised to report to ED with any and all emergencies. The patient agrees to the above plan and will call with additional questions or concerns. DIMA [facility], [address] [address] I spent a total of 35 minutes on the date of service in preparation, delivery, and documentation ofthe care provided to Kat Beverly excluding any time spent in the performance of separately billed services. This chart was completed in part utilizing [employer] Speech Voice Recognition Software. Grammatical errors, random word insertions, pronoun errors, and incomplete sentences are an occasional consequence of this system due to software limitations, ambient noise, and hardware issues. Any formal questions or concerns about the content, text, or information contained within the body of this dictation should be directly addressed to the provider for clarification. documented in this encounter Procedure Notes * Zev Crowe MD - 08/04/2024 3:52 PM ESTAssociated Order(s): EKG REASON FOR STUDY: pre-op;pre-op CONCLUSIONS: Atrial-paced rhythm with occasional sinus complexes Right bundle branch block Possible Inferior infarct , age undetermined Abnormal ECG When compared with ECG of 02-Jul-2022 10:35, Electronic atrial pacemaker has replaced Sinus rhythm Questionable change in The axis Borderline criteria for Inferior infarct are now Present Ventricular Rate: 66 Atrial Rate: 66 SC Interval: 200 QRS Duration: 142 QT/QTc: 450/471 ms P-R-T [place]: 34 : 201 : 10 degrees documented in this encounter Nursing Notes * Rhea Murray CMA - 08/04/2024 3:05 PM EST Examination Room: 1 Name: Kat Beverly Date of : (1945). Reason for Visit: pre-op Interim Hospitalization(s): denies Problems/Concerns: Pre-op clearance 10/13/24 Dr. Awad laser vaporization prostate Chest Pain/SOB: denies [facility] Discussed: Yes My [facility] is a way you can talk to your provider online through e-mail. Would you like to sign up? I can activate it for you? ALREADY ACTIVE Patient was instructed to not get up on the exam table until directed and assisted by their provider; patient is to remain seated in the chair/ wheelchair/ exam table for fall prevention and safety reasons. Patient is aware to have assistance to step down off exam table with personnel. Patient voiced full comprehension of instructions. documented in this encounter Plan of Treatment Upcoming Encounters Date Type Department Care Team (Late st Contact Info) Description 08/25/2024 7:35 AM EST Hospital Encounter [facility], Operating Room [facility] [address] [place] [phone] Gerson Louis DO [address] [phone] 08/25/2024 7:35 AM EST - 08/25/2024 8:00 AM EST Surgery OR [facility], Operating Room [facility] [address] [place] [phone] eGrson Louis DO [address] [place] [phone] L-/S-SPINE PARAVERTEBRAL FACET INJ, 1 LEVEL 09/21/2024 2:15 PM EDT Office Visit Urology Laci Fonseca [address] [facility] [address] [place] [address] Enrique Awad MD [address] [place] [address] 10/09/2024 3:30 PM EDT Cardiac Studies Cardiac Studies, [facility] [address] [place] [address] 10/13/2024 11:25 AM EDT Hospital Encounter OR [facility], Operating Room, [place] - 4th Floor [address] [place] [phone] Enrique Awad MD [address] [place] [address] 10/13/2024 11:25 AM EDT - 10/13/2024 1:20 PM EDT Surgery OR [facility], Operating Room, [place] - 4th Floor [address] [place] [address] Enrique Awad MD [address] [place] [address] LASER VAPORIZATION PROSTATE 10/18/2024 2:00 PM EDT [facility] [address] [place] [address] Nurse Markus Urology [facility] [address] [place] [address] 10/20/2024 3:20 PM EDT Office Visit Family Practice [facility] [address] [facility] [place] [address] Crystal Walter, DO [address] [facility] [place] [address] 10/26/2024 3:00 PM EDT Nurse Only Ancillary Department, [facility] [address] [facility] [phone] Selena Nurse [facility] [address] [facility] [address] [address] 11/06/2024 3:45 PM EDT [facility], [facility] [place] [address] Enrique Awad MD [address] [facility] [address] 01/16/2025 3:30 PM EDT Office Visit Neurology [facility] [address] [facility] [place] [address] Lizzie Cross PA-C [address] [place] [address] 02/05/2025 3:30 PM EDT Office Visit Cardiology, [facility] [address] [facility] [place] [address] Nazia Bolanos CRNP [address] [facility] [place] [address] Scheduled Orders Name Type Priority Associated Diagnoses Orde r Schedule ECHO, COMPLETE (2D), TRANS-THORACIC Echocardiology Routine Coronary artery disease involving coronary bypass graft of mechoopda heart without angina pectoris Aortic root enlargement (HCC) Expected: 10/09/2024 (Approximate), Expires: 09/01/2026 Scheduled Procedures Name Priority Associated Diagnoses Date/Ti me L-/S-SPINE PARAVERTEBRAL FACET INJ, 1 LEVEL Spondylosis of lumbar region without myelopathy or radiculopathy 08/25/2024 7:35 AM EST L-/S-SPINE PARAVERTEBRAL FACET INJ, 2 LEVELS Spondylosis of lumbar region without myelopathy or radiculopathy 08/25/2024 7:35 AM EST LASER VAPORIZATION PROSTATE Weak urinary stream BPH with obstruction/lower urinary tract symptoms 10/13/2024 11:25 AM EDT Health Maintenance Due Date Last Done Comments Hepatitis C Screening 1963 COVID-19 Vaccine ( season) 2024 06/16/2023, 04/24/2021, 09/09/2020, Additional history exists Diabetic Foot Exam 07/26/2024 07/26/2023, 0 02/02/2022, 12/04/2020, Additional history exists HbA1c 09/22/2024 03/24/2024, 0201/2024, 02/01/2023, Additional history exists Adult Wellness Visit [...] this encounter Medical Devices Implanted Type Area Warehouse Hand Device Identifier Shelf Expiration Date Model / Serial / Lot Lens Intraoc 20.5 - [id number] - [id number] Implanted:Qty: 1 on 11/08/2019 by Mendoza Macias MD at OR [facility] Right: Eye [employer] 04/20/2024 [id number] / [id number] / [id number] Lens Intraoc 21.0 - [id number] - [id number] Implanted:Qty: 1 on 11/14/2019 by Mendoza Macias MD at OR [facility] Left: Eye [employer] 04/20/2024 [id number] / [id number] / [id number] documented as of this encounter Procedures Procedure Name Priority Date/Time Associated Diagnosis Comments SC ECG ROUTINE ECG W/LEAST 12 LDS W/I&R Routine 08/04/2024 3:52 PM EST Pre-operative cardiovascular examination documented in this encounter Results * EKG (08/04/2024 3:52 PM EST) 08/04/2024 3:52 PM EST Narrative Procedure Note Zev Crowe MD - 08/04/2024 3:52 PM EST REASON FOR STUDY: pre-op;pre-op CONCLUSIONS: Atrial-paced rhythm with occasional sinus complexes Right bundle branch block Possible Inferior infarct , age undetermined Abnormal ECG When compared with ECG of 02-Jul-2022 10:35, Electronic atrial pacemaker has replaced Sinus rhythm Questionable change in The axis Borderline criteria for Inferior infarct are now Present Ventricular Rate: 66 Atrial Rate: 66 SC Interval: 200 QRS Duration: 142 QT/QTc: 450/471 ms P-R-T [place]: 34 : 201 : 10 degrees us Nazia CH EKG Final R esult [facility] documented in this encounter Visit Diagnoses Diagnosis Weak urinary stream Slowing of urinary stream BPH with obstruction/lower urinary tract symptoms Hypertrophy of prostate with urinary obstruction and other lower urinary tract symptoms (LUTS) Pre-operative cardiovascular examination- Primary Coronary artery disease involving coronary bypass graft of mechoopda heart without angina pectoris Essential hypertension with goal blood pressure less than 140/90 Dyslipidemia, goal LDL below 70 Other and unspecified hyperlipidemia Aortic root enlargement (HCC) Other specified disorders of arteries and arterioles Spondylosis of lumbar region without myelopathy or radiculopathy Lumbosacral spondylosis without myelopathy Weak urinary stream Slowing of urinary stream BPH with obstruction/lower urinary tract symptoms Hypertrophy of prostate with urinary obstruction and other lower urinary tract symptoms (LUTS) documented in this encounter Care Teams Mold Forms Builder Relationship Specialty Start Date End Date Crystal Walter DO [address] [place] [address] PCP - General Family Medicine 12/06/16 documented as of this encounter
--- OUTSIDE RECORDS SUMMARY | 2024-09-04 20:18 | External Medical Summary | Summary of Care ---
Author Name Unknown Organization [facility] Address [address] [place] [address] Phone [phone] Care Team Providers Care Auto Body Builder Apprentice Name Role Phone Anjelica Waltery Neda Primary Care Provider Reason for Visit * Reason Onset Date Comments Appointment 2024 Encounter Details Date Type Department Care Team (Late st Contact Info) Description 2024 Telephone Urology Laci Fonseca [address] [facility] [address] [address] Enrique Awad MD [address] [address] Appointment Allergies Active Allergy Reactions Criticality Noted Date Comments Clonazepam Other (Please comment) 07/23/2022 "Made me really out of it" documented as of this encounter (statuses as of 07/17/2024) Medications MULTIVITAMINS OR TABS Take 1 Tablet [...] artery disease involving coronary bypass graft of chenega heart without angina pectoris Take 1 Tablet [...] as of this encounter (statuses as of 07/17/2024) Active Problems Problem Noted Date Diagnosed Date [...] disease invo lving coronary bypass graft of chenega heart without angina pectoris Overview (02/11/2006): NM in 1982, Abnormal stress test in 2004, stented documented as of this encounter (statuses as of 07/17/2024) Resolved Problems Problem Noted Date Diagnosed Date Resolved Date Parkinson's disease 05/27/2021 08/10/19 23 Dementia with behavioral disturbance 09/02/2020 01/13/2024 Overview (03/23/2022): ICD-10 update of inactive term Dementia associated with oth er underlying disease without behavioral disturbance 09/02/2020 0 01/13/2024 Overview (03/23/2022): ICD-10 update of inactive term 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 Bradycardia 12/29/2016 05/30/2019 Total knee replacement status 07/04/2012 10/22/2014 [employer] Other*[id number] 06/07/2012 07/28/2016 Overview (06/07/2012): Study Title: Genomic Markers for Patients with Cardiovascular Disease Project # [id number] Plaster Machine Operator: Neda Lemos MD [phone] Abnormal nuclear stress test 05/31/2012 05/30/2019 Preoperative cardiovascular examination 07/22/2011 10/15/2016 ADVANCE DIRECTIVE INFORMATION 11/27/2004 10/15/2016 Overview (11/27/2004): Yes, Patient instructed to provide copy of advance directive for provider to review and to be scanned into Electronic Medical Record IMPOTENCE, ORGANIC ORIGN 01/29/2000 ANGINA PECTORIS NEC-NOS 12/02/199506/2011 Overview (02/11/2006): cath - 12/02/95, 2005 Diaphragmatic hernia 019 documented as of this encounter (statuses as of 07/17/2024) Immunizations Name Administration Dates Next Due COVID-19 mRNA, LNP-s, No Pre serve, 2-Dose Series ([employer] 09/09/2020,08/14/2020 COVID-19, mRNA, LNP-s, PF, B ooster, [...] 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 TOV is scheduled for October 18 and Post op scheduled on 11/06. I spoke to patient's and she is aware of dates and times. I also gave phone number as patient's asked for it, in case they need anything. * Telephone Encounter - Demetra Romero LPN - 07/17/2024 10:12 AM EST H&P should be within 30 days of surgery. * Telephone Encounter - Julia Urias OSA - 2024 2:38 PM EST Call was made to patient to discuss about his surgery that is scheduled for 08/22/24 and needing to be rescheduled due to overlapping of case. I did speak with the patients Isis and made her aware. She stated that she did not even have the OR date marked down for the patient. Patient was rescheduled to 10/13/24 at [facility]. Please contact the to schedule a H&P appointment prior at [facility] and a post op appointment. documented in this encounter Plan of Treatment Upcoming Encounters Date Type Department Care Team (Late st Contact Info) Description 08/04/2024 3:00 PM EST Office Visit Cardiology, [facility] [address] [place] [address] Nazia Bolanos CRNP [address] [place] [address] 08/25/2024 7:35 AM EST Hospital Encounter OR [facility], Operating Room [facility] [address] [place] [address] Gerson Louis, DO [address] [place] [address] 08/25/2024 7:35 AM EST - 08/25/2024 8:00 AM EST Surgery OR [facility], Operating Room [facility] [address] [place] [place] [address] Gerson Louis, DO [address] [place] [address] L-/S-SPINE PARAVERTEBRAL FACET INJ, 1 LEVEL 09/21/2024 2:15 PM EDT Office Visit Urology Laci Fonseca [address] [place] [address] [address] [address] [address] Enrique Awad MD [address] [address] 10/13/2024 11:25 AM EDT Hospital Encounter OR [facility], Operating Room, [facility] - 4th Floor [address] [address] Enrique Awad MD [address] [address] 10/13/2024 11:25 AM EDT - 10/13/2024 1:20 PM EDT Surgery OR GL, Operating Room, [facility] - 4th Floor [address] [place] [address] Enrique Awad MD [address] [address] LASER VAPORIZATION PROSTATE 10/18/2024 2:00 PM EDT Nurse Only [facility], [facility] [address] [facility] [address] Markus Nurse Urology [facility] [address] [facility] [address] 10/20/2024 3:20 PM EDT Office Visit Family Practice [facility] [address] [facility] [place] [address] Crystal Walter DO [address] [facility] [place] [address] 10/26/2024 3:00 PM EDT Nurse Only [facility] [address] [facility] [phone] [facility] [address] [facility] [address] 11/06/2024 3:45 PM EDT Office Visit Urology, [facility] [address] [facility] [place] [address] Enrique Awad MD [address] [address] 01/16/2025 3:30 PM EDT Office Visit Neurology [facility] [address] [facility] [place] [address] Lizzie Cross PA-C [address] [address] Scheduled Procedures Name Priority Associated Diagnoses Date/Ti [...] 12/04/2020, Additional history exists HbA1c 09/22/2024 03/24/2024, 02/01/2024, 02/01/2023, Additional history exists Adult Wellness Visit [...] this encounter Medical Devices Implanted Type Area Structural Drafter Device Identifier Shelf Expiration Date Model / Serial / Lot Lens Intraoc 20.5 - [id number] - [id number] Implanted:Qty: 1 on 11/08/2019 by Mendoza Macias MD at OR [facility] Right: Eye [employer] 04/20/2024 [id number] / [id number] / [id number] Lens Intraoc 21.0 - [id number] - [id number] Implanted:Qty: 1 on 11/14/2019 by Mendoza Macias MD at OR [facility] Left: Eye [employer] 04/20/2024 [id number] / [id number] / [id number] documented as of this encounter Care Teams Auto Body Builder Apprentice Relationship Specialty Start Date End Date Crystal Walter DO [address] [place] [address] PCP - General Family Medicine 12/06/16 documented as of this encounter
[2024-09-04] MEDS: LACTATED RINGER'S 500 ML IV ONE (20:21)
[2024-09-04] MEDS: LACTATED RINGER'S 1,000 ML IV SCH (20:55)
--- NOTE | 2024-09-04 22:27 | History & Physical Report ---
Date of Service September 04, 2024 Assessment & Plan (1) Vomiting and diarrhea: Plan: -in setting of possible ileus, likely triggered by viral illness -had diffuse diarrhea and is passing gas making SBO unlikely, benign abdominal exam -has concern for mild enteritis, however meets no sepsis criteria Plan: -clear liquid diet -aggressive fluid replenishment -check KUB in morning -zofran for nausea -check stool biofire (2) Ileus: Plan: -see above (3) Weakness: Plan: -check PT/OT (4) Chronic low back pain: Plan: -noted (5) Dehydration: Plan: -as suggested by elevated BUN/creatinine ratio, tachycardia on arrival Plan: -aggressive fluid replenishment (6) Ambulatory dysfunction: Plan: -check PT/OT (7) Hx of CABG: Plan: -continue home meds (8) PAT (paroxysmal atrial tachycardia): Plan: -noted -continue home meds (9) Sleep apnea: Plan: -CPAP ordered (10) Diabetes mellitus, type 2: Plan: -insulin protocol Plan Feeding/fluids: clear liquids Analgesia: tylenol Sedation: na Thromboprophylaxis: heparin Head up position: na Ulcer prophylaxis: na Glycemic control: insulin protocol Spontaneous breathing trial: NC Bowel care: ileus Indwelling catheter removal: na Deescalation of antibiotics: na I spent a total of 80 minutes in direct patient care, including [id number] time with the patient and/or family, reviewing medical records, ordering and reviewing diagnostic tests, and coordinating care with other healthcare providers. This time includes: history taking, physical examination, medical decision making, counseling, ECG interpretation, imaging interpretation, lab interpretation, orders, and education, excluding time spent in the performance of separately billed services. History of Present Illness Chief Complaint: -nausea, vomiting Primary Care Provider: Crystal Walter, DO 78yo M with a PMH of paroxysmal atrial tachycardia, carotid artery stenosis, DM II, dyslipidemia, TIMOTHY on CPAP, CAD s/p CABG, RBBB, HTN, tachy rebecca syndrome s/p pacemaker, history of cva, depression, mild cognitive impairment who presents for nausea and vomiting. States symptoms have been going on for the past few days. He states he has been having trouble eating because he throws in back up. He was very constipated but now states that he has been having significant diarrhea. No diarrhea today but has been passing gas. No tobacco use, no alcohol use, discussed resuscitation at length, risks and benefits discussed at length, patient does not want to suffer at end of life, DNRDNI at this time. Allergies Allergy/AdvReac Type Severity Reaction Status Date / Time ampicillin Allergy Mild Rash Verified 09/04/24 17:58 Home Medications Medication Instructions Recorded Confirmed Type metoprolol succinate 25 mg 25 mg PO QAM #30 tabs 06/08/18 09/04/24 Rx tablet,extended release 24 hr CPAP Supplies #1 ea 02/27/19 06/29/24 Rx aspirin 81 mg tablet,delayed 81 mg PO PM 02/05/21 09/04/24 History release atorvastatin 20 mg tablet 20 mg PO PM 02/05/21 09/04/24 History clopidogrel 75 mg tablet (Plavix) 75 mg PO QAM 02/05/21 09/04/24 History finasteride 5 mg tablet (Proscar) 5 mg PO PM 02/05/21 09/04/24 History metformin 500 mg tablet 500 mg PO BID 02/05/21 09/04/24 History multivitamin 1 tab PO QAM 02/05/21 09/04/24 History tamsulosin 0.4 mg capsule 0.4 mg PO QPM 02/05/21 09/04/24 History vitamin B complex 1 tab PO PM 02/05/21 09/04/24 History CPAP Machine #1 ea 01/08/22 06/29/24 Rx mirabegron 25 mg tablet,extended 25 mg PO DAILY 02/17/22 09/04/24 History release 24 hr (Myrbetriq) ramipril 10 mg capsule 10 mg PO QAM 09/04/24 09/04/24 History Past Med/Surg History Problem List Dehydration Ileus Aortic valve sclerosis Weakness (Acute) Vomiting and diarrhea (Acute) Abdominal pain (Acute) Chronic anticoagulation Lumbar facet joint syndrome Chronic low back pain Ambulatory dysfunction (Acute) Acute confusion (Acute) Generalized weakness (Acute) Prosthetic joint loosening Hernia, diaphragmatic (Chronic) Carpal tunnel syndrome (Chronic) Arthritis of knee (Chronic 08/02/11) 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 PAT (paroxysmal atrial tachycardia) pt admitted for elective ppm due to TBS; underwent procedure without any complications; monitored overnight; started on Toprol and discharged home. Carotid artery stenosis cardiac stents Sleep apnea Excessive daytime sleepiness Fall Parkinsonian features Sleep apnea CPAP (compliant) Diabetes mellitus, type 2 NIDDM CAD (coronary artery disease) S/P CABG x3 in 2001 with SMITH to LAD; SABRINA to PDA and Radial to LCX. PCI/rot oblation/stent VON RCA 2004 (performed due to SABRINA to PDA graft stenosis) and PCI/VON left main 2004 2011 cardiac cath demonstrated 3V CAD in the atka vessels with patent SMITH to LAD graft, patent radial graft to the circumflex, and SABRINA graft to the R PDA had a 95% ostial stenosis that was unchanged compared to his last cardiac catheterization. The atka RCA had a total occlusion (area that previously been stented). Continued medical management was recommended. History of total knee replacement R/L History of repair of rotator cuff R/L History of coronary artery bypass graft CABG x3 in 2001 with SMITH to LAD; SABRINA to PDA and Radial to LCX Medical History Sleep apnea Excessive daytime sleepiness Diaphragmatic hernia Carpal tunnel syndrome Solitary pulmonary nodule Hyperlipidemia Chronic ischemic heart disease History of COVID-19 06/05/22 (PCR [facility]- report scanned into [employer])- asymptomatic. 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) Surgical History History of inguinal hernia repair Left (01/2021) S/P epidural steroid injection Status post total shoulder arthroplasty left History of tooth extraction History of colonoscopy History of cataract surgery R/L History of tonsillectomy History of heart artery stent 2016 Hx of appendectomy Family History Mother , 61 Pulmonary embolism Father , 74 Stroke Brother Coronary heart disease 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 Smoking Status: Former smoker Second Hand Exposure: No; Do You Dip or Chew Tobacco: No; Hx Alcohol Use: No Hx Substance Use: No Preferred Language: Mohawk Communication Ability: Effective Historiographer Required: No Beliefs That Will Affect Care: None Current Living Situation: Spouse Feels Safe at Home: Yes Assistive Devices: Cane and CPAP Review of Systems Review of Systems: CONSTITUTIONAL: weakness, fatigue EYES: Patient denies any visual symptoms. EARS, NOSE, AND THROAT: No difficulties with hearing. No symptoms of rhinitis or sore throat. CARDIOVASCULAR: Patient denies chest pains, palpitations, orthopnea and paroxysmal nocturnal dyspnea. RESPIRATORY: No dyspnea on exertion, no wheezing or cough. GI: nausea/vomiting, diarrhea : No urinary hesitancy or dribbling. No nocturia or urinary frequency. No abnormal urethral discharge. MUSCULOSKELETAL: No myalgias or arthralgias. NEUROLOGIC: No chronic headaches, no seizures. Patient denies numbness, tingling or weakness. PSYCHIATRIC: Patient denies problems with mood disturbance. No problems with anxiety. ENDOCRINE: No excessive urination or excessive thirst. DERMATOLOGIC: Patient denies any rashes or skin changes. Physical Exam Physical Exam: Gen: A&O 3 NAD HEENT: NCAT, EOMI, not icteric. External ears normal. No rhinorrhea. Dry mucous membranes. Neck: Supple, full range of motion, no observable masses, No meningeal sign. Lungs: No Respiratory distress. CV: irregular rhythm, regular rate Abdomen: Soft, nondistended, No rebound tenderness. MSK: No joint swelling, no redness. Skin: No rashes, petechiae, lesions. Normal color per patient. Neuro: Normal Gait, Grossly intact. Psych: Appropriate for situation. Results & Data Results & Data Vital Signs (Past 12 Hours) Vital Signs Temp Pulse Pulse Resp BP BP Pulse Ox 09/04/24 22:00 87 18 175/109 H 96 09/04/24 20:46 91 H 09/04/24 20:00 92 H 18 178/108 H 93 09/04/24 18:00 108 H 24 174/100 H 93 09/04/24 17:17 92 H 09/04/24 16:39 88 18 136/76 90 09/04/24 13:07 37.3 C 102 H 18 121/83 94 O2 Del Method O2 Flow Rate 09/04/24 22:00 Nasal Cannula 2 09/04/24 20:46 09/04/24 20:00 Room Air 09/04/24 18:00 Room Air 09/04/24 17:17 09/04/24 16:39 Room Air 09/04/24 13:07 Room Air Laboratory Results -personally reviewed, no leukocytosis reassuring for minimal infectious etiologies, elevated BUN/creatinine ratio consistent with dry mucuous membranes suggestive of dehydration Diagnostic Findings Abdomen/Pelvis CT 09/04/24 16:06 INDICATION: Abdominal pain, nausea and vomiting. COMPARISON: CT chest from 01/19/2024. TECHNIQUE: Axial CT images of the abdomen and pelvis were obtained following IV contrast administration. Coronal and sagittal reformations were reviewed. FINDINGS: Calcified pleural plaquing noted in the lung bases is seen on prior CT chest. The liver, gallbladder, spleen, pancreas and adrenal glands appear unremarkable. No hydronephrosis. Large hiatal hernia. No evidence of colitis/appendicitis. Dilated small bowel loops in the midabdomen. No pneumatosis or portal venous gas. No free air. No drainable fluid collection. The urinary bladder appears unremarkable. Fat-containing bilateral inguinal hernias. Mild prostate gland enlargement. Negative for abdominal aortic aneurysm or dissection. No acute osseous abnormality evident. IMPRESSION: 1. Mildly dilated small bowel loops could relate to ileus/enteritis/early small bowel obstruction. Follow-up as clinically relevant. 2. Large hiatal hernia. Electronically signed by Yevgeniy Julien 09-04-2024 5:02 PM -personally reviewed, concern for mild ileus/enteritis however passing gas reassuring Code Status & VTE Plan Code Status DNRDNI VTE Prophylaxis Plan VTE Prophylaxis will be ordered: Yes (4) Chronic low back pain Back pain laterality: unspecified Sciatica presence: unspecified whether sciatica present Qualified Code(s): M54.50 - Low back pain, unspecified; G89.29 - Other chronic pain (9) Sleep apnea Sleep apnea type: unspecified type Qualified Code(s): G47.30 - Sleep apnea, unspecified (10) Diabetes mellitus, type 2 Diabetes mellitus assisted insulin use: without assisted use Diabetes mellitus complication status: without complication Qualified Code(s): E11.9 - Type 2 diabetes mellitus without complications
[2024-09-04] MEDS ORDERED: CARBOHYDRATES FOR HYPOGLYCEMIA PO PRN (22:38)
[2024-09-04] MEDS ORDERED: GLUCOSE 40% GEL 15 GM TUBE PO PRN (22:38)
[2024-09-04] MEDS ORDERED: GLUCOSE 10 TAB/TUBE PO PRN (22:38)
[2024-09-04] MEDS ORDERED: DEXTROSE 50% 50 ML SYRINGE IV PRN (22:38)
[2024-09-04] MEDS ORDERED: GLUCAGON FOR INJ 1 MG VIAL SQ PRN (22:38)
[2024-09-05] MEDS ORDERED: ACETAMINOPHEN 325 MG TAB PO PRN (00:47)
[2024-09-05] MEDS: TAMSULOSIN HCL 0.4 MG CAP PO SCH (02:17)
[2024-09-05] MEDS: ASPIRIN 81 MG ECTAB PO SCH (02:17)
[2024-09-05] MEDS: ATORVASTATIN 20 MG TAB PO SCH (02:17)
[2024-09-05] MEDS: FINASTERIDE 5 MG TAB PO SCH (02:18)
[2024-09-05] MEDS: HEPARIN SOD 5,000 UNIT/0.5 ML VIAL SQ SCH (06:08)
[2024-09-05 06:29] LABS: Hematocrit (blood only) 41.1 % (42.0-52.0); Hemoglobin 13.5 g/dl (14.0-18.0); Mean Corpuscular Hgb Conc 32.8 g/dL (32.0-36.0); Mean Corpuscular Volume 88.2 fL (80.0-100.0); Mean Platelet Volume 10.8 fL (9.4-12.4); Platelet Count 173 K/uL (130-400); RDW Coefficient of Variation 14.9 % (11.5-14.5); RDW Standard Deviation 47.4 fL (36.4-46.3); Red Blood Count 4.66 M/uL (4.70-6.10); White Blood Count 4.08 K/ul (4.8-10.8)
[2024-09-05 06:41] LABS: BUN Creatinine Ratio 24.3 (10-20); Calcium 8.7 mg/dl (8.6-10.3); Creatinine Clr Calc Pharmacy 99.9 ml/min; Magnesium 1.8 mg/dl (1.7-2.4); Potassium 3.9 mmol/L (3.5-5.1)
--- OUTSIDE RECORDS SUMMARY | 2024-09-05 07:38 | External Medical Summary | Summary of Care ---
Author Name Unknown Organization [facility] Address [address] [place] [address] Phone [phone] Care Team Providers Care Design Engineer Name Role Phone Anjelica Waltery Neda Primary Care Provider Reason for Visit * Reason Comments Vomiting X 1-2 day Diarrhea X 1-2 days Cough Generalized Body Aches Fever Encounter Details Date Type Department Care Team (Late st Contact Info) Description 09/04/2024 12:15 PM EDT Convenient Care Visit [facility] [address] [place] [address] Tristan Rosa PA-C [address] [place] [id number] Dehydration*; Gastroenteritis Allergies Active Allergy Reactions Criticality Noted Date Comments Clonazepam Other (Please comment) 07/23/2022 "Made me really out of it" documented as of this encounter (statuses as of 09/04/2024) Medications MULTIVITAMINS OR TABS Take 1 Tablet [...] artery disease involving coronary bypass graft of [place] heart without angina pectoris Take 1 Tablet by mouth in the morning. 90 Tablet 3 06/19/2024 3:58 PM EST 4 Active Furosemide 20 MG Oral Tablet (Lasix)Indications :Hematoma of lower extremity, unspecified laterality, subsequent encounter Take 1 Tablet by mouth in the morning. 100 Tablet 3 09/01/2024 2:41 PM EDT 4 Active Ramipril 10 MG Oral Capsule [...] as of this encounter (statuses as of 09/04/2024) Active Problems Problem Noted Date Diagnosed Date [...] disease invo lving coronary bypass graft of ty[place]k heart without angina pectoris Overview (02/11/2006): [place] in 1982, Abnormal stress test in 2004, stented documented as of this encounter (statuses as of 09/04/2024) Resolved Problems Problem Noted Date Diagnosed Date Resolved Date Parkinson's disease 05/27/2021 08/10/19 23 Dementia with behavioral disturbance 09/02/2020 01/13/2024 Overview (03/23/2022): ICD-10 update of inactive term Dementia associated with oth er underlying disease without behavioral disturbance 09/02/2020 0 01/13/2024 Overview (03/23/2022): ICD-10 update of inactive term 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 Bradycardia 12/29/2016 05/30/2019 Total knee replacement status 07/04/2012 10/22/2014 [employer] Other*[id number] 06/07/2012 07/28/2016 Overview (06/07/2012): Study Title: Genomic Markers for Patients with Cardiovascular Disease Project # [id number] Student Life Vice President: Neda Lemos MD [phone] Abnormal nuclear stress test 05/31/2012 05/30/2019 Preoperative [...] as of this encounter (statuses as of 09/04/2024) Immunizations Name Administration Dates Next Due COVID-19 mRNA, LNP-s, No Pre serve, 2-Dose Series ([employer]) 09/09/2020,08/14/2020 COVID-19, mRNA, LNP-s, PF, B ooster, [...] 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 Not on file Not on file documented as of this encounter Last Filed Vital Signs Vital Sign Reading Time Taken Comments Blood Pressure 112/74 09/04/2024 12:04 PM EDT Pulse 107 09/04/2024 12:04 PM EDT Temperature 36.7 C (98.1 F) 09/04/2024 12:04 PM E DT Respiratory Rate 28 09/04/2024 12:04 PM EDT Oxygen Saturation 96% 09/04/2024 12:04 PM EDT Inhaled Oxygen Concentration - - Weight 103 kg (227 lb) 09/04/2024 12:04 PM EDT Height 172.7 cm (5' 8") 09/04/2024 12:04 PM EDT Body Mass Index 34.52 09/04/2024 12:04 PM EDT documented in this encounter Progress Notes * Tristan Rosa PA-C - 09/04/2024 12:18 PM EDT SUBJECTIVE: CC: Chief Complaint Patient presents with Vomiting X 1-2 day Diarrhea X 1-2 days Cough Generalized Body Aches Fever HPI: Kat Beverly is a 79 year old male who presents with vomiting and diarrhea for the last 2 days. Last emesis was last night. Last episode of diarrhea was probably last night. He has not had anything to eat since it started on Wednesday evening. He had a few sips of pepsi last night but no other fluids. Feeling hot and cold with frequent sweats. Thermometer is broken so not sure of actual temperature. He also has dizziness and weakness. ? ROS ROS as noted in HPI PAST MEDICAL Hx: Past Medical History: Diagnosis Date Aortocoronary bypass status 2001 2001 SMITH to LAD; SABRINA to PDA; Radial to LCx; Carpal tunnel syndrome bilateral Chronic ischemic heart disease positive cath Diaphragmatic hernia Mixed dyslipidemia low HDL Old myocardial infarct 1982 Percutaneous transluminal coronary angioplasty status 08/2004 Roto and stent x 3 to LM and RCA PAST SURGICAL Hx: Past Surgical History: Procedure Laterality Date AMPUTATION OF TOE Right 06/01/2019 AMPUTATION TOE METATARSOPHALANGEAL JOINT performed by Hailee Alvarez DPM at OR [facility] ARTHROPLASTY KNEE TOTAL 07/2011 ARTHROPLASTY KNEE TOTAL 05/2012 CARDIAC CATHERIZATION.EDU 11/1995 CARDIAC CATHERIZATION.EDU 09/11/2004 3 stents, LAD and right coronary (TAXUS STENTS) COLONOSCOPY, DIAGNOSTIC (RECTUM) 08/17/2016 diverticulosis/COLONOSCOPY FLEXIBLE PROXIMAL DIAGNOSTIC performed by Hernesto Ding MD at ENDOSCOPY [facility] CORONARY ANGIOGRAPHY W/LEFT HEART CATH 06/01/2012 CORONARY ANGIOGRAPHY W/LEFT HEART CATH performed by Catrachita Day MD at CARDIAC LABS [facility] CORONARY ARTERIES BYPASS, THREE 03/18/2000 3 V, [place] INFORMATION Left pacemaker insertion L-/S-SPINE PARAVERTEBRAL FACET INJ,1 LEVEL Bilateral 09/07/2022 L-/S-SPINE PARAVERTEBRAL FACET INJ, 1 LEVEL performed by Gerson Louis DO at [facility] L-/S-SPINE PARAVERTEBRL FACET INJ,2 LEVELS Bilateral 09/07/2022 L-/S-SPINE PARAVERTEBRAL FACET INJ, 2 LEVELS performed by Gerson Louis DO at OR [facility] LAPAROSCOPY; REPAIR INITIAL INGUINAL HERNIA Left 02/10/2021 MRI KNEE WO CONTRAST 12/10/2004 left knee shows lg tear of left medial meniscus MA OPEN REPAIR OF ROTATOR CUFF ACUTE Left 06/2022 REMOVAL OF APPENDIX age 14 REMOVE CATARACT, INSERT LENS PROSTH Right 11/08/2019 right EXTRACAPSULAR CATARACT REMOVAL WITH INTRAOCULAR LENS performed by Mendoza Macias MD at [facility] REMOVE CATARACT, INSERT LENS PROSTH Left 11/14/2019 left EXTRACAPSULAR CATARACT REMOVAL WITH INTRAOCULAR LENS performed by Mendoza Macias MD at [facility] SHOULDER ARTHROSCOPY SURGERY 09/2015 Dr. Umanzor SHOULDER ARTHROSCOPY/SURGERY 06/29/2014 right, open TSA, reversed, Dr. 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: [employer] Tobacco Use Smoking status: Former Current packs/day: 0.00 Average packs/day: 2.0 packs/day for 13.0 years (26.0 ttl pk-yrs) Types: Cigarettes Start date: 07/22/1968 Quit date: 07/22/1981 Years since quittin.1 Smokeless tobacco: Never Vaping Use Vaping status: Never Used Substance and Sexual Activity Alcohol use: Yes Comment: social Drug use: No Sexual activity: Yes Other Topics Concern Not on file 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 Social Needs Financial Resource Strain: Not on file Food Insecurity: No Food Insecurity (10/20/2022) Hunger Vital Sign Worried About Running Out of Food in the Last Year: Never true Ran Out of Food in the Last Year: Never true Transportation Needs: Not on file Social Connections: Not on file Housing Stability: Not on file FAMILY Hx: Family History Problem Relation Name Age of Onset Stroke Father cva, age 74 Blood Disorder Mother blood clot, age 61 Heart Disorder Brother [place] Heart Disorder Brother CABG Heart Disorder Brother CABG Heart Disorder Brother Heart Disorder Brother No Past Hx Daughter No Past Hx Son CURRENT PROBLEM LIST: Patient Active Problem List Diagnosis MIXED HYPERLIPIDEMIA - Low HDL OLD MYOCARDIAL INFARCT - 1982 Carpal tunnel syndrome Coronary artery disease involving coronary bypass graft of ty[place] heart without angina pectoris H/O coronary artery bypass surgery TIMOTHY on CPAP S/P coronary artery stent placement 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 Neuropathy RBBB (right bundle branch block) Presence of cardiac pacemaker Essential hypertension with goal blood pressure less than 140/90 Dyslipidemia, goal LDL below 70 Major depressive disorder, recurrent, moderate (HCC) Percutaneous transluminal coronary angioplasty status Essential tremor Diabetes mellitus with background retinopathy ([facility]) Absence of toe of right foot ([facility]) 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 Review of patient's allergies indicates: Allergen Reactions Klonopin [Clonazepam] Other (Please comment) "Made me really out of it" OBJECTIVE: VS: BP 112/74 | Pulse 107 | Temp 36.7 C (98.1 F) (Tympanic) | Resp 28 | Ht 1.727 m (5' 8") | Wt103 kg (227 lb) | SpO2 96% | BMI 34.52 kg/m | BSA 2.22 m Wt Readings from Last 1 Encounters: 09/04/24 103 kg (227 lb) General: alert, ill appearing Ears: External ears normal, Canals clear, TM's Normal Nose: no mucosal erythema, no mucosal edema, no purulent discharge Oropharynx: no exudate, no erythema, lips, buccal mucosa, and tongue normal, and dry mucous membranes Lymph: no palpable lymphadenopathy Heart: no murmur, no gallops, and tachycardia Lungs: chest symmetric with normal AP diameter, no chest deformities noted, no chest wall tenderness, lungs clear to auscultation Abdomen: abdomen soft, non-tender, normal bowel sounds, and no masses or organomegaly Back: back symmetric, no curvature, no costovertebral angle tenderness, range of motion is normal Neuro: ASSESSMENT/PLAN(s): Dehydration (Primary) Gastroenteritis To ED for evaluation and IV fluids. Spoke with Salom[facility] in [facility] ED for report. Daughter driving patient and to the ED. Tristan J Shelley, PA-C [facility] [address] [facility] [address] [phone] documented in this encounter Nursing Notes * Shruti Dixon LPN - 09/04/2024 12:12 PM EDT Kat Beverly is a 79 year old male who presents to walk-in clinic today complaining of Chief Complaint Patient presents with Vomiting X 1-2 day Diarrhea X 1-2 days Cough Generalized Body Aches Fever OTC treatments tried:nothing Patient is accompanied by spouse for today's visit. documented in this encounter Plan of Treatment Upcoming Encounters Date Type Department Care Team (Late st Contact Info) Description 09/21/2024 2:15 PM EDT Office Visit Urology Laci Fonseca [address] [facility] [address] [id number] Enrique Awad MD [address] [address] 10/09/2024 3:30 PM EDT Cardiac Studies Cardiac Studies, [facility] [address] [facility] [place] [place] [address] 10/13/2024 11:25 AM EDT Hospital Encounter OR GL, Operating Room, [facility] - 4th Floor [address] [address] Enrique Awad MD [address] [address] 10/13/2024 11:25 AM EDT - 10/13/2024 1:20 PM EDT Surgery OR [facility], Operating Room, [facility] - 4th Floor [address] [place] [phone] Enrique Awad MD [address] [address] LASER VAPORIZATION PROSTATE 10/18/2024 2:00 PM EDT Nurse Only Urology, [facility] [address] [facility] [place] [address] Aparicio, Nurse Urology [facility] [address] [facility] [address] [place] [address] 10/20/2024 3:20 PM EDT Office Visit Family Practice [facility] [address] [facility] [place] [address] Crystal Walter, [address] [facility] [place] [address] 10/26/2024 3:00 PM EDT Nurse Only Ancillary Department, [facility]ena Kahn [address] [facility] [id number] Selena, Nurse [facility] [address] [place] [address] 11/06/2024 3:45 PM EDT Office Visit [facility], [facility] [address] [facility] [place] [address] Enrique Awad MD [address] [address] 01/16/2025 3:30 PM EDT Office Visit Neurology [facility] [address] [place] [address] Lizzie Cross PA-C [address] [address] 02/05/2025 3:30 PM EDT Office Visit Cardiology, [facility] [address] [address] Nazia Bolanos CRNP [address] [place] [address] Scheduled Procedures Name Priority Associated Diagnoses Date/Ti me LASER VAPORIZATION PROSTATE Weak urinary stream BPH with obstruction/lower urinary tract symptoms 10/13/2024 11:25 AM EDT Health Maintenance Due Date Last Done Comments Hepatitis C Screening 1963 Diabetic Foot Exam 07/26/2024 07/26/2023, 0 02/02/2022, 12/04/2020, Additional history exists HbA1c 09/22/2024 03/24/2024, 01/2024, 02/01/2023, Additional history exists Adult Wellness Visit 10/24/2024 10/25/2023, 10/21/19 23 Depression Monitoring 10/24/2024 10/25/2023 Diabetic Eye Exam 02/15/2025 02/16/2024, , 09/06/2023, Additional history exists COVID-19 Vaccine ( season) 2025 08/25/2024, 06/16/2023, 04/24/2021, Additional history exists Albumin/Creatinine Ratio 03/24/2025 024, [...] this encounter Medical Devices Implanted Type Area Clay Digger Device Identifier Shelf Expiration Date Model / Serial / Lot Lens Intraoc 20.5 - [id number] - [id number] Implanted:Qty: 1 on 11/08/2019 by Mendoza Macias MD at OR [facility] Right: Eye [employer] 04/20/2024 [id number] / [id number] / [id number] Lens Intraoc 21.0 - [id number] - [id number] Implanted:Qty: 1 on 11/14/2019 by Mendoza Macias MD at OR [facility] Left: Eye [employer] 04/20/2024 [id number] / [id number] / [id number] documented as of this encounter Visit Diagnoses Diagnosis Weak urinary stream Slowing of urinary stream BPH with obstruction/lower urinary tract symptoms Hypertrophy of prostate with urinary obstruction and other lower urinary tract symptoms (LUTS) Dehydration- Primary Gastroenteritis Other and unspecified noninfectious gastroenteritis and colitis Weak urinary stream Slowing of urinary stream BPH with obstruction/lower urinary tract symptoms Hypertrophy of prostate with urinary obstruction and other lower urinary tract symptoms (LUTS) documented in this encounter Care Teams Design Engineer Relationship Specialty Start Date End Date Crystal Walter DO [address] [place] [address] PCP - General Family Medicine 12/06/16 documented as of this encounter
--- NOTE | 2024-09-05 08:31 | XRay Report ---
KUB HISTORY: check progression of ileus COMPARISON STUDY: 09/04/2024 FINDINGS: stable hiatal hernia. There are a few minimally dilated small bowel loops at the left upper quadrant, improved. No other bowel distention seen. There is moderate retained stool. No gross free air. IMPRESSION: Minimal small bowel distention, improved. ACT 112: Negative or not required by law. The above report was generated using voice recognition software. It may contain grammatical, syntax o r spelling errors. Electronically signed by: Brett Olsen M.D. 09/05/2024 8:29 AM
[2024-09-05] MEDS: INSULIN ASPART PER UNIT CHARGE SC SCH (09:02)
[2024-09-05] MEDS: CLOPIDOGREL BISULFATE 75 MG TAB PO SCH (09:03)
[2024-09-05] MEDS: MULTIVITAMIN TAB PO SCH (09:04)
[2024-09-05] MEDS: ENALAPRIL MALEATE 10 MG TAB PO SCH (09:04)
[2024-09-05] MEDS: METOPROLOL SUCC 25MG EXT REL TAB PO SCH (09:04)
[2024-09-05] MEDS: VIBEGRON 75 MG TAB PO SCH (09:04)
--- NOTE | 2024-09-05 14:17 | Hospitalist Progress Note ---
Date of Service September 05, 2024 Assessment & Plan (1) Vomiting and diarrhea: (2) Ileus: (3) Weakness: (4) Chronic low back pain: (5) Dehydration: (6) Ambulatory dysfunction: (7) Hx of CABG: (8) PAT (paroxysmal atrial tachycardia): (9) Sleep apnea: (10) Diabetes mellitus, type 2: Plan Mr. Beverly is a 78yo M with a PMH of paroxysmal atrial tachycardia, carotid artery stenosis, DM II, dyslipidemia, TIMOTHY on CPAP, CAD s/p CABG, RBBB, HTN, tachy rebecca syndrome s/p pacemaker, history of cva, depression, mild cognitive impairment who presents for nausea and vomiting and admitted for imaging suggestive of ileus. Patient without further diarrhea or N/V. Plan to encourage po and advance diet to soft. #Vomiting and diarrhea: #Possible gastroenteritis c/b ileus -in setting of possible ileus, likely triggered by viral illness -had diffuse diarrhea and is passing gas making SBO unlikely, benign abdominal exam Advance diet to soft/bland Discontinue fluids and encourage PO KUB improved Biofire ordered, not collected given no diarrhea #Dehydration #ambulatory dysfunction #Weakness: -likely 2/2 above illness pending PT/OT consult # Chronic low back pain: stable #Hx of CABG: -continue home meds #PAT (paroxysmal atrial tachycardia): -continue home meds # Sleep apnea: -CPAP continue #Diabetes mellitus, type 2: -insulin protocol dvt heparin q 12 Dispo potentially tomorrow, plan for OPPT/OT Admission and Anticipated Discharge Date Admission Date: September 04, 2024 Subjective naeo Reports no episode of diarrhea since admission, but active bowels Denies any nausea or vomiting and reports keeping liquids down with ease He overall endorses improved sensation of weakness and feeling better resting in bedside chair Physical Exam Constitutional: WD/WN, vitals as above Respiratory: normal respiratory effort, lungs clear to auscultation Cardiovascular: RRR, no murmur, no edema Gastrointestinal (Abdomen): normal bowel sounds, soft, nontender, no hepatosplenomegaly Musculoskeletal: no cyanosis or clubbing, extremities motor strength 5/5 Results & Data Results & Data Vital Signs (Past 12 Hours) Vital Signs Temp Pulse Resp BP Pulse Ox O2 Del Method O2 Flow Rate 09/05/24 11:09 36.0 C L 63 20 101/65 94 Room Air 09/05/24 09:00 Nasal Cannula 2 09/05/24 07:51 37.1 C 73 20 114/65 95 Nasal Cannula 1.5 Laboratory Results Short CBC 09/05/24 Range/Units 05:37 WBC 4.08 L (4.8-10.8) K/ul Hgb 13.5 L (14.0-18.0) g/dl Hct 41.1 L (42.0-52.0) % Plt Count 173 (130-400) K/uL BMP 09/05/24 05:37 Sodium 137 Potassium 3.9 Chloride 107 Carbon Dioxide 28 BUN 17 Creatinine 0.70 Glucose 107 H Calcium 8.7 Urine 09/04/24 Range/Units 16:40 Urine Color Dark Yellow Urine Appearance Clear (Clear) Urine pH 5.5 (4.5-7.5) Ur Specific [place] 1.031 H (1.000-1.030) Urine Protein Trace H (Negative) Urine Glucose (UA) Negative (Negative) Medications Administered Home Medications Medication Instructions Recorded Confirmed Last Taken metoprolol succinate 25 mg 25 mg PO QAM #30 tabs 06/08/18 09/04/24 09/03/24 tablet,extended release 24 hr CPAP Supplies #1 ea 02/27/19 06/29/24 Unknown aspirin 81 mg tablet,delayed 81 mg PO PM 02/05/21 09/04/24 09/03/24 release atorvastatin 20 mg tablet 20 mg PO PM 02/05/21 09/04/24 09/03/24 clopidogrel 75 mg tablet (Plavix) 75 mg PO QAM 02/05/21 09/04/24 09/03/24 finasteride 5 mg tablet (Proscar) 5 mg PO PM 02/05/21 09/04/24 09/03/24 metformin 500 mg tablet 500 mg PO BID 02/05/21 09/04/24 09/03/24 multivitamin 1 tab PO QAM 02/05/21 09/04/24 09/03/24 tamsulosin 0.4 mg capsule 0.4 mg PO QPM 02/05/21 09/04/24 09/03/24 vitamin B complex 1 tab PO PM 02/05/21 09/04/24 09/03/24 CPAP Machine #1 ea 01/08/22 06/29/24 Unknown mirabegron 25 mg tablet,extended 25 mg PO DAILY 02/17/22 09/04/24 09/03/24 release 24 hr (Myrbetriq) ramipril 10 mg capsule 10 mg PO QAM 09/04/24 09/04/24 09/03/24 Active Medications Generic Name Dose Route Start Last Admin Trade Name Rey PRN Reason Stop Dose Admin Aspirin 81 mg 09/05/24 00:47 09/05/24 02:17 Aspirin 81 Mg Ectab PO 10/05/24 00:46 81 mg PM CHANI Administration Atorvastatin Calcium 20 mg 09/05/24 00:47 09/05/24 02:17 Atorvastatin 20 Mg Tab PO 10/05/24 00:46 20 mg PM CHANI Administration Clopidogrel Bisulfate 75 mg 09/05/24 09:00 09/05/24 09:03 Clopidogrel Bisulfate 75 Mg Tab PO 10/05/24 08:59 75 mg QAM CHANI Administration Enalapril Maleate 20 mg 09/05/24 09:00 09/05/24 09:04 Enalapril Maleate 10 Mg Tab PO 10/05/24 08:59 20 mg QAM CHANI Administration Finasteride 5 mg 09/05/24 00:47 09/05/24 02:18 Finasteride 5 Mg Tab PO 10/05/24 00:46 5 mg PM CHANI Administration Heparin Sodium (Porcine) 5,000 units 09/05/24 06:00 09/05/24 06:08 Heparin Sod 5,000 Unit/0.5 Ml Vial SQ 10/05/24 05:59 5,000 units Q8 [facility] Administration Insulin Aspart 0 units 09/05/24 07:30 09/05/24 12:43 Insulin Aspart Per Unit Charge SC 10/05/24 07:29 Not Given ACHS [facility] Metoprolol Succinate 25 mg 09/05/24 09:00 09/05/24 09:04 Metoprolol Succ 25mg Ext Rel Tab PO 10/05/24 08:59 25 mg QAM [facility] Administration Multivitamins 1 tab 09/05/24 09:00 09/05/24 09:04 Multivitamin Tab PO 10/05/24 08:59 1 tab QAM [facility] Administration Tamsulosin HCl 0.4 mg 09/05/24 00:47 09/05/24 02:17 Tamsulosin Hcl 0.4 Mg Cap PO 10/05/24 00:46 0.4 mg QPM CHANI Administration Vibegron 75 mg 09/05/24 09:00 09/05/24 09:04 Vibegron 75 Mg Tab PO 10/05/24 08:59 75 mg DAILY CHANI Administration (4) Chronic low back pain Back pain laterality: unspecified Sciatica presence: unspecified whether sciatica present Qualified Code(s): M54.50 - Low back pain, unspecified; G89.29 - Other chronic pain (9) Sleep apnea Sleep apnea type: unspecified type Qualified Code(s): G47.30 - Sleep apnea, unspecified (10) Diabetes mellitus, type 2 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
[2024-09-06 03:12] VITALS: O2SAT 95
[2024-09-06 06:37] LABS: Hematocrit (blood only) 40.5 % (42.0-52.0); Hemoglobin 13.4 g/dl (14.0-18.0); Mean Corpuscular Hemoglobin 29.1 pg (25.0-34.0); Mean Corpuscular Hgb Conc 33.1 g/dL (32.0-36.0); Mean Platelet Volume 11.1 fL (9.4-12.4); Platelet Count 168 K/uL (130-400); RDW Coefficient of Variation 14.7 % (11.5-14.5); RDW Standard Deviation 46.8 fL (36.4-46.3); White Blood Count 3.88 K/ul (4.8-10.8)
[2024-09-06 06:49] LABS: BUN Creatinine Ratio 17.6 (10-20); Calcium 8.7 mg/dl (8.6-10.3); Creatinine Clr Calc Pharmacy 103.5 ml/min; Magnesium 1.9 mg/dl (1.7-2.4); Potassium 3.7 mmol/L (3.5-5.1)
[2024-09-06 08:04] VITALS: BP 116/74; PULSE 65; RESP 16; TEMP 98.1
--- NOTE | 2024-09-06 10:09 | Discharge Summary ---
Discharge Summary Date of Service September 06, 2024 Principal Dx & Hospital Course #1 = Principal Diagnosis (1) Vomiting and diarrhea: (2) Ileus: (3) Weakness: (4) Chronic low back pain: (5) Dehydration: (6) Ambulatory dysfunction: (7) Hx of CABG: (8) PAT (paroxysmal atrial tachycardia): (9) Sleep apnea: (10) Diabetes mellitus, type 2: Plan Mr. Beverly is a 78yo M with a PMH significant for paroxysmal atrial tachycardia, carotid artery stenosis, DM II, dyslipidemia, TIMOTHY on CPAP, CAD s/p CABG, RBBB, HTN, tachy rebecca syndrome s/p pacemaker, history of cva, depression, mild cognitive impairment who presents for nausea and vomiting and admitted for imaging suggestive of ileus. His respiratory viral panel was negative No stool cultures were obtained as he had no further episodes of diarrrhea while hospitalized. Patient without further diarrhea or N/V on the day of discharge. Stated that he would like to go home to care for his with dementia and similar symptoms. Was tolerating a solid food diet. On the day of discharge he was asymptomatic with noted improvement on the KUB the day prior. He had no abdominal pain and bowel sounds were present. He was discharged with prn xofran for N/V and encouraged to continue to push fluids at home. PT/OT recommended home PT/OT services. Notes For Next Care Provider As above Medication Changes From Visit PRN zonia Admission HPI Per Admitting Provider 78yo M with a PMH of paroxysmal atrial tachycardia, carotid artery stenosis, DM II, dyslipidemia, TIMOTHY on CPAP, CAD s/p CABG, RBBB, HTN, tachy rebecca syndrome s/p pacemaker, history of cva, depression, mild cognitive impairment who presents for nausea and vomiting. States symptoms have been going on for the past few days. He states he has been having trouble eating because he throws in back up. He was very constipated but now states that he has been having significant diarrhea. No diarrhea today but has been passing gas. No tobacco use, no alcohol use, discussed resuscitation at length, risks and benefits discussed at length, patient does not want to suffer at end of life, DNRDNI at this time. Admission Exam Per Admitting Provider Gen: A&O 3 NAD HEENT: NCAT, EOMI, not icteric. External ears normal. No rhinorrhea. Dry mucous membranes. Neck: Supple, full range of motion, no observable masses, No meningeal sign. Lungs: No Respiratory distress. CV: irregular rhythm, regular rate Abdomen: Soft, nondistended, No rebound tenderness. MSK: No joint swelling, no redness. Skin: No rashes, petechiae, lesions. Normal color per patient. Neuro: Normal Gait, Grossly intact. Psych: Appropriate for situation. Discharge Exam General: Alert, oriented. No acute distress Psych: Appropriate mood and affect Neuro: Tremors noted in arms HEENT: NC/AT CV: RRR Resp: Breath sounds clear bilaterally, no increased effort of breathing Abdomen: BS+,soft, nontender in all 4 quadrants Extremities: No edema in lower extremities bilaterally. Updated Medication List Medication Instructions Recorded Confirmed Type metoprolol succinate 25 mg 25 mg PO QAM #30 tabs 06/08/18 09/04/24 Rx tablet,extended release 24 hr CPAP Supplies #1 ea 02/27/19 06/29/24 Rx aspirin 81 mg tablet,delayed 81 mg PO PM 02/05/21 09/04/24 History release atorvastatin 20 mg tablet 20 mg PO PM 02/05/21 09/04/24 History clopidogrel 75 mg tablet (Plavix) 75 mg PO QAM 02/05/21 09/04/24 History finasteride 5 mg tablet (Proscar) 5 mg PO PM 02/05/21 09/04/24 History metformin 500 mg tablet 500 mg PO BID 02/05/21 09/04/24 History multivitamin 1 tab PO QAM 02/05/21 09/04/24 History tamsulosin 0.4 mg capsule 0.4 mg PO QPM 02/05/21 09/04/24 History vitamin B complex 1 tab PO PM 02/05/21 09/04/24 History CPAP Machine #1 ea 01/08/22 06/29/24 Rx mirabegron 25 mg tablet,extended 25 mg PO DAILY 02/17/22 09/04/24 History release 24 hr (Myrbetriq) ramipril 10 mg capsule 10 mg PO QAM 09/04/24 09/04/24 History ondansetron 4 mg disintegrating 4 mg PO Q8H PRN nausea and 09/06/24 Rx tablet vomiting #30 tabs Hospital Stay Data Consultations 09/04/24 17:56 ED Decision to Admit Stat Diagnostic Imagining Performed 09/04/24 16:06 CT abd pelvis IV con only Stat Abdomen/Pelvis CT 09/04/24 16:06 INDICATION: Abdominal pain, nausea and vomiting. COMPARISON: CT chest from 01/19/2024. TECHNIQUE: Axial CT images of the abdomen and pelvis were obtained following IV contrast administration. Coronal and sagittal reformations were reviewed. FINDINGS: Calcified pleural plaquing noted in the lung bases is seen on prior CT chest. The liver, gallbladder, spleen, pancreas and adrenal glands appear unremarkable. No hydronephrosis. Large hiatal hernia. No evidence of colitis/appendicitis. Dilated small bowel loops in the midabdomen. No pneumatosis or portal venous gas. No free air. No drainable fluid collection. The urinary bladder appears unremarkable. Fat-containing bilateral inguinal hernias. Mild prostate gland enlargement. Negative for abdominal aortic aneurysm or dissection. No acute osseous abnormality evident. IMPRESSION: 1. Mildly dilated small bowel loops could relate to ileus/enteritis/early small bowel obstruction. Follow-up as clinically relevant. 2. Large hiatal hernia. Electronically signed by Yevgeniy Julien 09-04-2024 5:02 PM KUB X-Ray 09/05/24 06:00 KUB HISTORY: check progression of ileus COMPARISON STUDY: 09/04/2024 FINDINGS: stable hiatal hernia. There are a few minimally dilated small bowel loops at the left upper quadrant, improved. No other bowel distention seen. There is moderate retained stool. No gross free air. IMPRESSION: Minimal small bowel distention, improved. ACT 112: Negative or not required by law. The above report was generated using voice recognition software. It may contain grammatical, syntax or spelling errors. Electronically signed by: Brett Olsen M.D. 09/05/2024 8:29 AM Discharge Instructions Given to Patient (Per Discharging Provider) Mr. Beverly, You were admitted and treated for an ileus in the setting of an acute gastroenteritis infection. Your symptoms improved and you would like to go home. Please continue with the as needed medication ondansetron/zofran to help with any nausea or vomiting and continue to stay hydrated at home. Please also keep close follow up with your primary care provider after discharge. Please do not hesitate to come back to the emergency room if your symptoms worsen or return. It was a pleasure taking care of you while you were here. Total Time Total Time Spent Total Time Spent (In Minutes): 60
== END 2024-09-06 11:32 | disposition home or self-care (01) | DRG 389 ==
LOC: ED 12:51 → EDINP 20:00 → SUATTDRO 20:00 → 2W 09-05 01:25

== ENCOUNTER 2025-04-29 16:25 | Inpatient (IN) ==
--- NOTE | 2025-04-29 16:56 | Emergency Department Note ---
Impression & Plan Generalized weakness, Ambulatory dysfunction, Intermittent confusion, Vertigo ED Provider Note NAME: JALEEL BREWSTER AGE: 79 SEX: M : 1945 ARRIVES VIA: Walk-In INFORMANT: Patient, family ED PROVIDER(S): Bola Ellis DO CHIEF COMPLAINT: confusion, weakness HPI: This is a 79-year-old male with the PMHx of HTN, HLD, CAD s/p CABG, tachy- rebecca syndrome s/p PPM, KELLY, DM2 and presenting to [facility] for further evaluation of weakness and confusion. Patient is accompanied by his who provide additional history. Patient's provides the majority of the history. She states this has been worsening over the past few weeks. The patient has been weak and intermittently confused. Patient has had significant ambulatory dysfunction. He can complains mostly of positional lightheadedness and dizziness. Patient notes that he just feels that he cannot perform his activities like he used to. has noticed a significant decline in the past week or so. They deny fever or chills. No cough or congestion. Denies chest pain or palpitations. No shortness of breath. They deny abdominal pain, nausea and vomiting. No urinary complaints. No recent changes in bowel movements. Patient denies recent changes in medications or OTC supplements. Patient offers no other complaints, today. ADDITIONAL HISTORY OBTAINED: Per HPI Chronic Medical/Social Conditions Affecting Care: Per HPI PAST MEDICAL HISTORY: See Below PAST SURGICAL HISTORY: See Below FAMILY HISTORY: See Below SOCIAL HISTORY: See Below HOME MEDICATIONS: See Below ALLERGIES: See Below VITALS: See Below PHYSICAL EXAMINATION: GENERAL: Sitting up in bed, alert, well appearing, well nourished, no distress, non-toxic EYE EXAM: normal conjunctiva. PERRL and EOM's grossly intact. No nystagmus. OROPHARYNX: no exudate, no erythema, lips, buccal mucosa, and tongue normal and mucous membranes are moist NECK: supple, no nuchal rigidity, no adenopathy, non-tender LUNGS: Clear to auscultation. Normal chest wall mechanics HEART: no murmurs, regular rate, regular rhythm ABDOMEN: abdomen soft, non-tender, no masses, no rebound or guarding. BACK: Back is symmetrical on inspection and there is no deformity, no midline tenderness, no CVA tenderness. SKIN: no rashes and no bruising UPPER EXTREMITIES: upper extremities are grossly normal. LOWER EXTREMITIES: No pitting edema. NEURO EXAM: Normal sensorium, GCS 15, normal speech, no gross weakness of arms, no gross weakness of legs. No drift. Finger to nose intact. Gross sensation intact. Gait is unsteady. MEDICAL DECISION MAKING: Differential diagnoses includes but not limited to intracranial hemorrhage, CVA, central vertigo, peripheral vertigo, electrolyte derangements, dehydration, UTI, pneumonia, tickborne illness, functional decline, neurocognitive disorder In summary, this is a 79 year old male who presented with generalized weakness and confusion. Differential as above. Nursing notes and pertinent past medical records reviewed. Vital signs reviewed and the patient is afebrile and HDS. History and presentation revealed worsening confusion and weakness over the course of weeks. Physical examination revealed as above. As a result of my initial evaluation, IV access was established and the patient was placed on CCRM. Therapeutics ordered include close observation and IVFR. Nursing staff did calculate NIH stroke scale for this patient as a 1 for partial facial droop. I do not appreciate this on physical examination. Patient has a known M2 occlusion. I wonder if his symptoms are more neurocognitive rather than acute stroke. Will obtain a screening CT head. I do feel this is likely a neurocognitive disorder with significant functional decline rather than an acute presentation. Diagnostics interpreted by me include EKG and cardiac monitoring as listed below: -Cardiac Monitoring: An order was placed for continuous cardiac monitoring. The monitor shows a rate of 60-70s with regular rhythm. -ECG: Normal sinus rhythm at a ventricular rate of [address] segment changes to suggest STEMI. There was 1 PAC present on this rhythm strip. Does have a right bundle branch block with lateral T wave inversions. This is not new. Similar to prior EKGs as reviewed by me. Do feel the T wave inversions are likely in the setting of his right bundle branch block rather than ischemic disease. Patient completed laboratory studies and imaging. I-STAT chemistries were obtained and independently interpreted by me as normal kidney function and electrolytes. Results independently interpreted by me are no leukocytosis or anemia. There is no significant electrolyte derangements or significant kidney dysfunction from baseline. No changes in LFTs. Normal procal. He has a negative Lyme screen. The patient was managed with IVFR. CTH independently interpreted by me reveals no evidence of ICH. No significant hydrocephalus. No major skull fractures. CTH does not demonstrate findings to suggest an etiology of the patient's symptoms or presentation, today. CXR independently interpreted by me reveals no evidence of focal consolidation to suggest pna. No large pneumothorax or pleural effusion. No obvious displaced rib fracture. The patient has had a significant functional decline. Now intermittently confused and weak. Patient has a significant safety risk with possible falls. Do not feel the patient necessarily has focal deficits to suggest acute stroke. I think he may benefit from an MRI as an inpatient. Suggest that his symptoms are likely functional, and possible neurocognitive disorder but difficult to exclude central etiologies and care including new stroke. Patient ultimately will need to be admitted for further evaluation. Patient and family members are agreeable to this. Ultimately, the decision was made to admit the patient for generalized weakness and confusion leading to ambulatory dysfunction. I discussed the case with the hospitalist service via telephone/TigerText and they are agreeable to admit the patient to their services. Based on the above, including the patient's age, coexisting illnesses, labs, imaging, and exam findings the decision to treat as an inpatient. I discussed the patient with the hospitalist team who recommended admission to their services. They received the medications, treatments, interventions indicated above and their condition remained guarded. I discussed my findings with the patient and their family and they understand and agree with the treatment plan. All patient / family questions were answered to their satisfaction. Consults/Care Managements Discussions: Per [facility] ER treatment provided: See above Procedures:none Critical Care: None The chart was completed utilizing [employer] Speech voice recognition software. Grammatical errors, random word insertions, pronoun errors, and incomplete sentences are an occasional consequence of this system due to software limitations, ambient noise, and hardware issues. Any formal questions or concerns about the content, text, or information contained within the body of this dictation should be directly addressed to the physician for clarification. Past Med/Surg History Problem List Vertigo (Acute) Intermittent confusion (Acute) Ambulatory dysfunction (Acute) Generalized weakness (Acute) Acute right [employer]PPORT [employer]IST stroke Confusion Dehydration Ileus Aortic valve sclerosis Weakness (Acute) Vomiting and diarrhea (Acute) Abdominal pain (Acute) Chronic anticoagulation Lumbar facet joint syndrome Chronic low back pain Ambulatory dysfunction (Acute) Acute confusion (Acute) Generalized weakness (Acute) Prosthetic joint loosening Hernia, diaphragmatic (Chronic) Carpal tunnel syndrome (Chronic) Arthritis of knee (Chronic 08/02/11) 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 PAT (paroxysmal atrial tachycardia) pt admitted for elective ppm due to TBS; underwent procedure without any complications; monitored overnight; started on Toprol and discharged home. Carotid artery stenosis cardiac stents Sleep apnea Excessive daytime sleepiness Fall Parkinsonian features Sleep apnea CPAP (compliant) Diabetes mellitus, type 2 NIDDM CAD (coronary artery disease) S/P CABG x3 in 2001 with SMITH to LAD; SABRINA to PDA and Radial to LCX. PCI/rot oblation/stent VON RCA 2004 (performed due to SABRINA to PDA graft stenosis) and PCI/VON left main 2004 2011 cardiac cath demonstrated 3V CAD in the cowlitz vessels with patent SMITH to LAD graft, patent radial graft to the circumflex, and SABRINA graft to the R PDA had a 95% ostial stenosis that was unchanged compared to his last cardiac catheterization. The cowlitz RCA had a total occlusion (area that previously been stented). Continued medical management was recommended. History of total knee replacement R/L History of repair of rotator cuff R/L History of coronary artery bypass graft CABG x3 in 2001 with SMITH to LAD; SABRINA to PDA and Radial to LCX Medical History Sleep apnea Excessive daytime sleepiness Diaphragmatic hernia Carpal tunnel syndrome Solitary pulmonary nodule Hyperlipidemia Chronic ischemic heart disease History of COVID-19 06/05/22 (PCR [facility]- report scanned into [employer])- asymptomatic. Negative Covid PCR 06/28/22 [place] Chronic back pain Myocardial Infarction 2001 Essential tremor Carpal tunnel syndrome BPH (benign prostatic hyperplasia) Depression Arthritis Pacemaker Medtronic, implanted 2017 (2/2 tachy-rbeecca syndrome) Surgical History History of inguinal hernia repair Left (01/2021) S/P epidural steroid injection Status post total shoulder arthroplasty left History of tooth extraction History of colonoscopy History of cataract surgery R/L History of tonsillectomy History of heart artery stent 2016 Hx of appendectomy Family History Mother , 61 Pulmonary embolism Father , 74 Stroke Brother Coronary heart disease 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 Smoking Status: Never smoker Second Hand Exposure: No; Do You Dip or Chew Tobacco: No; Hx Alcohol Use: No Hx Substance Use: No Preferred Language: Irish Communication Ability: Effective [employer] Required: No Beliefs That Will Affect Care: None Current Living Situation: Spouse Current Living Situation Comment: lives at home with Feels Safe at Home: Yes Safety Concerns: Feels Safe At This Time Assistive Devices: Cane and Walker Allergies Allergies Allergy/AdvReac Type Severity Reaction Status Date / Time ampicillin Allergy Mild Rash Verified 01/04/25 13:53 Home Meds Home Medications Medication Instructions Recorded Confirmed atorvastatin 20 mg tablet 20 mg PO PM 02/05/21 04/29/25 finasteride 5 mg tablet (Proscar) 5 mg PO QAM 02/05/21 04/29/25 multivitamin 1 tab PO QAM 02/05/21 04/29/25 tamsulosin 0.4 mg capsule 0.4 mg PO QAM 02/05/21 04/29/25 vitamin B complex 1 tab PO QAM 02/05/21 04/29/25 ramipril 10 mg capsule 10 mg PO QAM 09/04/24 04/29/25 aspirin 81 mg chewable tablet 81 mg PO QAM 03/22/25 04/29/25 (Aspirin Childrens) gabapentin 100 mg capsule 100 mg PO Q8 PRN Pain 03/22/25 04/29/25 ibuprofen 125 mg-acetaminophen 250 2 tab PO DAILY PRN Pain 03/22/25 04/29/25 mg tablet (Advil Dual Action) metformin 500 mg tablet,extended 500 mg PO QAM 03/22/25 04/29/25 release 24 hr clopidogrel 75 mg tablet 75 mg PO DAILY 04/29/25 04/29/25 Previous Rx's Medication Instructions Recorded metoprolol succinate 25 mg 25 mg PO QAM #30 tabs 06/08/18 tablet,extended release 24 hr CPAP Supplies #1 ea 02/27/19 CPAP Machine #1 ea 01/08/22 Results & Data (ED) Vital Signs Vital Signs - 24 hr 04/29/25 16:29 04/29/25 16:42 04/29/25 16:46 Temperature 36.9 C Temperature Source Temporal Artery Scan Pulse Rate 68 70 Pulse Rate [Apical] Respiratory Rate 20 Respiratory Effort / Characteristics Non-Labored Respiratory Depth Normal Blood Pressure 128/78 Blood Pressure [Right Arm] Blood Pressure Mean 94 Blood Pressure Mean [Right Arm] Pulse Oximetry 93 Oxygen Delivery Method Room Air Room Air Sepsis Recent Fever Within 48 Hours No Sepsis New/Unexplained Change in Mental Status Yes Sepsis Action Taken by Nursing No Action Required 04/29/25 16:48 04/29/25 18:27 Temperature Temperature Source Pulse Rate Pulse Rate [Apical] 70 64 Respiratory Rate 21 22 Respiratory Effort / Characteristics Respiratory Depth Blood Pressure Blood Pressure [Right Arm] 133/91 131/89 Blood Pressure Mean Blood Pressure Mean [Right Arm] 105 103 Pulse Oximetry 93 94 Oxygen Delivery Method Room Air Room Air Sepsis Recent Fever Within 48 Hours Sepsis New/Unexplained Change in Mental Status Sepsis Action Taken by Nursing Laboratory Data 05/01/25 05:49 05/01/25 05:49 Lab Results 04/29/25 04/29/25 Range/Units 16:43 16:52 WBC 7.05 (4.8-10.8) K/ul RBC 5.33 (4.70-6.10) M/uL Hgb 15.4 (14.0-18.0) g/dl POC Hgb 16.0 (14.0-18.0) g/dl Hct 46.4 (42.0-52.0) % POC Hct 47 (42-52) % MCV 87.1 (80.0-100.0) fL MCH 28.9 (25.0-34.0) pg MCHC 33.2 (32.0-36.0) g/dL RDW Std Deviation 44.6 (36.4-46.3) fL RDW Coeff of Nacho 14.1 (11.5-14.5) % Plt Count 192 (130-400) K/uL MPV 10.0 (9.4-12.4) fL Immature Gran % (Auto) 0.1 % Neut % (Auto) 58.8 % Lymph % (Auto) 29.6 % Jefferson % (Auto) 8.2 % Eos % (Auto) 3.0 % Baso % (Auto) 0.3 % Neut # (Auto) 4.14 (1.40-6.50) K/uL Lymph # (Auto) 2.09 (1.20-3.40) K/uL Jefferson # (Auto) 0.58 (0.11-0.59) K/uL Eos # (Auto) 0.21 (0.00-0.50) K/uL Baso # (Auto) 0.02 (0.00-0.20) K/uL Immature Gran # (Auto) 0.01 (0.01-0.20) K/uL PT 11.4 (9.0-12.0) Seconds INR 1.1 (0.9-1.1) APTT 28 (21-31) Seconds PTT Ratio 1.0 POC Sodium 139 (135-144) mmol/L Sodium 137 (136-145) mmol/L POC Potassium 4.1 (3.3-5.0) mmol/L Potassium 4.2 (3.5-5.1) mmol/L POC Chloride 104 (101-112) mmol/L Chloride 105 (98-107) mmol/L Carbon Dioxide 24 (21-32) mmol/L POC Total CO2 22 L (24-31) mmol/L Anion Gap 8 (3-11) POC Anion Gap 18.0 (16-25) mmol/L POC BUN 18 (7-18) mg/dl BUN 18 (6-23) mg/dl Creatinine 0.83 (0.6-1.4) mg/dl POC Creatinine 0.9 (0.6-1.3) mg/dl Est Cr Clr Drug Dosing 87.9 ml/min eGFR 89.03 BUN/Creatinine Ratio 21.7 H (10-20) Glucose 99 (70-99(Fasting)) mg/dl POC Glucose (other) 97 (70-99) mg/dl Calcium 9.9 (8.6-10.3) mg/dl POC Ioniz Calcium Ashvin 1.22 (1.12-1.32) mmol/l Magnesium 2.1 (1.7-2.4) mg/dl Total Bilirubin 1.0 (0.2-1.0) mg/dl AST 14 (13-39) U/L ALT 7 (7-52) U/L Alkaline Phosphatase 91 (34-104) U/L Troponin I High Sens 7.5 (0-20) pg/ml Total Protein 7.4 (6.0-8.3) gm/dl Albumin 4.3 (3.4-5.0) gm/dl Globulin 3.1 (2.5-4.0) gm/dl Albumin/Globulin Ratio 1.4 (0.9-2) Procalcitonin < 0.02 (0-0.5) ng/ml Lyme Disease Screen Negative (Negative) Administered Medications Aspirin (Aspirin 81 Mg Ectab) [address] [facility] Stop: 05/30/25 08:59 Last Admin: 05/01/25 09:01 Dose: 81 mg Documented By: Admin: 04/30/25 08:19 Dose: 81 mg Documented By: neela Atorvastatin Calcium (Atorvastatin 40 Mg Tab) 40 mg PO PM [facility] Stop: 05/30/25 20:59 Last Admin: 04/30/25 20:52 Dose: 40 mg Documented By: LYNNE Clopidogrel Bisulfate (Clopidogrel Bisulfate 75 Mg Tab) 75 mg PO DAILY [facility] Stop: 05/30/25 08:59 Last Admin: 05/01/25 09:01 Dose: 75 mg Documented By: Admin: 04/30/25 08:20 Dose: 75 mg Documented By: neela Enalapril Maleate (Enalapril Maleate 10 Mg Tab) [address] [facility] Stop: 05/30/25 08:59 Last Admin: 04/30/25 08:20 Dose: 20 mg Documented By: neela Enoxaparin Sodium (Enoxaparin Inj 40 Mg/0.4 Ml Syr) [address] [facility] Stop: 05/30/25 08:59 Last Admin: 05/01/25 08:58 Dose: 40 mg Documented By: Admin: 04/30/25 08:23 Dose: Not Given Documented By: neela Finasteride (Finasteride 5 Mg Tab) [address] [facility] Stop: 05/30/25 08:59 Last Admin: 05/01/25 08:58 Dose: 5 mg Documented By: Admin: 04/30/25 08:21 Dose: 5 mg Documented By: neela Insulin Aspart (Insulin Aspart Per Unit Charge) 0 units SC [facility] Stop: 05/29/25 21:39 Last Admin: 05/01/25 09:06 Dose: 2 units Documented By: ANNA Co-signed By: HERMINIO Admin: 04/30/25 20:49 Dose: Not Given Documented By: LYNNE Co-signed By: NIRALI Admin: 04/30/25 17:57 Dose: Not Given Documented By: neela Admin: 04/30/25 13:13 Dose: Not Given Documented By: neela Admin: 04/30/25 09:10 Dose: Not Given Documented By: neela Admin: 04/29/25 21:59 Dose: Not Given Documented By: LYNNE Metoprolol Succinate (Metoprolol Succ 25mg Ext Rel Tab) [facility] Stop: 05/30/25 08:59 Last Admin: 05/01/25 09:02 Dose: 25 mg Documented By: Admin: 04/30/25 08:21 Dose: 25 mg Documented By: neela Tamsulosin HCl (Tamsulosin Hcl 0.4 Mg Cap) 0.4 [facility] [place] [place] Stop: 05/30/25 08:59 Last Admin: 05/01/25 09:01 Dose: 0.4 mg Documented By: Admin: 04/30/25 08:23 Dose: 0.4 mg Documented By: neela Discontinued Medications Atorvastatin Calcium (Atorvastatin 20 Mg Tab) 20 mg PO PM [facility] Stop: 05/29/25 21:39 Last Admin: 04/29/25 22:27 Dose: 20 mg Documented By: LYNNE Gadobutrol (Gadobutrol 65ml Vial) 9 ml IV ONCE ONE Stop: 04/30/25 13:21 Last Admin: 04/30/25 13:24 Dose: 9 ml Documented By: ROSELINE Parenteral Electrolytes (Plasma-Lyte A Ph 7.4) 1,000 mls @ 999 mls/hr IV .Q1H1M ONE Stop: 04/29/25 17:49 Last Infusion: 04/29/25 18:08 Dose: Infused Documented By: lenin Admin: 04/29/25 17:07 Dose: 999 mls/hr Documented By: ALEENA Sodium Chloride (Nss) 1,000 mls @ 50 mls/hr IV .Q20H ONE Stop: 04/30/25 17:39 Last Infusion: 04/30/25 22:16 Dose: Infused Documented By: Infusion: 04/30/25 17:55 Dose: 50 mls/hr Documented By: neela Infusion: 04/30/25 17:08 Dose: 0 mls/hr Documented By: kyrak Infusion: 04/30/25 13:55 Dose: 50 mls/hr Documented By: kyrak Infusion: 04/30/25 13:15 Dose: 0 mls/hr Documented By: neela Admin: 04/29/25 22:27 Dose: 50 mls/hr Documented By: LYNNE Ioversol (Optiray 320 125ml) 120 ml IV ONCE ONE Stop: 04/30/25 17:03 Last Admin: 04/30/25 17:03 Dose: 120 ml Documented By: Imaging Data Radiologist's Impression: Head CT 04/29/25 16:50 CT head without contrast History: Dizziness Comparison: None Technique: Using multidetector thin collimation helical acquisition technique, axial, coronal and sagittal CT images from the skull base to the vertex were obtained without intravenous contrast. Dose reduction techniques were achieved by using automatic exposure control and/or adjustment of mA and/or kV according to patient size and/or use of iterative reconstruction technique. Findings: No intracranial hemorrhage, mass-effect, or midline shift. The ventricles are proportionate to the cerebral sulci. The shi to white matter differentiation of the cerebral hemispheres is preserved. The basal cisterns are patent. Advanced chronic small vessel ischemic changes in the white matter. The visualized paranasal sinuses are clear. Mastoid air cells are clear. Impression: No acute intracranial pathology. Electronically signed by Prabhakar Valdez 04-29-2025 6:07 PM Chest X-Ray 04/29/25 16:51 Chest x-ray, 2 views History: chest pain Comparison: 01/19/2024 Technique: 2 views of the chest, PA and lateral Findings: The lungs are clear. Scattered calcified pleural plaques. The lungs appear hyperinflated suggesting COPD. Left chest wall dual-lead AICD. Bilateral shoulder arthroplasty. The cardiomediastinal silhouette is within normal limits. No pleural effusion or pneumothorax. The heart size appears normal. No bony or soft tissue abnormality. Hiatal hernia. Impression: No acute process. Calcified pleural plaques. Electronically signed by Prabhakar Valdez 04-29-2025 7:22 PM Discharge Plan Visit Data Chief Complaint: Dizziness Stated Complaint: DIZZINESS, LOSS OF BALANCE ED Provider: Bola Ellis Discharge Problem: Generalized weakness, Ambulatory dysfunction, Intermittent confusion, Vertigo Patient Disposition: Admitted As Inpatient Condition: Serious Discharge Instructions Interventions: ED Discharge Assessment Last Done: 04/29/25 21:28
[2025-04-29 17:03] LABS: Hematocrit (blood only) 46.4 % (42.0-52.0); Hemoglobin 15.4 g/dl (14.0-18.0); Immature Granulocytes # (auto) 0.01 K/uL (0.01-0.20); Immature Granulocytes % (auto) 0.1 %; Mean Corpuscular Hemoglobin 28.9 pg (25.0-34.0); Mean Corpuscular Volume 87.1 fL (80.0-100.0); Platelet Count 192 K/uL (130-400); RDW Standard Deviation 44.6 fL (36.4-46.3); Red Blood Count 5.33 M/uL (4.70-6.10); White Blood Count 7.05 K/ul (4.8-10.8)
[2025-04-29] MEDS: PLASMA-LYTE A 1,000 ML IV ONE (17:07)
[2025-04-29 17:20] LABS: Alanine Aminotransferase 7.0 U/L (7-52); Albumin Globulin Ratio 1.4 (0.9-2); Albumin Level 4.3 gm/dl (3.4-5.0); Alkaline Phosphatase 91.0 U/L (34-104); Anion Gap 8.0 (3-11); Bilirubin,Total 1.0 mg/dl (0.2-1.0); Blood Urea Nitrogen 18.0 mg/dl (6-23); Calcium 9.9 mg/dl (8.6-10.3); Carbon Dioxide 24.0 mmol/L (21-32); Chloride 105.0 mmol/L (98-107); Creatinine Clr Calc Pharmacy 87.9 ml/min; Globulin 3.1 gm/dl (2.5-4.0); Glucose 99.0 mg/dl (70-99(Fasting)); Magnesium 2.1 mg/dl (1.7-2.4); Potassium 4.2 mmol/L (3.5-5.1); Sodium 137.0 mmol/L (136-145); Total Protein 7.4 gm/dl (6.0-8.3)
[2025-04-29 17:25] LABS: Procalcitonin < 0.02 ng/ml (0-0.5)
[2025-04-29 17:30] LABS: INR 1.1 (0.9-1.1); Partial Thromboplastin Time 28 Seconds (21-31); Prothrombin Time 11.4 Seconds (9.0-12.0)
[2025-04-29 17:51] LABS: Lyme Screen Rflx Confirmation Negative (Negative)
--- NOTE | 2025-04-29 18:08 | CT Scan Report ---
CT head without contrast History: Dizziness Comparison: None Technique: Using multidetector thin collimation helical acquisition technique, axial, coronal and sagittal CT images from the skull base to the vertex were obtained without intravenous contrast. Dose reduction techniques were achieved by using automatic exposure control and/or adjustment of mA and/or kV according to patient size and/or use of iterative reconstruction technique. Findings: No intracranial hemorrhage, mass-effect, or midline shift. The ventricles are proportionate to the cerebral sulci. The shi to white matter differentiation of the cerebral hemispheres is preserved. The basal cisterns are patent. Advanced chronic small vessel ischemic changes in the white matter. The visualized paranasal sinuses are clear. Mastoid air cells are clear. Impression: No acute intracranial pathology. Electronically signed by Prabhakar Valdez 04-29-2025 6:07 PM
--- NOTE | 2025-04-29 19:22 | XRay Report ---
Chest x-ray, 2 views History: chest pain Comparison: 01/19/2024 Technique: 2 views of the chest, PA and lateral Findings: The lungs are clear. Scattered calcified pleural plaques. The lungs appear hyperinflated suggesting COPD. Left chest wall dual-lead AICD. Bilateral shoulder arthroplasty. The cardiomediastinal silhouette is within normal limits. No pleural effusion or pneumothorax. The heart size appears normal. No bony or soft tissue abnormality. Hiatal hernia. Impression: No acute process. Calcified pleural plaques. Electronically signed by Prabhakar Valdez 04-29-2025 7:22 PM
--- NOTE | 2025-04-29 19:31 | History & Physical Report ---
Date of Service April 29, 2025 Assessment & Plan (1) Ambulatory dysfunction: (2) Confusion: Plan: Dizziness R/O CVA Vs Pacer maker dysfunction Ambulatory dysfunction H/O CVA --CT Head:No acute intracranial pathology. --CTA Head from 03/22/25: Calcific plaque producing moderate proximal left M2 stenosis. No large vessel occlusion. Advanced chronic small-vessel ischemic disease. --CTA Neck from 03/22/25:No dissection, hemodynamically significant stenosis, or occlusion. Monitor in Telemetry for arrhythmia Check Orthostatics, ECHO, lipid panel Will give gentle IV fluids Continue aspirin, Plavix, statin Fall precautions PT/OT eval Fall precautions Will obtain MRI brain Meclizine as needed Pacemaker interrogation Altered mental status DD: Metabolic encephalopathy H/O Mild cognitive impairment Patient reports transient confusion intermittently for about 1 week Urinalysis pending MRI pending as above Will obtain ABG, TSH, ammonia level Electrolytes within normal limits DM II Hold metformin Continue insulin while hospitalized Monitor glucose levels Dyslipidemia Continue statin Coronary artery disease s/p CABG Continue aspirin, statin, metoprolol, Plavix TIMOTHY on CPAP Hypertension Continue DMITRY inhibitor, metoprolol BPH Continue Flomax, finasteride Monitor for urinary retention Tachybradycardia syndrome s/p pacemaker Continue metoprolol DVT Px: Lovenox SQ Code Status Full Code Disposition Admit to [facility] with telemetry I personally interviewed and examined the patient at bedside. I personally reviewed blood work, EKG, imaging studies. I spent a total of69 minutes coordinating, documenting, and providing care for this patient excluding time spent in the performance of separately billed services or time spent by another provider/QHP. History of Present Illness Chief Complaint: Dizziness Primary Care Provider: Crystal Walter DO Patient is a 79-year-old male with history of diabetes mellitus type 2, dyslipidemia, coronary artery disease s/p CABG, TIMOTHY on CPAP, right bundle branch block, monoclonal paraproteinemia, peripheral neuropathy, hypertension, mild cognitive impairment, BPH, tachybradycardia syndrome s/p pacemaker, history of CVA per record and other medical problems presents with history of dizziness Which has been ongoing for about 10 days. Patient states that He was evaluated in the ED 1 month ago and his CT scan showed no acute abnormality and so was discharged home. Patient states having persistent dizziness which he feels like " room spinning sensation" which has been intermittent without any aggravating or relieving factors. He also states having some blurry vision associated with dizziness. He denies any positional change with dizziness, any change in hearing or recent upper respiratory tract infections. He reports chronic numbness and tingling in his extremities which are unchanged. He uses a cane for ambulation at baseline. He believes that his transiently confused since fall 1 week. Denies any history of chest pain, dyspnea, palpitations, pedal edema, cough, wheezing, hemoptysis, fever, chills, fall, head trauma, syncope, headache, focal weakness, slurred speech, facial deformity, bowel/bladder incontinence, nausea, vomiting, abdominal pain, blood in stools, diarrhea, change in appetite, weight loss, dysuria, hematuria. Allergies Allergy/AdvReac Type Severity Reaction Status Date / Time ampicillin Allergy Mild Rash Verified 01/04/25 13:53 Home Medications Medication Instructions Recorded Confirmed Type metoprolol succinate 25 mg 25 mg PO QAM #30 tabs 06/08/18 04/29/25 Rx tablet,extended release 24 hr CPAP Supplies #1 ea 02/27/19 04/29/25 Rx atorvastatin 20 mg tablet 20 mg PO PM 02/05/21 04/29/25 History finasteride 5 mg tablet (Proscar) 5 mg PO QAM 02/05/21 04/29/25 History multivitamin 1 tab PO QAM 02/05/21 04/29/25 History tamsulosin 0.4 mg capsule 0.4 mg PO QAM 02/05/21 04/29/25 History vitamin B complex 1 tab PO QAM 02/05/21 04/29/25 History CPAP Machine #1 ea 01/08/22 04/29/25 Rx ramipril 10 mg capsule 10 mg PO QAM 09/04/24 04/29/25 History aspirin 81 mg chewable tablet 81 mg PO QAM 03/22/25 04/29/25 History (Aspirin Childrens) gabapentin 100 mg capsule 100 mg PO Q8 PRN Pain 03/22/25 04/29/25 History ibuprofen 125 mg-acetaminophen 250 2 tab PO DAILY PRN Pain 03/22/25 04/29/25 History mg tablet (Advil Dual Action) metformin 500 mg tablet,extended 500 mg PO QAM 03/22/25 04/29/25 History release 24 hr clopidogrel 75 mg tablet 75 mg PO DAILY 04/29/25 04/29/25 History Past Med/Surg History Problem List Confusion Dehydration Ileus Aortic valve sclerosis Weakness (Acute) Vomiting and diarrhea (Acute) Abdominal pain (Acute) Chronic anticoagulation Lumbar facet joint syndrome Chronic low back pain Ambulatory dysfunction (Acute) Acute confusion (Acute) Generalized weakness (Acute) Prosthetic joint loosening Hernia, diaphragmatic (Chronic) Carpal tunnel syndrome (Chronic) Arthritis of knee (Chronic 08/02/11) 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 PAT (paroxysmal atrial tachycardia) pt admitted for elective ppm due to TBS; underwent procedure without any complications; monitored overnight; started on Toprol and discharged home. Carotid artery stenosis cardiac stents Sleep apnea Excessive daytime sleepiness Fall Parkinsonian features Sleep apnea CPAP (compliant) Diabetes mellitus, type 2 NIDDM CAD (coronary artery disease) S/P CABG x3 in 2001 with SMITH to LAD; SABRINA to PDA and Radial to LCX. PCI/rot oblation/stent VON RCA 2004 (performed due to SABRINA to PDA graft stenosis) and PCI/VON left main 2004 2011 cardiac cath demonstrated 3V CAD in the quileute vessels with patent SMITH to LAD graft, patent radial graft to the circumflex, and SABRINA graft to the R PDA had a 95% ostial stenosis that was unchanged compared to his last cardiac catheterization. The quileute RCA had a total occlusion (area that previously been stented). Continued medical management was recommended. History of total knee replacement R/L History of repair of rotator cuff R/L History of coronary artery bypass graft CABG x3 in 2001 with SMITH to LAD; SABRINA to PDA and Radial to LCX Medical History Sleep apnea Excessive daytime sleepiness Diaphragmatic hernia Carpal tunnel syndrome Solitary pulmonary nodule Hyperlipidemia Chronic ischemic heart disease History of COVID-19 06/05/22 (PCR [facility]- report scanned into [facility] [employer])- asymptomatic. 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) Surgical History History of inguinal hernia repair Left (01/2021) S/P epidural steroid injection Status post total shoulder arthroplasty left History of tooth extraction History of colonoscopy History of cataract surgery R/L History of tonsillectomy History of heart artery stent 2016 Hx of appendectomy Family History Mother , 61 Pulmonary embolism Father , 74 Stroke Brother Coronary heart disease 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 Smoking Status: Never smoker Second Hand Exposure: No; Do You Dip or Chew Tobacco: No; Hx Alcohol Use: No Hx Substance Use: No Preferred Language: Lao Communication Ability: Effective Dividend Clerk Required: No Beliefs That Will Affect Care: None Current Living Situation: Spouse Feels Safe at Home: Yes Assistive Devices: CPAP Review of Systems Review of Systems: All systems reviewed & are unremarkable except as noted in Subjective Physical Exam Physical Exam: Physical Exam: Vitals signs as noted above General Appearance:Moderately built and nourished, no apparent distress Head: normocephalic, Atraumatic Eyes: normal inspection, EOMI Neck: supple, Trachea midline Respiratory/Chest: Normal breath sounds, CTA, No accessory muscle use Cardiovascular: S1, S2, No murmur, +Pacer Abdomen/GI:Soft, Non tender, Bowel sounds present Extremities/Musculoskeletal:normal inspection, no edema Neurologic/Psych: Alert, awake, oriented to person place and situation, confused about today's date, no focal neurological deficits on exam Skin: normal color, warm Results & Data Results & Data Vital Signs (Past 12 Hours) Vital Signs Temp Pulse Pulse Resp BP BP Pulse Ox 04/29/25 18:27 64 22 131/89 94 04/29/25 16:48 70 21 133/91 93 04/29/25 16:46 70 04/29/25 16:42 04/29/25 16:29 36.9 C 68 20 128/78 93 O2 Del Method 04/29/25 18:27 Room Air 04/29/25 16:48 Room Air 04/29/25 16:46 04/29/25 16:42 Room Air 04/29/25 16:29 Room Air Laboratory Results Short CBC 04/29/25 Range/Units 16:43 WBC 7.05 (4.8-10.8) K/ul Hgb 15.4 (14.0-18.0) g/dl Hct 46.4 (42.0-52.0) % Plt Count 192 (130-400) K/uL BMP 04/29/25 16:43 Sodium 137 Potassium 4.2 Chloride 105 Carbon Dioxide 24 BUN 18 Creatinine 0.83 Glucose 99 Calcium 9.9 Liver Function 04/29/25 Range/Units 16:43 Total Bilirubin 1.0 (0.2-1.0) mg/dl AST 14 (13-39) U/L ALT 7 (7-52) U/L Alkaline Phosphatase 91 (34-104) U/L Albumin 4.3 (3.4-5.0) gm/dl Diagnostic Findings --CT Head:No acute intracranial pathology. --CXR neurologist 7:No acute process. Calcified pleural plaques. Medications Administered Home Medications Medication Instructions Recorded Confirmed atorvastatin 20 mg tablet 20 mg PO PM 02/05/21 04/29/25 finasteride 5 mg tablet (Proscar) 5 mg PO QAM 02/05/21 04/29/25 multivitamin 1 tab PO QAM 02/05/21 04/29/25 tamsulosin 0.4 mg capsule 0.4 mg PO QAM 02/05/21 04/29/25 vitamin B complex 1 tab PO QAM 02/05/21 04/29/25 ramipril 10 mg capsule 10 mg PO QAM 09/04/24 04/29/25 aspirin 81 mg chewable tablet 81 mg PO QAM 03/22/25 04/29/25 (Aspirin Childrens) gabapentin 100 mg capsule 100 mg PO Q8 PRN Pain 03/22/25 04/29/25 ibuprofen 125 mg-acetaminophen 250 2 tab PO DAILY PRN Pain 03/22/25 04/29/25 mg tablet (Advil Dual Action) metformin 500 mg tablet,extended 500 mg PO QAM 03/22/25 04/29/25 release 24 hr clopidogrel 75 mg tablet 75 mg PO DAILY 04/29/25 04/29/25 Previous Rx's Medication Instructions Recorded metoprolol succinate 25 mg 25 mg PO QAM #30 tabs 06/08/18 tablet,extended release 24 hr CPAP Supplies #1 ea 02/27/19 CPAP Machine #1 ea 01/08/22 ECG Additional Comments: --EKG: normal sinus rhythm, PACs, 90 mg blood, T wave changes in inferolateral leads also noted on prior EKG.
[2025-04-29] MEDS ORDERED: GLUCOSE 10 TAB/TUBE PO PRN (21:40)
[2025-04-29] MEDS ORDERED: ACETAMINOPHEN 325 MG TAB PO PRN (21:40)
[2025-04-29] MEDS ORDERED: GABAPENTIN 100 MG CAP PO PRN (21:40)
[2025-04-29] MEDS ORDERED: ONDANSETRON INJ 2 MG/ML 2 ML VIAL IV PRN (21:40)
[2025-04-29] MEDS ORDERED: CARBOHYDRATES FOR HYPOGLYCEMIA PO PRN (21:40)
[2025-04-29] MEDS ORDERED: DEXTROSE 50% 50 ML SYRINGE IV PRN (21:40)
[2025-04-29] MEDS ORDERED: GLUCAGON FOR INJ 1 MG VIAL SQ PRN (21:40)
[2025-04-29] MEDS ORDERED: MECLIZINE 12.5 MG TAB PO PRN (21:40)
[2025-04-29] MEDS ORDERED: GLUCOSE 40% GEL 15 GM TUBE PO PRN (21:40)
[2025-04-29] MEDS ORDERED: POLYETHYLENE (MIRALAX) 17 GM PACK PO PRN (21:40)
[2025-04-29] MEDS: INSULIN ASPART PER UNIT CHARGE SC SCH (21:59)
[2025-04-29] MEDS: ATORVASTATIN 20 MG TAB PO SCH (22:27)
[2025-04-29] MEDS: SODIUM CHLORIDE 0.9% 1,000 ML IV ONE (22:27)
[2025-04-30 07:25] LABS: Base Excess VBG 1.1 mEq/L; HCO3 VBG 25 mmol/L; Oxygen Saturation VBG 93.2 %; PCO2 VBG 37 mmHg (38-50); PO2 VBG 62 mmHg; pH VBG 7.44 (7.36-7.41)
[2025-04-30 07:32] LABS: Hematocrit (blood only) 42.2 % (42.0-52.0); Hemoglobin 14.0 g/dl (14.0-18.0); Mean Corpuscular Hemoglobin 28.5 pg (25.0-34.0); Mean Corpuscular Volume 85.9 fL (80.0-100.0); Platelet Count 165 K/uL (130-400); RDW Standard Deviation 43.8 fL (36.4-46.3); Red Blood Count 4.91 M/uL (4.70-6.10); White Blood Count 5.22 K/ul (4.8-10.8)
[2025-04-30 07:53] LABS: Anion Gap 5.0 (3-11); Blood Urea Nitrogen 16.0 mg/dl (6-23); Calcium 9.3 mg/dl (8.6-10.3); Carbon Dioxide 27.0 mmol/L (21-32); Chloride 105.0 mmol/L (98-107); Cholesterol 109.0 mg/dl (0-200); Creatinine Clr Calc Pharmacy 100.2 ml/min; Glucose 106.0 mg/dl (70-99(Fasting)); HDL Cholesterol 29.0 mg/dl; Magnesium 2.0 mg/dl (1.7-2.4); Potassium 3.9 mmol/L (3.5-5.1); Sodium 137.0 mmol/L (136-145); Triglycerides 87.0 mg/dl (0-150)
[2025-04-30 08:07] LABS: Thyroid Stimulating Hormone 2.121 uIu/ml (0.300-4.500)
[2025-04-30] MEDS: ASPIRIN 81 MG ECTAB PO SCH (08:19)
[2025-04-30] MEDS: CLOPIDOGREL BISULFATE 75 MG TAB PO SCH (08:20)
[2025-04-30] MEDS: ENALAPRIL MALEATE 10 MG TAB PO SCH (08:20)
[2025-04-30] MEDS: FINASTERIDE 5 MG TAB PO SCH (08:21)
[2025-04-30] MEDS: METOPROLOL SUCC 25MG EXT REL TAB PO SCH (08:21)
[2025-04-30] MEDS: TAMSULOSIN HCL 0.4 MG CAP PO SCH (08:23)
[2025-04-30] MEDS: ENOXAPARIN INJ 40 MG/0.4 ML SYR SQ SCH (08:23)
--- NOTE | 2025-04-30 09:52 | Hospitalist Progress Note ---
Date of Service April 30, 2025 Assessment & Plan (1) Ambulatory dysfunction: (2) Confusion: Plan: Dizziness Ambulatory dysfunction H/O CVA --CT Head:No acute intracranial pathology. --CTA Head from 03/22/25: Calcific plaque producing moderate proximal left M2 stenosis. No large vessel occlusion. Advanced chronic small-vessel ischemic disease. --CTA Neck from 03/22/25:No dissection, hemodynamically significant stenosis, or occlusion. Orthostatic vitals negative Plan to obtain echocardiogram, MRI of the brain, pacemaker interrogation Continue on aspirin, Plavix and statin PT OT evaluation Altered mental status DD: Metabolic encephalopathy H/O Mild cognitive impairment Patient reports transient confusion intermittently for about 1 week Urinalysis pending MRI pending as above DM II Hold metformin Continue insulin while hospitalized Monitor glucose levels Dyslipidemia Continue statin Coronary artery disease s/p CABG Continue aspirin, statin, metoprolol, Plavix TIMOTHY on CPAP Hypertension Continue DMITRY inhibitor, metoprolol BPH Continue Flomax, finasteride Monitor for urinary retention Tachybradycardia syndrome s/p pacemaker Continue metoprolol DVT Px: Lovenox SQ Code Status Full Code Disposition Admit to [facility] with telemetry Time spent evaluating patient, direct bedside care, chart review, placing orders, interpretation of diagnostic studies, discussion with consultants, patient, and family members, as well as other required patient management activities is 50 minutes Please note the above document was generated using voice recognition software. It may contain grammatical, syntax or spelling errors. Any formal questions or concerns about the content, text or information contained within the body of this dictation should be directly addressed to the provider for clarification Admission and Anticipated Discharge Date Admission Date: April 29, 2025 Subjective Patient seen and examined at bedside. He is sitting up on the chair at the side of the bed comfortably. He reports dizziness intermittently. Denies dizziness at this time No complaint of chest pain, shortness of breath, abdomen pain, fever or chills. No complaint of urinary symptoms Review of Systems Review of Systems: All systems reviewed & are unremarkable except as noted in Subjective Physical Exam Physical Exam: Physical Exam: Vitals signs as noted above General Appearance:Moderately built and nourished, no apparent distress Respiratory/Chest: Normal breath sounds, CTA, No accessory muscle use Cardiovascular: S1, S2, No murmur, +Pacer Abdomen/GI:Soft, Non tender, Bowel sounds present Extremities/Musculoskeletal:normal inspection, no edema Neurologic/Psych: Alert, awake, oriented to person place and situation, confused about today's date, no focal neurological deficits on exam Skin: normal color, warm Results & Data Results & Data Vital Signs (Past 12 Hours) Vital Signs Temp Pulse Resp BP BP Pulse Ox O2 Del Method 04/30/25 07:37 36.3 C L 63 20 155/92 H 92 Room Air 04/30/25 03:01 36.4 C 64 18 117/59 L 93 Room Air 04/29/25 22:02 36.7 C 70 18 158/99 H 92 Room Air
[2025-04-30] MEDS: GADOBUTROL 65ML VIAL IV ONE (13:24)
--- NOTE | 2025-04-30 13:54 | XCELERA ---
[id number]
--- NOTE | 2025-04-30 14:04 | Magnetic Resonance Report ---
MRI OF THE BRAIN COMBO CLINICAL HISTORY: Dizziness. COMPARISON STUDY: 01/18/2024, CT scan dated 04/29/2025 TECHNIQUE: MRI of the brain was performed utilizing various T1 and T2-weighted sequences in the axial , sagittal, and coronal planes. Contrast-enhanced sequences were acquired following the administratio n of 9 cc of Gadavist. FINDINGS: No intraventricular extra-axial mass lesions are visualized. Axial diffusion-weighted images reveal a 1 cm focus of restricted water diffusion within the right po sterior medial occipital lobe consistent with an acute/subacute infarct. T2-weighted and FLAIR images reveal multiple foci of increased T2 signal within the periventricular w donato matter, likely on a small vessel ischemic basis. Gradient echo images reveal no foci of hemorrhage. Postcontrast images reveal no pathologically enhancing masses. There is mild ventricular prominence, proportional to the degree of parenchymal volume loss. IMPRESSION: 1. Interval development of a 1 cm acute/subacute infarct involving the right posterior medial occipit al lobe 2. No evidence of intracranial mass 3. Atrophy and moderate periventricular white matter disease likely on a small vessel ischemic basis ACT 112: Negative or not required by law. Electronically signed by: Prasad Romero M.D. 04/30/2025 2:02 PM
--- NOTE | 2025-04-30 16:48 | Neurology Consultation ---
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 He has no focal findings on exam. CT and CTA were unremarkable but MRI showed a right occiptial lobe stroke. I believe that the stroke is incidental and unrelated to his dizziness and gait instability. Plan -- only needs 1 antiplatelet from a stroke perspective -- pacemaker interrogation pending -- recommend Eliquis if afib is detected -- recommend outpatient neurology follow up for shuffling gait and balance -- balance center referral Telehealth Consultation Telehealth Information Telehealth Information: I performed this visit using a real-time telehealth connection between my location and the patients originating location ([facility]). After connecting through interactive tele-video, patient was identified by name and date of and/or wristband check.Patient (or authorized healthcare financial services representative) was informed that this was a telemedicine visit and it was being conducted confidentially over secure lines. My office door was closed and no one else was present in the room with me.Patient (or authorized healthcare financial services representative) provided consent to proceed with the visit, expressed an understanding of privacy and security of the telemedicine visit, and gave permission to have a hospital financial services representative in the room in order to assist with the visit and to conduct portions of the visit, as needed. I informed the patient (or authorized healthcare financial services representative) that I reviewed their record and presented the opportunity for them to ask any questions regarding the visit today. The patient agreed to participate. History of Present Illness Reason for Consultation: Stroke Attending Physician: Prasanna Seth MD History of Present Illness Sandra Beverly is a 79M with a PMh of HTN, HLD, CABG, tachy-rebecca syndrome, PAT, DM2, CAD, who presents with dizziness. Patient is a difficulty historian. He reports that he has been feeling intermittent room spinning dizziness which occurs multiple times a day and usually happens when he goes from sitting to standing but can occur at anytime. He says that it lasts for 1-2 hours. He denies falling. He also reports that for that last several months he constantly feels like he is falling forward when he walks. He also reports intermittent headache and numbness in his feet. He denies weakness, vision changes, chest pain and SOB. Allergies Allergy/AdvReac Type Severity Reaction Status Date / Time ampicillin Allergy Mild Rash Verified 01/04/25 13:53 Home Medications Medication Instructions Recorded Confirmed Type metoprolol succinate 25 mg 25 mg PO QAM #30 tabs 06/08/18 04/29/25 Rx tablet,extended release 24 hr CPAP Supplies #1 ea 02/27/19 04/29/25 Rx atorvastatin 20 mg tablet 20 mg PO PM 02/05/21 04/29/25 History finasteride 5 mg tablet (Proscar) 5 mg PO QAM 02/05/21 04/29/25 History multivitamin 1 tab PO QAM 02/05/21 04/29/25 History tamsulosin 0.4 mg capsule 0.4 mg PO QAM 02/05/21 04/29/25 History vitamin B complex 1 tab PO QAM 02/05/21 04/29/25 History CPAP Machine #1 ea 01/08/22 04/29/25 Rx ramipril 10 mg capsule 10 mg PO QAM 09/04/24 04/29/25 History aspirin 81 mg chewable tablet 81 mg PO QAM 03/22/25 04/29/25 History (Aspirin Childrens) gabapentin 100 mg capsule 100 mg PO Q8 PRN Pain 03/22/25 04/29/25 History ibuprofen 125 mg-acetaminophen 250 2 tab PO DAILY PRN Pain 03/22/25 04/29/25 History mg tablet (Advil Dual Action) metformin 500 mg tablet,extended 500 mg PO QAM 03/22/25 04/29/25 History release 24 hr clopidogrel 75 mg tablet 75 mg PO DAILY 04/29/25 04/29/25 History Patient History Medical History Sleep apnea Excessive daytime sleepiness Diaphragmatic hernia Carpal tunnel syndrome Solitary pulmonary nodule Hyperlipidemia Chronic ischemic heart disease History of COVID-19 06/05/22 (PCR [facility]- report scanned into [employer])- asymptomatic. 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) Surgical History History of inguinal hernia repair Left (01/2021) S/P epidural steroid injection Status post total shoulder arthroplasty left History of tooth extraction History of colonoscopy History of cataract surgery R/L History of tonsillectomy History of heart artery stent 2016 Hx of appendectomy Family History Mother , 61 Pulmonary embolism Father , 74 Stroke Brother Coronary heart disease 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 Smoking Status: Never smoker Second Hand Exposure: No; Do You Dip or Chew Tobacco: No; Hx Alcohol Use: No Hx Substance Use: No Preferred Language: Bolivian Communication Ability: Effective Bass Fisher Required: No Beliefs That Will Affect Care: None Current Living Situation: Spouse Current Living Situation Comment: lives at home with Feels Safe at Home: Yes Safety Concerns: Feels Safe At This Time Assistive Devices: Cane and Walker Review of Systems see HPI Physical Exam NEUROLOGIC EXAMINATION: Mental Status:alert, oriented to time, place, person, difficult recent memory, normal remote memory, normal attention span, normal concentration, normal language, and normal fund of knowledge Cranial Nerves: CN 2 - no visual defect on confrontation and pupils round, equal, reactive to light CN 3, 4, 6 - extra-ocular movements intact and no nystagmus CN 5 - facial sensation intact CN 7 - no facial asymmetry CN 8 - intact hearing CN 9, 10 - palate symmetric, normal gag CN 11 - good shoulder shrug CN 12 - tongue midline MOTOR: Strength was at least antigravity throughout, Pronator drift was absent, and There were no abnormal movements SENSATION: intact GAIT: deferred COORDINATION: no ataxia with finger to nose testing and heel to saleem testing REFLEXES: cannot assess over telemedicine Results & Data Vital Signs (Past 12 Hours) Vital Signs Temp Pulse Pulse Resp BP BP Pulse Ox 04/30/25 16:36 60 04/30/25 15:02 36.6 C 61 18 119/74 92 04/30/25 11:14 36.5 C 60 20 112/70 94 04/30/25 11:09 72 04/30/25 07:37 36.3 C L 63 20 155/92 H 92 O2 Del Method 04/30/25 16:36 04/30/25 15:02 Room Air 04/30/25 11:14 Room Air 04/30/25 11:09 04/30/25 07:37 Room Air Laboratory Results Abnormal Lab Results 04/29/25 04/29/25 04/29/25 16:43 16:52 21:49 WBC 7.05 RBC 5.33 Hgb 15.4 POC Hgb 16.0 Hct 46.4 POC Hct 47 MCV 87.1 MCH 28.9 MCHC 33.2 RDW Std Deviation 44.6 RDW Coeff of Nacho 14.1 Plt Count 192 MPV 10.0 Immature Gran % (Auto) 0.1 Neut % (Auto) 58.8 Lymph % (Auto) 29.6 [place] % (Auto) 8.2 Eos % (Auto) 3.0 Baso % (Auto) 0.3 Neut # (Auto) 4.14 Lymph # (Auto) 2.09 [place] # (Auto) 0.58 Eos # (Auto) 0.21 Baso # (Auto) 0.02 Immature Gran # (Auto) 0.01 PT 11.4 INR 1.1 APTT 28 PTT Ratio 1.0 VBG pH VBG pCO2 VBG pO2 VBG HCO3 VBG O2 Saturation VBG Base Excess POC Sodium 139 Sodium 137 POC Potassium 4.1 Potassium 4.2 POC Chloride 104 Chloride 105 Carbon Dioxide 24 POC Total CO2 22 L Anion Gap 8 POC Anion Gap 18.0 POC BUN 18 BUN 18 Creatinine 0.83 POC Creatinine 0.9 Est Cr Clr Drug Dosing 87.9 eGFR 89.03 BUN/Creatinine Ratio 21.7 H Glucose 99 POC Glucose 103 H POC Glucose (other) 97 Calcium 9.9 POC Ioniz Calcium Ashvin 1.22 Magnesium 2.1 Total Bilirubin 1.0 AST 14 ALT 7 Alkaline Phosphatase 91 Ammonia Troponin I High Sens 7.5 Total Protein 7.4 Albumin 4.3 Globulin 3.1 Albumin/Globulin Ratio 1.4 Triglycerides Cholesterol LDL Cholesterol, Calc VLDL Cholesterol, Calc HDL Cholesterol Cholesterol/HDL Ratio Procalcitonin < 0.02 TSH Lyme Disease Screen Negative 04/30/25 04/30/25 07:11 12:51 WBC 5.22 RBC 4.91 Hgb 14.0 POC Hgb Hct 42.2 POC Hct MCV 85.9 MCH 28.5 MCHC 33.2 RDW Std Deviation 43.8 RDW Coeff of Nacho 13.9 Plt Count 165 MPV 10.2 Immature Gran % (Auto) Neut % (Auto) Lymph % (Auto) [place] % (Auto) Eos % (Auto) Baso % (Auto) Neut # (Auto) Lymph # (Auto) [place] # (Auto) Eos # (Auto) Baso # (Auto) Immature Gran # (Auto) PT INR APTT PTT Ratio VBG pH 7.44 H VBG pCO2 37 L VBG pO2 62 VBG HCO3 25 VBG O2 Saturation 93.2 VBG Base Excess 1.1 POC Sodium Sodium 137 POC Potassium Potassium 3.9 POC Chloride Chloride 105 Carbon Dioxide 27 POC Total CO2 Anion Gap 5 POC Anion Gap POC BUN BUN 16 Creatinine 0.73 POC Creatinine Est Cr Clr Drug Dosing 100.2 eGFR 92.55 BUN/Creatinine Ratio 21.9 H Glucose 106 H POC Glucose 91 POC Glucose (other) Calcium 9.3 POC Ioniz Calcium Ashvin Magnesium 2.0 Total Bilirubin AST ALT Alkaline Phosphatase Ammonia 43.0 Troponin I High Sens Total Protein Albumin Globulin Albumin/Globulin Ratio Triglycerides 87 Cholesterol 109 LDL Cholesterol, Calc 63 VLDL Cholesterol, Calc 17 HDL Cholesterol 29 Cholesterol/HDL Ratio 3.8 Procalcitonin TSH 2.121 Lyme Disease Screen Diagnostic Findings Brain MRI 04/30/25 07:15 MRI OF THE BRAIN COMBO CLINICAL HISTORY: Dizziness. COMPARISON STUDY: 01/18/2024, CT scan dated 04/29/2025 TECHNIQUE: MRI of the brain was performed utilizing various T1 and T2-weighted sequences in the axial, sagittal, and coronal planes. Contrast-enhanced sequences were acquired following the administration of 9 cc of Gadavist. FINDINGS: No intraventricular extra-axial mass lesions are visualized. Axial diffusion-weighted images reveal a 1 cm focus of restricted water diffusion within the right posterior medial occipital lobe consistent with an acute/subacute infarct. T2-weighted and FLAIR images reveal multiple foci of increased T2 signal within the periventricular white matter, likely on a small vessel ischemic basis. Gradient echo images reveal no foci of hemorrhage. Postcontrast images reveal no pathologically enhancing masses. There is mild ventricular prominence, proportional to the degree of parenchymal volume loss. IMPRESSION: 1. Interval development of a 1 cm acute/subacute infarct involving the right posterior medial occipital lobe 2. No evidence of intracranial mass 3. Atrophy and moderate periventricular white matter disease likely on a small vessel ischemic basis ACT 112: Negative or not required by law. Electronically signed by: Prasad Romero M.D. 04/30/2025 2:02 PM
[2025-04-30] MEDS: OPTIRAY 320 125ml IV ONE (17:03)
[2025-04-30 17:08] LABS: Appearance Urine Clear (Clear); Glucose Urine UA Negative (Negative)
--- NOTE | 2025-04-30 17:36 | CT Scan Report ---
CT angiogram of the neck CT angiogram of the brain with contrast Provided History: Neuro deficit Comparison: None Technique: HEAD and NECK CTA: During rapid bolus intravenous injection of nonionic contrast material, axial images were obtained using thin collimation multidetector helical technique from the base of the neck through the of vertex of the head. This CT angiogram data was reconstructed at thin intervals with mild overlap. 3D reconstructions were obtained. The axial source images, multiplanar reformations, 3D reconstructions in both maximum intensity projection display and volume rendered models were reviewed. Dose reduction techniques were achieved by using automatic exposure control and/or adjustment of mA and/or kV according to patient size and/or use of iterative reconstruction technique. Findings: Head CTA demonstrates no aneurysm or stenosis of the major intracranial arteries. Neck CTA demonstrates no stenosis of the major cervical arteries. Moderate calcification of the carotid bulbs bilaterally without associated stenosis. The origins of the great vessels from the aortic arch are patent. No mass is noted within the visualized portions of the cervical soft tissues or lung apices. Impression: 1. Head CTA demonstrates no aneurysm or stenosis of the major intracranial arteries, 2. Neck CTA demonstrates no stenosis of the major cervical arteries. Electronically signed by Prabhakar Valdez 04-30-2025 5:34 PM
[2025-04-30] MEDS: ATORVASTATIN 40 MG TAB PO SCH (20:52)
[2025-05-01 07:02] LABS: Hematocrit (blood only) 43.6 % (42.0-52.0); Hemoglobin 14.9 g/dl (14.0-18.0); Immature Granulocytes # (auto) 0.01 K/uL (0.01-0.20); Immature Granulocytes % (auto) 0.2 %; Mean Corpuscular Hemoglobin 29.2 pg (25.0-34.0); Mean Corpuscular Volume 85.3 fL (80.0-100.0); Platelet Count 186 K/uL (130-400); RDW Standard Deviation 42.8 fL (36.4-46.3); Red Blood Count 5.11 M/uL (4.70-6.10); White Blood Count 5.33 K/ul (4.8-10.8)
[2025-05-01 07:22] LABS: Anion Gap 8.0 (3-11); Blood Urea Nitrogen 14.0 mg/dl (6-23); Calcium 9.7 mg/dl (8.6-10.3); Carbon Dioxide 25.0 mmol/L (21-32); Chloride 104.0 mmol/L (98-107); Creatinine Clr Calc Pharmacy 99.2 ml/min; Glucose 106.0 mg/dl (70-99(Fasting)); Potassium 3.9 mmol/L (3.5-5.1); Sodium 137.0 mmol/L (136-145)
[2025-05-01 07:51] VITALS: O2SAT 92
--- NOTE | 2025-05-01 09:53 | Discharge Summary ---
Date of Service May 01, 2025 Admission HPI Per Admitting Provider Patient is a 79-year-old male with history of diabetes mellitus type 2, dyslipidemia, coronary artery disease s/p CABG, TIMOTHY on CPAP, right bundle branch block, monoclonal paraproteinemia, peripheral neuropathy, hypertension, mild cognitive impairment, BPH, tachybradycardia syndrome s/p pacemaker, history of CVA per record and other medical problems presents with history of dizziness Which has been ongoing for about 10 days. Patient states that He was evaluated in the ED 1 month ago and his CT scan showed no acute abnormality and so was discharged home. Patient states having persistent dizziness which he feels like " room spinning sensation" which has been intermittent without any aggravating or relieving factors. He also states having some blurry vision associated with dizziness. He denies any positional change with dizziness, any change in hearing or recent upper respiratory tract infections. He reports chronic numbness and tingling in his extremities which are unchanged. He uses a cane for ambulation at baseline. He believes that his transiently confused since fall 1 week. Denies any history of chest pain, dyspnea, palpitations, pedal edema, cough, wheezing, hemoptysis, fever, chills, fall, head trauma, syncope, headache, focal weakness, slurred speech, facial deformity, bowel/bladder incontinence, nausea, vomiting, abdominal pain, blood in stools, diarrhea, change in appetite, weight loss, dysuria, hematuria. Admission Exam Per Admitting Provider General Appearance:Moderately built and nourished, no apparent distress Head: normocephalic, Atraumatic Eyes: normal inspection, EOMI Neck: supple, Trachea midline Respiratory/Chest: Normal breath sounds, CTA, No accessory muscle use Cardiovascular: S1, S2, No murmur, +Pacer Abdomen/GI:Soft, Non tender, Bowel sounds present Extremities/Musculoskeletal:normal inspection, no edema Neurologic/Psych: Alert, awake, oriented to person place and situation, confused about today's date, no focal neurological deficits on exam Skin: normal color, warm Principal Diagnosis acute/subacute infarct involving the right posterior medial occipital lobe Discharge Exam Physical Exam: Vitals signs as noted above General Appearance:Moderately built and nourished, no apparent distress Respiratory/Chest: Normal breath sounds, CTA, No accessory muscle use Cardiovascular: S1, S2, No murmur, +Pacer Abdomen/GI:Soft, Non tender, Bowel sounds present Extremities/Musculoskeletal:normal inspection, no edema Neurologic/Psych: Alert, awake, oriented to person place and situation. no gross focal neuro deficits Skin: normal color, warm Discharge Data Allergies Allergy/AdvReac Type Severity Reaction Status Date / Time ampicillin Allergy Mild Rash Verified 01/04/25 13:53 Consultations 04/29/25 19:24 ED Decision to Admit Stat 04/30/25 15:36 Consult Neurology Routine Ordered Studies 04/29/25 16:50 CT head/brain wo con Stat 04/30/25 07:15 MR brain wo/w con Stat 04/30/25 15:37 CTA head w con [CT angio head w con] Urgent CTA neck with con [CT angio neck with con] Urgent Hospital Course (1) Ambulatory dysfunction: (2) Confusion: Dizziness Acute/subacute infarct involving the right posterior medial occipital lobe Patient presented to the hospital due to intermittent dizziness --CT Head:No acute intracranial pathology. --CTA Head from 03/22/25: Calcific plaque producing moderate proximal left M2 stenosis. No large vessel occlusion. Advanced chronic small-vessel ischemic disease. --CTA Neck from 03/22/25:No dissection, hemodynamically significant stenosis, or occlusion. Orthostatic vitals negative MRI brain showed Interval development of a 1 cm acute/subacute infarct involving the right posterior medial occipital lobe Echocardiogram shows EF of 60 to 65%; grade 2 diastolic dysfunction Pacemaker interrogation did not show any significant arrhythmia Telemetry did not show any significant finding PT OT evaluation was done; patient was found similar to his baseline. Patient reported that the dizziness resolved and he feels he is at baseline. No medication changes were done. Please note the above document was generated using voice recognition software. It may contain grammatical, syntax or spelling errors. Any formal questions or concerns about the content, text or information contained within the body of this dictation should be directly addressed to the provider for clarification Total Time Total Time Spent Total Time Spent (In Minutes): 56 Total Time Includes: Examination of the Patient, Discharge Planning, Medication Reconciliation, Communication With Other Providers and Other Discharge Plan Discharge Items Patient Disposition: Home - Self-Care Reason For Visit: DIZZINESS Discharge Diagnosis: acute/subacute infarct involving the right posterior medial occipital lobe Activity: Resume your previous activity Non-emergency contact: Primary Care Provider Call non-emergency contact if: you have any medication questions and your symptoms worsen Follow-up/Referrals: Enrique Awad MD [Outside Practitioners] - 05/15/25 2:15 pm Crystal Walter DO [Primary Care Provider] - (Date & Time 05/07/2025 11:20 AM Provider: Crystal Walter DO [facility] ) Lizzie Cross PA-C [Physician [employer]er] - 05/10/25 10:00 am Diet: Regular Addtl Attending Provider Instructions: You were admitted to the hospital for dizziness. You are found to have a stroke. You were evaluated by neurology. They recommend outpatient neurology follow-up which is set up on May 10, 2025. He will also need balance center referral when you follow-up with them. No medication changes were done Pending Studies at Discharge: No Stand-Alone Forms: My [facility] [employer], Smoking Cessation Medications and DC Order Prescriptions: Continued (DME) CPAP Supplies Misc See Dose Instructions .ROUTE .MEDSUPPLY Qty: 1 0RF Dose Instruction: As directed Rx Instructions: As directed (DME) CPAP Machine Misc .Route Qty: 1 0RF Rx Instructions: Changed from auto CPAP to fixed CPAP at 13 cm of water.F&P med VItera mask, lifetime need, [facility] Home patient metoprolol succinate 25 mg Tablet Extended Release 24 Hr 25 mg PO QAM Qty: 30 0RF multivitamin Tablet 1 tab PO QAM vitamin B complex Tablet Extended Release 1 tab PO QAM atorvastatin 20 mg Tablet 20 mg PO PM tamsulosin 0.4 mg Capsule 0.4 mg PO QAM finasteride [Proscar] 5 mg Tablet 5 mg PO QAM ramipril 10 mg capsule 10 mg PO QAM aspirin [Aspirin Childrens] 81 mg Tablet,Chewable 81 mg PO QAM gabapentin 100 mg capsule 100 mg PO Q8 PRN (Reason: Pain) metformin 500 mg tablet extended release 24 hr 500 mg PO QAM ibuprofen-acetaminophen [Advil Dual Action] 125-250 mg Tablet 2 tab PO DAILY PRN (Reason: Pain) clopidogrel 75 mg tablet 75 mg PO DAILY Discharge Orders: Discharge Order (Routine); Ordered 05/01/25 Ordered By: Prasanna Seth Admission Data Admit Date/Time: 04/29/25 20:09 Attending Provider: Devkota,Prasanna Admit Provider: Armando Frausto Primary Care Provider: Crystal Walter Other Providers: Armando Frausto; [facility]; Lewis Concepcion
[2025-05-01 11:24] VITALS: PULSE 65; RESP 18; TEMP 97.7
[2025-05-01 12:33] VITALS: BP 150/87
--- NOTE | 2025-05-03 13:35 | Electrocardiogram Report ---
Test Reason : Blood Pressure : */* mmHG Vent. Rate : 73 BPM Atrial Rate : 73 BPM P-R Int : 154 ms QRS Dur : 136 ms QT Int : 424 ms P-R-T Axes : * 75 185 degrees QTcB Int : 467 ms Atrial-paced rhythm with Premature atrial complexes Right bundle branch block T wave abnormality, consider inferolateral ischemia Abnormal ECG When compared with ECG of 22-Mar-2025 19:31, No significant change Confirmed by Boy Ghosh ([id number]) on 05/03/2025 1:34:40 PM Referred By: REFERRED SELF Confirmed By: Boy Ghosh
== END 2025-05-01 13:18 | disposition home or self-care (01) | DRG 66 ==
LOC: ED 16:25 → 2N 20:09